=== PATIENT | male | born 1975 | race Caucasian/White ===

== ENCOUNTER 2018-05-01 02:22 | Emergency (ER) | payer MEDICARE, OTHER ==
[2018-05-01 03:06] VITALS: TEMP 97.4
--- NOTE | 2018-05-01 03:29 | ED ---
General Adult HPI - General Chief complaint: Skin/Abscess/Foreign Body Stated complaint: foot pain Time Seen by Provider: 05/01/18 03:09 Source: patient, family, RN notes reviewed, old records reviewed Mode of arrival: ambulatory Limitations: no limitations - History of Present Illness Initial comments: 43-year-old male presents with rash to hands and lower extremities. He has history of scabies. States he has tried permethrin on multiple occasions but rash is not improved. He has left his apartment because he believes it is contaminated. Denies fever or chills. Denies cough dyspnea. Denies abdominal pain. Rash is extremely pruritic. - Related Data Previous Rx's Medication Instructions Recorded Ivermectin 15 mg PO ONCE #5 tablet 05/01/18 Permethrin 5% Cream [Elimite] 1 applic TOPICAL ONCE #1 tube 05/01/18 Allergies Allergy/AdvReac Type Severity Reaction Status Date / Time No Known Allergies Allergy Verified 05/01/18 03:06 Review of Systems ROS Statement: Those systems with pertinent positive or pertinent negative responses have been documented in the HPI. ROS Other: All systems not noted in ROS Statement are negative. Past Medical History Past Medical History: Asthma Additional Past Medical History / Comment(s): scabies History of Any Multi-Drug Resistant Organisms: MRSA Date of last positivie culture/infection: buttocks MDRO Source:: 2017 Past Surgical History: Bariatric Surgery Past Psychological History: Bipolar Smoking Status: Current every day smoker Past Alcohol Use History: None Reported Past Drug Use History: None Reported General Exam Limitations: no limitations General appearance: alert, in no apparent distress Head exam: Present: atraumatic, normocephalic Eye exam: Present: normal appearance, PERRL, EOMI ENT exam: Present: normal exam Neck exam: Present: normal inspection. Absent: tenderness, meningismus Respiratory exam: Present: normal lung sounds bilaterally. Absent: respiratory distress, wheezes Cardiovascular Exam: Present: regular rate, normal rhythm GI/Abdominal exam: Present: soft. Absent: distended, tenderness, guarding Extremities exam: Absent: normal capillary refill, pedal edema Back exam: Present: other (Kyphosis) Neurological exam: Present: alert, oriented X3. Absent: motor sensory deficit Psychiatric exam: Present: normal affect, normal mood Skin exam: Present: warm, dry, normal color, rash, erythema, other ( Erythematous pruritic lesions on the lower extremities consistent with scabies) Course Vital Signs 05/01/18 03:00 Temperature 97.4 F L Pulse Rate 84 Respiratory 20 Rate Blood Pressure 123/86 O2 Sat by Pulse 97 Oximetry Medical Decision Making - Medical Decision Making 42-year-old male presenting with rash, consistent with scabies. He has history scabies. He has tried permethrin in the past however his symptoms have only minimally improved. I will prescribe permethrin as well as ivermectin. Dose was confirmed with the pharmacist. Disposition Clinical Impression: Scabies Disposition: HOME SELF-CARE Condition: Good Instructions: Scabies (ED) Prescriptions: Ivermectin 15 mg PO ONCE #5 tablet Permethrin 5% Cream [Elimite] 1 applic TOPICAL ONCE #1 tube Is patient prescribed a controlled substance at d/c from ED?: No Referrals: None,Stated [Primary Care Provider] - 1-2 days Rhoda Stewart MD [STAFF PHYSICIAN] - 1-2 days Time of Disposition: 03:29
[2018-05-01 03:53] VITALS: BP 122/90; PULSE 76; RESP 17
== END 2018-05-01 03:53 | disposition home or self-care (01) ==
LOC: EC 02:22
DX: B86 Scabies (principal); F17.200 Nicotine dependence, unspecified, uncomplicated; Z98.84 Bariatric surgery status
CPT/HCPCS: 99283

== ENCOUNTER 2020-07-17 21:18 | Inpatient (IN) | payer MEDICARE, MEDICAID ==
[2020-07-17] MEDS ORDERED: AZITHROMYCIN 500 MG TAB PO STA (22:04)
[2020-07-17] MEDS ORDERED: cefTRIAXone 1,000 MG VIAL (IM USE) IM STA (22:04)
[2020-07-17 22:28] LABS: Appearance,Urine Clear (Clear); Bilirubin,Urine Negative (Negative); Blood,Urine Small (Negative); Color,Urine Yellow; Glucose,Urine (UA) Negative (Negative); Ketones,Urine Negative (Negative); Leukocyte Esterase,Urine Negative (Negative); Nitrite,Urine Negative (Negative); PH, Urine 6.5 (5.0-8.0); Protein,Urine Trace (Negative); RBC,Urine 5 /hpf (0-5); Specific Gravity,Urine 1.023 (1.001-1.035); Urobilinogen,Urine <2.0 mg/dL (<2.0); WBC,Urine 4 /hpf (0-5)
[2020-07-17 22:35] LABS: Amphetamine Screen,Urine Not Detected (NotDetected); Barbiturate Screen,Urine Not Detected (NotDetected); Benzodiazepines Screen,Urine Not Detected (NotDetected); Cocaine Screen,Urine Detected (NotDetected); Methadone Screen, Urine Not Detected (NotDetected); Opiate Screen,Urine Not Detected (NotDetected); Oxycodone Screen, Urine Not Detected (NotDetected); Phencyclidine Screen,Urine Not Detected (NotDetected); Tricyclic Antidepressant,Urine Not Detected (NotDetected); Urn Cannabinoid Scrn Detected (NotDetected)
--- NOTE | 2020-07-17 23:01 | ED ---
Psych HPI - General Chief Complaint: Psychiatric Symptoms Stated Complaint: Mental health Time Seen by Provider: 07/17/20 21:32 Source: patient Mode of arrival: ambulatory - History of Present Illness Initial Comments: 45 year-old male patient presents to the emergency department for suicidal ideation. Patient has a plan to cut his wrists and arms with an exacto knife. Patient states that he recently lost his place to live. States that for the last couple of weeks he has been increasingly depressed. States he does take depression medication, but not every day. Denies alcohol or drug use. Denies any current physical symptoms or concerns. Patient denies any recent rash, fever, chills, cough, shortness of breath, chest pain, abdominal pain, nausea, vomiting, diarrhea, constipation, back pain, numbness, tingling, dizziness, weakness, hematuria, dysuria, urinary urgency, urinary frequency, headache, visual changes, or any other complaints. - Related Data Previous Rx's Medication Instructions Recorded Ivermectin 15 mg PO ONCE #5 tablet 05/01/18 Permethrin 5% Cream [Elimite] 1 applic TOPICAL ONCE #1 tube 05/01/18 Allergies Allergy/AdvReac Type Severity Reaction Status Date / Time No Known Allergies Allergy Verified 07/17/20 21:29 Review of Systems ROS Statement: Those systems with pertinent positive or pertinent negative responses have been documented in the HPI. ROS Other: All systems not noted in ROS Statement are negative. Past Medical History Past Medical History: Asthma, Thyroid Disorder Additional Past Medical History / Comment(s): scabies History of Any Multi-Drug Resistant Organisms: MRSA Date of last positivie culture/infection: buttocks MDRO Source:: 2016 Past Surgical History: Bariatric Surgery Past Psychological History: Bipolar, Depression Smoking Status: Current every day smoker Past Alcohol Use History: Daily Past Drug Use History: None Reported General Exam Limitations: no limitations General appearance: alert, in no apparent distress Respiratory exam: Present: normal lung sounds bilaterally. Absent: respiratory distress, wheezes, rales, rhonchi, stridor Cardiovascular Exam: Present: regular rate, normal rhythm, normal heart sounds. Absent: systolic murmur, diastolic murmur, rubs, gallop, clicks Neurological exam: Present: alert, oriented X3, CN II-XII intact Psychiatric exam: Present: depressed, suicidal ideation. Absent: homicidal ideation Skin exam: Present: warm, dry, intact, normal color. Absent: rash Course Vital Signs 07/17/20 21:26 Temperature 98 F Pulse Rate 72 Respiratory 18 Rate Blood Pressure 133/93 O2 Sat by Pulse 98 Oximetry Medical Decision Making - Medical Decision Making 45 year-old male patient presented to the emergency department today for evaluation of suicidal ideation. Patient was cleared medically and evaluated by emergency psychiatric services. He did meet inpatient criteria be transferred to the mental health unit. My attending physician is Dr. Daniel. - Lab Data Lab Results 07/17/20 07/17/20 07/17/20 Range/Units 21:52 21:52 22:01 Urine Color Yellow Urine Appearance Clear (Clear) Urine pH 6.5 (5.0-8.0) Ur Specific [place] 1.023 (1.001-1.035) Urine Protein Trace H (Negative) Urine Glucose (UA) Negative (Negative) Urine Ketones Negative (Negative) Urine Blood Small H (Negative) Urine Nitrite Negative (Negative) Urine Bilirubin Negative (Negative) Urine Urobilinogen <2.0 (<2.0) mg/dL Ur Leukocyte Esterase Negative (Negative) Urine RBC 5 (0-5) /hpf Urine WBC 4 (0-5) /hpf Urine Opiates Screen Not Detected (NotDetected) Ur Oxycodone Screen Not Detected (NotDetected) Urine Methadone Screen Not Detected (NotDetected) Ur Propoxyphene Screen Not Detected (NotDetected) Ur Barbiturates Screen Not Detected (NotDetected) U Tricyclic Antidepress Not Detected (NotDetected) Ur Phencyclidine Scrn Not Detected (NotDetected) Ur Amphetamines Screen Not Detected (NotDetected) U Methamphetamines Scrn Not Detected (NotDetected) U Benzodiazepines Scrn Not Detected (NotDetected) Urine Cocaine Screen Detected H (NotDetected) U Marijuana (THC) Screen Detected H (NotDetected) Coronavirus (PCR) Not Detected (Not Detectd) Disposition Clinical Impression: Suicidal ideation Disposition: TRANSFER TO PSYCH HOSP/UNIT Condition: Serious - Out of Hospital Transfer - Req. Specs Out of Hospital Transfer - Requested Specifics: Psychiatric Non-ICU ([facility])
[2020-07-17] MEDS ORDERED: MAG HYDROX/AL HYDROX/SIMETH 30 ML CUP PO PRN (23:35)
[2020-07-17] MEDS ORDERED: MAGNESIUM HYDROXIDE 2,400 MG/10 ML CUP PO PRN (23:35)
[2020-07-17] MEDS ORDERED: HALOPERIDOL LACTATE 5 MG/ML 1 ML VIAL IM PRN (23:47)
[2020-07-18] MEDS: GABAPENTIN 400 MG CAP PO SCH ×2 (00:24→08:25)
[2020-07-18] MEDS: clonazePAM 0.5 MG TAB PO SCH ×3 (00:24→20:45)
[2020-07-18] MEDS: NICOTINE 21MG/24HR PATCH TRANSDERM SCH ×2 (00:27→08:25)
[2020-07-18 00:41] VITALS: RESP 17
[2020-07-18] MEDS ORDERED: PERMETHRIN 5% CREAM 60 GM TUBE TOPICAL ONE (02:58)
[2020-07-18] MEDS ORDERED: IVERMECTIN 3 MG TABLET PO STA (02:58)
--- NOTE | 2020-07-18 03:02 | P.CONS ---
History of Present Illness - Reason for Consult Consult date: 07/18/20 - History of Present Illness Patient is a 45-year-old homeless male who presented to the emergency room with complaints of depression and suicidal ideation. The patient had reported recently losing his home and worsening social situation which is causing him to be depressed. Patient was admitted to the mental health unit where he was seen and evaluated. He reports chronic issues with multiple fungal and parasitic inf ections. He notes that he was seen by roller printing supervisor who had prescribed him ivermectin and permethrin lotion which he had not picked up from the pharmacy or taken. Denied additional complaints. Denied chest pain, shortness of fever, chills, nausea, vomiting, abdominal pain, diarrhea. Review of Systems Pertinent positives and negatives as discussed in HPI, a complete review of systems was performed and all other systems are negative. Past Medical History Past Medical History: Asthma, Thyroid Disorder Additional Past Medical History / Comment(s): scabies History of Any Multi-Drug Resistant Organisms: MRSA Year Discovered:: buttocks MDRO Source:: 2016 Past Surgical History: Bariatric Surgery Past Psychological History: Bipolar, Depression Smoking Status: Current every day smoker Past Alcohol Use History: Daily Past Drug Use History: None Reported Medications and Allergies Home Medications Medication Instructions Recorded Confirmed Type Ivermectin 15 mg PO ONCE #5 tablet 05/01/18 Rx Permethrin 5% Cream [Elimite] 1 applic TOPICAL ONCE #1 tube 05/01/18 Rx Allergies Allergy/AdvReac Type Severity Reaction Status Date / Time No Known Allergies Allergy Verified 07/17/20 21:29 Physical Exam Vitals: Vital Signs Temp Pulse Pulse Resp BP BP Pulse Ox 07/18/20 00:39 97.7 F 68 17 118/71 98 07/17/20 21:26 98 F 72 18 133/93 98 Intake and Output 07/17/20 07/17/20 07/18/20 14:59 22:59 06:59 Other: Weight 89.811 kg General: non toxic, no distress, appears at stated age, overweight Derm: Diffuse excoriations with small 1-2 cm ulcers on bilateral upper extremities and shins Head: atraumatic, normocephalic, symmetric Eyes: EOMI, no lid lag, anicteric sclera, pupils equal round reactive to light ENT: Nose and ears atraumatic, no thrush, no pharyngeal erythema Neck: No thyromegaly, no cervical lymphadenopathy, trachea midline, supple Mouth: no lip lesion, mucus membranes moist Cardiovascular: S1S2 reg, no murmur, positive posterior tibial pulse bilateral, no edema, capillary refill less than 2 seconds Lungs: CTA bilateral, no rhonchi, no rales , no accessory muscle use Abdominal: soft, nontender to palpation, no guarding, no appreciable organomegaly, normal bowel sounds Ext: no gross muscle atrophy, muscle strength 5 out of 5 in all 4 extremities grossly, no contractures, Neuro: CN II-XI grossly intact, light touch intact all 4 extremities, finger to nose within normal limits, Psych: Alert, oriented, appropriate affect Results Labs: Abnormal Lab Results - Last 24 Hours (Table) 07/17/20 07/17/20 Range/Units 21:52 21:52 Urine Protein Trace H (Negative) Urine Blood Small H (Negative) Urine Cocaine Screen Detected H (NotDetected) U Marijuana (THC) Screen Detected H (NotDetected) Assessment and Plan Plan: Diffuse excoriations with ulcers and pruritus -Suspicious for scabies and tinea -Continue with ivermectin and permethrin cream Polysubstance abuse -Patient advised on the importance of cessation Thank you for allowing us to participate in the care of this patient. We will follow peripherally. Do not hesitate to contact us with questions. Someone can be reached from the [facility] hospitalist group at all hours of the day at [phone].
--- NOTE | 2020-07-18 12:23 | P.HP ---
Psychiatric H&P - . H&P Date: 07/18/20 History & Physical: Allergies Allergy/AdvReac Type Severity Reaction Status Date / Time No Known Allergies Allergy Verified 07/17/20 21:29 Vital Signs Temp 97.7 F 07/18/20 00:39 Pulse 68 07/18/20 00:39 Resp 17 07/18/20 00:39 BP 118/71 07/18/20 00:39 Pulse Ox 98 07/18/20 00:39 Intake & Output 07/17/20 07/18/20 07/18/20 18:59 06:59 18:59 Weight 89.811 kg Laboratory Last Values Urine Color Yellow 07/17/20 21:52 Urine Appearance Clear (Clear) 07/17/20 21:52 Urine pH 6.5 (5.0-8.0) 07/17/20 21:52 Ur Specific [place] 1.023 (1.001-1.035) 07/17/20 21:52 Urine Protein Trace (Negative) H 07/17/20 21:52 Urine Glucose (UA) Negative (Negative) 07/17/20 21:52 Urine Ketones Negative (Negative) 07/17/20 21:52 Urine Blood Small (Negative) H 07/17/20 21:52 Urine Nitrite Negative (Negative) 07/17/20 21:52 Urine Bilirubin Negative (Negative) 07/17/20 21:52 Urine Urobilinogen <2.0 mg/dL (<2.0) 07/17/20 21:52 Ur Leukocyte Esterase Negative (Negative) 07/17/20 21:52 Urine RBC 5 /hpf (0-5) 07/17/20 21:52 Urine WBC 4 /hpf (0-5) 07/17/20 21:52 Urine Opiates Screen Not Detected (NotDetected) 07/17/20 21:52 Ur Oxycodone Screen Not Detected (NotDetected) 07/17/20 21:52 Urine Methadone Screen Not Detected (NotDetected) 07/17/20 21:52 Ur Propoxyphene Screen Not Detected (NotDetected) 07/17/20 21:52 Ur Barbiturates Screen Not Detected (NotDetected) 07/17/20 21:52 U Tricyclic Antidepress Not Detected (NotDetected) 07/17/20 21:52 Ur Phencyclidine Scrn Not Detected (NotDetected) 07/17/20 21:52 Ur Amphetamines Screen Not Detected (NotDetected) 07/17/20 21:52 U Methamphetamines Scrn Not Detected (NotDetected) 07/17/20 21:52 U Benzodiazepines Scrn Not Detected (NotDetected) 07/17/20 21:52 Urine Cocaine Screen Detected (NotDetected) H 07/17/20 21:52 U Marijuana (THC) Screen Detected (NotDetected) H 07/17/20 21:52 Coronavirus (PCR) Not Detected (Not Detectd) 07/17/20 22:01 07/18/20 12:15 IDENTIFYING DATA: Patient is a 45-year-old male HPI: Patient presented to the hospital yesterday and complained in the ER of having suicidal thoughts with a plan to cut his wrist and arm with an X-[employer]o knife. Patient apparently claimed that he had recently lost his place to live and has been having increase in his depression in the ER. His UDS was positive for cocaine and marijuana. Patient was found to have scabies and was treated and placed in a solitary room on the mental health unit. Patient was seen today by filing writer in his room and appeared to be fairly lethargic. He was fairly uncooperative with filing writer and answered minimal questions. He appeared to have irritability and mild agitation during the interview. He mentioned to filing writer several times "stop with the questions". He claims that he was feeling depressed and got up from his bed with a blanket around him and picked up his empty tray and placed it back down. Patient appeared to be talking to the vasquez at one point during the conversation. He states that he was at "[facility]" and claims that he came to the hospital because he was "still feeling hungry". He demanded that filing writer and leave the room. Patient denies any suicidal or homicidal ideations intent or plan. At this time patient denies any auditory or visual hallucinations. Patient admits to using alcohol occasionally and cigarettes. Patient's UDS was positive for cocaine and marijuana however he denies using this. PAST PSYCHIATRIC HISTORY: Patient has a history of polysubstance abuse and depression. Patient was previously on Klonopin, Neurontin and Vistaril before coming into the hospital. Patient denies any previous psychiatric hospitalizations. Patient was unable to provide adequate psychiatric history. PMH: Asthma and thyroid disorder ALLERGIES: as per EMR CHEMICAL DEPENDENCY HISTORY: as per HPI FAMILY PSYCHIATRIC/SUBSTANCE USE HISTORY: Unable to obtain this history SOCIAL HISTORY: Unable to obtain this history MENTAL STATUS EXAM: General Appearance: Patient appears to be then, confused at times and talking to the wall, stated age is lethargic, irritable with filing writer. Patient appears to have poor hygiene and grooming. Behavior: Patient is seated with a blanket wrapped around him and appears to be confused and irritable. Speech: Patient's speech is mumbling. Mood/Affect: Patient reports their mood is depressed, affect is congruent Suicidality/Homicidality: Patient denies having any homicidal ideation intent or plan. Denies any suicidal ideations intent or plan Perceptions: Patient denies any visual hallucinations and denies any auditory hallucinations Though content/process: Poverty of content, answers minimal questions. Bizarre. Memory and concentration: AOX1-2, does not know the location or the date. Poor concentration. Judgment and insight: poor STRENGTHS/WEAKNESSES: strength is that patient is resilient. Weakness is that patient has poor judgment and is impulsive INTELLECT: average IMPRESSIONS: Psychosis unspecified, rule out secondary to substance abuse History of depression Cocaine abuse Cannabis use disorder Nicotine dependence PLAN: -Patient is admitted under voluntary status to MHU for stabilization of psychiatric symptoms and safety. Patient has not signed medication consent and is placed in patient's chart. -Medications : Will decrease Klonopin to 0.25 mg twice a day as this may be contributing to patient's confusion and lethargy. Decreased Neurontin to 600 mg 3 times a day as this may be also contributing to patient's confusion. Started Prolixin 2 mg daily at bedtime for psychosis. Continue Vistaril 50 mg twice a day when necessary for anxiety. -Haldol PRN for agitation/aggression -Patient to remain in isolation due to scabies until cleared by medicine. -Patient was counselled on substance abuse. -Patient was informed of the risks, benefits and side effects of the medication and patient verbally consented to taking the medications. Patient signed med consent form and was placed in chart. -Internal Medicine consult to perform medical evaluation and physical. -NRT - nicotine patch -SW on board for discharge planning. Encourage patient to participate in groups to work on coping skills.
[2020-07-18] MEDS: hydrOXYzine pamoate 25 MG CAP PO PRN (12:54)
[2020-07-18] MEDS ORDERED: ZIPRASIDONE 20 MG VIAL IM STA (13:45)
[2020-07-18] MEDS ORDERED: cloNIDine HCL 0.1 MG TAB PO PRN (13:46)
[2020-07-18] MEDS ORDERED: diphenhydrAMINE 50 MG/ML 1 ML VIAL IM STA (13:51)
[2020-07-18] MEDS ORDERED: diphenhydrAMINE 50 MG/ML 1 ML VIAL ONE (14:14)
[2020-07-18] MEDS ORDERED: TRIAMCINOLONE ACET 0.1% OINTMENT 15 GM TUBE TOPICAL PRN (14:16)
[2020-07-18] MEDS: GABAPENTIN 300 MG CAP PO SCH ×3 (16:01→20:44)
[2020-07-18 17:14] LABS: Basophils % (A) 0 %; Eosinophils # (A) 0.2 k/uL (0-0.7); Eosinophils % (A) 4 %; HCT 44.7 % (39.0-53.0); HGB 15.3 gm/dL (13.0-17.5); Lymphocytes # (A) 1.4 k/uL (1.0-4.8); Lymphocytes % (A) 32 %; MCH 31.3 pg (25.0-35.0); MCHC 34.1 g/dL (31.0-37.0); MCV 91.7 fL (80.0-100.0); Mean Platelet Volume 7.5; Monocytes # (A) 0.4 k/uL (0-1.0); Monocytes % (A) 8 %; Neutrophils # (A) 2.5 k/uL (1.3-7.7); Neutrophils % (A) 55 %; Platelet Count 170 k/uL (150-450); RBC 4.88 m/uL (4.30-5.90); WBC 4.5 k/uL (3.8-10.6)
[2020-07-18 17:23] LABS: ALT 45 U/L (4-49); AST 31 U/L (17-59); African American GFR (CKD) >90 (>60 ml/min/1.73 sqM); Albumin 4.1 g/dL (3.5-5.0); Alkaline Phosphatase 58 U/L (38-126); Anion Gap 7 mmol/L; Bilirubin, Delta 0.1 mg/dL (0.0-0.2); Bilirubin,Unconjugated 0.4 mg/dL (0.0-1.1); Blood Urea Nitrogen 19 mg/dL (9-20); Calcium 9.8 mg/dL (8.4-10.2); Carbon Dioxide 27 mmol/L (22-30); Chloride 104 mmol/L (98-107); Glucose 90 mg/dL (74-99); Non-African American GFR(CKD) >90 (>60 ml/min/1.73 sqM); Potassium 4.4 mmol/L (3.5-5.1); Sodium 138 mmol/L (137-145); Total Bilirubin 0.5 mg/dL (0.2-1.3); Total Protein 6.9 g/dL (6.3-8.2)
[2020-07-18 17:33] LABS: Cholesterol 180 mg/dL (<200); HDL Cholesterol 61 mg/dL (40-60); LDL Cholesterol,Calculated 87 mg/dL (0-99); Triglycerides 160 mg/dL (<150)
[2020-07-19] MEDS: LEVOTHYROXINE 75 MCG TAB PO SCH (07:59)
[2020-07-19] MEDS: GABAPENTIN 300 MG CAP PO SCH ×3 (08:04→21:26)
[2020-07-19] MEDS: NICOTINE 21MG/24HR PATCH TRANSDERM SCH (08:04)
[2020-07-19] MEDS: clonazePAM 0.5 MG TAB PO SCH ×2 (08:04→21:26)
--- NOTE | 2020-07-19 12:54 | P.PN ---
Progress Note - Text Progress Note Date: 07/19/20 Interval history: Patient was seen wandering the hallways and was directable and agreeable to s peak with headline writer. Patient appeared to be less confused today and less bizarre however continues to demonstrate poor insight and judgment. He was fairly fixated on his medications and requested to have his Klonopin increased to 1 mg 3 times a day. He states that he is having ongoing anxiety and is feeling depressed today. He claims that he signed a "72 hour notice" and asked several questions about when he can be discharged. He was not responding to internal stimuli today. He is not endorsing any delusions or paranoia. He states that he slept poorly last night and does not remember much of the day. He was agreeable to start Seroquel tonight and he states that the Prolixin has caused him side effects in the past and does not want to take it any longer. At this time patient denies any suicidal or homicidal ideations intent or plan. Denies any Auditory or visual hallucinations. Mental status exam: General Appearance: Patient appears to be a thin, stated age is alert, directable, and less confused today. Continues to have poor hygiene and grooming Behavior: No agitated behavior. Patient is calm and directable. Appears to be anxious at times. Speech: Patient's speech is fluent and nonpressured. Mood/Affect: Mood is "a bit better", affect is congruent and anxious. Suicidality/Homicidality: Patient denies having any suicidal or homicidal ideation intent or plan. Perceptions: Patient denies any auditory or visual hallucinations. Though content/process: There is no evidence of any delusional thought content and thought process is linear and goal-directed. More logical today. Focused on his medications. Memory and concentration: AOX3, grossly intact for the purposes of this session Judgment and insight: Poor, improving mildly Assessment/Plan: Continue with current diagnosis. Patient continues to meet criteria for inpatient psychiatric admission for symptom stabilization and safety.Patient will be maintained on current psychotropic medication regimen, wi th the exception of increasing his Klonopin to 0.5 mg twice a day for anxiety as this was his home dose. Patient was also agreeable to start Seroquel tonight 50 mg daily at bedtime for mood stabilization/psychosis/insomnia. Discontinued Prolixin due to previous side effects. Monitor for medication compliance and for any psychotropic medication side effects. Will continue to monitor ongoing response to treatment. Encouraged participation in milieu.
[2020-07-19] MEDS: NICOTINE GUM (POLACRILEX) 2 MG GUM BUCCAL PRN (15:47)
[2020-07-19] MEDS: IBUPROFEN 600 MG TAB PO PRN (18:32)
[2020-07-19] MEDS: QUEtiapine 50 MG TAB PO SCH (21:26)
[2020-07-19] MEDS: ACETAMINOPHEN TAB 325 MG TAB PO PRN (21:26)
[2020-07-20] MEDS: clonazePAM 0.5 MG TAB PO SCH ×2 (08:33→21:04)
[2020-07-20] MEDS: NICOTINE 21MG/24HR PATCH TRANSDERM SCH (08:33)
[2020-07-20] MEDS: IBUPROFEN 600 MG TAB PO PRN (08:33)
[2020-07-20] MEDS: GABAPENTIN 300 MG CAP PO SCH ×3 (08:33→21:04)
[2020-07-20] MEDS: LEVOTHYROXINE 75 MCG TAB PO SCH (08:34)
[2020-07-20] MEDS: NICOTINE GUM (POLACRILEX) 2 MG GUM BUCCAL PRN ×2 (08:35→16:42)
--- NOTE | 2020-07-20 11:28 | P.PN ---
Progress Note - Text Progress Note Date: 07/20/20 Interval History: Patient was seen attending group and was directable and agreeable to speak with proposal manager writer in the office. The patient reports that he is currently in pain and has been asking for medications. He states that he has hurt his hand and is prescribed narcotic medications for pain management. Upon review of the patient's MAPS, the patient has been prescribed opiates from multiple providers around the state but is currently not on any prescribed regimen for pain. He is med-seeking today asking for amphetamines, opiates, and benzodiazepines. In regards to his mood, the patient states that he has been depressed because he is homeless. He is currently not reporting any suicidal or homicidal ideation, intention, and/or plan. He is denying any auditory or visualizations. He denies any paranoia or other delusions. The patient states he did file a 72 hour notice stating that he wishes to be discharged. Mental Status Exam: General Appearance: Patient appears to be stated age is alert, directable, and cooperative. Behavior: Patient is calmly seated without any agitated behavior. Elevated psychomotor activity. Intense staring. Speech: Patient's speech is fluent and nonpressured. Mood/Affect: Mood is improving mildly, affect is bizarre. Suicidality/Homicidality: Patient denies having any suicidal or homicidal ideation intent or plan. Perceptions: Patient denies any visual hallucinations and denies any auditory hallucinations Though content/process: Very medication seeking. Focus on controlled substances. Memory and concentration: AOX3, grossly intact for the purposes of this session Judgment and insight: Very poor Assessment: Psychosis, unspecified likely secondary to substance abuse Cocaine abuse Cannabis use disorder Nicotine dependence Opiate use disorder Plan: -Patient continues to meet criteria for inpatient psychiatric admission for symptom stabilizatioand safety. Patient has signed [adult voluntary form and] medication consent and was placed in patient's chart. patient filed a 72 hour notice for discharge. -Medications: We will continue his currently prescribed regimen of Klonopin 0.5 mg by mouth twice a day, gabapentin 600 mg by mouth 3 times a day, and Seroquel 50 mg at bedtime. This provider discussed with him that he will not be prescribing any controlled substances upon discharge aside from a 2 week prescription of gabapentin. -When neessary Ativan and Haldolfor agitation/aggression. -NRT - [nicotine patch] -SW on board for diharge planning. Encouraged the patient to participate in milieu. []
[2020-07-20] MEDS: ACETAMINOPHEN TAB 325 MG TAB PO PRN (14:21)
[2020-07-20] MEDS: hydrOXYzine pamoate 25 MG CAP PO PRN ×2 (14:22→21:04)
[2020-07-20] MEDS: QUEtiapine 50 MG TAB PO SCH (21:04)
[2020-07-21 04:27] VITALS: TEMP 97.1
[2020-07-21] MEDS: LEVOTHYROXINE 75 MCG TAB PO SCH (06:18)
[2020-07-21] MEDS: NICOTINE 21MG/24HR PATCH TRANSDERM SCH (08:31)
[2020-07-21] MEDS: clonazePAM 0.5 MG TAB PO SCH (08:33)
[2020-07-21] MEDS: GABAPENTIN 300 MG CAP PO SCH (08:33)
[2020-07-21] MEDS: NICOTINE GUM (POLACRILEX) 2 MG GUM BUCCAL PRN (08:35)
[2020-07-21 08:37] VITALS: BP 140/81; PULSE 95
--- NOTE | 2020-07-21 11:52 | P.DS ---
Providers Date of admission: 07/17/20 23:31 Expected date of discharge: 07/21/20 Attending physician: Eulalio Berrios MD Consults: 07/17/20 23:35 Consult Physician Routine Consulting Provider: Neal Pak Consult Reason/Comments: h&p and medical management Do you want consulting provider notified?: Yes Primary care physician: Stated None - Discharge Diagnosis(es) (1) Acute psychosis Status: Acute (2) Polysubstance dependence including opioid type drug, episodic abuse Status: Acute (3) Cocaine abuse Status: Acute (4) Nicotine dependence Status: Acute Hospital Course: Admission HPI: Initial psychiatric evaluation was completed by Dr. Monson on 07/18/2020 who wrote: "Patient presented to the hospital yesterday and complained in the ER of having suicidal thoughts with a plan to cut his wrist and arm with an X-Acto knife. Patient apparently claimed that he had recently lost his place to live and has been having increase in his depression in the ER. His UDS was positive for cocaine and marijuana. Patient was found to have scabies and was treated and placed in a solitary room on the mental health unit. Patient was seen today by consumer loan underwriter in his room and appeared to be fairly lethargic. He was fairly uncooperative with consumer loan underwriter and answered minimal questions. He appeared to have irritability and mild agitation during the interview. He mentioned to consumer loan underwriter several times "stop with the questions". He claims that he was feeling depressed and got up from his bed with a blanket around him and picked up his empty tray and placed it back down. Patient appeared to be talking to the vasquez at one point during the conversation. He states that he was at "[facility]" and claims that he came to the hospital because he was "still feeling hungry". He demanded that consumer loan underwriter and leave the room. Patient denies any suicidal or homicidal ideations intent or plan. At this time patient denies any auditory or visual hallucinations. Patient admits to using alcohol occasionally and cigarettes. Patient's UDS was positive for cocaine and marijuana however he denies using this." Hospital course: Upon admission to the unit patient was initially is ending as intoxicated, confused, and lethargic. Patient was however directable and agreeable to commence treatment. Patient got along well with other patients on the unit and followed unit p rotocol. Patient was compliant with the medications and denied any side effects throughout hospital course. Patient was started on Prolixin and Klonopin. Patient did not tolerate the Prolixin and preferred Seroquel and the medication was switched to Seroquel at bedtime. The patient's confusion subsided during the course of the hospitalization. The patient was often medication seeking was asking this provider and other staff members for controlled substances such as narcotic medications were stimulants. Review of the patient's MAPS was concerning for doctor shopping. Furthermore, the patient did test positive for cocaine during this admission. Despite this, the patient was adherent with his Seroquel and gabapentin. Review of the patient's maps revealed that he was prescribed gabapentin and that he is currently not prescribed any narcotic medications but is receiving stimulants and benzodiazepines from his outpatient psychiatrist. As the patient displayed no concerns for depression and was not reporting any suicidal or homicidal ideation, intention, and/or plan, the patient subsequently had no therapeutic benefit from a prolonged inpatient psychiatric admission. The patient did sign an AMA form on 07/19/2020 requesting discharge. On the day of discharge, the patient is not reporting any suicidal or homicidal ideation, intention, and/or plan. He is not reporting any auditory or visual hallucinations. He is not reporting any paranoia or delusions. The patient remains fixated that he wants to lower his score on MAPS when this provider was trying to provide psychoeducation on polysubstance abuse. The patient was offered inpatient rehabilitation, but does not believe that this is necessary and declined. The patient was counseled at length to avoid the use of illicit substances on top of his prescribed outpatient medications of Klonopin and Ritalin. This provider also contacted Dr [place] over the MAPS system to inform him that this patient tested positive for substances that places him at increased risk for events that are detrimental to health and possibly lethal. Mental status exam: General Appearance: Patient appears to be stated age is alert, pleasant, and cooperative. Patient is in no acute distress and has fair hygiene and grooming . Behavior: Patient is calmly seated without any agitated behavior. Speech: Patient's speech is fluent and nonpressured. Mood/Affect: Patient reports their mood is "doing fine", affect is congruent and euthymic. Suicidality/Homicidality: Patient denies having any suicidal or homicidal ideation intent or plan. Perceptions: Patient denies any auditory or visual hallucinations. Though content/process: There is no evidence of any delusional thought content and thought process is linear and goal-directed. Memory and concentration: AOX3, grossly intact for the purposes of this session. Can spell "WORLD" backwards correctly. Judgment and insight: Improved with guarded prognosis Impression: Acute Psychosis Cocaine abuse Cannabis use disorder Nicotine dependence Opiate use disorder Plan: -Continue with discharge today as patient has improved and stabilized psychiatrically and is not currently an imminent threat to himself and/or others. Patient will remain at chronically elevated risk for harm to self and/or others due to his polysubstance abuse. -Continue medications: Gabapentin 600 mg three times daily for neuropathic pain and off-label anti anxiety medication - 14 day supply due to MAPS review. Seroquel 50 mg at bedtime for 30 days. Synthroid 37.5 mcg for hypothyroidism. -Patient was counseled on the need for medication compliance and appropriate follow-up at mental health and also primary care for medical issues. Patient verbalized understanding and agreed. -Social work to arrange for and conduct family meeting to ensure safety upon discharge and answer any questions/concerns. Social work also to arrange for patients follow up appointments with [facility] for psychiatric care along with follow up with primary care provider. -Patient counseled on abstaining from recreational drugs and marijuana and alcohol. Was informed/educated on the adverse effects on their physical and mental health. Patient verbally agreed and understood. Patient was offered substance abuse treatment however declined at this time. -Patient was instructed to return to the hospital or seek immediate medical care if their psychiatric or medical symptoms do worsen or reoccur. -Psychoeducation and supportive therapy provided to patient. Risks and benefits of pharmacological treatment versus the risks and benefits of nontreatment weight and discussed. Informed consent discussion held. Common side effects of psychotropics discussed such as, but not limited to headache, GI disturbance, sexual dysfunction, movement disorders, sedation, and orthostatic hypotension. Life threatening and blackbox warnings of prescribed medications also discussed. Potential risks of operating a vehicle or heavy machinery discussed with patient at length. Advised on importance of compliance and a reliable and responsible manner. Patient advised to review FDA consumer labeling of all medications prior to taking. Patient verbalized understanding of potential risks, and agrees with current treatment plan. Patient advised to medically contact physician/emergency personnel if any acute changes in condition occur. Vital Signs Temp 97.1 F L 07/21/20 04:26 Pulse 95 07/21/20 08:36 Resp 17 07/21/20 04:26 BP 140/81 07/21/20 08:36 Pulse Ox 95 07/21/20 04:26 Laboratory Results WBC 4.5 k/uL (3.8-10.6) 07/18/20 16:50 RBC 4.88 m/uL (4.30-5.90) 07/18/20 16:50 Hgb 15.3 gm/dL (13.0-17.5) 07/18/20 16:50 Hct 44.7 % (39.0-53.0) 07/18/20 16:50 MCV 91.7 fL (80.0-100.0) 07/18/20 16:50 MCH 31.3 pg (25.0-35.0) 07/18/20 16:50 MCHC 34.1 g/dL (31.0-37.0) 07/18/20 16:50 RDW 13.0 % (11.5-15.5) 07/18/20 16:50 Plt Count 170 k/uL (150-450) 07/18/20 16:50 MPV 7.5 07/18/20 16:50 Neutrophils % 55 % 07/18/20 16:50 Lymphocytes % 32 % 07/18/20 16:50 Monocytes % 8 % 07/18/20 16:50 Eosinophils % 4 % 07/18/20 16:50 Basophils % 0 % 07/18/20 16:50 Neutrophils # 2.5 k/uL (1.3-7.7) 07/18/20 16:50 Lymphocytes # 1.4 k/uL (1.0-4.8) 07/18/20 16:50 Monocytes # 0.4 k/uL (0-1.0) 07/18/20 16:50 Eosinophils # 0.2 k/uL (0-0.7) 07/18/20 16:50 Basophils # 0.0 k/uL (0-0.2) 07/18/20 16:50 Sodium 138 mmol/L (137-145) 07/18/20 16:50 Potassium 4.4 mmol/L (3.5-5.1) 07/18/20 16:50 Chloride 104 mmol/L (98-107) 07/18/20 16:50 Carbon Dioxide 27 mmol/L (22-30) 07/18/20 16:50 Anion Gap 7 mmol/L 07/18/20 16:50 BUN 19 mg/dL (9-20) 07/18/20 16:50 Creatinine 0.94 mg/dL (0.66-1.25) 07/18/20 16:50 Est GFR (CKD-EPI)AfAm >90 (>60 ml/min/1.73 sqM) 07/18/20 16:50 Est GFR (CKD-EPI)NonAf >90 (>60 ml/min/1.73 sqM) 07/18/20 16:50 Glucose 90 mg/dL (74-99) 07/18/20 16:[address] Glu mg/dL 94 07/18/20 16:50 Hemoglobin A1c 4.9 % (4.0-6.0) 07/18/20 16:50 Calcium 9.8 mg/dL (8.4-10.2) 07/18/20 16:50 Total Bilirubin 0.5 mg/dL (0.2-1.3) 07/18/20 16:50 Conjugated Bilirubin 0.0 mg/dL (0.0-0.3) 07/18/20 16:50 Unconjugated Bilirubin 0.4 mg/dL (0.0-1.1) 07/18/20 16:50 Delta Bilirubin 0.1 mg/dL (0.0-0.2) 07/18/20 16:50 AST 31 U/L (17-59) 07/18/20 16:50 ALT 45 U/L (4-49) 07/18/20 16:50 Alkaline Phosphatase 58 U/L (38-126) 07/18/20 16:50 Total Protein 6.9 g/dL (6.3-8.2) 07/18/20 16:50 Albumin 4.1 g/dL (3.5-5.0) 07/18/20 16:50 Triglycerides 160 mg/dL (<150) H 07/18/20 16:50 Cholesterol 180 mg/dL (<200) 07/18/20 16:50 LDL Cholesterol, Calc 87 mg/dL (0-99) 07/18/20 16:50 HDL Cholesterol 61 mg/dL (40-60) H 07/18/20 16:50 TSH 12.400 mIU/L (0.465-4.680) H 07/18/20 16:50 Free T4 0.89 ng/dL (0.78-2.19) 07/21/20 06:15 Total T3 93.0 ng/dL (60.0-180.0) 07/21/20 06:15 Urine Color Yellow 07/17/20 21:52 Urine Appearance Clear (Clear) 07/17/20 21:52 Urine pH 6.5 (5.0-8.0) 07/17/20 21:52 Ur Specific [place] 1.023 (1.001-1.035) 07/17/20 21:52 Urine Protein Trace (Negative) H 07/17/20 21:52 Urine Glucose (UA) Negative (Negative) 07/17/20 21:52 Urine Ketones Negative (Negative) 07/17/20 21:52 Urine Blood Small (Negative) H 07/17/20 21:52 Urine Nitrite Negative (Negative) 07/17/20 21:52 Urine Bilirubin Negative (Negative) 07/17/20 21:52 Urine Urobilinogen <2.0 mg/dL (<2.0) 07/17/20 21:52 Ur Leukocyte Esterase Negative (Negative) 07/17/20 21:52 Urine RBC 5 /hpf (0-5) 07/17/20 21:52 Urine WBC 4 /hpf (0-5) 07/17/20 21:52 Urine Opiates Screen Not Detected (NotDetected) 07/17/20 21:52 Ur Oxycodone Screen Not Detected (NotDetected) 07/17/20 21:52 Urine Methadone Screen Not Detected (NotDetected) 07/17/20 21:52 Ur Propoxyphene Screen Not Detected (NotDetected) 07/17/20 21:52 Ur Barbiturates Screen Not Detected (NotDetected) 07/17/20 21:52 U Tricyclic Antidepress Not Detected (NotDetected) 07/17/20 21:52 Ur Phencyclidine Scrn Not Detected (NotDetected) 07/17/20 21:52 Ur Amphetamines Screen Not Detected (NotDetected) 07/17/20 21:52 U Methamphetamines Scrn Not Detected (NotDetected) 07/17/20 21:52 U Benzodiazepines Scrn Not Detected (NotDetected) 07/17/20 21:52 Urine Cocaine Screen Detected (NotDetected) H 07/17/20 21:52 U Marijuana (THC) Screen Detected (NotDetected) H 07/17/20 21:52 Coronavirus (PCR) Not Detected (Not Detectd) 07/17/20 22:01 Allergies Allergy/AdvReac Type Severity Reaction Status Date / Time No Known Allergies Allergy Verified 07/17/20 21:29 Patient Condition at Discharge: Stable Plan - Discharge Summary Discharge Rx Participant: No New Discharge Prescriptions: New Nicotine 21Mg/24Hr Patch [Habitrol] 1 patch TRANSDERM DAILY 30 Days patch Gabapentin [Neurontin] 600 mg PO TID 14 Days cap QUEtiapine [SEROquel] 50 mg PO HS 30 Days tab Levothyroxine Sodium [Synthroid] 37.5 mcg PO DAILY@0630 30 Days tab Continue Ivermectin 15 mg PO ONCE #5 tablet Permethrin 5% Cream [Elimite] 1 applic TOPICAL ONCE #1 tube Discharge Medication List Ivermectin 15 mg PO ONCE #5 tablet 05/01/18 [Rx] Permethrin 5% Cream [Elimite] 1 applic TOPICAL ONCE #1 tube 05/01/18 [Rx] Gabapentin [Neurontin] 600 mg PO TID 14 Days cap 07/21/20 [Rx] Levothyroxine Sodium [Synthroid] 37.5 mcg PO DAILY@0630 30 Days tab 07/21/20 [Rx] Nicotine 21Mg/24Hr Patch [Habitrol] 1 patch TRANSDERM DAILY 30 Days patch 07/21/20 [Rx] QUEtiapine [SEROquel] 50 mg PO HS 30 Days tab 07/21/20 [Rx] Follow up Appointment(s)/Referral(s): [facility] [Outside] - 07/23/20 9:30 am (w/Lito in person) [facility] [NON-STAFF] - 1 Week Patient Instructions/Handouts: Depression (DC) Activity/Diet/Wound Care/Special Instructions: Activity and diet as tolerated. Avoid the use of street drugs and alcohol. Take all medications as prescribed. When you are in need of refills on your medications please contact your medical provider and/or outpatient psychiatrist to have this done. Please go to scheduled outpatient appointment for aftercare treatment. If symptoms return or become worse, call the crisis line at and/or go to the nearest emergency room for evaluation. Discharge Disposition: HOME SELF-CARE
[2020-07-21 12:31] LABS: C. trachomatis,PCR Negative (Neg,Equiv); Chlamydia trachomatis Source Urine; N. gonorrhoeae,PCR Negative (Neg,Equiv); Neisseria Source Urine
== END 2020-07-21 10:55 | disposition home or self-care (01) | DRG 885 ==
LOC: EC 21:18 → 3MHU 23:31
PROVIDERS: ADMIT Psychiatry & Neurology Psychiatry; ATTEND Psychiatry & Neurology Psychiatry
DX: F23 Brief psychotic disorder (principal); F19.20 Other psychoactive substance dependence, uncomplicated; R45.851 Suicidal ideations; G47.00 Insomnia, unspecified; J45.909 Unspecified asthma, uncomplicated; F41.9 Anxiety disorder, unspecified; F32.9 Major depressive disorder, single episode, unspecified; F12.10 Cannabis abuse, uncomplicated; E03.9 Hypothyroidism, unspecified; B86 Scabies; F11.10 Opioid abuse, uncomplicated; F14.10 Cocaine abuse, uncomplicated; Z59.0 Homelessness; Z79.899 Other long term (current) drug therapy; Z20.822 Contact with and (suspected) exposure to COVID-19; Z98.84 Bariatric surgery status; Z86.14 Personal history of Methicillin resistant Staphylococcus aureus infection; Z71.51 Drug abuse counseling and surveillance of drug abuser; Z79.890 Hormone replacement therapy
CPT/HCPCS: 80053; 80061; 80306; 81001; 82075; 82248; 83036; 84439; 84443; 84480; 85025; 87491; 87591; 87635; 96372; 99285

== ENCOUNTER 2020-09-20 20:55 | Inpatient (IN) | payer MEDICARE, MEDICAID ==
--- NOTE | 2020-09-20 21:23 | ED ---
General Adult HPI - General Chief complaint: Psychiatric Symptoms Stated complaint: Suicidal Time Seen by Provider: 09/20/20 20:57 Source: patient, police Limitations: no limitations - History of Present Illness Initial comments: Dictation was produced using [employer] dictation software. please excuse any grammatical, word or spelling errors. This patient was cared for during a federal and state declared state of emergency secondary to Covid 19 Chief Complaint: 45-year-old male brought into the emergency department for suicidal attempt chronic back pain. History of Present Illness: 45-year-old male presents to the emergency department for suicidal attempt. Allegedly took 5 Flexeril at approximately 10 AM in attempt to harm himself. Patient is a poor historian. He is sleepy at bedside. According to law enforcement he is well-known. He calls multiple times with suicidal ideation. Patient is uncooperative with me. He was however cooperative with nurse. Nurse reports that patient states that he is secondary to his chronic back. The is why he took the medications in an attempt to harm himself. The ROS documented in this emergency department record has been reviewed and confirmed by me. Those systems with pertinent positive or negative responses have been documented in the HPI. All other systems are other negative and/or noncontributory. PHYSICAL EXAM: General Impression: not in acute distress, resting comfortably HEENT: Normocephalic atraumatic, extra-ocular movements intact, pupils equal and reactive to light bilaterally, mucous membranes moist. Cardiovascular: Heart regular rate and rhythm Chest: Able to complete full sentences, no retractions, no tachypnea Abdomen: abdomen soft, non-tender, non-distended, no organomegaly Motor: no focal deficits noted Neurological:no focal motor or sensory deficits noted Psych: Uncooperative ED course: 45-year-old male presents with suicidal attempt. Allegedly took 5 Flexeril at approximately 10 AM. Patient's well-appearing at bedside. He is uncooperative with the however is moving all extremities show no signs of distress. Vital signs upon arrival are within acceptable limits. Laboratory evaluation obtained showing no acute processes. Patient medically cleared for EPS evaluation. Patient is signed out to Dr. John. EKG interpretation: Ventricular rate 96, normal sinus rhythm, ID interval 130, QRS 80, QTC 424. No ID prolongation, no QTC prolongation, no ST or T-wave changes noted. Overall, this EKG is unremarkable Patient was admitted to inpatient psychiatry. - Related Data Previous Rx's Medication Instructions Recorded Ivermectin 15 mg PO ONCE #5 tablet 05/01/18 Permethrin 5% Cream [Elimite] 1 applic TOPICAL ONCE #1 tube 05/01/18 Gabapentin [Neurontin] 600 mg PO TID 14 Days cap 07/21/20 Levothyroxine Sodium [Synthroid] 37.5 mcg PO DAILY@0630 30 Days tab 07/21/20 Nicotine 21Mg/24Hr Patch [Habitrol] 1 patch TRANSDERM DAILY 30 Days 07/21/20 patch QUEtiapine [SEROquel] 50 mg PO HS 30 Days tab 07/21/20 Allergies Allergy/AdvReac Type Severity Reaction Status Date / Time No Known Allergies Allergy Verified 07/17/20 21:29 Review of Systems ROS Statement: Those systems with pertinent positive or pertinent negative responses have been documented in the HPI. ROS Other: All systems not noted in ROS Statement are negative. Past Medical History Past Medical History: Asthma, Hyperlipidemia, Thyroid Disorder Additional Past Medical History / Comment(s): scabies History of Any Multi-Drug Resistant Organisms: MRSA Date of last positivie culture/infection: buttocks MDRO Source:: 2017 Past Surgical History: Bariatric Surgery Past Psychological History: Bipolar, Depression Smoking Status: Current some day smoker Past Alcohol Use History: Daily Past Drug Use History: None Reported General Exam Limitations: no limitations Course Vital Signs 09/20/20 20:56 Temperature 98.3 F Pulse Rate 105 H Respiratory 12 Rate Blood Pressure 129/81 O2 Sat by Pulse 96 Oximetry Medical Decision Making - Lab Data Result diagrams: 09/20/20 21:46 09/20/20 21:46 Lab Results 09/20/20 09/20/20 09/20/20 Range/Units 21:46 21:46 21:46 WBC 8.3 (3.8-10.6) k/uL RBC 5.05 (4.30-5.90) m/uL Hgb 15.2 (13.0-17.5) gm/dL Hct 46.0 (39.0-53.0) % MCV 91.0 (80.0-100.0) fL MCH 30.1 (25.0-35.0) pg MCHC 33.1 (31.0-37.0) g/dL RDW 13.1 (11.5-15.5) % Plt Count 211 (150-450) k/uL MPV 7.5 Neutrophils % 76 % Lymphocytes % 17 % Monocytes % 5 % Eosinophils % 1 % Basophils % 0 % Neutrophils # 6.3 (1.3-7.7) k/uL Lymphocytes # 1.4 (1.0-4.8) k/uL Monocytes # 0.4 (0-1.0) k/uL Eosinophils # 0.1 (0-0.7) k/uL Basophils # 0.0 (0-0.2) k/uL PT 11.0 (9.0-12.0) sec INR 1.0 (<1.2) APTT 22.3 (22.0-30.0) sec Sodium (137-145) mmol/L Potassium (3.5-5.1) mmol/L Chloride (98-107) mmol/L Carbon Dioxide (22-30) mmol/L Anion Gap mmol/L BUN (9-20) mg/dL Creatinine (0.66-1.25) mg/dL Est GFR (CKD-EPI)AfAm (>60 ml/min/1.73 sqM) Est GFR (CKD-EPI)NonAf (>60 ml/min/1.73 sqM) Glucose (74-99) mg/dL Estimated Ave Glu mg/dL Hemoglobin A1c (4.0-6.0) % Calcium (8.4-10.2) mg/dL Total Bilirubin (0.2-1.3) mg/dL GGT (15-73) U/L AST (17-59) U/L ALT (4-49) U/L Alkaline Phosphatase (38-126) U/L Total Protein (6.3-8.2) g/dL Albumin (3.5-5.0) g/dL TSH (0.465-4.680) mIU/L Free T4 (0.78-2.19) ng/dL Salicylates mg/dL Urine Opiates Screen Not Detected (NotDetected) Ur Oxycodone Screen Not Detected (NotDetected) Urine Methadone Screen Detected H (NotDetected) Ur Propoxyphene Screen Not Detected (NotDetected) Acetaminophen ug/mL Ur Barbiturates Screen Not Detected (NotDetected) U Tricyclic Antidepress Not Detected (NotDetected) Ur Phencyclidine Scrn Not Detected (NotDetected) Ur Amphetamines Screen Not Detected (NotDetected) U Methamphetamines Scrn Not Detected (NotDetected) U Benzodiazepines Scrn Not Detected (NotDetected) Urine Cocaine Screen Not Detected (NotDetected) U Marijuana (THC) Screen Not Detected (NotDetected) Serum Alcohol mg/dL Influenza Type A (PCR) (Not Detectd) Influenza Type B (PCR) (Not Detectd) RSV (PCR) (Not Detectd) SARS-CoV-2 (PCR) (Not Detectd) 09/20/20 09/20/20 09/20/20 Range/Units 21:46 21:46 21:46 WBC (3.8-10.6) k/uL RBC (4.30-5.90) m/uL Hgb (13.0-17.5) gm/dL Hct (39.0-53.0) % MCV (80.0-100.0) fL MCH (25.0-35.0) pg MCHC (31.0-37.0) g/dL RDW (11.5-15.5) % Plt Count (150-450) k/uL MPV Neutrophils % % Lymphocytes % % Monocytes % % Eosinophils % % Basophils % % Neutrophils # (1.3-7.7) k/uL Lymphocytes # (1.0-4.8) k/uL Monocytes # (0-1.0) k/uL Eosinophils # (0-0.7) k/uL Basophils # (0-0.2) k/uL PT (9.0-12.0) sec INR (<1.2) APTT (22.0-30.0) sec Sodium 140 (137-145) mmol/L Potassium 4.0 (3.5-5.1) mmol/L Chloride 109 H (98-107) mmol/L Carbon Dioxide 20 L (22-30) mmol/L Anion Gap 11 mmol/L BUN 11 (9-20) mg/dL Creatinine 0.82 (0.66-1.25) mg/dL Est GFR (CKD-EPI)AfAm >90 (>60 ml/min/1.73 sqM) Est GFR (CKD-EPI)NonAf >90 (>60 ml/min/1.73 sqM) Glucose 144 H (74-99) mg/dL Estimated Ave Glu mg/dL 94 Hemoglobin A1c 4.9 (4.0-6.0) % Calcium 9.7 (8.4-10.2) mg/dL Total Bilirubin 0.3 (0.2-1.3) mg/dL GGT (15-73) U/L AST 103 H (17-59) U/L ALT 112 H (4-49) U/L Alkaline Phosphatase 65 (38-126) U/L Total Protein 7.0 (6.3-8.2) g/dL Albumin 4.2 (3.5-5.0) g/dL TSH (0.465-4.680) mIU/L Free T4 (0.78-2.19) ng/dL Salicylates <1.0 mg/dL Urine Opiates Screen (NotDetected) Ur Oxycodone Screen (NotDetected) Urine Methadone Screen (NotDetected) Ur Propoxyphene Screen (NotDetected) Acetaminophen <10.0 ug/mL Ur Barbiturates Screen (NotDetected) U Tricyclic Antidepress (NotDetected) Ur Phencyclidine Scrn (NotDetected) Ur Amphetamines Screen (NotDetected) U Methamphetamines Scrn (NotDetected) U Benzodiazepines Scrn (NotDetected) Urine Cocaine Screen (NotDetected) U Marijuana (THC) Screen (NotDetected) Serum Alcohol 69 mg/dL Influenza Type A (PCR) Not Detected (Not Detectd) Influenza Type B (PCR) Not Detected (Not Detectd) RSV (PCR) Not Detected (Not Detectd) SARS-CoV-2 (PCR) Not Detected (Not Detectd) 09/20/20 09/20/20 Range/Units 21:46 21:46 WBC (3.8-10.6) k/uL RBC (4.30-5.90) m/uL Hgb (13.0-17.5) gm/dL Hct (39.0-53.0) % MCV (80.0-100.0) fL MCH (25.0-35.0) pg MCHC (31.0-37.0) g/dL RDW (11.5-15.5) % Plt Count (150-450) k/uL MPV Neutrophils % % Lymphocytes % % Monocytes % % Eosinophils % % Basophils % % Neutrophils # (1.3-7.7) k/uL Lymphocytes # (1.0-4.8) k/uL Monocytes # (0-1.0) k/uL Eosinophils # (0-0.7) k/uL Basophils # (0-0.2) k/uL PT (9.0-12.0) sec INR (<1.2) APTT (22.0-30.0) sec Sodium (137-145) mmol/L Potassium (3.5-5.1) mmol/L Chloride (98-107) mmol/L Carbon Dioxide (22-30) mmol/L Anion Gap mmol/L BUN (9-20) mg/dL Creatinine (0.66-1.25) mg/dL Est GFR (CKD-EPI)AfAm (>60 ml/min/1.73 sqM) Est GFR (CKD-EPI)NonAf (>60 ml/min/1.73 sqM) Glucose (74-99) mg/dL Estimated Ave Glu mg/dL Hemoglobin A1c (4.0-6.0) % Calcium (8.4-10.2) mg/dL Total Bilirubin (0.2-1.3) mg/dL GGT 62 (15-73) U/L AST (17-59) U/L ALT (4-49) U/L Alkaline Phosphatase (38-126) U/L Total Protein (6.3-8.2) g/dL Albumin (3.5-5.0) g/dL TSH 1.340 (0.465-4.680) mIU/L Free T4 1.12 (0.78-2.19) ng/dL Salicylates mg/dL Urine Opiates Screen (NotDetected) Ur Oxycodone Screen (NotDetected) Urine Methadone Screen (NotDetected) Ur Propoxyphene Screen (NotDetected) Acetaminophen ug/mL Ur Barbiturates Screen (NotDetected) U Tricyclic Antidepress (NotDetected) Ur Phencyclidine Scrn (NotDetected) Ur Amphetamines Screen (NotDetected) U Methamphetamines Scrn (NotDetected) U Benzodiazepines Scrn (NotDetected) Urine Cocaine Screen (NotDetected) U Marijuana (THC) Screen (NotDetected) Serum Alcohol mg/dL Influenza Type A (PCR) (Not Detectd) Influenza Type B (PCR) (Not Detectd) RSV (PCR) (Not Detectd) SARS-CoV-2 (PCR) (Not Detectd) Disposition Clinical Impression: Suicidal overdose Disposition: ADMITTED IP TO THIS [facility] Condition: Fair Decision Time: 07:10
[2020-09-20 22:26] LABS: ALT 112 U/L (4-49); AST 103 U/L (17-59); Acetaminophen <10.0 ug/mL; African American GFR (CKD) >90 (>60 ml/min/1.73 sqM); Albumin 4.2 g/dL (3.5-5.0); Alcohol 69 mg/dL; Alkaline Phosphatase 65 U/L (38-126); Anion Gap 11 mmol/L; Blood Urea Nitrogen 11 mg/dL (9-20); Calcium 9.7 mg/dL (8.4-10.2); Carbon Dioxide 20 mmol/L (22-30); Chloride 109 mmol/L (98-107); Glucose 144 mg/dL (74-99); Non-African American GFR(CKD) >90 (>60 ml/min/1.73 sqM); Salicylate <1.0 mg/dL; Sodium 140 mmol/L (137-145); Total Bilirubin 0.3 mg/dL (0.2-1.3)
[2020-09-20 22:29] LABS: Partial Thromboplastin Time 22.3 sec (22.0-30.0)
[2020-09-20 22:33] LABS: Basophils % (A) 0 %; Eosinophils # (A) 0.1 k/uL (0-0.7); Eosinophils % (A) 1 %; HGB 15.2 gm/dL (13.0-17.5); Lymphocytes # (A) 1.4 k/uL (1.0-4.8); Lymphocytes % (A) 17 %; MCH 30.1 pg (25.0-35.0); MCHC 33.1 g/dL (31.0-37.0); Mean Platelet Volume 7.5; Monocytes # (A) 0.4 k/uL (0-1.0); Monocytes % (A) 5 %; Neutrophils # (A) 6.3 k/uL (1.3-7.7); Neutrophils % (A) 76 %; Platelet Count 211 k/uL (150-450); RBC 5.05 m/uL (4.30-5.90); RDW 13.1 % (11.5-15.5); WBC 8.3 k/uL (3.8-10.6)
[2020-09-20 23:14] LABS: Amphetamine Screen,Urine Not Detected (NotDetected); Barbiturate Screen,Urine Not Detected (NotDetected); Benzodiazepines Screen,Urine Not Detected (NotDetected); Cocaine Screen,Urine Not Detected (NotDetected); Methadone Screen, Urine Detected (NotDetected); Opiate Screen,Urine Not Detected (NotDetected); Oxycodone Screen, Urine Not Detected (NotDetected); Phencyclidine Screen,Urine Not Detected (NotDetected); Tricyclic Antidepressant,Urine Not Detected (NotDetected); Urn Cannabinoid Scrn Not Detected (NotDetected)
[2020-09-21] MEDS ORDERED: MAG HYDROX/AL HYDROX/SIMETH 30 ML CUP PO PRN (00:33)
[2020-09-21] MEDS ORDERED: MAGNESIUM HYDROXIDE 2,400 MG/10 ML CUP PO PRN (00:33)
[2020-09-21] MEDS: LORazepam 1 MG TAB PO PRN ×2 (01:20→09:02)
[2020-09-21] MEDS: ACETAMINOPHEN TAB 325 MG TAB PO PRN (01:44)
[2020-09-21] MEDS: NICOTINE 14MG/24HR PATCH TRANSDERM SCH (01:44)
[2020-09-21] MEDS ORDERED: ZIPRASIDONE 20 MG VIAL IM PRN (02:48)
[2020-09-21] MEDS ORDERED: GABAPENTIN 300 MG CAP PO STA (11:15)
[2020-09-21] MEDS ORDERED: OLANZapine 5 MG TAB PO ONE ×2 (11:20→11:40)
[2020-09-21] MEDS ORDERED: GABAPENTIN 300 MG CAP ONE (11:29)
[2020-09-21] MEDS ORDERED: OLANZapine 5 MG TAB ONE ×2 (11:30→11:58)
[2020-09-21] MEDS ORDERED: OLANZapine 10 MG TAB PO ONE (11:38)
[2020-09-21 12:12] LABS: T4, Free (Free Thyroxine) 1.12 ng/dL (0.78-2.19)
[2020-09-21] MEDS ORDERED: OLANZapine 5 MG TAB PO SCH (16:00)
--- NOTE | 2020-09-21 16:49 | HP ---
DATE OF SERVICE: 09/21/2020 HISTORY AND PHYSICAL IDENTIFYING DATA: The patient is a 45-year-old male. He identifies himself as homeless. He presented to the ED for evaluation. CHIEF COMPLAINT: The patient came to the ED indicating that he had made a suicide attempt by taking 5 Flexeril tablets and then making an effort to harm himself. Apparently he had been making frequent calls to law enforcement making statements about suicide. HISTORY OF PRESENTING ILLNESS: The patient has long-term psychiatric issues. He had a recent psychiatric admission to this facility on 07/17/2020. At that time he was identified as having psychosis, history of depression and polysubstance dependence. According to information that staff provided that was also confirmed by the patient, he has had multiple admissions to this facility over an extended period of time, though that seemed to come to an and about 10 years ago. He indicated that he has not had a psychiatric admission until his recent admission in June. For that admission, he indicated that he had thoughts of cutting himself with a knife. He said that a precipitating factor included that he had lost his place to live, he was having increasing depression. He acknowledged substance use issues, including cocaine and marijuana. He was showing indications of responding to hallucinations. During the course of that hospitalization in June it was noted that the patient was very focused on various medications that he thought he needed for his conditions, which included things such as pain. He would frequently be asking about opioid pain medications. He would also seek out benzodiazepine as well as stimulant medications, believing he needed one or the other or a combination of these medications. A MAPS screen during that admission indicated that he had been receiving prescriptions for opioid medications from multiple prescribers. He was discharged 07/21/2020 with discharge medications including Neurontin 600 mg 3 times a day, Seroquel 50 mg at bedtime, Synthroid 37.5 mg a day as his primary medications. He was set up to be seen at [facility] on July 23. The patient indicates that he did make an initial appointment though did not make any follow-up appointments. When I talked to the patient, he asked about being continued on Klonopin, stating that he had a prescription in the pharmacy with 2 refills for Klonopin, said the dose that he was taking was 0.5 mg twice a day. There were no medical records indicating that he in fact was prescribed Klonopin. He says that he has been seeing a psychiatrist in the [facility], namely Dr. Caldwell. In addition, he says he sees a PCP in [place] but was not able to provide the name of that doctor. He noted that he had a history of seizure disorder and said his last seizure was 2 weeks ago. He was not able to describe what he experienced as a seizure. He was not able to give a clear picture of being diagnosed with seizure disorder nor that he had been on any anticonvulsant medications. In addition to other issues, he says he has been seen through a methadone clinic in the [place] area and was going to get information for a contact so we could coordinate with them. His urine drug screen on admission was positive for methadone. The patient was unable to clearly provide information about his current use of methadone. The patient reports that he has been sleeping poorly, he has loss of motivation, energy and interest. He seems to indicate that he does have some hallucinations, though he was vague on specifics. He complains about pain in his lower back. Also there are other migrating pains. He says he has been very distressed over being homeless. The patient was unclear about how consistent he has been with his psychotropic medications. He is admitted for further evaluation. SUBSTANCE USE HISTORY: Patient has been diagnosed with cocaine and marijuana use as abusive substances. He has also had apparent misuse of prescription opioid pain medications and possibly benzodiazepines. PAST MEDICAL HISTORY: Patient reports low back pain, for which he has been prescribed Neurontin. He also says he has a sexually transmitted condition. History of bariatric surgery. FAMILY AND SOCIAL HISTORY: The patient states that the only family member he identifies is his mother, who is in the general area. He did not give any more information about that. He notes that he dropped out of school in the 11th grade. He had been working in the past doing ishBowling. He could not identify any person in the general area who he could say would be a support person for him. MENTAL STATUS EXAMINATION: Patient was restless. He gave fair to poor eye contact. He answered questions with brief responses. He tended to make tangential comments. He was very focused on whether he would get certain medications, including some opioid pain medications and Klonopin. He was quite restless and had an intense anxious affect. His mood was depressed. He was significantly distressed. He appears to show some response to internal stimuli. He voiced no thoughts of harm at the time that I interviewed him. It was noteworthy that at the end of the interview he was saying he was distressed and wanted to be discharged, mainly because he would not be able to get the medications he thought he should be on. He walked out of the office. He seemed to be somewhat upset, though not to any significant degree. About 5 different times he walked back into the office and asked various questions. Some of the time he asked questions about the medications he was hoping to get. He also asked questions about alternative medications. His thoughts were somewhat disorganized. He almost seemed to be in a confused or bewildered state. He did not clearly present himself in any angry or demanding way, though he acknowledged feeling distressed that he might be off medications that he thinks are important for him. PHYSICAL EXAMINATION: As per medical consultation. ASSESSMENT: This 45-year-old male is diagnosed with polysubstance dependence, including opioids, benzodiazepines and marijuana. In addition, he presents with mood disorder, though also appears to have significant issues of underlying thought disorder as well. He is homeless and has essentially no social support network. Strengths include that he seemed to be at least somewhat open to substituting alternative medications to the habit-forming medicines he has been on. Weakness includes lack of social supports. DIAGNOSIS: 1. Polysubstance dependence, opioids, benzodiazepines and marijuana. 2. Mood disorder with psychotic symptoms. 3. Rule out underlying thought disorder, possibly schizoaffective disorder. 4. Chronic pain. 5. Thyroid disorder. 6. Asthma. 7. History of bariatric surgery. RECOMMENDATIONS: Patient will be admitted for comprehensive medical, psychiatric and psychosocial evaluation. We will engage the patient in individual and group therapeutic activities. I had an extensive discussion with the patient regarding appropriate treatment issues relating to problems he has had with mood disorder, chronic pain and issues he may be dealing with in regard to acute withdrawal from habit-forming medications. We discussed the time course and benefits for his getting withdrawn off of habit- forming medications and directing his treatment towards appropriate treatment for mood and thought disorder issues. At this point I will start the patient on Zyprexa 10 mg 3 times a day. The aim of Zyprexa is to help reduce physiologic stress response relating to acute substance withdrawal relating to potential withdrawal of opioids and benzodiazepines along with possibly marijuana as well. At this point I would also prescribe Zyprexa for indications of significant thought disorder issues, given the struggle the patient has had with substance dependence, mood and thought disorder and social disconnection. I would look to be assertive with his antipsychotic to see if we see some early signs of benefit. It is noted that during the interview, the patient was quite reluctant to consider the idea of our making any contact with his mother or his medical practitioners in the [place] area, namely his PCP in [place] or his psychiatrist, Dr. Caldwell. On the other hand, he said he would consider our making a contact with his mother if that would help the process of his assessment and possibly in support of discharge planning. We will focus on stabilization and discharge planning. CECY / CLINT: [id number] / MTDD
[2020-09-21] MEDS: GABAPENTIN 300 MG CAP PO SCH ×2 (20:42→20:45)
[2020-09-21] MEDS: OLANZapine 10 MG TAB PO SCH ×2 (20:43→20:45)
[2020-09-21 21:19] LABS: Hemoglobin A1C 4.9 % (4.0-6.0)
[2020-09-22 07:41] LABS: Basophils # (A) 0.1 k/uL (0-0.2); Basophils % (A) 1 %; Eosinophils # (A) 0.2 k/uL (0-0.7); Eosinophils % (A) 3 %; HGB 16.4 gm/dL (13.0-17.5); Lymphocytes # (A) 1.8 k/uL (1.0-4.8); Lymphocytes % (A) 26 %; MCH 30.9 pg (25.0-35.0); MCHC 34.2 g/dL (31.0-37.0); MCV 90.4 fL (80.0-100.0); Mean Platelet Volume 7.7; Monocytes # (A) 0.4 k/uL (0-1.0); Monocytes % (A) 5 %; Neutrophils # (A) 4.5 k/uL (1.3-7.7); Neutrophils % (A) 65 %; Platelet Count 180 k/uL (150-450); RBC 5.31 m/uL (4.30-5.90); RDW 12.6 % (11.5-15.5)
[2020-09-22 08:02] LABS: ALT 79 U/L (4-49); AST 49 U/L (17-59); African American GFR (CKD) >90 (>60 ml/min/1.73 sqM); Albumin 3.5 g/dL (3.5-5.0); Alkaline Phosphatase 57 U/L (38-126); Anion Gap 5 mmol/L; Blood Urea Nitrogen 13 mg/dL (9-20); Calcium 9.5 mg/dL (8.4-10.2); Carbon Dioxide 25 mmol/L (22-30); Chloride 109 mmol/L (98-107); Cholesterol 165 mg/dL (<200); Glucose 107 mg/dL (74-99); HDL Cholesterol 72 mg/dL (40-60); LDL Cholesterol,Calculated 65 mg/dL (0-99); Non-African American GFR(CKD) >90 (>60 ml/min/1.73 sqM); Potassium 4.5 mmol/L (3.5-5.1); Sodium 139 mmol/L (137-145); Total Bilirubin 0.4 mg/dL (0.2-1.3); Total Protein 6.3 g/dL (6.3-8.2); Triglycerides 138 mg/dL (<150)
[2020-09-22] MEDS: NICOTINE 14MG/24HR PATCH TRANSDERM SCH (08:10)
[2020-09-22] MEDS: GABAPENTIN 300 MG CAP PO SCH ×3 (08:13→20:10)
[2020-09-22] MEDS: OLANZapine 10 MG TAB PO SCH ×2 (08:13→20:10)
[2020-09-22] MEDS: ACETAMINOPHEN TAB 325 MG TAB PO PRN (12:34)
[2020-09-22] MEDS ORDERED: IBUPROFEN 600 MG TAB PO PRN (12:45)
[2020-09-22] MEDS: LIDOCAINE 5% PATCH TOPICAL SCH (12:58)
--- NOTE | 2020-09-22 13:00 | P.HPMEDMHU ---
<Jose Antonio Pritchett - Last Filed: 09/22/20 12:43> History of Present Illness H&P Date: 09/22/20 History of presenting illness: Patient is a 45-year-old male with a past medical history of scoliosis with chronic back pain, neuropathy, and nicotine dependence, anxiety, and depression. Patient currently admitted to inpatient mental health unit under psychiatry team after reported suicidal attempt. Patient reportedly intentionally ingested 5 Flexeril tablets in a reported attempt to end his life. Patient reports increased depression and wanting to end his life because of his chronic pain he has in his back. Patient reports only complaint at this time is back pain currently rating 8/10. Patient denies headache, lightheadedness, dizziness, changes in vision or hearing, chest pain or palpitations, shortness of breath, cough or congestion, abdominal pain, changes in appetite, nausea, vomiting, or any other complaints at this time. Review of systems: Pertinent positives and negatives as discussed in HPI, a complete review of sys tems was performed and all other systems are negative. Physical exam: General: non toxic, no distress, appears at stated age Derm: warm, dry Head: atraumatic, normocephalic, symmetric Eyes: EOMI, no lid lag, anicteric sclera Mouth: no lip lesion, mucus membranes moist Cardiovascular: S1S2 reg, no murmur, positive posterior tibial pulse bilateral, Lungs: CTA bilateral, no rhonchi, no rales , no accessory muscle use Abdominal: soft, nontender to palpation, no guarding, no appreciable organomegaly Ext: no gross muscle atrophy, no edema, no contractures Neuro: CN II-XI grossly intact, no focal neuro deficits Psych: Alert, oriented, appropriate affect Plan of care: Chronic back pain -Symptomatic care and pain management. -Tylenol and Motrin as needed for mild to moderate pain. -Lidocaine patch -Heat packs as needed. Neuropathy -Continue daily medication management with Neurontin 600 mg 3 times daily. Hypothyroidism Continue daily medication management with levothyroxine 37.5 g each morning. Nicotine dependence -Nicotine patch 14 mg every 24 hours. Anxiety and depression with suicidal attempt via intentional overdose of Flexeril -Suicide precautions -Management per primary psychiatric team. Thank you for allowing us to participate in the care of this pleasant patient. Do not hesitate to contact us with questions. We will follow on an as-needed basis. RN to notify provider of further needs. Someone can be reached from the [facility] hospitalist group all hours of the day at [phone] or via [employer]. Past Medical History Past Medical History: Asthma, Hyperlipidemia, Thyroid Disorder Additional Past Medical History / Comment(s): scabies History of Any Multi-Drug Resistant Organisms: MRSA Date of last positivie culture/infection: buttocks MDRO Source:: 2016 Past Surgical History: Bariatric Surgery Past Psychological History: Bipolar, Depression Smoking Status: Current some day smoker Past Alcohol Use History: Daily Past Drug Use History: None Reported Medications and Allergies Home Medications Medication Instructions Recorded Confirmed Type Ivermectin 15 mg PO ONCE #5 tablet 05/01/18 Rx Permethrin 5% Cream [Elimite] 1 applic TOPICAL ONCE #1 tube 05/01/18 Rx Gabapentin [Neurontin] 600 mg PO TID 14 Days cap 07/21/20 Rx Levothyroxine Sodium [Synthroid] 37.5 mcg PO DAILY@0630 30 Days tab 07/21/20 Rx Nicotine 21Mg/24Hr Patch [Habitrol] 1 patch TRANSDERM DAILY 30 Days 07/21/20 Rx patch QUEtiapine [SEROquel] 50 mg PO HS 30 Days tab 07/21/20 Rx Allergies Allergy/AdvReac Type Severity Reaction Status Date / Time No Known Allergies Allergy Verified 07/17/20 21:29 Physical Exam Vitals: Vital Signs Temp 09/22/20 08:14 97.0 F L Cranial Nerve Examination - Cranial Nerves Cranial Nerve II- Optic: Intact Cranial Nerve III- Oculomotor: Intact Cranial Nerve IV- Trochlear: Intact Cranial Nerve V- Trigeminal: Intact Cranial Nerve - Abducens: Intact Cranial Nerve VII- Facial: Intact Cranial Nerve VIII- Auditory: Intact Cranial Nerve IX- Glossopharyngeal: Intact Cranial Nerve X- Vagus: Intact Cranial Nerve XI- Accessory: Intact Cranial Nerve XII- Hypoglossal: Intact Results CBC & Chem 7: 09/22/20 06:51 09/22/20 06:51 Labs: Abnormal Lab Results - Last 24 Hours (Table) 09/22/20 Range/Units 06:51 Chloride 109 H (98-107) mmol/L Glucose 107 H (74-99) mg/dL ALT 79 H (4-49) U/L HDL Cholesterol 72 H (40-60) mg/dL <Cassia Owens - Last Filed: 09/22/20 19:21> History of Present Illness I discussed the care with Jose Antonio Pritchett NP and reviewed the findings and plan as documented in the note above. I did not physically speak with or examine the patient on this date. Physical Exam Osteopathic Statement: *. No significant issues noted on an osteopathic structural exam other than those noted in the History and Physical/Consult. Vitals: Vital Signs Temp Pulse Resp BP 09/22/20 14:30 61 18 132/75 09/22/20 08:14 97.0 F L Intake and Output 09/22/20 09/22/20 09/22/20 06:59 14:59 22:59 Other: Weight 81.647 kg Results CBC & Chem 7: 09/22/20 06:51 09/22/20 06:51 Labs: Abnormal Lab Results - Last 24 Hours (Table) 09/22/20 Range/Units 06:51 Chloride 109 H (98-107) mmol/L Glucose 107 H (74-99) mg/dL ALT 79 H (4-49) U/L HDL Cholesterol 72 H (40-60) mg/dL
--- NOTE | 2020-09-22 13:53 | PN ---
PROGRESS NOTE DATE OF SERVICE: 09/22/2020. CHIEF COMPLAINT: The patient came to the ED indicating that he had made a suicide attempt by taking 5 Flexeril tablets in making an effort to harm himself. Apparently he had been making frequent calls to law enforcement making statements about suicide. INTERVAL HISTORY: The patient continues to be quite withdrawn. He spends most of his time in his room. He does not attend groups. Yesterday he was isolative most all of the day. He has an adequate appetite. He does not identify any clear purpose for being in the hospital nor goals about aiming towards discharge. He apparently slept well last night. Today he has been in his room all morning. It is noteworthy that in the patient's possessions when they were screened on admission, some moderate supply of a powder was found. The patient himself when he heard that he spontaneously said, "it's not meth." That seemed to be one suggestion that in fact it might well be methamphetamines. The police confiscated the substance, though we have not received a report as to what the substance is. Today, the patient was adamant about the idea that it was "bath salts" and he made a statement it something you takes baths with. Today the patient was not very engaged in the conversation and ultimately walked out of the office after few minutes without engaging in any productive discussion about his treatment situation or discharge planning. The only thing said about discharge planning is that he has a place to stay in the [facility] and he should just be discharged to go there. He appears to tolerate his psychotropic medications. When I asked him specifically about his medications, he did not have any specific concerns that he raised. In reviewing the patient's record, it is noted that during his last admission at the end of July he was positive for cocaine and marijuana. At that time he was saying the same thing as with this admission, namely that he was depressed due to having lost his place to live. During that admission, he was observed to have some self talk. He did ask for opioid pain medications primarily for complaint of hand pain. A MAPS screen did reveal his receiving opioid pain medications from multiple prescribers. In the ED note from 07/17, it was in indicated that he stated that he takes medications for depression, though does not take medications every day. As noted from the emergency department note of 09/21, the following was documented, "according to low enforcement he is well known. He calls multiple times with suicidal ideation." MENTAL STATUS EXAM: Patient was in his room lying down. He did walk slowly to the office. He sat for few minutes. He did not give much eye contact. Psychomotor activity was slowed. He responded to a few questions. He made some statements about the chemicals that were found in his property. He had a withdrawn irritated manner. His affect was flat. His mood depressed. He seems somewhat distressed. It was difficult to assess for thought disorder. ASSESSMENT: I will continue the current diagnosis and treatment plan. I will reduce Zyprexa to 10 mg twice a day. I will discontinue to Neurontin. The purpose for discontinuing it is that there is not clear indication for the medication nor is an indication the patient takes medications on any consistent basis. At this point, I aim to keep his medications simplified, which at this point is just down to one medication. If he does show response to an antipsychotic, there might be the option of a long-acting injectable. We will make efforts to work with the patient in regards to discharge planning. At this point, the patient is not indicating any goals or plans towards discharge or beyond. It is quite difficult to engage in any productive treatment process. We will focus on stabilization and discharge planning. CECY / ANABELLEN: [id number] /
[2020-09-22] MEDS ORDERED: BENZTROPINE 2 MG/2 ML AMP IM STA (14:20)
[2020-09-22 20:36] LABS: Appearance,Urine Clear (Clear); Bilirubin,Urine Negative (Negative); Blood,Urine Negative (Negative); Color,Urine Light Yellow; Glucose,Urine (UA) Negative (Negative); Ketones,Urine Negative (Negative); Leukocyte Esterase,Urine Negative (Negative); Nitrite,Urine Negative (Negative); PH, Urine 7.5 (5.0-8.0); Protein,Urine Negative (Negative); Specific Gravity,Urine 1.011 (1.001-1.035); Urobilinogen,Urine <2.0 mg/dL (<2.0)
[2020-09-23] MEDS: GABAPENTIN 300 MG CAP PO SCH ×3 (08:21→20:06)
[2020-09-23] MEDS: NICOTINE 14MG/24HR PATCH TRANSDERM SCH (08:21)
[2020-09-23] MEDS: OLANZapine 10 MG TAB PO SCH (08:22)
[2020-09-23] MEDS: LIDOCAINE 5% PATCH TOPICAL SCH (08:22)
[2020-09-23] MEDS: NICOTINE POLACRILEX 2 MG GUM BUCCAL PRN ×3 (10:09→20:06)
[2020-09-23] MEDS: LEVOTHYROXINE 75 MCG TAB PO SCH (10:09)
--- NOTE | 2020-09-23 10:25 | PN ---
PROGRESS NOTE DATE OF SERVICE: 09/23/2020. CHIEF COMPLAINT: The patient came to the ED indicating that he had made a suicide attempt by taking 5 Flexeril tablets in making an effort to harm himself. Apparently he had been making frequent calls to law enforcement making statements about suicide. INTERVAL HISTORY: The patient has been doing a little better overall. He had a quiet day yesterday he continues to isolate. He spends quite a bit of time in his room. He will come out in the day area. He does not interact too much with others, though does seem to be doing just a little better in that regard. He did make two groups later in the day yesterday for limited amounts of time. He slept well last night. Today he has been up. We had a meeting with the nurse, psych social worker, myself and the patient. I reviewed the telephone call I had with the patient's mother yesterday. Mother indicated that the patient has struggled in his home situation. He lives in an apartment, which she says is [place] [address] She says he hates the neighborhood he is in, it is a dangerous neighborhood. The patient himself says that it is not a good situation, but he intends to go back there. 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 He has been diagnosed with both bipolar disorder and schizophrenia. He used to live in [place] and would like to return here, though he apparently had some struggles with housing commission and was not able to get support to move here. He did spend 5 years in long term. Mother notes that he was an only child. She says that she takes a lot of brunt of his anger. When he is around her house, he has done the same such as destroyed property in her house. She wants to be supportive, but she would be very reluctant for him to even come to the house and visit. She noted that throughout his childhood and as an adult father had essentially abandoned him. Father did pass away a couple years ago. Mother notes that most of the time when the patient has contact with her they get into constant arguments. He has struggled over the years with drug issues. She notes that there have been some years where he would enter a rehab unit 4-5 times in a year. Mother notes that he can have some positive moments, but then it can change very quickly. I reviewed all these issues with the patient. He did not dispute any of this. He is planning on returning to his apartment in [place]. He will be taking a bus and knows all the details of being on the bus. He does have mental health followup in the area where he is at and was requesting our psych social worker set up followup appointments for him. He does have a caser up there that he has been working with. He does seem to feel that the medications have been helping him. MENTAL STATUS EXAM: Patient sat in a slumped posture. He gave fairly good eye contact. He bounced his legs and was somewhat restless. He answered questions with brief responses. His thoughts were clear. It was noteworthy that he smiled quite a bit during the interview. There were few times that he made appropriate jokes and responded to humor. His affect was a little constricted though was in a much more reasonable range. His mood was even though he may have had some underlying anxiety in part relating to the issues that he needs to address that had been long-term struggles for him. He did not appear to be significantly distressed. There was no outward evidence of thought disorder. The patient states that he does not have hallucinations. He voiced no thoughts of harm. Cognition was clear. ASSESSMENT: I will continue the current diagnosis and treatment plan. I will continue the patient on Zyprexa though switch his dosing to 20 mg at bedtime. The patient was in agreement with that and believed he would be more consistent with the medicine if he took it at bedtime. He seemed to be appropriate in talking about managing his medication. He also seemed to be appropriate in what he said for followup. I had an extensive discussion with the patient regarding socialization issue. We talked about the option of his getting involved in some volunteer work that might put him in a situation to get back to regular work that could be positive for him in a number of ways. It is noted that the patient indicated that the followup he has at [facility] does include addressing issues with mental health and substance abuse. The patient was able to give details regarding transportation back to his apartment. The plan will be to discharge the patient tomorrow. We will focus on stabilization and discharge planning. MMODL / IJN: [id number] / [facility] HOSPITALIfeoma
[2020-09-23] MEDS ORDERED: BENZTROPINE MESYLATE 1 MG TAB PO STA (15:28)
[2020-09-23] MEDS: ACETAMINOPHEN TAB 325 MG TAB PO PRN (16:03)
[2020-09-23] MEDS ORDERED: OLANZapine 10 MG TAB PO SCH (21:00)
[2020-09-24] MEDS: LEVOTHYROXINE 75 MCG TAB PO SCH (06:42)
[2020-09-24] MEDS: GABAPENTIN 300 MG CAP PO SCH (08:04)
[2020-09-24 08:06] VITALS: BP 149/96; PULSE 108; RESP 18; TEMP 97.2
[2020-09-24] MEDS: NICOTINE POLACRILEX 2 MG GUM BUCCAL PRN (08:34)
[2020-09-24] MEDS: LIDOCAINE 5% PATCH TOPICAL SCH (08:34)
[2020-09-24] MEDS: ACETAMINOPHEN TAB 325 MG TAB PO PRN (09:26)
--- NOTE | 2020-09-25 18:25 | DS ---
DISCHARGE SUMMARY DATE OF ADMISSION: 09/21/2020. DATE OF DISCHARGE: 09/24/2020. ADMISSION AND DISCHARGE DIAGNOSES: 1. Poly substance dependence, opioids, benzodiazepines and marijuana. 2. Mood disorder with psychotic symptoms. 3. Rule out underlying thought disorder, possibly schizoaffective disorder. 4. Chronic pain. 5. Thyroid disorder. 6. Asthma. 7. History of bariatric surgery. HISTORY OF PRESENT ILLNESS: The patient is a 45-year-old male. He had a recent admission to this facility with a diagnosis of psychosis, depression, and polysubstance dependence. He has had multiple past hospitalizations, though none in the past 10 years up until recently. He was having increasing depression relating to his living situation, though he was unable to identify specifics. He had been using cocaine and marijuana. He had been showing response to hallucinations. He was hoping to be prescribed opioid pain medications, benzodiazepines and stimulants for various mental health issues. He was set up for followup July 23 at [facility]. He made an initial appointment though did not make followup appointments. He was vague about his general living situation. He stated that he sees a psychiatrist in the [place] area named Dr. Caldwell and also that he has a PCP in [place]. He could not recall the doctor's name. He notes a history of seizure disorder and stated his last seizure was 2 weeks ago. He did not provide any further details to the event. He stated also that he had been seen at a methadone clinic where he has been getting regular followup. He noted sleeping poorly. He had loss of motivation, energy and interest. He indicated some hallucinations. He had pain in his lower back as well as migratory pain. Substance abuse issues include cocaine and marijuana. He was admitted for further evaluation. MENTAL STATUS EXAM: The patient was restless. Eye contact was fair. He responded to questions with brief responses. He made tangential comments. He focused on certain medications including opioids and benzodiazepines and came back to that subject quite a few times during the interview. He was restless. He had an intense anxious affect. His mood was depressed. He was significantly distressed. He voiced no thoughts of harm. It is noted that during the initial evaluation, he got quite anxious or distressed and walked out of the office. He then came back to the office and would walk in and out of the office. He did this about 5 different times during the course of evaluation. COURSE OF THE HOSPITALIZATION: Patient was admitted for comprehensive medical psychiatric and psychosocial evaluation. We engaged the patient in individual and group therapeutic activities. I started the patient on Zyprexa 10 mg 3 times a day. The aim was to reduce physiologic stress response relating to withdrawal symptoms including likely withdrawal from opioids, benzodiazepines and marijuana. It is noted that the patient initially was quite withdrawn. Mostly he spent time in his room. He would come out in the day area, though he did not interact too much with others. He did seem to show a little improvement as the days went on. We had a family meeting with the patient and his mother by telephone. Mother noted that the patient struggles with his current living situation, which [place] in the [place] [address] [place] in [place]. Apparently, it is a bad neighborhood that he struggles with. Mother noted that he struggles and cannot keep jobs. He had been diagnosed in the past with bipolar disorder and schizophrenia. He used to live in [place] and was hoping to move here, though he did not get support from the housing commission that was able to help him. He did spend time in residential. Mother notes that he is an only child, and she often times seems to be his only support. On the other hand, typically when they interact, he has trouble where he gets angry, he can be at her house and then be destructive to property. He has had a number of rehab admissions in the past. As his hospitalization progressed, the patient's mood improved and there was quite a bit a difference from one day to the next. He started attending some of the groups. He showed more socialization. The patient himself stated determination to return to his apartment in [place]. He was able to identify the transportation he would have to get back to his apartment. He was comfortable with the idea of being followed up through [facility]. CONDITION AT DISCHARGE: Patient was stable. His mood was improved. He voiced no thoughts of harm to self or others. He tolerated his psychotropic medications. RECOMMENDATIONS AND FOLLOWUP: Patient is discharged on Zyprexa 20 mg a day. He has a followup with [facility] in [place] with an appointment with Dr. Victor on September 29 at 1 p.m. MMLAURA / ANABELLEN: [id number] /
== END 2020-09-24 12:51 | disposition home or self-care (01) | DRG 885 ==
LOC: EC 20:55 → 3MHU 09-21 00:30
PROVIDERS: ADMIT Psychiatry & Neurology Psychiatry; ATTEND Psychiatry & Neurology Psychiatry
DX: F31.9 Bipolar disorder, unspecified (principal); F20.9 Schizophrenia, unspecified; T50.902A Poisoning by unspecified drugs, medicaments and biological substances, intentional self-harm, initial encounter; E07.9 Disorder of thyroid, unspecified; E78.5 Hyperlipidemia, unspecified; F12.10 Cannabis abuse, uncomplicated; F14.10 Cocaine abuse, uncomplicated; F17.200 Nicotine dependence, unspecified, uncomplicated; G40.909 Epilepsy, unspecified, not intractable, without status epilepticus; G89.29 Other chronic pain; J45.909 Unspecified asthma, uncomplicated; Z59.0 Homelessness; Z79.890 Hormone replacement therapy; Z98.84 Bariatric surgery status; Z20.822 Contact with and (suspected) exposure to COVID-19
CPT/HCPCS: 36415; 80053; 80061; 80143; 80179; 80306; 80320; 81003; 82075; 82977; 83036; 84439; 84443; 85025; 85610; 85730; 87636; 93005; 99285

== ENCOUNTER 2022-04-02 08:57 | Inpatient (IN) | payer MEDICARE, OTHER ==
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
--- NOTE | 2022-04-02 09:45 | XR ---
EXAMINATION TYPE: XR chest 2V DATE OF EXAM: 04/02/2022 COMPARISON: NONE HISTORY: Chest pain TECHNIQUE: Frontal and lateral views of the chest are obtained. FINDINGS: Left lower lobectomy changes noted. Left apical scarring identified. Hyperinflation of the right lung . The cardiac silhouette size is within normal limits. The osseous structures are grossly intact. Chronic left-sided rib deformities. IMPRESSION: 1. Postoperative changes of left lower lobectomy with increased density seen at the left lower lobe. No definite acute infiltrates seen at this time. Correlate clinically.
[2022-04-02 10:26] LABS: Basophils # (A) 0.1 k/uL (0-0.2); Basophils % (A) 1 %; Eosinophils # (A) 0.4 k/uL (0-0.7); Eosinophils % (A) 2 %; HCT 41.3 % (39.0-53.0); Lymphocytes # (A) 1.8 k/uL (1.0-4.8); Lymphocytes % (A) 8 %; MCH 31.7 pg (25.0-35.0); MCHC 33.8 g/dL (31.0-37.0); MCV 93.8 fL (80.0-100.0); Mean Platelet Volume 8.9; Monocytes # (A) 1.3 k/uL (0-1.0); Monocytes % (A) 6 %; Neutrophils # (A) 20.2 k/uL (1.3-7.7); Neutrophils % (A) 84 %; Platelet Count 379 k/uL (150-450); RDW 12.8 % (11.5-15.5); WBC 24.2 k/uL (3.8-10.6)
[2022-04-02 10:32] LABS: ALT 27 U/L (4-49); AST 30 U/L (17-59); African American GFR (CKD) >90 (>60 ml/min/1.73 sqM); Albumin 4.4 g/dL (3.5-5.0); Alkaline Phosphatase 128 U/L (38-126); Anion Gap 9 mmol/L; Blood Urea Nitrogen 11 mg/dL (9-20); Calcium 9.4 mg/dL (8.4-10.2); Carbon Dioxide 25 mmol/L (22-30); Chloride 103 mmol/L (98-107); Glucose 106 mg/dL (74-99); Non-African American GFR(CKD) >90 (>60 ml/min/1.73 sqM); Potassium 4.6 mmol/L (3.5-5.1); Sodium 137 mmol/L (137-145); Total Bilirubin 0.5 mg/dL (0.2-1.3); Total Protein 7.5 g/dL (6.3-8.2)
[2022-04-02 10:45] LABS: INR 0.9 (<1.2); Partial Thromboplastin Time 26.7 sec (22.0-30.0); Prothrombin Time 10.1 sec (9.0-12.0)
--- NOTE | 2022-04-02 12:05 | CT ---
EXAMINATION TYPE: CT angio chest DATE OF EXAM: 04/02/2022 COMPARISON: None HISTORY: Dyspnea, LLL pain CT DLP: 266 mGycm CONTRAST: CT chest with contrast and 3D reconstruction with MIP imaging is performed with IV Contrast, patient injected with 100 and another 50-de to machine failure mL of Isovue 370. Contrast-enhanced CT of the chest was performed through the course of the pulmonary arteries with robinson g and mediastinal window settings submitted. 3D reconstruction with MIP imaging was also performed. PULMONARY ARTERIES: There is a filling defect left lower lobe first order branch axial image 57. Asher tional unopacified left lower lobe second and third order branches. I cannot exclude pulmonary emboli sm. Distorted anatomy secondary to left lower lobectomy. No evidence for right ventricular strain. LUNGS: Left lower lobectomy changes. Increased soft tissue density is felt to BE postoperative in mona ure. Underlying infiltrate difficult to exclude. This also increased density left apical region. The right lung is hyperinflated. MEDIASTINUM: Thoracic aorta is of normal caliber,however, evaluation is limited given timing of the contrast bolus. If there is concern for thoracic aortic pathology consider [place]. Correlate clinicall y . The heart is not enlarged. No evidence for mediastinal mass. No mediastinal lymph nodes greater than 1cm. HILAR STRUCTURES: No evidence for mass. No hilar lymph nodes greater than 1 cm. Other: Multiple rib resections noted. UPPER ABDOMEN: No significant abnormality is seen. IMPRESSION: 1. Findings which I cannot exclude pulmonary embolism left lower lobe first, second and third order branches. Please note left lower lobe anatomy is distorted secondary to a prior left lower lobectomy. 2. Postsurgical changes left lower lobe. Increased density left lower lobe and left apical region. In filtrate not excluded.
[2022-04-02] MEDS ORDERED: PNEUMONIA PROTOCOL UTILIZED 1 EACH MISC PO PRN (13:33)
[2022-04-02] MEDS ORDERED: HEPARIN SODIUM 1,000 UN/ML (10ML VL) IV PRN (13:33)
[2022-04-02] MEDS ORDERED: AZITHROMYCIN 500 MG in SODIUM CHLORIDE 0.9% 250 ML IVPB STA (13:33)
[2022-04-02] MEDS ORDERED: HEPARIN SODIUM 1,000 UN/ML (10ML VL) IV ONE (13:33)
[2022-04-02] MEDS ORDERED: HEPARIN SOD,PORK IN 0.45% NACL 25,000 UNIT in 0.45% NACL 1 250ML.BAG IV SCH (13:45)
[2022-04-02] MEDS: SODIUM CHLORIDE 0.9% 1,000 ML IV SCH ×2 (14:07→23:59)
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
[2022-04-02] MEDS: HEPARIN SODIUM,PORCINE/PF 5,000 UNIT/0.5 ML SYRINGE SQ SCH (15:10)
[2022-04-02] MEDS: HYDROcodone/APAP 5-325MG 1 EACH TAB PO PRN ×2 (15:11→21:43)
[2022-04-02] MEDS: IPRATROPIUM-ALBUTEROL 3 ML NEB INHALATION PRN ×2 (15:37→20:20)
[2022-04-02] MEDS ORDERED: DOCUSATE 100 MG CAP PO PRN (17:32)
[2022-04-02] MEDS ORDERED: ACETAMINOPHEN TAB 325 MG TAB PO PRN (17:32)
[2022-04-02] MEDS ORDERED: ZINC PO PRN (17:32)
[2022-04-02] MEDS ORDERED: CALCIUM PO PRN (17:32)
[2022-04-02] MEDS ORDERED: MAGNESIUM PO PRN (17:32)
[2022-04-02] MEDS ORDERED: VITAMIN D PO PRN (17:32)
[2022-04-02] MEDS ORDERED: diphenhydrAMINE 25 MG CAP PO PRN (17:32)
[2022-04-02] MEDS: TAMSULOSIN 0.4 MG CAP.ER.24H PO SCH (20:18)
[2022-04-02] MEDS: hydrALAZINE HCL 25 MG TAB PO SCH (20:18)
[2022-04-02] MEDS: busPIRone HCl 5 MG TAB PO SCH (20:19)
[2022-04-02] MEDS: QUEtiapine 50 MG TAB PO SCH (20:19)
[2022-04-02] MEDS: GABAPENTIN 400 MG CAP PO SCH (20:19)
[2022-04-02] MEDS: NICOTINE GUM (POLACRILEX) 2 MG GUM BUCCAL PRN ×2 (20:19→22:15)
[2022-04-03] MEDS: HEPARIN SODIUM,PORCINE/PF 5,000 UNIT/0.5 ML SYRINGE SQ SCH ×3 (00:20→15:26)
[2022-04-03 05:00] LABS: Basophils # (A) 0.2 k/uL (0-0.2); Basophils % (A) 1 %; Eosinophils # (A) 0.3 k/uL (0-0.7); Eosinophils % (A) 1 %; HCT 39.4 % (39.0-53.0); HGB 13.1 gm/dL (13.0-17.5); Lymphocytes % (A) 13 %; MCH 31.2 pg (25.0-35.0); MCHC 33.1 g/dL (31.0-37.0); MCV 94.3 fL (80.0-100.0); Mean Platelet Volume 8.8; Monocytes # (A) 2.2 k/uL (0-1.0); Monocytes % (A) 9 %; Neutrophils # (A) 17.5 k/uL (1.3-7.7); Neutrophils % (A) 75 %; Platelet Count 354 k/uL (150-450); RBC 4.18 m/uL (4.30-5.90); RDW 12.8 % (11.5-15.5); WBC 23.4 k/uL (3.8-10.6)
[2022-04-03 05:12] LABS: African American GFR (CKD) >90 (>60 ml/min/1.73 sqM); Anion Gap 6 mmol/L; Blood Urea Nitrogen 8 mg/dL (9-20); Calcium 9.2 mg/dL (8.4-10.2); Carbon Dioxide 26 mmol/L (22-30); Chloride 100 mmol/L (98-107); Glucose 94 mg/dL (74-99); Non-African American GFR(CKD) >90 (>60 ml/min/1.73 sqM); Potassium 3.9 mmol/L (3.5-5.1); Sodium 132 mmol/L (137-145)
[2022-04-03] MEDS: PANTOPRAZOLE 40 MG TABLET PO SCH (05:37)
[2022-04-03] MEDS: HYDROcodone/APAP 5-325MG 1 EACH TAB PO PRN ×3 (05:37→18:05)
[2022-04-03] MEDS: carvediloL 3.125 MG TAB PO SCH ×2 (05:38→17:02)
--- NOTE | 2022-04-03 07:08 | XR ---
EXAMINATION TYPE: XR chest 2V DATE OF EXAM: 04/03/2022 COMPARISON: 04/02/2022 HISTORY: Pneumonia TECHNIQUE: Frontal and lateral views of the chest are obtained. FINDINGS: There has been previous left lower lobe lobectomy. Increasing opacity left perihilar and left lower l obe regions may reflect worsening pneumonia. Small left-sided pleural effusion. Left apical capping. Hyperinflation of the right lung. The cardiac silhouette size is within normal limits. The osseous structures are grossly intact. IMPRESSION: 1. Increasing opacity left perihilar and left lower lobe regions may reflect worsening pneumonia. Sm all left-sided pleural effusion.
[2022-04-03] MEDS: GABAPENTIN 400 MG CAP PO SCH ×3 (08:54→20:43)
[2022-04-03] MEDS: VENLAFAXINE HCL ER 75 MG CAP PO SCH (08:54)
[2022-04-03] MEDS: MULTIVITAMINS, THERA 1 EACH TAB PO SCH (08:54)
[2022-04-03] MEDS: AZITHROMYCIN 500 MG TAB PO SCH (08:54)
[2022-04-03] MEDS: hydrALAZINE HCL 25 MG TAB PO SCH ×2 (08:54→20:43)
[2022-04-03] MEDS: busPIRone HCl 5 MG TAB PO SCH ×3 (08:54→20:43)
[2022-04-03] MEDS: OLANZapine 5 MG TAB PO SCH (08:55)
[2022-04-03] MEDS: THIAMINE 100 MG TAB PO SCH (08:55)
[2022-04-03] MEDS: FINASTERIDE 5 MG TAB PO SCH (08:55)
[2022-04-03] MEDS: NICOTINE GUM (POLACRILEX) 2 MG GUM BUCCAL PRN ×4 (09:23→20:43)
[2022-04-03] MEDS: SODIUM CHLORIDE 0.9% 1,000 ML IV SCH ×2 (09:24→17:38)
[2022-04-03] MEDS: polyethylene glycoL 3350 17 GM POWD.PACK PO SCH (10:37)
--- NOTE | 2022-04-03 11:06 | US ---
EXAMINATION TYPE: US venous doppler duplex LE DATE OF EXAM: 04/03/2022 10:39 AM COMPARISON: NONE CLINICAL HISTORY: dvt. edema SIDE PERFORMED: Bilateral TECHNIQUE: The lower extremity deep venous system is examined utilizing real time linear array sonog stefano with graded compression, doppler sonography and color-flow sonography. VESSELS IMAGED: Common Femoral Vein Deep Femoral Vein Greater Saphenous Vein * Femoral Vein Popliteal Vein Small Saphenous Vein * Proximal Calf Veins (* superficial vessels) Right Leg: Negative for DVT Left Leg: Negative for DVT IMPRESSION: No evidence for DVT at this time.
[2022-04-03] MEDS ORDERED: NALOXONE 0.4 MG/ML 1 ML VIAL IV PRN (11:45)
--- NOTE | 2022-04-03 11:47 | P.PN ---
Subjective Progress Note Date: 04/03/22 Principal diagnosis: Shortness of breath Hospital Course: 47 male with history of partial left-sided lung resection, polysubstance abuse, hypothyroidism, mood disorder and psychotic disorder, seizure disorder presenting with left-sided chest pain, cough, shortness of breath mostly with exertion. He has been using cocaine, used over 10 days ago. He was admitted at [place] for his cocaine use. At the facility, multiple of the patient's recently gotten sick with viral illnesses. Over the last couple of days, he started to notice left-sided lower chest pain, green/yellow productive cough, and exertional shortness of breath. On initial presentation, his vital signs were within normal limits. He was saturating well on room air. His lab work was significant for leukocytosis of 24.2. Troponin negative. ProBNP was 252. He was influenza negative. D-dimer was elevated at 1.57. His chest x-ray showed possible left lower lobe opacity, chest CTA showed similar findings in the left lower lobe, PE not excluded. Patient was started on IV antibiotics. Pulmonology consultation. Subjective: Patient seen and examined at bedside. No acute events overnight. He claims that his shortness of breath, and chest congestion appears to be improving. He still continues to have some tenderness in the left lower chest. He also had nausea and vomiting this morning. He has not had a bowel movement in 3 days. He denies any palpitations, diarrhea, or urinary complaints. Pertinent positives and negatives as discussed above, a complete review of systems was performed and all other systems are negative. Vitals Signs Reviewed. General: nontoxic, no distress, appears at stated age Derm: warm, dry Head: atraumatic, normocephalic, symmetric Eyes: EOMI, no lid lag, anicteric sclera ENT: Nose and ears atraumatic Neck: No thyromegaly, supple Mouth: no lip lesion, mucus membranes moist Cardiovascular: S1S2 reg, no murmur, no edema Lungs: Minimal rales at the left lung base, no wheeze, no accessory muscle use, and left-sided chest tenderness Abdominal: soft, nontender to palpation, no guarding, no appreciable organomegaly Ext: no gross muscle atrophy, muscle strength muscle strength 5 out of 5 in all 4 extremities, no contractures Neuro: CN II-XII grossly intact Psych: Alert, oriented, appropriate affect Assessment and Plan: Community-acquired pneumonia Elevated d-dimer History of left lung lobectomy Leukocytosis - improving Left sided chest pain -Continue IV antibiotics -We will hold off with anticoagulation -VQ scan -Lower extremity venous Dopplers were negative for DVT -Pulmonology consult -Cultures pending Nausea -Zofran as needed Constipation -Bowel regimen Nicotine dependence Polysubstance abuse -Counseled regarding cessation Chronic medical problems: Hypothyroidism Psychotic disorder Seizure disorder -Continue home medications DVT ppx: Subcutaneous heparin Code status: Full code Anticipated discharge place: [] Anticipated discharge time: [] Objective - Vital Signs Vital signs: Vital Signs Temp 98.8 F 04/03/22 02:00 Pulse 69 04/03/22 02:00 Resp 16 04/03/22 10:27 BP 109/67 04/03/22 02:00 Pulse Ox 92 L 04/03/22 02:00 FiO2 Intake & Output 04/02/22 04/03/22 04/03/22 18:59 06:59 18:59 Intake Total 200 Balance 200 Weight 72.575 kg Intake: Oral 200 Other: Voiding Method Toilet # Voids 2 3 - Labs CBC & Chem 7: 04/03/22 04:30 04/03/22 04:30 Labs: Abnormal Lab Results - Last 24 Hours (Table) 04/03/22 04/03/22 Range/Units 04:30 04:30 WBC 23.4 H (3.8-10.6) k/uL RBC 4.18 L (4.30-5.90) m/uL Neutrophils # 17.5 H (1.3-7.7) k/uL Monocytes # 2.2 H (0-1.0) k/uL Sodium 132 L (137-145) mmol/L BUN 8 L (9-20) mg/dL Creatinine 0.59 L (0.66-1.25) mg/dL Microbiology - Last 24 Hours (Table) 04/02/22 13:33 Gram Stain - Preliminary Sputum Sputum Culture - Preliminary
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
[2022-04-03] MEDS: ONDANSETRON 4 MG/2 ML VIAL IVP PRN (16:58)
[2022-04-03] MEDS: TAMSULOSIN 0.4 MG CAP.ER.24H PO SCH (20:43)
[2022-04-03] MEDS: QUEtiapine 50 MG TAB PO SCH (20:43)
[2022-04-04] MEDS: HEPARIN SODIUM,PORCINE/PF 5,000 UNIT/0.5 ML SYRINGE SQ SCH ×3 (00:26→16:13)
[2022-04-04] MEDS: HYDROcodone/APAP 5-325MG 1 EACH TAB PO PRN ×4 (00:26→18:57)
[2022-04-04] MEDS: PANTOPRAZOLE 40 MG TABLET PO SCH (06:23)
[2022-04-04] MEDS: carvediloL 3.125 MG TAB PO SCH ×2 (06:23→17:26)
[2022-04-04] MEDS: SODIUM CHLORIDE 0.9% 1,000 ML IV SCH ×2 (06:23→18:58)
[2022-04-04] MEDS: FINASTERIDE 5 MG TAB PO SCH (08:19)
[2022-04-04] MEDS: MULTIVITAMINS, THERA 1 EACH TAB PO SCH (08:19)
[2022-04-04] MEDS: AZITHROMYCIN 500 MG TAB PO SCH (08:19)
[2022-04-04] MEDS: busPIRone HCl 5 MG TAB PO SCH ×3 (08:19→21:24)
--- NOTE | 2022-04-04 08:19 | NM ---
EXAMINATION TYPE: NM pul perfusion DATE OF EXAM: 04/04/2022 COMPARISON: Chest x-ray from yesterday. CTA chest from 2 days ago. HISTORY: Chest pain and elevated d-dimer. History of partial pneumonectomy. Following administration of 4.86 mCi Tc 99m MAA. Images obtained post injection. FINDINGS: Overall heterogeneous uptake with areas of diminished uptake in the periphery of the right lung for r eference apex and posterior lateral right midlung. Heterogeneous diminished perfusion to the remnant left lung. IMPRESSION: Nondiagnostic (low or intermediate probability)
[2022-04-04] MEDS: GABAPENTIN 400 MG CAP PO SCH ×3 (08:20→21:24)
[2022-04-04] MEDS: polyethylene glycoL 3350 17 GM POWD.PACK PO SCH (08:20)
[2022-04-04] MEDS: THIAMINE 100 MG TAB PO SCH (08:20)
[2022-04-04] MEDS: VENLAFAXINE HCL ER 75 MG CAP PO SCH (08:20)
[2022-04-04] MEDS: hydrALAZINE HCL 25 MG TAB PO SCH ×2 (08:20→21:24)
[2022-04-04] MEDS: OLANZapine 5 MG TAB PO SCH (08:20)
[2022-04-04] MEDS: NICOTINE GUM (POLACRILEX) 2 MG GUM BUCCAL PRN ×4 (08:21→21:24)
--- NOTE | 2022-04-04 12:40 | P.PN ---
Subjective Progress Note Date: 04/04/22 Principal diagnosis: Shortness of breath Hospital Course: 47 male with history of partial left-sided lung resection, polysubstance abuse, hypothyroidism, mood disorder and psychotic disorder, seizure disorder presenting with left-sided chest pain, cough, shortness of breath mostly with exertion. He has been using cocaine, used over 10 days ago. He was admitted at [place] for his cocaine use. At the facility, multiple of the patient's recently gotten sick with viral illnesses. Over the last couple of days, he started to notice left-sided lower chest pain, green/yellow productive cough, and exertional shortness of breath. On initial presentation, his vital signs were within normal limits. He was saturating well on room air. His lab work was significant for leukocytosis of 24.2. Troponin negative. ProBNP was 252. He was influenza negative. D-dimer was elevated at 1.57. His chest x-ray showed possible left lower lobe opacity, chest CTA showed similar findings in the left lower lobe, PE not excluded. Lower extremity Dopplers were negative f or DVT, VQ scan was nondiagnostic, low or intermediate probability. Patient was started on IV antibiotics. Pulmonology consultation. No anticoagulation. Subjective: Patient seen and examined at bedside. No acute events overnight. He claims that his shortness of breath, and chest congestion appears to be improving. He still continues to have some tenderness in the left lower chest. Now having bowel movements. Denies any nausea or vomiting. He denies any palpitations, diarrhea, or urinary complaints. Pertinent positives and negatives as discussed above, a complete review of systems was performed and all other systems are negative. Vitals Signs Reviewed. General: nontoxic, no distress, appears at stated age Derm: warm, dry Head: atraumatic, normocephalic, symmetric Eyes: EOMI, no lid lag, anicteric sclera ENT: Nose and ears atraumatic Neck: No thyromegaly, supple Mouth: no lip lesion, mucus membranes moist Cardiovascular: S1S2 reg, no murmur, no edema Lungs: Minimal rales at the left lung base, no wheeze, no accessory muscle use, and left-sided chest tenderness Abdominal: soft, nontender to palpation, no guarding, no appreciable organomegaly Ext: no gross muscle atrophy, muscle strength muscle strength 5 out of 5 in all 4 extremities, no contractures Neuro: CN II-XII grossly intact Psych: Alert, oriented, appropriate affect Assessment and Plan: Bacterial Community-acquired pneumonia Elevated d-dimer History of left lung lobectomy Leukocytosis - improving Left sided chest pain -Continue IV antibiotics -We will hold off with anticoagulation -VQ scan - nondiagnostic -Lower extremity venous Dopplers were negative for DVT -Pulmonology consult -Sputum cultures growing Streptococcus pneumonia Nausea -resolved -Zofran as needed Constipation -Bowel regimen Nicotine dependence Polysubstance abuse -Counseled regarding cessation Chronic medical problems: Hypothyroidism Psychotic disorder Seizure disorder -Continue home medications DVT ppx: Subcutaneous heparin Code status: Full code Anticipated discharge place: [place] Anticipated discharge time: Likely tomorrow Objective - Vital Signs Vital signs: Vital Signs Temp 98.7 F 04/04/22 08:00 Pulse 60 04/04/22 08:00 Resp 18 04/04/22 08:00 BP 126/76 04/04/22 08:00 Pulse Ox 93 L 04/04/22 08:00 FiO2 Intake & Output 04/03/22 04/04/22 04/04/22 18:59 06:59 18:59 Intake Total 600 600 Balance 600 600 Intake: Oral 600 600 Other: Voiding Method Toilet Toilet # Voids 2 2 - Labs CBC & Chem 7: 04/03/22 04:30 04/03/22 04:30 Labs: Microbiology - Last 24 Hours (Table) 04/02/22 10:03 Blood Culture - Preliminary Blood No Growth after 48 hours 04/02/22 09:47 Blood Culture - Preliminary Blood No Growth after 48 hours 04/02/22 13:33 Gram Stain - Preliminary Sputum Sputum Culture - Preliminary Streptococcus pneumoniae
[2022-04-04] MEDS: guaiFENesin-Coden 100-10MG/5ML 10 ML CUP PO PRN ×2 (14:03→21:28)
[2022-04-04 14:24] LABS: HCT 41.7 % (39.6-50.0); HGB 13.4 g/dL (13.0-17.0); MCH 29.8 pg (27.0-32.0); MCHC 32.1 g/dL (32.0-37.0); MCV 92.9 fL (80.0-97.0); Mean Platelet Volume 11.2 fL (9.5-12.2); NRBC Per 100 WBC 0 /100 WBCS (0.0-0.0); Platelet Count 413 X 10*3/uL (140-440); RBC 4.49 X 10*6/uL (4.40-5.60); RDW 13.5 % (11.5-14.5); WBC 18.93 X 10*3/uL (4.50-10.00)
[2022-04-04 15:02] LABS: African American GFR (CKD) 129.3 (60.0-200.0); Anion Gap 13.5 mmol/L (10.00-18.00); BUN/Creat Ratio 11.86 Ratio (12.00-20.00); Blood Urea Nitrogen 8.3 mg/dL (9.0-27.0); Calcium 9.7 mg/dL (8.7-10.3); Carbon Dioxide 22.5 mmol/L (20.0-27.5); Non-African American GFR(CKD) 111.6 (60.0-200.0); Potassium 4.4 mmol/L (3.5-5.5)
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
[2022-04-04 16:13] LABS: Basophils # (A) 0.08 X 10*3/uL (0.00-0.10); Basophils % (A) 0.4 %; Eosinophils % (A) 1.6 %; Lymphocytes # (A) 2.35 X 10*3/uL (0.90-5.00); Lymphocytes % (A) 12.4 %; Monocytes # (A) 2.04 X 10*3/uL (0.20-1.00); Monocytes % (A) 10.8 %; Neutrophils # (A) 13.97 X 10*3/uL (1.80-7.70); Neutrophils % (A) 73.8 %
[2022-04-04 16:14] LABS: RBC Morphology NORMAL
[2022-04-04] MEDS: QUEtiapine 50 MG TAB PO SCH (21:24)
[2022-04-04] MEDS: TAMSULOSIN 0.4 MG CAP.ER.24H PO SCH (21:24)
[2022-04-05] MEDS: HYDROcodone/APAP 5-325MG 1 EACH TAB PO PRN ×3 (00:36→12:21)
[2022-04-05] MEDS: HEPARIN SODIUM,PORCINE/PF 5,000 UNIT/0.5 ML SYRINGE SQ SCH ×3 (00:36→17:07)
[2022-04-05] MEDS: SODIUM CHLORIDE 0.9% 1,000 ML IV SCH (00:40)
[2022-04-05 01:52] VITALS: RESP 16
[2022-04-05] MEDS: guaiFENesin-Coden 100-10MG/5ML 10 ML CUP PO PRN ×2 (06:46→10:58)
[2022-04-05] MEDS: carvediloL 3.125 MG TAB PO SCH (06:46)
[2022-04-05] MEDS: PANTOPRAZOLE 40 MG TABLET PO SCH (06:46)
[2022-04-05] MEDS: NICOTINE GUM (POLACRILEX) 2 MG GUM BUCCAL PRN ×2 (06:47→11:18)
[2022-04-05 07:23] VITALS: BP 133/78; PULSE 66; TEMP 97.5
[2022-04-05] MEDS: GABAPENTIN 400 MG CAP PO SCH ×2 (08:30→17:07)
[2022-04-05] MEDS: hydrALAZINE HCL 25 MG TAB PO SCH (08:31)
[2022-04-05] MEDS: busPIRone HCl 5 MG TAB PO SCH ×2 (08:31→17:08)
[2022-04-05] MEDS: VENLAFAXINE HCL ER 75 MG CAP PO SCH (08:31)
[2022-04-05] MEDS: THIAMINE 100 MG TAB PO SCH (08:31)
[2022-04-05] MEDS: FINASTERIDE 5 MG TAB PO SCH (08:32)
[2022-04-05] MEDS: MULTIVITAMINS, THERA 1 EACH TAB PO SCH (08:32)
[2022-04-05] MEDS: polyethylene glycoL 3350 17 GM POWD.PACK PO SCH (08:34)
[2022-04-05] MEDS: OLANZapine 5 MG TAB PO SCH (08:35)
[2022-04-05] MEDS ORDERED: LOPERAMIDE 2 MG CAP PO STA (08:52)
--- NOTE | 2022-04-05 10:12 | XR ---
EXAMINATION TYPE: XR chest 1V portable DATE OF EXAM: 04/05/2022 10:08 AM COMPARISON: Chest radiographs from 04/03/2022, CTA chest 04/02/2022. TECHNIQUE: XR chest 1V portable Frontal view of the chest. CLINICAL INDICATION:Male, 47 years old with history of LLL pneumonia; FINDINGS: Lungs/Pleura: Postsurgical changes from left lower lobectomy. Decrease opacity in the left perihilar and left lower lobe regions. Small left pleural effusion. Left apical capping. Hyperinflation of the right lung. Pulmonary vascularity: Unremarkable. Heart/mediastinum: Cardiomediastinal silhouette is unremarkable. Musculoskeletal: No acute osseous pathology. Dextrocurvature of the thoracic spine. Multilevel degene rative changes of the visualized spine. IMPRESSION: Decrease opacity in the left perihilar left lower lobe regions. Small left-sided pleural effusion.
[2022-04-05] MEDS: ONDANSETRON 4 MG/2 ML VIAL IVP PRN (11:21)
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
--- NOTE | 2022-04-05 12:54 | P.DS ---
Providers Date of admission: 04/02/22 13:33 Expected date of discharge: 04/05/22 Attending physician: Judy Smith MD Consults: 04/02/22 13:33 Consult Physician Routine Consulting Provider: Sarah Hadley Consult Reason/Comments: Pneumonia, evaluate for possible pulmonary embolism Do you want consulting provider notified?: Yes Primary care physician: Spencer Mirelizabeth [facility] Course: Discharge Diagnosis: Bacterial community-acquired pneumonia secondary to Streptococcus pneumonia Elevated d-dimer Discharge of left lung lobectomy Cytosis Left-sided chest pain Nausea Diarrhea Nicotine dependence Polysubstance abuse Hospital Course: 47 male with history of partial left-sided lung resection, polysubstance abuse, hypothyroidism, mood disorder and psychotic disorder, seizure disorder presenting with left-sided chest pain, cough, shortness of breath mostly with exertion. He has been using cocaine, used over 10 days ago. He was admitted at [facility] for his cocaine use. At the facility, multiple of the patient's recently gotten sick with viral illnesses. Over the last few days, he started to notice left-sided lower chest pain, green/yellow productive cough, and exertional shortness of breath. On initial presentation, his vital signs were within normal limits. He was saturating well on room air. His lab work was significant for leukocytosis of 24.2. Troponin negative. ProBNP was 252. He was influenza negative. D-dimer was elevated at 1.57. His chest x-ray showed possible left lower lobe opacity, chest CTA showed similar findings in the left lower lobe, PE not excluded. Lower extremity Dopplers were negative for DVT, VQ scan was nondiagnostic, low or intermediate probability. Patient was started on IV antibiotics. Pulmonology consultation. No anticoagulation. Sputum cultures positive for Streptococcus pneumonia sensitive to cephalosporins. Patient was also complaining of diarrhea, formed loose stools. Possibly in the setting of antibiotic. Leukocytosis improving. Patient being discharged back to [facility] on oral antibiotics. Patient seen and examined at bedside. Vital signs reviewed and stable. General: nontoxic, no distress, appears at stated age Derm: warm, dry Head: atraumatic, normocephalic, symmetric Eyes: EOMI, no lid lag, anicteric sclera ENT: Nose and ears atraumatic Neck: No thyromegaly, supple Mouth: no lip lesion, mucus membranes moist Cardiovascular: S1S2 reg, no murmur, no edema Lungs: Minimal rales at the left lung base, no wheeze, no accessory muscle use, and left-sided chest tenderness Abdominal: soft, nontender to palpation, no guarding, no appreciable organomegaly Ext: no gross muscle atrophy, muscle strength muscle strength 5 out of 5 in all 4 extremities, no contractures Neuro: CN II-XII grossly intact Psych: Alert, oriented, appropriate affect A total of 46 minutes of time were spent preparing this complex discharge summary. Patient was discharged on 04/05/22 at 12:14. Patient Condition at Discharge: Stable Plan - Discharge Summary Discharge Rx Participant: Yes New Discharge Prescriptions: New Cefdinir 300 mg PO Q12HR #8 cap Continue ondansetron HCL [Zofran] 8 mg PO Q6H PRN PRN Reason: Nausea Tamsulosin [Flomax] 0.8 mg PO HS Acetaminophen [Tylenol Arthritis] 650 mg PO Q4H PRN PRN Reason: Pain Or Fever > 100.5 Levsin (Unknown Dose) 1 dose PO QID PRN PRN Reason: Secretions guaiFENesin [guaiFENesin Oral Solution] 200 mg PO Q4H PRN PRN Reason: COUGH/CONGESTION Docusate [Colace] 100 mg PO BID PRN PRN Reason: Constipation Triamcinolone 0.1% Cream [Kenalog 0.1% Cream] 1 applicatio TOPICAL DAILY PRN PRN Reason: Itching Finasteride [Proscar] 5 mg PO DAILY hydrALAZINE HCL [Apresoline] 25 mg PO BID Thiamine [Vitamin B-1] 100 mg PO DAILY Multivitamins, Thera [Multivitamin (formulary)] 1 tab PO DAILY Loperamide HCl [Imodium A-D] 4 mg PO QID PRN PRN Reason: Diarrhea Chlorpheniramine Maleate [Chlor-Trimeton] 4 mg PO Q4H PRN PRN Reason: Allergy Symptoms Calcium, Magnesium, Zinc With Vitamin D 1 tab PO TID PRN PRN Reason: SUPPLEMENT QUEtiapine [SEROquel] 50 mg PO HS Pantoprazole [Protonix] 40 mg PO DAILY OLANZapine [ZyPREXA] 5 mg PO DAILY Naproxen 500 mg PO BID PRN PRN Reason: Pain Gabapentin [Neurontin] 400 mg PO TID Venlafaxine HCl [Effexor XR] 75 mg PO DAILY carvediloL [Coreg] 3.125 mg PO BID-W/MEALS busPIRone HCl [Buspar] 5 mg PO TID Discharge Medication List Acetaminophen [Tylenol Arthritis] 650 mg PO Q4H PRN 04/02/22 [History] Calcium, Magnesium, Zinc With Vitamin D 1 tab PO TID PRN 04/02/22 [History] Chlorpheniramine Maleate [Chlor-Trimeton] 4 mg PO Q4H PRN 04/02/22 [History] Docusate [Colace] 100 mg PO BID PRN 04/02/22 [History] Finasteride [Proscar] 5 mg PO DAILY 04/02/22 [History] Gabapentin [Neurontin] 400 mg PO TID 04/02/22 [History] Levsin (Unknown Dose) 1 dose PO QID PRN 04/02/22 [History] Loperamide HCl [Imodium A-D] 4 mg PO QID PRN 04/02/22 [History] Multivitamins, Thera [Multivitamin (formulary)] 1 tab PO DAILY 04/02/22 [History] Naproxen 500 mg PO BID PRN 04/02/22 [History] OLANZapine [ZyPREXA] 5 mg PO DAILY 04/02/22 [History] Pantoprazole [Protonix] 40 mg PO DAILY 04/02/22 [History] QUEtiapine [SEROquel] 50 mg PO HS 04/02/22 [History] Tamsulosin [Flomax] 0.8 mg PO HS 04/02/22 [History] Thiamine [Vitamin B-1] 100 mg PO DAILY 04/02/22 [History] Triamcinolone 0.1% Cream [Kenalog 0.1% Cream] 1 applicatio TOPICAL DAILY PRN 04/02/22 [History] Venlafaxine HCl [Effexor XR] 75 mg PO DAILY 04/02/22 [History] busPIRone HCl [Buspar] 5 mg PO TID 04/02/22 [History] carvediloL [Coreg] 3.125 mg PO BID-W/MEALS 04/02/22 [History] guaiFENesin [guaiFENesin Oral Solution] 200 mg PO Q4H PRN 04/02/22 [History] hydrALAZINE HCL [Apresoline] 25 mg PO BID 04/02/22 [History] ondansetron HCL [Zofran] 8 mg PO Q6H PRN 04/02/22 [History] Cefdinir 300 mg PO Q12HR #8 cap 04/05/22 [Rx] Follow up Appointment(s)/Referral(s): Spencer Basilio MD [Primary Care Provider] - 1-2 days (PLEASE CALL AND SCHEDULE APPOINTMENT.) Patient Instructions/Handouts: Pneumonia (DC) Activity/Diet/Wound Care/Special Instructions: [facility] return. Please call for transport: #[phone]. Please see your PCP in 1-2 days. Discharge Disposition: OTHER INSTITUTION NOT DEFINED
== END 2022-04-05 17:05 | DRG 194 ==
LOC: EC 08:57 → 4SSUR 13:33
PROVIDERS: ADMIT Family Medicine; ATTEND Family Medicine
DX: J13 Pneumonia due to Streptococcus pneumoniae (principal); J90 Pleural effusion, not elsewhere classified; F29 Unspecified psychosis not due to a substance or known physiological condition; F17.210 Nicotine dependence, cigarettes, uncomplicated; F39 Unspecified mood [affective] disorder; F14.10 Cocaine abuse, uncomplicated; F19.10 Other psychoactive substance abuse, uncomplicated; F31.9 Bipolar disorder, unspecified; R79.1 Abnormal coagulation profile; K59.00 Constipation, unspecified; E03.9 Hypothyroidism, unspecified; G40.909 Epilepsy, unspecified, not intractable, without status epilepticus; J45.909 Unspecified asthma, uncomplicated; E78.5 Hyperlipidemia, unspecified; Z20.822 Contact with and (suspected) exposure to COVID-19; Z91.51 Personal history of suicidal behavior; Z90.81 Acquired absence of spleen; Z90.2 Acquired absence of lung [part of]; Z87.828 Personal history of other (healed) physical injury and trauma; Z86.16 Personal history of COVID-19; Z86.14 Personal history of Methicillin resistant Staphylococcus aureus infection; Z79.890 Hormone replacement therapy; Z79.899 Other long term (current) drug therapy; I25.2 Old myocardial infarction; Z71.51 Drug abuse counseling and surveillance of drug abuser; Z71.6 Tobacco abuse counseling
CPT/HCPCS: 36415; 71045; 71046; 71275; 78580; 80048; 80053; 83605; 83880; 84484; 85025; 85379; 85610; 85730; 87040; 87070; 87077; 87186; 87205; 87502; 87634; 87635; 93005; 93970; 94640; 96365; 96368; 99285

== ENCOUNTER 2022-05-06 08:18 | Emergency (ER) | payer MEDICARE, OTHER ==
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
[2022-05-06 16:44] LABS: ALT 35 U/L (4-49); AST 52 U/L (17-59); African American GFR (CKD) >90 (>60 ml/min/1.73 sqM); Albumin 3.5 g/dL (3.5-5.0); Alkaline Phosphatase 77 U/L (38-126); Anion Gap 3 mmol/L; Blood Urea Nitrogen 13 mg/dL (9-20); Calcium 8.6 mg/dL (8.4-10.2); Carbon Dioxide 29 mmol/L (22-30); Chloride 104 mmol/L (98-107); Glucose 108 mg/dL (74-99); Non-African American GFR(CKD) >90 (>60 ml/min/1.73 sqM); Potassium 4.3 mmol/L (3.5-5.1); Sodium 136 mmol/L (137-145); Total Bilirubin 0.3 mg/dL (0.2-1.3); Total Protein 6.2 g/dL (6.3-8.2)
[2022-05-06 16:45] LABS: Basophils # (A) 0.1 k/uL (0-0.2); Basophils % (A) 1 %; Eosinophils # (A) 0.8 k/uL (0-0.7); Eosinophils % (A) 9 %; HCT 37.8 % (39.0-53.0); HGB 12.9 gm/dL (13.0-17.5); Lymphocytes # (A) 2.7 k/uL (1.0-4.8); Lymphocytes % (A) 30 %; MCH 31.6 pg (25.0-35.0); MCHC 34.2 g/dL (31.0-37.0); MCV 92.3 fL (80.0-100.0); Mean Platelet Volume 8.1; Monocytes # (A) 1.1 k/uL (0-1.0); Monocytes % (A) 12 %; Neutrophils % (A) 45 %; Platelet Count 293 k/uL (150-450); RDW 13.7 % (11.5-15.5); WBC 8.9 k/uL (3.8-10.6)
[2022-05-06 20:00] LABS: Appearance,Urine Clear (Clear); Bilirubin,Urine Negative (Negative); Blood,Urine Negative (Negative); Color,Urine Yellow; Glucose,Urine (UA) Negative (Negative); Ketones,Urine Negative (Negative); Leukocyte Esterase,Urine Small (Negative); Mucus,Urine Rare /hpf; Nitrite,Urine Negative (Negative); PH, Urine 6.5 (5.0-8.0); Protein,Urine Trace (Negative); RBC,Urine 4 /hpf (0-5); Specific Gravity,Urine 1.026 (1.001-1.035); Squamous Epithelial Cell,Urine <1 /hpf (0-4); WBC,Urine 4 /hpf (0-5)
[2022-05-06 20:03] LABS: Amphetamine Screen,Urine Detected (NotDetected); Barbiturate Screen,Urine Not Detected (NotDetected); Benzodiazepines Screen,Urine Detected (NotDetected); Cocaine Screen,Urine Detected (NotDetected); Methadone Screen, Urine Not Detected (NotDetected); Opiate Screen,Urine Not Detected (NotDetected); Oxycodone Screen, Urine Not Detected (NotDetected); Phencyclidine Screen,Urine Not Detected (NotDetected); Tricyclic Antidepressant,Urine Not Detected (NotDetected); Urn Cannabinoid Scrn Detected (NotDetected)
[2022-05-07] MEDS ORDERED: ZIPRASIDONE 20 MG VIAL IM STA (00:59)
[2022-05-07] MEDS ORDERED: KETOCONAZOLE 2% SHAMPOO 1 APPLIC/ML TOPICAL SCH (01:00)
[2022-05-07] MEDS ORDERED: hydrALAZINE HCL 25 MG TAB PO SCH (09:00)
[2022-05-07] MEDS: PANTOPRAZOLE 40 MG TABLET PO SCH (11:10)
[2022-05-07] MEDS: carvediloL 3.125 MG TAB PO SCH ×2 (11:10→19:03)
[2022-05-07] MEDS: VENLAFAXINE HCL ER 75 MG CAP PO SCH (11:10)
[2022-05-07] MEDS: LEVOTHYROXINE 75 MCG TAB PO SCH (11:10)
[2022-05-07] MEDS: LORATADINE 10 MG TAB PO SCH (11:10)
[2022-05-07] MEDS: clonazePAM 0.5 MG TAB PO SCH ×3 (11:10→22:18)
[2022-05-07] MEDS: NON FORMULARY DRUG (Buprenorphine Hcl/Naloxone Hcl [Suboxone 8 Mg-2 Mg Sl Film] 1 EACH Fil SUBLINGUAL SCH (11:13)
[2022-05-07] MEDS ORDERED: FINASTERIDE 5 MG TAB PO SCH (21:00)
[2022-05-07] MEDS ORDERED: CLOTRIMAZOLE 1% CREAM 30 GM TUBE TOPICAL SCH (21:00)
[2022-05-07] MEDS ORDERED: QUEtiapine 100 MG TAB PO SCH (21:00)
[2022-05-07] MEDS ORDERED: TAMSULOSIN 0.4 MG CAP.ER.24H PO SCH (21:00)
[2022-05-07] MEDS ORDERED: GABAPENTIN 300 MG CAP PO STA (21:52)
[2022-05-08 11:27] VITALS: TEMP 97.3
[2022-05-08] MEDS: NON FORMULARY DRUG (Buprenorphine Hcl/Naloxone Hcl [Suboxone 8 Mg-2 Mg Sl Film] 1 EACH Fil SUBLINGUAL SCH ×2 (11:38→11:39)
[2022-05-08] MEDS: LEVOTHYROXINE 75 MCG TAB PO SCH (13:51)
[2022-05-08] MEDS: LORATADINE 10 MG TAB PO SCH (13:52)
[2022-05-08] MEDS: PANTOPRAZOLE 40 MG TABLET PO SCH (13:52)
[2022-05-08] MEDS: VENLAFAXINE HCL ER 75 MG CAP PO SCH (13:52)
[2022-05-08 13:56] VITALS: BP 120/66; PULSE 62; RESP 20
[2022-05-08] MEDS: clonazePAM 0.5 MG TAB PO SCH (14:03)
== END 2022-05-08 15:26 ==
LOC: EC 08:18
DX: R45.851 Suicidal ideations (principal); F23 Brief psychotic disorder; F14.10 Cocaine abuse, uncomplicated; J45.909 Unspecified asthma, uncomplicated; E07.9 Disorder of thyroid, unspecified; E78.5 Hyperlipidemia, unspecified; F31.9 Bipolar disorder, unspecified; F17.200 Nicotine dependence, unspecified, uncomplicated; Z79.899 Other long term (current) drug therapy; Z03.818 Encounter for observation for suspected exposure to other biological agents ruled out
CPT/HCPCS: 99285; 96372; 82075; 36415; 80053; 85025; 81001; 80306; 87635; S0138; J3486

== ENCOUNTER 2023-05-11 20:13 | Emergency (ER) | payer MEDICARE, OTHER ==
[2023-05-11 20:28] VITALS: TEMP 97.8
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
[2023-05-11 22:50] VITALS: BP 102/59; PULSE 65; RESP 17
[2023-05-11] MEDS ORDERED: ACETAMINOPHEN TAB 325 MG TAB PO STA (23:16)
--- NOTE | 2023-05-12 00:12 | CT ---
EXAM: CT Head Without Intravenous Contrast CLINICAL HISTORY: ITS.REASON CT Reason: head injury TECHNIQUE: Axial computed tomography images of the head/brain without intravenous contrast. CTDI is 45.2 mGy and DLP is 1028 mGy-cm. This CT exam was performed using one or more of the following dose reduction techniques: automated exposure control, adjustment of the mA and/or kV according to patient size, and/or use of iterative reconstruction technique. COMPARISON: No relevant prior studies available. FINDINGS: No acute intracranial hemorrhage. No midline shift or mass effect. The territorial villegas-white matter differentiation is maintained throughout. The ventricles and sulci are commensurate with age. The visualized orbits appear grossly unremarkable. The calvarium is intact. The visualized paranasal sinuses and mastoid air cells are grossly clear. IMPRESSION: No acute intracranial hemorrhage, midline shift, or mass effect. EXAM: CT Cervical Spine Without Intravenous Contrast CLINICAL HISTORY: ITS.REASON CT Reason: head injury TECHNIQUE: Axial computed tomography images of the cervical spine without intravenous contrast. CTDI is 9.5 mGy and DLP is 234.5 mGy-cm. This CT exam was performed using one or more of the following dose reduction techniques: automated exposure control, adjustment of the mA and/or kV according to patient size, and/or use of iterative reconstruction technique. COMPARISON: No relevant prior studies available. FINDINGS: The vertebral body heights are maintained. The craniocervical junction is intact. The atlanto-dens interval is maintained. The dens is intact. There is no spondylolisthesis. Multilevel cervical spondylosis and degenerative disc disease. Straightening of the cervical lordosis. The unenhanced neck soft tissues are grossly unremarkable. The visualized lung apices are grossly clear. IMPRESSION: No acute fracture or subluxation of the cervical spine.
== END 2023-05-12 00:24 | disposition home or self-care (01) ==
LOC: EC 20:13
DX: S00.83XA Contusion of other part of head, initial encounter (principal); J45.909 Unspecified asthma, uncomplicated; E78.5 Hyperlipidemia, unspecified; E07.9 Disorder of thyroid, unspecified; F31.9 Bipolar disorder, unspecified; F17.200 Nicotine dependence, unspecified, uncomplicated; F14.90 Cocaine use, unspecified, uncomplicated; Z79.890 Hormone replacement therapy; Z79.899 Other long term (current) drug therapy; Z59.01 Sheltered homelessness; Y04.0XXA Assault by unarmed brawl or fight, initial encounter
CPT/HCPCS: 70450; 72125; 99284

== ENCOUNTER 2023-10-28 12:42 | Emergency (ER) | payer MEDICARE, OTHER ==
--- NOTE | 2023-10-28 13:09 | ED ---
General Adult HPI - General Source: patient Mode of arrival: ambulatory Limitations: no limitations <Sabas Polk - Last Filed: 10/28/23 13:07> <Conchita Kan - Last Filed: 10/29/23 07:09> - General Chief complaint: Psychiatric Symptoms Stated complaint: scabies Time Seen by Provider: 10/28/23 12:45 - History of Present Illness Initial comments: Dictation was produced using [employer] dictation software. please excuse any grammatical, word or spelling errors. Chief Complaint: 48-year-old male presents with suicidal ideation and scabies rash History of Present Illness: Patient is a 48-year-old male presents to the emergency department with scabies and suicidal ideation. Patient states he got scabies from a roommate. Patient has had scabies before. States that his rash seems typical affecting his extremities. Patient also states that he has scabies in his mouth. Patient complains of rash that is affecting also his glutes. Patient also feels suicidal. Denies any specific plan. Patient denies any visual auditory hallucinations. The ROS documented in this emergency department record has been reviewed and confirmed by me. Those systems with pertinent positive or negative responses have been documented in the HPI. All other systems are other negative and/or noncontributory. (Sabas Polk) - Related Data Home Medications Medication Instructions Recorded Confirmed Pantoprazole [Protonix] 40 mg PO DAILY 04/02/22 10/28/23 Tamsulosin [Flomax] 0.8 mg PO HS 04/02/22 10/28/23 clonazePAM [KlonoPIN] 0.5 mg PO BID 05/06/22 10/28/23 Acetaminophen/Diphenhydramine 2 tab PO HS 10/28/23 10/28/23 [Tylenol PM 500-25mg] Albuterol Sulfate [Proventil Hfa] 1 - 2 puff INHALATION RT-Q4H PRN 10/28/23 10/28/23 Buprenorphine-Nalox 8-2 mg Tab 1 tab PO TID 10/28/23 10/28/23 [Suboxone 8-2 mg Tab] Cyclobenzaprine [Flexeril] 5 mg PO BID PRN 10/28/23 10/28/23 Gabapentin 600 mg PO TID 10/28/23 10/28/23 Levothyroxine Sodium [Synthroid] 100 mcg PO AC-BRKFST 10/28/23 10/28/23 OLANZapine [ZyPREXA] 15 mg PO HS 10/28/23 10/28/23 Prostate Max Plus 2 cap PO DAILY 10/28/23 10/28/23 QUEtiapine [SEROquel] 400 mg PO HS 10/28/23 10/28/23 Sulfamethox-Tmp 800-160Mg [Bactrim 1 tab PO BID 10/28/23 10/28/23 DS 800-160 mg] Thiamine [Vitamin B-1] 100 mg PO DAILY 10/28/23 10/28/23 Venlafaxine HCl ER [Effexor Xr] 150 mg PO DAILY 10/28/23 10/28/23 busPIRone HCL 15 mg PO BID 10/28/23 10/28/23 carvediloL [Coreg] 6.25 mg PO BID 10/28/23 10/28/23 cloNIDine HCL [Catapres] 0.1 mg PO BID 10/28/23 10/28/23 hydrOXYzine HCL [Atarax] 25 mg PO QID PRN 10/28/23 10/28/23 tadalafiL 10 mg PO DAILY PRN 10/28/23 10/28/23 Allergies Allergy/AdvReac Type Severity Reaction Status Date / Time haloperidol [From Haldol] AdvReac Lockjaw Verified 10/28/23 18:06 trazodone AdvReac Dry mouth, Verified 10/28/23 18:06 Nightmares Review of Systems ROS Other: All systems not noted in ROS Statement are negative. <Sabas Polk - Last Filed: 10/28/23 13:07> ROS Other: All systems not noted in ROS Statement are negative. <Conchita Kan - Last Filed: 10/29/23 07:09> ROS Statement: Those systems with pertinent positive or pertinent negative responses have been documented in the HPI. Past Medical History Past Medical History: Asthma, Hyperlipidemia, Thyroid Disorder Additional Past Medical History / Comment(s): scabies Last Myocardial Infarction Date:: 01/2022 History of Any Multi-Drug Resistant Organisms: MRSA Date of last positivie culture/infection: buttocks MDRO Source:: 2017 Past Surgical History: Adenoidectomy, Bariatric Surgery Additional Past Surgical History / Comment(s): L lobectomy, splenectomy Past Psychological History: Bipolar, Depression Smoking Status: Current some day smoker Past Alcohol Use History: Daily Past Drug Use History: Cocaine <Sabas Polk - Last Filed: 10/28/23 13:07> General Exam Limitations: no limitations <Sabas Polk - Last Filed: 10/28/23 13:07> - General Exam Comments Initial Comments: PHYSICAL EXAM: General Impression: Alert and oriented x3, not in acute distress HEENT: Normocephalic atraumatic, extra-ocular movements intact, pupils equal and reactive to light bilaterally, mucous membranes moist. Cardiovascular: Heart regular rate and rhythm Chest: Able to complete full sentences, no retractions, no tachypnea Abdomen: abdomen soft, non-tender, non-distended, no organomegaly Musculoskeletal: Pulses present and equal in all extremities, no peripheral edema Motor: no focal deficits noted Neurological: CN II-XII grossly intact, no focal motor or sensory deficits noted Skin: I there are rashes appear on his extremities. He also has some round erythematous rashes to his knees Psych: Tangential speech (Sabas Polk) Course Vital Signs 10/28/23 10/28/23 10/29/23 12:44 23:00 01:00 Temperature 98.3 F Pulse Rate 95 86 81 Respiratory 16 20 18 Rate Blood Pressure 133/80 148/86 138/78 O2 Sat by Pulse 96 96 96 Oximetry 10/29/23 10/29/23 03:00 05:27 Temperature Pulse Rate 88 79 Respiratory 20 16 Rate Blood Pressure 132/76 136/87 O2 Sat by Pulse 97 95 Oximetry Medical Decision Making <Sabas Polk - Last Filed: 10/28/23 13:07> - Lab Data Result diagrams: 10/29/23 03:15 10/29/23 02:51 <Conchita Kan - Last Filed: 10/29/23 07:09> - Medical Decision Making Was pt. sent in by a medical professional or institution (, PA, MOTOR SETTER, urgent care, hospital, or senior care...) When possible be specific @ -No Did you speak to anyone other than the patient for history (EMS, parent, family, police, friend...)? What history was obtained from this source @ -No Did you review nursing and triage notes (agree or disagree)? Why? @ -I reviewed and agree with nursing and triage notes Were old charts reviewed (outside hosp., previous admission, EMS record, old EKG, old radiological studies, urgent care reports/EKG's, senior care records)? Report findings @ -No old charts were reviewed Differential Diagnosis (chest pain, altered mental status, abdominal pain women, abdominal pain men, vaginal bleeding, musculoskeletal, weakness, fever, dyspnea, syncope, headache, dizziness, GI bleed, back pain, seizure, CVA, palpatations, mental health)? @ -Differential Mental Health: Depression, anxiety, bipolar, psychosis, schizophrenia, borderline personality, situational depression, adjustment disorder, behavioral disorder, brain tumor, malingering, substance abuse, encephalopathy, medication reaction, dementia, hypothyroidism, degenerative neurologic disorder, lupus.... This is not meant to be all-inclusive list EKG interpreted by me (3pts min.). @ -None done X-rays interpreted by me (1pt min.). @ -None done CT interpreted by me (1pt min.). @ -None done U/S interpreted by me (1pt. min.). @ -None done What testing was considered but not performed or refused? (CT, X-rays, U/S, labs)? Why? @ -None What meds were considered but not given or refused? Why? @ -None Did you discuss the management of the patient with other professionals (marva rosas i.e. , PA, MOTOR SETTER, lab, RT, psych nurse, social work coordinator, quality process lead, teacher, special forces warrant officer, case management manager)? Give summary @ -No Was smoking cessation discussed for >3mins.? @ -No Was critical care preformed (if so, how long)? @ -No Were there social determinants of health that impacted care today? How? (Homelessness, low income, unemployed, alcoholism, drug addiction, transportation, low edu. Level, literacy, decrease access to med. care, penitentiary, rehab)? @ -No Was there de-escalation of care discussed even if they declined (Discuss DNR or withdrawal of care, Hospice)? DNR status @ -No What co-morbidities impacted this encounter? (DM, HTN, Smoking, COPD, CAD, Cancer, CVA, ARF, Chemo, Hep., AIDS, mental health diagnosis, sleep apnea, morbid obesity)? @ -None Was patient admitted / discharged? Hospital course, mention meds given and route, prescriptions, significant lab abnormalities, going to OR and other pertinent info. @ -48-year-old male with suicidal ideation and scabies. Patient given permethrin. States that he has had severe infections warranting secondary use of ivermectin. Patient medically cleared for EPS evaluation Undiagnosed new problem with uncertain prognosis? @ -No Drug Therapy requiring intensive monitoring for toxicity (Heparin, Nitro, Insulin, Cardizem)? @ -No Were any procedures done? @ -No Diagnosis/symptom? Acute, or Chronic, or Acute on Chronic? Uncomplicated (without systemic symptoms) or Complicated (systemic symptoms)? @ -1. Scabies, 2. Suicidal ideation Side effects of treatment? @ -No Exacerbation, Progression, or Severe Exacerbation? @ -No Poses a threat to life or bodily function? How? (Chest pain, [place], [place], pneumonia, PE, COPD, DKA, ARF, appy, cholecystitis, CVA, Diverticulitis, Homicidal, Suicidal, threat to staff... and all critical care pts) @ -yes (Sabas Polk) - Lab Data Lab Results 10/28/23 10/29/23 10/29/23 Range/Units 17:27 02:51 02:51 WBC (3.8-10.6) k/uL RBC (4.30-5.90) m/uL Hgb (13.0-17.5) gm/dL Hct (39.0-53.0) % MCV (80.0-100.0) fL MCH (25.0-35.0) pg MCHC (31.0-37.0) g/dL RDW (11.5-15.5) % Plt Count (150-450) k/uL MPV Neutrophils % % Lymphocytes % % Monocytes % % Eosinophils % % Basophils % % Neutrophils # (1.3-7.7) k/uL Lymphocytes # (1.0-4.8) k/uL Monocytes # (0-1.0) k/uL Eosinophils # (0-0.7) k/uL Basophils # (0-0.2) k/uL Sodium 135 L (137-145) mmol/L Potassium 4.4 (3.5-5.1) mmol/L Chloride 104 (98-107) mmol/L Carbon Dioxide 25 (22-30) mmol/L Anion Gap 6 mmol/L BUN 15 (9-20) mg/dL Creatinine 0.77 (0.66-1.25) mg/dL Est GFR (CKD-EPI)AfAm >90 (>60 ml/min/1.73 sqM) Est GFR (CKD-EPI)NonAf >90 (>60 ml/min/1.73 sqM) Glucose 112 H (74-99) mg/dL Calcium 9.1 (8.4-10.2) mg/dL Total Bilirubin 0.7 (0.2-1.3) mg/dL AST 60 H (17-59) U/L ALT 49 (4-49) U/L Alkaline Phosphatase 75 (38-126) U/L Total Protein 7.8 (6.3-8.2) g/dL Albumin 4.0 (3.5-5.0) g/dL Urine Color Urine Appearance (Clear) Urine pH (5.0-8.0) Ur Specific [place] (1.001-1.035) Urine Protein (Negative) Urine Glucose (UA) (Negative) Urine Ketones (Negative) Urine Blood (Negative) Urine Nitrite (Negative) Urine Bilirubin (Negative) Urine Urobilinogen (<2.0) mg/dL Ur Leukocyte Esterase (Negative) Urine Opiates Screen Not Detected (NotDetected) Ur Oxycodone Screen Not Detected (NotDetected) Urine Methadone Screen Not Detected (NotDetected) Ur Barbiturates Screen Not Detected (NotDetected) U Tricyclic Antidepress Not Detected (NotDetected) Ur Phencyclidine Scrn Not Detected (NotDetected) Ur Amphetamines Screen Detected H (NotDetected) U Methamphetamines Scrn Detected H (NotDetected) U Benzodiazepines Scrn Detected H (NotDetected) Urine Cocaine Screen Detected H (NotDetected) U Marijuana (THC) Screen Not Detected (NotDetected) Influenza Type A (PCR) Not Detected (Not Detectd) Influenza Type B (PCR) Not Detected (Not Detectd) RSV (PCR) Not Detected (Not Detectd) SARS-CoV-2 (PCR) Not Detected (Not Detectd) 10/29/23 10/29/23 10/29/23 Range/Units 03:15 03:15 03:15 WBC 7.5 (3.8-10.6) k/uL RBC 4.08 L (4.30-5.90) m/uL Hgb 12.5 L (13.0-17.5) gm/dL Hct 38.8 L (39.0-53.0) % MCV 95.0 (80.0-100.0) fL MCH 30.5 (25.0-35.0) pg MCHC 32.1 (31.0-37.0) g/dL RDW 14.2 (11.5-15.5) % Plt Count 389 (150-450) k/uL MPV 8.9 Neutrophils % 45 % Lymphocytes % 35 % Monocytes % 12 % Eosinophils % 5 % Basophils % 1 % Neutrophils # 3.4 (1.3-7.7) k/uL Lymphocytes # 2.6 (1.0-4.8) k/uL Monocytes # 0.9 (0-1.0) k/uL Eosinophils # 0.3 (0-0.7) k/uL Basophils # 0.1 (0-0.2) k/uL Sodium (137-145) mmol/L Potassium (3.5-5.1) mmol/L Chloride (98-107) mmol/L Carbon Dioxide (22-30) mmol/L Anion Gap mmol/L BUN (9-20) mg/dL Creatinine (0.66-1.25) mg/dL Est GFR (CKD-EPI)AfAm (>60 ml/min/1.73 sqM) Est GFR (CKD-EPI)NonAf (>60 ml/min/1.73 sqM) Glucose (74-99) mg/dL Calcium (8.4-10.2) mg/dL Total Bilirubin (0.2-1.3) mg/dL AST (17-59) U/L ALT (4-49) U/L Alkaline Phosphatase (38-126) U/L Total Protein (6.3-8.2) g/dL Albumin (3.5-5.0) g/dL Urine Color Colorless Urine Appearance Clear (Clear) Urine pH 6.5 (5.0-8.0) Ur Specific [place] 1.008 (1.001-1.035) Urine Protein Negative (Negative) Urine Glucose (UA) Negative (Negative) Urine Ketones Negative (Negative) Urine Blood Negative (Negative) Urine Nitrite Negative (Negative) Urine Bilirubin Negative (Negative) Urine Urobilinogen <2.0 (<2.0) mg/dL Ur Leukocyte Esterase Negative (Negative) Urine Opiates Screen Not Detected (NotDetected) Ur Oxycodone Screen Not Detected (NotDetected) Urine Methadone Screen Not Detected (NotDetected) Ur Barbiturates Screen Not Detected (NotDetected) U Tricyclic Antidepress Not Detected (NotDetected) Ur Phencyclidine Scrn Not Detected (NotDetected) Ur Amphetamines Screen Detected H (NotDetected) U Methamphetamines Scrn Detected H (NotDetected) U Benzodiazepines Scrn Detected H (NotDetected) Urine Cocaine Screen Detected H (NotDetected) U Marijuana (THC) Screen Not Detected (NotDetected) Influenza Type A (PCR) (Not Detectd) Influenza Type B (PCR) (Not Detectd) RSV (PCR) (Not Detectd) SARS-CoV-2 (PCR) (Not Detectd) Disposition <Sabas Polk - Last Filed: 10/28/23 13:07> Is patient prescribed a controlled substance at d/c from ED?: No <Conchita Kan - Last Filed: 10/29/23 07:09> Clinical Impression: Suicidal ideation Disposition: TRANSFER TO PSYCH HOSP/UNIT Condition: Serious Referrals: Nonstaff,Physician [Primary Care Provider] - 1-2 days
[2023-10-28] MEDS: IVERMECTIN 3 MG TABLET PO STA (13:50)
[2023-10-28] MEDS: PERMETHRIN 5% CREAM 60 GM TUBE TOPICAL ONE (13:53)
[2023-10-28] MEDS: NICOTINE GUM (POLACRILEX) 2 MG GUM BUCCAL STA (13:59)
[2023-10-28 17:40] LABS: Amphetamine Screen,Urine Detected (NotDetected); Barbiturate Screen,Urine Not Detected (NotDetected); Benzodiazepines Screen,Urine Detected (NotDetected); Cocaine Screen,Urine Detected (NotDetected); Methadone Screen, Urine Not Detected (NotDetected); Opiate Screen,Urine Not Detected (NotDetected); Oxycodone Screen, Urine Not Detected (NotDetected); Phencyclidine Screen,Urine Not Detected (NotDetected); Tricyclic Antidepressant,Urine Not Detected (NotDetected); Urn Cannabinoid Scrn Not Detected (NotDetected)
[2023-10-28] MEDS: carvediloL 6.25 MG TAB PO SCH (20:38)
[2023-10-28] MEDS: cloNIDine HCL 0.1 MG TAB PO SCH (20:38)
[2023-10-28] MEDS: busPIRone HCl 5 MG TAB PO SCH (20:38)
[2023-10-28] MEDS: clonazePAM 0.5 MG TAB PO SCH (20:38)
[2023-10-28] MEDS: GABAPENTIN 300 MG CAP PO SCH (22:18)
[2023-10-28] MEDS: QUEtiapine 400 MG TAB PO SCH (22:18)
[2023-10-28] MEDS: OLANZapine 7.5 MG TAB PO SCH (22:18)
[2023-10-28] MEDS: BUPRENORPHINE-NALOX 8-2 MG TAB 1 EACH TAB.SUBL SL SCH (22:19)
[2023-10-29 03:28] LABS: Appearance,Urine Clear (Clear); Bilirubin,Urine Negative (Negative); Blood,Urine Negative (Negative); Color,Urine Colorless; Glucose,Urine (UA) Negative (Negative); Ketones,Urine Negative (Negative); Leukocyte Esterase,Urine Negative (Negative); Nitrite,Urine Negative (Negative); PH, Urine 6.5 (5.0-8.0); Protein,Urine Negative (Negative); Specific Gravity,Urine 1.008 (1.001-1.035); Urobilinogen,Urine <2.0 mg/dL (<2.0)
[2023-10-29 03:38] LABS: ALT 49 U/L (4-49); AST 60 U/L (17-59); African American GFR (CKD) >90 (>60 ml/min/1.73 sqM); Alkaline Phosphatase 75 U/L (38-126); Anion Gap 6 mmol/L; Blood Urea Nitrogen 15 mg/dL (9-20); Calcium 9.1 mg/dL (8.4-10.2); Carbon Dioxide 25 mmol/L (22-30); Chloride 104 mmol/L (98-107); Glucose 112 mg/dL (74-99); Non-African American GFR(CKD) >90 (>60 ml/min/1.73 sqM); Potassium 4.4 mmol/L (3.5-5.1); Sodium 135 mmol/L (137-145); Total Bilirubin 0.7 mg/dL (0.2-1.3); Total Protein 7.8 g/dL (6.3-8.2)
[2023-10-29 04:22] LABS: Amphetamine Screen,Urine Detected (NotDetected); Barbiturate Screen,Urine Not Detected (NotDetected); Benzodiazepines Screen,Urine Detected (NotDetected); Cocaine Screen,Urine Detected (NotDetected); Methadone Screen, Urine Not Detected (NotDetected); Opiate Screen,Urine Not Detected (NotDetected); Oxycodone Screen, Urine Not Detected (NotDetected); Phencyclidine Screen,Urine Not Detected (NotDetected); Tricyclic Antidepressant,Urine Not Detected (NotDetected); Urn Cannabinoid Scrn Not Detected (NotDetected)
[2023-10-29 04:24] LABS: Basophils # (A) 0.1 k/uL (0-0.2); Basophils % (A) 1 %; Eosinophils # (A) 0.3 k/uL (0-0.7); Eosinophils % (A) 5 %; HCT 38.8 % (39.0-53.0); HGB 12.5 gm/dL (13.0-17.5); Lymphocytes # (A) 2.6 k/uL (1.0-4.8); Lymphocytes % (A) 35 %; MCH 30.5 pg (25.0-35.0); MCHC 32.1 g/dL (31.0-37.0); Mean Platelet Volume 8.9; Monocytes # (A) 0.9 k/uL (0-1.0); Monocytes % (A) 12 %; Neutrophils # (A) 3.4 k/uL (1.3-7.7); Neutrophils % (A) 45 %; Platelet Count 389 k/uL (150-450); RBC 4.08 m/uL (4.30-5.90); RDW 14.2 % (11.5-15.5); WBC 7.5 k/uL (3.8-10.6)
[2023-10-29] MEDS: VENLAFAXINE HCL ER 150 MG CAP PO SCH (09:11)
[2023-10-29] MEDS: LEVOTHYROXINE 100 MCG TAB PO SCH (09:11)
[2023-10-29] MEDS: SULFAMETHOX-TMP 800-160MG 1 EACH TAB PO SCH (10:40)
[2023-10-30 08:54] VITALS: BP 108/66; PULSE 83; RESP 16; TEMP 97.7
== END 2023-10-30 09:00 ==
LOC: EC 12:42
DX: R45.851 Suicidal ideations (principal); F17.200 Nicotine dependence, unspecified, uncomplicated; F14.90 Cocaine use, unspecified, uncomplicated; Z11.52 Encounter for screening for COVID-19; Z88.8 Allergy status to other drugs, medicaments and biological substances
CPT/HCPCS: 36415; 80053; 80306; 81003; 82075; 85025; 87636; 99285

== ENCOUNTER 2024-02-06 11:48 | Emergency (ER) | payer MEDICARE, OTHER ==
[2024-02-06 11:55] VITALS: RESP 16; TEMP 97.8
--- NOTE | 2024-02-06 12:03 | ED ---
Overdose HPI - General Chief Complaint: Overdose Stated Complaint: Overdose Time Seen by Provider: 02/06/24 11:49 Source: patient, EMS, RN notes reviewed Mode of arrival: EMS Limitations: altered mental status - History of Present Illness Initial Comments: This is a 48-year-old male who presents to the emergency department for a Klonopin overdose. Patient went to check into [facility] today for alcohol, cocaine, and benzodiazepine abuse. Prior to checking and he took 3 mg of Klonopin and became very sleepy and slow to respond, prompting them to call EMS. Patient states that he feels dizzy but otherwise has no complaints. He is very drowsy. Patient is also homeless. - Related Data Home Medications Medication Instructions Recorded Confirmed Pantoprazole [Protonix] 40 mg PO DAILY 04/02/22 10/28/23 Tamsulosin [Flomax] 0.8 mg PO HS 04/02/22 10/28/23 clonazePAM [KlonoPIN] 0.5 mg PO BID 05/06/22 10/28/23 Acetaminophen/Diphenhydramine 2 tab PO HS 10/28/23 10/28/23 [Tylenol PM 500-25mg] Albuterol Sulfate [Proventil Hfa] 1 - 2 puff INHALATION RT-Q4H PRN 10/28/23 10/28/23 Buprenorphine-Nalox 8-2 mg Tab 1 tab PO TID 10/28/23 10/28/23 [Suboxone 8-2 mg Tab] Cyclobenzaprine [Flexeril] 5 mg PO BID PRN 10/28/23 10/28/23 Gabapentin 600 mg PO TID 10/28/23 10/28/23 Levothyroxine Sodium [Synthroid] 100 mcg PO AC-BRKFST 10/28/23 10/28/23 OLANZapine [ZyPREXA] 15 mg PO HS 10/28/23 10/28/23 Prostate Max Plus 2 cap PO DAILY 10/28/23 10/28/23 QUEtiapine [SEROquel] 400 mg PO HS 10/28/23 10/28/23 Sulfamethox-Tmp 800-160Mg [Bactrim 1 tab PO BID 10/28/23 10/28/23 DS 800-160 mg] Thiamine [Vitamin B-1] 100 mg PO DAILY 10/28/23 10/28/23 Venlafaxine HCl ER [Effexor Xr] 150 mg PO DAILY 10/28/23 10/28/23 busPIRone HCL 15 mg PO BID 10/28/23 10/28/23 carvediloL [Coreg] 6.25 mg PO BID 10/28/23 10/28/23 cloNIDine HCL [Catapres] 0.1 mg PO BID 10/28/23 10/28/23 hydrOXYzine HCL [Atarax] 25 mg PO QID PRN 10/28/23 10/28/23 tadalafiL 10 mg PO DAILY PRN 10/28/23 10/28/23 Allergies Allergy/AdvReac Type Severity Reaction Status Date / Time haloperidol [From Haldol] AdvReac Lockjaw Verified 02/06/24 11:55 trazodone AdvReac Dry mouth, Verified 02/06/24 11:55 Nightmares Review of Systems ROS Statement: Those systems with pertinent positive or pertinent negative responses have been documented in the HPI. ROS Other: All systems not noted in ROS Statement are negative. Past Medical History Past Medical History: Asthma, Hyperlipidemia, Thyroid Disorder Additional Past Medical History / Comment(s): scabies Last Myocardial Infarction Date:: 01/2022 History of Any Multi-Drug Resistant Organisms: MRSA Date of last positivie culture/infection: buttocks MDRO Source:: 2016 Past Surgical History: Adenoidectomy, Bariatric Surgery Additional Past Surgical History / Comment(s): L lobectomy, splenectomy Past Psychological History: Bipolar, Depression Smoking Status: Current some day smoker Past Alcohol Use History: Daily Past Drug Use History: Cocaine General Exam Limitations: altered mental status General appearance: alert, other (drowsy) Head exam: Present: atraumatic, normocephalic, normal inspection Eye exam: Present: normal appearance, PERRL, EOMI. Absent: scleral icterus, conjunctival injection, periorbital swelling Respiratory exam: Present: normal lung sounds bilaterally. Absent: respiratory distress, wheezes, rales, rhonchi, stridor Cardiovascular Exam: Present: regular rate, normal rhythm, normal heart sounds. Absent: systolic murmur, diastolic murmur, rubs, gallop, clicks GI/Abdominal exam: Present: soft, normal bowel sounds. Absent: distended, tenderness, guarding, rebound, rigid Neurological exam: Present: alert Psychiatric exam: Present: normal affect, normal mood Skin exam: Present: warm, dry, intact, normal color. Absent: rash Course Vital Signs 02/06/24 02/06/24 11:49 16:33 Temperature 97.8 F Pulse Rate 50 L 52 L Respiratory 16 16 Rate Blood Pressure 115/78 141/88 O2 Sat by Pulse 100 99 Oximetry Medical Decision Making - Medical Decision Making This is a 48-year-old male who presents to the emergency department for altered mental status secondary to Klonopin overdose. Was pt. sent in by a medical professional or institution? @ -No Did you speak to anyone other than the patient for history? @ -EMS provided most of the history. Did you review nursing and triage notes? @ -Yes, and I agree, it is accurate with regards to the patient's symptoms. Were old charts reviewed? @ -No Differential Diagnosis? @ -Differential Altered Mental Status: Hypoglycemia, DKA, hypercapnia, ETOH, overdose, CO poisoning, trauma, myxedema coma, HTN encephalopathy, infection, encephalitis, psychosis, intercranial hemorrhage, hepatic encephalopathy, meningitis, CVA, this is not meant to be an all-inclusive list EKG interpreted by me (3pts min.)? @ -EKG interpreted by me demonstrating the following: Bradycardia. Ventricular rate 48 bpm, QRS duration 100 ms, QTc 454 ms. X-rays interpreted by me (1pt min.)? @ -Not obtained CT interpreted by me (1pt min.)? @ -Not obtained U/S interpreted by me (1pt. min.)? @ -Not obtained What testing was considered but not performed? (CT, X-rays, U/S, labs)? Why? @ -None What meds were considered but not given? Why? @ -None Did you discuss the management of the patient with other professionals? @ -No Did you reconcile home meds? @ -No Was smoking cessation discussed for >3mins.? @ -No Was critical care preformed (if so, how long)? @ -No Were there social determinants of health that impacted care today? How? (Homelessness, low income, unemployed, alcoholism, drug addiction, trans portation, low edu. Level, literacy, decrease access to med. care, fdc, rehab)? @ -Homelessness, potentially contributing to his substance abuse. Drug addiction also led to the consumption of Klonopin and his presentation today. Was there de-escalation of care discussed even if they declined? (Discuss DNR or withdrawal of care, Hospice)? @ -No What co-morbidities impacted this encounter? (DM, HTN, Smoking, COPD, CAD, Cancer, CVA, Hep., AIDS, mental health diagnosis, sleep apnea, morbid obesity)? @ -Drug addiction Was patient admitted / discharged? @ -Discharged. Lab work demonstrates mild leukocytosis and was otherwise unremarkable. Alcohol, salicylates, and acetaminophen levels negative. Patient unable to provide a urine sample for a drug screen prior to discharge. Patient was treated with IV fluids and allowed to rest in the emergency department until he was back to baseline. He also ate and became much more alert and was alert and oriented x 4. [facility] was contacted, however because he had not finished the admission process they were not willing to provide transportation. A taxi was subsequently called to take the patient back to [facility] and gather his belongings and potentially try to continue with intake. Case discussed with ED attending Dr. Casas. Return precautions reviewed in depth, the patient is instructed to return to the emergency department with any new, worsening, or concerning symptoms. Patient verbalized understanding. Undiagnosed new problem with uncertain prognosis? @ -None Drug Therapy requiring intensive monitoring for toxicity (Heparin, Nitro, Insulin, Cardizem)? @ -None Were any procedures done? @ -None Diagnosis/symptom? @ -Drug addiction Acute, or Chronic, or Acute on Chronic? @ -Chronic Uncomplicated (without systemic symptoms) or Complicated (systemic symptoms)? @ -Complicated Side effects of treatment? @ -None Exacerbation, Progression, or Severe Exacerbation] @ -Exacerbation Poses a threat to life or bodily function? @ -Not at this time, however continued use increases risk for overdose and other health problems - Lab Data Result diagrams: 02/06/24 12:23 02/06/24 12:23 Lab Results 02/06/24 02/06/24 02/06/24 Range/Units 12:23 12:23 12:23 WBC 11.0 H (3.8-10.6) k/uL RBC 4.23 L (4.30-5.90) m/uL Hgb 12.4 L (13.0-17.5) gm/dL Hct 38.8 L (39.0-53.0) % MCV 91.8 (80.0-100.0) fL MCH 29.4 (25.0-35.0) pg MCHC 32.0 (31.0-37.0) g/dL RDW 14.6 (11.5-15.5) % Plt Count 362 (150-450) k/uL MPV 8.6 Neutrophils % 70 % Lymphocytes % 17 % Monocytes % 6 % Eosinophils % 5 % Basophils % 0 % Neutrophils # 7.7 (1.3-7.7) k/uL Lymphocytes # 1.9 (1.0-4.8) k/uL Monocytes # 0.7 (0-1.0) k/uL Eosinophils # 0.6 (0-0.7) k/uL Basophils # 0.0 (0-0.2) k/uL PT 10.8 (10.0-12.5) sec INR 1.0 (<1.2) Sodium 138 (137-145) mmol/L Potassium 4.3 (3.5-5.1) mmol/L Chloride 105 (98-107) mmol/L Carbon Dioxide 29 (22-30) mmol/L Anion Gap 4 mmol/L BUN 9 (9-20) mg/dL Creatinine 0.57 L (0.66-1.25) mg/dL Est GFR (CKD-EPI)AfAm >90 (>60 ml/min/1.73 sqM) Est GFR (CKD-EPI)NonAf >90 (>60 ml/min/1.73 sqM) Glucose 113 H (74-99) mg/dL Plasma Lactic Acid Isiah (0.7-2.0) mmol/L Calcium 9.6 (8.4-10.2) mg/dL Total Bilirubin 0.4 (0.2-1.3) mg/dL AST 48 (17-59) U/L ALT 34 (4-49) U/L Alkaline Phosphatase 57 (38-126) U/L Troponin I (0.000-0.034) ng/mL Total Protein 6.8 (6.3-8.2) g/dL Albumin 3.9 (3.5-5.0) g/dL Salicylates <1.0 mg/dL Acetaminophen <10.0 ug/mL Serum Alcohol <10 mg/dL 02/06/24 02/06/24 Range/Units 12:23 12:23 WBC (3.8-10.6) k/uL RBC (4.30-5.90) m/uL Hgb (13.0-17.5) gm/dL Hct (39.0-53.0) % MCV (80.0-100.0) fL MCH (25.0-35.0) pg MCHC (31.0-37.0) g/dL RDW (11.5-15.5) % Plt Count (150-450) k/uL MPV Neutrophils % % Lymphocytes % % Monocytes % % Eosinophils % % Basophils % % Neutrophils # (1.3-7.7) k/uL Lymphocytes # (1.0-4.8) k/uL Monocytes # (0-1.0) k/uL Eosinophils # (0-0.7) k/uL Basophils # (0-0.2) k/uL PT (10.0-12.5) sec INR (<1.2) Sodium (137-145) mmol/L Potassium (3.5-5.1) mmol/L Chloride (98-107) mmol/L Carbon Dioxide (22-30) mmol/L Anion Gap mmol/L BUN (9-20) mg/dL Creatinine (0.66-1.25) mg/dL Est GFR (CKD-EPI)AfAm (>60 ml/min/1.73 sqM) Est GFR (CKD-EPI)NonAf (>60 ml/min/1.73 sqM) Glucose (74-99) mg/dL Plasma Lactic Acid Isiah 1.5 (0.7-2.0) mmol/L Calcium (8.4-10.2) mg/dL Total Bilirubin (0.2-1.3) mg/dL AST (17-59) U/L ALT (4-49) U/L Alkaline Phosphatase (38-126) U/L Troponin I <0.012 (0.000-0.034) ng/mL Total Protein (6.3-8.2) g/dL Albumin (3.5-5.0) g/dL Salicylates mg/dL Acetaminophen ug/mL Serum Alcohol mg/dL Disposition Clinical Impression: Polysubstance abuse Disposition: HOME SELF-CARE Instructions (If sedation given, give patient instructions): Polysubstance Abuse (ED), Adult Overdose (ED) Additional Instructions: Return to the emergency department with any new, worsening, or concerning symptoms. Is patient prescribed a controlled substance at d/c from ED?: No Referrals: None,Stated [Primary Care Provider] - 1-2 days Time of Disposition: 15:26
[2024-02-06] MEDS: KETOROLAC 15 MG/ML 1 ML VIAL IVP STA (12:25)
[2024-02-06] MEDS: SODIUM CHLORIDE 0.9% 1,000 ML IV STA (12:26)
[2024-02-06 12:45] LABS: Basophils % (A) 0 %; Eosinophils # (A) 0.6 k/uL (0-0.7); Eosinophils % (A) 5 %; HCT 38.8 % (39.0-53.0); HGB 12.4 gm/dL (13.0-17.5); Lymphocytes # (A) 1.9 k/uL (1.0-4.8); Lymphocytes % (A) 17 %; MCH 29.4 pg (25.0-35.0); MCV 91.8 fL (80.0-100.0); Mean Platelet Volume 8.6; Monocytes # (A) 0.7 k/uL (0-1.0); Monocytes % (A) 6 %; Neutrophils # (A) 7.7 k/uL (1.3-7.7); Neutrophils % (A) 70 %; Platelet Count 362 k/uL (150-450); RBC 4.23 m/uL (4.30-5.90); RDW 14.6 % (11.5-15.5)
[2024-02-06 12:52] LABS: Prothrombin Time 10.8 sec (10.0-12.5)
[2024-02-06 13:14] LABS: ALT 34 U/L (4-49); Acetaminophen <10.0 ug/mL; African American GFR (CKD) >90 (>60 ml/min/1.73 sqM); Albumin 3.9 g/dL (3.5-5.0); Alcohol <10 mg/dL; Anion Gap 4 mmol/L; Blood Urea Nitrogen 9 mg/dL (9-20); Calcium 9.6 mg/dL (8.4-10.2); Carbon Dioxide 29 mmol/L (22-30); Chloride 105 mmol/L (98-107); Glucose 113 mg/dL (74-99); Non-African American GFR(CKD) >90 (>60 ml/min/1.73 sqM); Salicylate <1.0 mg/dL; Sodium 138 mmol/L (137-145); Total Bilirubin 0.4 mg/dL (0.2-1.3); Total Protein 6.8 g/dL (6.3-8.2)
[2024-02-06 13:23] LABS: AST 48 U/L (17-59); Alkaline Phosphatase 57 U/L (38-126); Potassium 4.3 mmol/L (3.5-5.1)
[2024-02-06 16:37] VITALS: BP 141/88; PULSE 52
== END 2024-02-06 16:36 | disposition home or self-care (01) ==
LOC: EC 11:48
DX: T50.901A Poisoning by unspecified drugs, medicaments and biological substances, accidental (unintentional), initial encounter
CPT/HCPCS: 36415; 80053; 80143; 80179; 80320; 83605; 84484; 85025; 85610; 93005; 96361; 96374; 99284

== ENCOUNTER 2024-02-13 09:59 | Inpatient (IN) | payer MEDICARE, OTHER ==
--- NOTE | 2024-02-13 10:31 | ED ---
SOB HPI - General Chief Complaint: Shortness of Breath Stated Complaint: SOB Time Seen by Provider: 02/13/24 10:18 Source: patient, EMS, RN notes reviewed Mode of arrival: EMS Limitations: no limitations - History of Present Illness Initial Comments: 48-year-old male presented to the ER via EMS from [facility] for evaluation of shortness of breath. Patient is currently residing at [facility] for cocaine abuse rehabilitation. 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 Patient states has been there for approximately 3 days. He states for the past day he has been experiencing shortness of breath, cough and coughing up phlegm. He admits to exertional dyspnea states he is unable to walk approximately 30 feet without feeling short of breath. He denies any peripheral edema orthopnea. Patient does not typically wear nasal cannula oxygen He denies any current chest pain, pain, urinary complaints or diarrhea/constipation. Patient is a smoker but has not smoked a cigarette in 3 days. - Related Data Home Medications Medication Instructions Recorded Confirmed Tamsulosin [Flomax] 0.8 mg PO HS 04/02/22 02/13/24 Albuterol Sulfate [Proventil Hfa] 1 puff INHALATION RT-Q4H PRN 10/28/23 02/13/24 Gabapentin 600 mg PO TID 10/28/23 02/13/24 Levothyroxine Sodium [Synthroid] 100 mcg PO DAILY 10/28/23 02/13/24 carvediloL [Coreg] 6.25 mg PO BID 10/28/23 02/13/24 cloNIDine HCL [Catapres] 0.1 mg PO TID 10/28/23 02/13/24 Acetaminophen [Tylenol] 650 mg PO Q4H 02/13/24 02/13/24 Albuterol Nebulized [Ventolin 2.5 mg INHALATION RT-Q4H PRN 02/13/24 02/13/24 Nebulized] Buprenorphine HCl/Naloxone HCl 1 film SL BID 02/13/24 02/13/24 [Suboxone 8 mg-2 mg Sl Film] Calcium/Magnesium/Zinc/Vitamin D 1 tab PO TID PRN 02/13/24 02/13/24 Chlorpheniramine Maleate 4 mg PO Q4H PRN 02/13/24 02/13/24 [Chlor-Trimeton] Famotidine [Pepcid] 20 mg PO BID 02/13/24 02/13/24 Fluconazole [Diflucan] 150 mg PO DAILY 02/13/24 02/13/24 Hyoscyamine Sulfate [Levsin-Sl] 0.125 mg SL QID PRN 02/13/24 02/13/24 Ibuprofen [Motrin Ib] 600 mg PO Q6H PRN 02/13/24 02/13/24 Ketoconazole 2% Shampoo [Nizoral] 1 applic TOPICAL DIRECTED 02/13/24 02/13/24 Loperamide [Imodium] 4 mg PO QID PRN 02/13/24 02/13/24 Multivitamins, Thera [Multivitamin 1 tab PO DAILY 02/13/24 02/13/24 (formulary)] Mylanta 30 ml PO Q4H PRN 02/13/24 02/13/24 Omeprazole 40 mg PO DAILY 02/13/24 02/13/24 Thiamine [Vitamin B-1] 100 mg PO DAILY 02/13/24 02/13/24 Tolnaftate [Tolnaftate 1%] 1 applic TOPICAL BID 02/13/24 02/13/24 Umeclidinium Brm/Vilanterol Tr 1 puff INHALATION RT-DAILY 02/13/24 02/13/24 [Anoro Ellipta 62.5-25 Mcg INH] cloNIDine HCL [Catapres] 0.1 - 0.3 mg PO Q4H PRN 02/13/24 02/13/24 ondansetron HCL [Zofran] 8 mg PO Q6H PRN 02/13/24 02/13/24 traZODone HCL 100 mg PO HS 02/13/24 02/13/24 Allergies Allergy/AdvReac Type Severity Reaction Status Date / Time haloperidol [From Haldol] AdvReac [place] Verified 02/13/24 11:37 trazodone AdvReac Dry mouth, Verified 02/13/24 11:37 Nightmares Review of Systems ROS Statement: Those systems with pertinent positive or pertinent negative responses have been documented in the HPI. ROS Other: All systems not noted in ROS Statement are negative. Past Medical History Past Medical History: Asthma, Hyperlipidemia, Thyroid Disorder Additional Past Medical History / Comment(s): scabies Last Myocardial Infarction Date:: 01/2022 History of Any Multi-Drug Resistant Organisms: MRSA Date of last positivie culture/infection: buttocks MDRO Source:: 2017 Past Surgical History: Adenoidectomy, Bariatric Surgery Additional Past Surgical History / Comment(s): L lobectomy, splenectomy Past Psychological History: Bipolar, Depression Smoking Status: Current some day smoker Past Alcohol Use History: Daily Past Drug Use History: Cocaine General Exam Limitations: no limitations General appearance: alert, in no apparent distress Respiratory exam: Present: wheezes (bilaterally inspriatory ) Cardiovascular Exam: Present: regular rate, normal rhythm, normal heart sounds. Absent: systolic murmur, diastolic murmur, rubs, gallop, clicks Extremities exam: Present: normal inspection, full ROM, normal capillary refill. Absent: tenderness, pedal edema, joint swelling, calf tenderness Neurological exam: Present: alert, oriented X3, CN II-XII intact Skin exam: Present: warm, dry, intact, normal color. Absent: rash Course Vital Signs 02/13/24 02/13/24 02/13/24 10:14 11:34 11:52 Temperature 99.0 F 98.6 F Pulse Rate 72 62 61 Respiratory 18 18 Rate Blood Pressure 106/71 106/65 O2 Sat by Pulse 94 L 96 Oximetry 02/13/24 12:01 Temperature Pulse Rate 64 Respiratory Rate Blood Pressure O2 Sat by Pulse Oximetry - Reevaluation(s) Reevaluation #1: 02/13/24 14:43 [facility] Medical Decision Making - Medical Decision Making Was pt. sent in by a medical professional or institution (, PA, FINISHING AREA OPERATOR, urgent care, hospital, or prison...) When possible be specific @ -Patient sent by [facility] for evaluation of shortness of breath Did you speak to anyone other than the patient for history (EMS, parent, family, police, friend...)? What history was obtained from this source @ -No Did you review nursing and triage notes (agree or disagree)? Why? @ -I reviewed and agree with nursing and triage notes Were old charts reviewed (outside hosp., previous admission, EMS record, old EKG, old radiological studies, urgent care reports/EKG's, prison records)? Report findings @ -No old charts were reviewed Differential Diagnosis (chest pain, altered mental status, abdominal pain women, abdominal pain men, vaginal bleeding, weakness, fever, dyspnea, syncope, headache, dizziness, GI bleed, back pain, seizure, CVA, palpatations, mental health, musculoskeletal)? @ -Differential Dyspnea: Coronary syndrome, arrhythmia, tamponade, asthma, COPD, pulmonary embolism, pneumonia, pneumothorax, pulmonary effusion, anaphylaxis, diabetic ketoacidosis, flailed chest, pulmonary contusion, d iaphragmatic rupture, anemia, neuromuscular, this is not meant to be an all- inclusive list. EKG interpreted by me (3pts min.). @ -None X-rays interpreted by me (1pt min.). @ -Chest x-ray interpreted by me concerning of a right lower lobe pneumonia CT interpreted by me (1pt min.). @ -None done U/S interpreted by me (1pt. min.). @ -None done What testing was considered but not performed or refused? (CT, X-rays, U/S, labs)? Why? @ -None What meds were considered but not given or refused? Why? @ -None Did you discuss the management of the patient with other professionals (professionals i.e. , PA, FINISHING AREA OPERATOR, lab, RT, psych nurse, social service director, meat stringer, teacher, chief information security officer, therapeutic case manager)? Give summary @ -[facility] Was smoking cessation discussed for >3mins.? @ -No Was critical care preformed (if so, how long)? @ -No Were there social determinants of health that impacted care today? How? (Homelessness, low income, unemployed, alcoholism, drug addiction, transportation, low edu. Level, literacy, decrease access to med. care, [facility], rehab)? @ -Cocaine abuse currently residing at [facility] for rehabilitation. Was there de-escalation of care discussed even if they declined (Discuss DNR or withdrawal of care, Hospice)? DNR status @ -No What co-morbidities impacted this encounter? (DM, HTN, Smoking, COPD, CAD, Cancer, CVA, ARF, Chemo, Hep., AIDS, mental health diagnosis, sleep apnea, morbid obesity)? @ -Asplenic, left lower lobe lobectomy Was patient admitted / discharged? Hospital course, mention meds given and route, prescriptions, significant lab abnormalities, going to OR and other pertinent info. @ -Admitted. 48-year-old male presented to the ER with a chief complaint of shortness of breath. Patient currently residing at [facility] for cocaine rehabilitation. Patient's last cocaine use was approximately 3 days ago. History physical exam completed. Vitals upon examination remarkable for temperature 99.0, heart rate 72, respiratory 18, blood pressure 106/71, oxygen saturation 90% on 2 L nasal cannula oxygen. Patient does not typically wear nasal cannula oxygen at home. Patient in no signs of acute distress and on toxic appearing. Patient is mildly diaphoretic on exam. Wheezing throughout lung heath. Laboratory studies obtained showing a leukocytosis of 31.4 with a left shift 27.7. Normocytic normochromic anemia of 12.7 which appears to be chronic in nature. CMP showing sodium 134, potassium 4.2, chloride 99, carbon dioxide 32. Lactic 0.8. Viral swabs negative. Chest x-ray interpreted by me man oncerning of a right lower lobe pneumonia. Patient received IV fluids and DuoNeb nebulizer in the ER. Admission considered for leukocytosis and pneumonia. Blood cultures obtained. Patient started on Rocephin and azithromycin. Admission discussed with Dr. Douglas, [facility], accepts [facility]. ID on consult. Patient agreeable for admission. Case discussed with ED attending, Dr. Kan Undiagnosed new problem with uncertain prognosis? @ -No Drug Therapy requiring intensive monitoring for toxicity (Heparin, Nitro, Insulin, Cardizem)? @ -No Were any procedures done? @ -No Diagnosis/symptom? @ -Leukocytosis/pneumonia Acute, or Chronic, or Acute on Chronic? @ -Acute Uncomplicated (without systemic symptoms) or Complicated (systemic symptoms)? @ -Complicated Side effects of treatment? @ -No Exacerbation, Progression, or Severe Exacerbation? @ -No Poses a threat to life or bodily function? How? (Chest pain, [place], NM, pneumonia, PE, COPD, DKA, ARF, appy, cholecystitis, CVA, Diverticulitis, Homicidal, Suicidal, threat to staff... and all critical care pts) @ -Yes, pneumonia can lead to sepsis which can lead to endorgan dysfunction which is life-threatening. - Lab Data Result diagrams: 02/13/24 10:53 02/13/24 13:46 Lab Results 02/13/24 02/13/24 02/13/24 Range/Units 10:53 10:53 12:41 WBC 31.4 H (3.8-10.6) k/uL RBC 4.21 L (4.30-5.90) m/uL Hgb 12.7 L (13.0-17.5) gm/dL Hct 38.2 L (39.0-53.0) % MCV 90.9 (80.0-100.0) fL MCH 30.1 (25.0-35.0) pg MCHC 33.1 (31.0-37.0) g/dL RDW 14.4 (11.5-15.5) % Plt Count 369 (150-450) k/uL MPV 8.5 Neutrophils % 88 % Lymphocytes % 5 % Monocytes % 5 % Eosinophils % 1 % Basophils % 0 % Neutrophils # 27.7 H (1.3-7.7) k/uL Lymphocytes # 1.6 (1.0-4.8) k/uL Monocytes # 1.6 H (0-1.0) k/uL Eosinophils # 0.3 (0-0.7) k/uL Basophils # 0.1 (0-0.2) k/uL Manual Slide Review Performed RBC Morphology Normal Sodium (137-145) mmol/L Potassium (3.5-5.1) mmol/L Chloride (98-107) mmol/L Carbon Dioxide (22-30) mmol/L Anion Gap mmol/L BUN (9-20) mg/dL Creatinine (0.66-1.25) mg/dL Est GFR (CKD-EPI)AfAm (>60 ml/min/1.73 sqM) Est GFR (CKD-EPI)NonAf (>60 ml/min/1.73 sqM) Glucose (74-99) mg/dL Plasma Lactic Acid Isiah 0.8 (0.7-2.0) mmol/L Calcium (8.4-10.2) mg/dL Total Bilirubin (0.2-1.3) mg/dL AST (17-59) U/L ALT (4-49) U/L Alkaline Phosphatase (38-126) U/L Total Protein (6.3-8.2) g/dL Albumin (3.5-5.0) g/dL Influenza Type A (PCR) Not Detected (Not Detectd) Influenza Type B (PCR) Not Detected (Not Detectd) RSV (PCR) Not Detected (Not Detectd) SARS-CoV-2 (PCR) Not Detected (Not Detectd) 02/13/24 Range/Units 13:46 WBC (3.8-10.6) k/uL RBC (4.30-5.90) m/uL Hgb (13.0-17.5) gm/dL Hct (39.0-53.0) % MCV (80.0-100.0) fL MCH (25.0-35.0) pg MCHC (31.0-37.0) g/dL RDW (11.5-15.5) % Plt Count (150-450) k/uL MPV Neutrophils % % Lymphocytes % % Monocytes % % Eosinophils % % Basophils % % Neutrophils # (1.3-7.7) k/uL Lymphocytes # (1.0-4.8) k/uL Monocytes # (0-1.0) k/uL Eosinophils # (0-0.7) k/uL Basophils # (0-0.2) k/uL Manual Slide Review RBC Morphology Sodium 134 L (137-145) mmol/L Potassium 4.2 (3.5-5.1) mmol/L Chloride 99 (98-107) mmol/L Carbon Dioxide 32 H (22-30) mmol/L Anion Gap 3 mmol/L BUN 16 (9-20) mg/dL Creatinine 0.64 L (0.66-1.25) mg/dL Est GFR (CKD-EPI)AfAm >90 (>60 ml/min/1.73 sqM) Est GFR (CKD-EPI)NonAf >90 (>60 ml/min/1.73 sqM) Glucose 97 (74-99) mg/dL Plasma Lactic Acid Isiah (0.7-2.0) mmol/L Calcium 8.7 (8.4-10.2) mg/dL Total Bilirubin 0.5 (0.2-1.3) mg/dL AST 22 (17-59) U/L ALT 17 (4-49) U/L Alkaline Phosphatase 57 (38-126) U/L Total Protein 6.2 L (6.3-8.2) g/dL Albumin 3.3 L (3.5-5.0) g/dL Influenza Type A (PCR) (Not Detectd) Influenza Type B (PCR) (Not Detectd) RSV (PCR) (Not Detectd) SARS-CoV-2 (PCR) (Not Detectd) - Radiology Data Radiology results: report reviewed, image reviewed Disposition Clinical Impression: Leukocytosis, Pneumonia, Cocaine abuse Disposition: ADMITTED IP TO THIS [facility] Condition: Stable Referrals: None,Stated [Primary Care Provider] - 1-2 days Time of Disposition: 14:47
--- NOTE | 2024-02-13 10:56 | XR ---
EXAMINATION TYPE: XR chest 2V DATE OF EXAM: 02/13/2024 COMPARISON: 04/05/2022 INDICATION: Shortness of breath TECHNIQUE: Frontal and lateral views of the chest are obtained. FINDINGS: The heart size is normal. The pulmonary vasculature is normal. The lungs are clear. There may be some left apical thickening present. Some left pleural thickening is not excluded. May be a small left pleural effusion. IMPRESSION: 1. Mild pleural thickening left apex. 2. Small left pleural effusion [facility], , 02/13/2024 10:54 AM
[2024-02-13 11:15] LABS: Basophils # (A) 0.1 k/uL (0-0.2); Basophils % (A) 0 %; Eosinophils # (A) 0.3 k/uL (0-0.7); Eosinophils % (A) 1 %; HCT 38.2 % (39.0-53.0); HGB 12.7 gm/dL (13.0-17.5); Lymphocytes # (A) 1.6 k/uL (1.0-4.8); Lymphocytes % (A) 5 %; MCH 30.1 pg (25.0-35.0); MCHC 33.1 g/dL (31.0-37.0); MCV 90.9 fL (80.0-100.0); Mean Platelet Volume 8.5; Monocytes # (A) 1.6 k/uL (0-1.0); Monocytes % (A) 5 %; Neutrophils # (A) 27.7 k/uL (1.3-7.7); Neutrophils % (A) 88 %; Platelet Count 369 k/uL (150-450); RBC 4.21 m/uL (4.30-5.90); RDW 14.4 % (11.5-15.5); WBC 31.4 k/uL (3.8-10.6)
[2024-02-13] MEDS: IPRATROPIUM-ALBUTEROL 3 ML NEB INHALATION STA (11:52)
[2024-02-13 12:01] LABS: RBC Morphology Normal
[2024-02-13] MEDS: SODIUM CHLORIDE 0.9% 1,000 ML IV STA (13:16)
[2024-02-13 14:11] LABS: ALT 17 U/L (4-49); AST 22 U/L (17-59); African American GFR (CKD) >90 (>60 ml/min/1.73 sqM); Albumin 3.3 g/dL (3.5-5.0); Alkaline Phosphatase 57 U/L (38-126); Anion Gap 3 mmol/L; Blood Urea Nitrogen 16 mg/dL (9-20); Calcium 8.7 mg/dL (8.4-10.2); Carbon Dioxide 32 mmol/L (22-30); Chloride 99 mmol/L (98-107); Glucose 97 mg/dL (74-99); Non-African American GFR(CKD) >90 (>60 ml/min/1.73 sqM); Potassium 4.2 mmol/L (3.5-5.1); Sodium 134 mmol/L (137-145); Total Bilirubin 0.5 mg/dL (0.2-1.3); Total Protein 6.2 g/dL (6.3-8.2)
[2024-02-13] MEDS ORDERED: NALOXONE 0.4 MG/ML 1 ML VIAL IV PRN (14:33)
[2024-02-13] MEDS: AZITHROMYCIN 500 MG TAB PO STA (14:41)
[2024-02-13] MEDS ORDERED: IPRATROPIUM-ALBUTEROL 3 ML NEB INHALATION PRN (15:58)
[2024-02-13] MEDS ORDERED: HYOSCYAMINE SULFATE 0.125 MG TAB SL PRN (16:00)
[2024-02-13] MEDS ORDERED: ONDANSETRON 4 MG TAB PO PRN (16:00)
[2024-02-13] MEDS ORDERED: MAG HYDROX/AL HYDROX/SIMETH 30 ML CUP PO PRN (16:00)
[2024-02-13] MEDS ORDERED: NON FORMULARY DRUG (Calcium/Magnesium/Zinc/Vitamin D 1 TAB) PO PRN (16:00)
[2024-02-13] MEDS ORDERED: LOPERAMIDE 2 MG CAP PO PRN (16:00)
[2024-02-13] MEDS: IPRATROPIUM-ALBUTEROL 3 ML NEB INHALATION SCH (16:55)
[2024-02-13] MEDS: SYMBICORT 160-4.5 MCG INHALER INHALATION SCH (16:55)
[2024-02-13] MEDS: LEVOTHYROXINE 100 MCG TAB PO SCH (17:52)
[2024-02-13] MEDS: GABAPENTIN 300 MG CAP PO SCH (17:52)
[2024-02-13] MEDS: methylPREDNISolone SOD SUCCI 125 MG/2 ML VIAL IV SCH (17:52)
[2024-02-13] MEDS: cloNIDine HCL 0.1 MG TAB PO SCH (17:53)
[2024-02-13] MEDS: SODIUM CHLORIDE 0.9% 1,000 ML IV SCH (17:53)
[2024-02-13] MEDS: VANCOMYCIN 125 MG CAPSULE PO SCH (19:00)
[2024-02-13] MEDS: IBUPROFEN 400 MG TAB PO PRN (20:26)
[2024-02-13] MEDS: Buprenorphine Hcl/Naloxone Hcl [Suboxone 8 Mg-2 Mg Sl Film] 1 EACH Fil SUBLINGUAL SCH (20:26)
[2024-02-13] MEDS: FAMOTIDINE 20 MG TAB PO SCH (20:26)
[2024-02-13] MEDS: CLOTRIMAZOLE 1% CREAM 30 GM TUBE TOPICAL SCH (20:27)
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
[2024-02-13] MEDS: TAMSULOSIN 0.4 MG CAP.ER.24H PO SCH (21:11)
[2024-02-13] MEDS: traZODone HCL 100 MG TAB PO SCH (21:11)
--- NOTE | 2024-02-13 22:47 | P.CONS ---
History of Present Illness - Reason for Consult Consult date: 02/13/24 Leukocytosis Requesting physician: Cristine Church - Chief Complaint Shortness of breath and diarrhea x few days - History of Present Illness Patient is a 48-year-old male with a past medical history significant for hyperlipidemia hypothyroidism asthma bipolar depression history of alcoholism and cocaine abuse patient mention he was recently admitted at [facility] with diarrhea however he was not very clear white count of diagnosis and treatment was provided to him patient subsequently has been at the [facility] from his drug alcohol abuse patient has been sent to the ER for evaluation of increasing shortness of breath that apparently has been getting worse for the last 3 days patient also complaining of cough and increased sputum production denies any nausea no vomiting, abdominal pain and also complaining of diarrhea in this patient with multiple loose stool denies any blood or mucus in the stool no urinary symptoms patient on presentation to the hospital did have low-grade fever of 99 degrees warm right patient was nontachycardic hypotensive or hypoxic and no need for supplemental oxygen he did have white count 31.4 with a left shift creatinine 0.64 CRP was elevated procalcitonin 0.21 influenza RSV COVID testing has been negative patient did have a chest x-ray mild pleural thickening left apex small left effusion patient has been admitted to the hospital infectious disease was consulted regarding elevated white count Review of Systems Positive point and negatives has been mentioned in the HPI, complete review of systems was performed and all other systems are negative Past Medical History Past Medical History: Asthma, Hyperlipidemia, Thyroid Disorder Additional Past Medical History / Comment(s): scabies Last Myocardial Infarction Date:: 01/2022 History of Any Multi-Drug Resistant Organisms: MRSA Year Discovered:: buttocks MDRO Source:: 2016 Past Surgical History: Adenoidectomy, Bariatric Surgery Additional Past Surgical History / Comment(s): L lobectomy, splenectomy Past Psychological History: Bipolar, Depression Smoking Status: Current some day smoker Past Alcohol Use History: Daily Past Drug Use History: Cocaine Medications and Allergies Home Medications Medication Instructions Recorded Confirmed Type Tamsulosin [Flomax] 0.8 mg PO HS 04/02/22 02/13/24 History Albuterol Sulfate [Proventil Hfa] 1 puff INHALATION RT-Q4H PRN 10/28/23 02/13/24 History Gabapentin 600 mg PO TID 10/28/23 02/13/24 History Levothyroxine Sodium [Synthroid] 100 mcg PO DAILY 10/28/23 02/13/24 History carvediloL [Coreg] 6.25 mg PO BID 10/28/23 02/13/24 History cloNIDine HCL [Catapres] 0.1 mg PO TID 10/28/23 02/13/24 History Acetaminophen [Tylenol] 650 mg PO Q4H 02/13/24 02/13/24 History Albuterol Nebulized [Ventolin 2.5 mg INHALATION RT-Q4H PRN 02/13/24 02/13/24 History Nebulized] Buprenorphine HCl/Naloxone HCl 1 film SL BID 02/13/24 02/13/24 History [Suboxone 8 mg-2 mg Sl Film] Calcium/Magnesium/Zinc/Vitamin D 1 tab PO TID PRN 02/13/24 02/13/24 History Chlorpheniramine Maleate 4 mg PO Q4H PRN 02/13/24 02/13/24 History [Chlor-Trimeton] Famotidine [Pepcid] 20 mg PO BID 02/13/24 02/13/24 History Fluconazole [Diflucan] 150 mg PO DAILY 02/13/24 02/13/24 History Hyoscyamine Sulfate [Levsin-Sl] 0.125 mg SL QID PRN 02/13/24 02/13/24 History Ibuprofen [Motrin Ib] 600 mg PO Q6H PRN 02/13/24 02/13/24 History Ketoconazole 2% Shampoo [Nizoral] 1 applic TOPICAL DIRECTED 02/13/24 02/13/24 History Loperamide [Imodium] 4 mg PO QID PRN 02/13/24 02/13/24 History Multivitamins, Thera [Multivitamin 1 tab PO DAILY 02/13/24 02/13/24 History (formulary)] Mylanta 30 ml PO Q4H PRN 02/13/24 02/13/24 History Omeprazole 40 mg PO DAILY 02/13/24 02/13/24 History Thiamine [Vitamin B-1] 100 mg PO DAILY 02/13/24 02/13/24 History Tolnaftate [Tolnaftate 1%] 1 applic TOPICAL BID 02/13/24 02/13/24 History Umeclidinium Brm/Vilanterol Tr 1 puff INHALATION RT-DAILY 02/13/24 02/13/24 History [Anoro Ellipta 62.5-25 Mcg INH] cloNIDine HCL [Catapres] 0.1 - 0.3 mg PO Q4H PRN 02/13/24 02/13/24 History ondansetron HCL [Zofran] 8 mg PO Q6H PRN 02/13/24 02/13/24 History traZODone HCL 100 mg PO HS 02/13/24 02/13/24 History Allergies Allergy/AdvReac Type Severity Reaction Status Date / Time haloperidol [From Haldol] AdvReac [place]jaw Verified 02/13/24 11:37 trazodone AdvReac Dry mouth, Verified 02/13/24 11:37 Nightmares Physical Exam Vitals: Vital Signs Temp Pulse Resp BP Pulse Ox 02/13/24 12:01 64 02/13/24 11:52 61 02/13/24 11:34 98.6 F 62 18 106/65 96 02/13/24 10:14 99.0 F 72 18 106/71 94 L Intake and Output 02/12/24 02/13/24 02/13/24 22:59 06:59 14:59 Other: Weight 81.647 kg GENERAL DESCRIPTION: Middle-aged male lying in bed, no distress. No tachypnea or accessory muscle of respiration use. HEENT: Shows Pallor , no scleral icterus. Oral mucous membrane is dry. No pharyngeal erythema or thrush NECK: Trachea central, no thyromegaly. LUNGS: Unlabored breathing. Decreased breath sound at the base HEART: S1, S2, regular rate and rhythm. No loud murmur ABDOMEN: Soft, no tenderness , guarding or rigidity, no organomegaly EXTREMITIES: No edema of feet. SKIN: No rash, no masses palpable. NEUROLOGICAL: The patient is awake, alert, oriented x3, mood and affect normal. Results CBC & Chem 7: 02/13/24 10:53 02/13/24 13:46 Labs: Abnormal Lab Results - Last 24 Hours (Table) 02/13/24 02/13/24 Range/Units 10:53 13:46 WBC 31.4 H (3.8-10.6) k/uL RBC 4.21 L (4.30-5.90) m/uL Hgb 12.7 L (13.0-17.5) gm/dL Hct 38.2 L (39.0-53.0) % Neutrophils # 27.7 H (1.3-7.7) k/uL Monocytes # 1.6 H (0-1.0) k/uL Sodium 134 L (137-145) mmol/L Carbon Dioxide 32 H (22-30) mmol/L Creatinine 0.64 L (0.66-1.25) mg/dL Total Protein 6.2 L (6.3-8.2) g/dL Albumin 3.3 L (3.5-5.0) g/dL Assessment and Plan (1) Diarrhea Current Visit: Yes Status: Acute Code(s): R19.7 - DIARRHEA, UNSPECIFIED SNOMED Code(s): 88697839 (2) Leukocytosis Current Visit: Yes Status: Acute Code(s): D72.829 - ELEVATED WHITE BLOOD CELL COUNT, UNSPECIFIED SNOMED Code(s): 803575341 Plan: 1patient with a leukocytosis which is likely multifactorial in this patient presented to hospital with multiple symptoms especially with increasing shortness of breath patient was noted to have elevated white count of 31,000, chest x-ray did show some effusion did not show any consolidation in this patien t mention he did have similar admission to the [facility] recently with diarrhea with recurrent diarrhea question of possible C. difficile not entirely excluded. 2we will check blood cultures and inflammatory markers and check a stool for C. difficile. 3will empirically add oral vancomycin pending workup completion. We will follow on clinical condition and cultures to further adjust medication if needed Thank you for this consultation we will follow the patient along with you Dictation was produced using [employer] software. please excuse any grammatical, word or spelling errors. Time with Patient: Greater than 30
[2024-02-13] MEDS: ACETAMINOPHEN TAB 325 MG TAB PO PRN (23:50)
[2024-02-14] MEDS ORDERED: NON FORMULARY DRUG (Omeprazole [Omeprazole] 40 MG Capsule.Dr) PO SCH (09:00)
[2024-02-14 09:11] LABS: HCT 38.6 % (39.6-50.0); HGB 12.1 g/dL (13.0-17.0); MCH 28.5 pg (27.0-32.0); MCHC 31.3 g/dL (32.0-37.0); MCV 90.8 FL (80.0-97.0); Mean Platelet Volume 10.6 FL (9.5-12.2); NRBC Per 100 WBC 0 X 10*3/uL (0.00-0.01); Platelet Count 369 X 10*3/uL (140-440); RBC 4.25 X 10*6/uL (4.40-5.60); RDW 14.3 % (11.5-14.5)
[2024-02-14 09:19] LABS: BUN/Creat Ratio 15.71 Ratio (12.00-20.00); Calcium 9.5 mg/dL (8.7-10.3); Carbon Dioxide 24.3 mmol/L (21.6-31.8); Chloride 104 mmol/L (96-109); Glucose 222 mg/dL (70-110); Potassium 4.6 mmol/L (3.5-5.5); Sodium 138 mmol/L (135-145)
[2024-02-14] MEDS: MULTIVITAMINS, THERA 1 EACH TAB PO SCH (09:34)
[2024-02-14] MEDS: PANTOPRAZOLE 40 MG TABLET PO SCH (09:34)
[2024-02-14] MEDS: THIAMINE 100 MG TAB PO SCH (09:36)
[2024-02-14 10:56] LABS: Basophils # (A) 0.02 X 10*3/uL (0.00-0.10); Basophils % (A) 0.1 %; Eosinophils # (A) 0 X 10*3/uL (0.04-0.35); Eosinophils % (A) 0 %; Lymphocytes # (A) 0.76 X 10*3/uL (0.90-5.00); Lymphocytes % (A) 3.1 %; Monocytes # (A) 0.14 X 10*3/uL (0.20-1.00); Monocytes % (A) 0.6 %; Neutrophils # (A) 23.34 X 10*3/uL (1.80-7.70); Neutrophils % (A) 95.6 %
[2024-02-14 10:57] LABS: RBC Morphology Normal (Normal)
--- NOTE | 2024-02-14 12:53 | P.PN ---
Subjective Progress Note Date: 02/14/24 Principal diagnosis: Reason for follow-up is leukocytosis and diarrhea Patient is a 48-year-old male with a past medical history significant for hyperlipidemia hypothyroidism asthma bipolar depression history of alcoholism and cocaine abuse patient mention he was recently admitted at [facility] with diarrhea however he was not very clear white count of diagnosis and treatment subsequently admitted at [facility] for cocaine rehabilitation has been sent to us for increasing shortness of breath. On today's evaluation that is 02/14/2024,the patient remains to be afebrile, patient is on room air not requiring supplemental oxygen and mention breathing more comfortably denies significant cough or sputum production no nausea vomiting abdominal pain still having diarrhea. The patient white count is noted 4.40, creatinine 0.7 stool for C. difficile not collected Objective - Vital Signs Vital signs: Vital Signs Temp 97.6 F 02/14/24 06:57 Pulse 76 02/14/24 08:28 Resp 18 02/14/24 06:57 BP 132/78 02/14/24 06:57 Pulse Ox 94 L 02/14/24 06:57 FiO2 Intake & Output 02/13/24 02/14/24 02/14/24 18:59 06:59 18:59 Intake Total 1240 Output Total 1650 Balance -410 Weight 81.647 kg Intake: Oral 1240 Output: Urine 1650 Other: Voiding Method Toilet Urinal - Exam GENERAL DESCRIPTION: Middle-age male lying in bed in no distress RESPIRATORY SYSTEM: Unlabored breathing , decreased breath sounds at bases HEART: S1 S2 regular rate and rhythm , ABDOMEN: Soft , no tenderness EXTREMITIES: No edema feet - Labs CBC & Chem 7: 02/14/24 02:52 02/14/24 02:52 Labs: Abnormal Lab Results - Last 24 Hours (Table) 02/13/24 02/13/24 02/13/24 Range/Units 10:53 13:46 13:46 WBC 31.4 H (3.8-10.6) k/uL RBC 4.21 L (4.30-5.90) m/uL Hgb 12.7 L (13.0-17.5) gm/dL Hct 38.2 L (39.0-53.0) % MCHC (32.0-37.0) g/dL Immature Gran # (0.00-0.04) X 10*3/uL Neutrophils # 27.7 H (1.3-7.7) k/uL Lymphocytes # (0.90-5.00) X 10*3/uL Monocytes # 1.6 H (0-1.0) k/uL Eosinophils # (0.04-0.35) X 10*3/uL Sodium 134 L (137-145) mmol/L Carbon Dioxide 32 H (22-30) mmol/L Creatinine 0.64 L (0.66-1.25) mg/dL Glucose (70-110) mg/dL C-Reactive Protein 13.00 H (0.00-0.80) mg/dL Total Protein 6.2 L (6.3-8.2) g/dL Albumin 3.3 L (3.5-5.0) g/dL 02/14/24 02/14/24 Range/Units 02:52 02:52 WBC 24.40 H (3.8-10.6) k/uL RBC 4.25 L (4.30-5.90) m/uL Hgb 12.1 L (13.0-17.5) gm/dL Hct 38.6 L (39.0-53.0) % MCHC 31.3 L (32.0-37.0) g/dL Immature Gran # 0.14 H (0.00-0.04) X 10*3/uL Neutrophils # 23.34 H (1.3-7.7) k/uL Lymphocytes # 0.76 L (0.90-5.00) X 10*3/uL Monocytes # 0.14 L (0-1.0) k/uL Eosinophils # 0 L (0.04-0.35) X 10*3/uL Sodium (137-145) mmol/L Carbon Dioxide (22-30) mmol/L Creatinine (0.66-1.25) mg/dL Glucose 222 H (70-110) mg/dL C-Reactive Protein (0.00-0.80) mg/dL Total Protein (6.3-8.2) g/dL Albumin (3.5-5.0) g/dL Assessment and Plan (1) Diarrhea Current Visit: Yes Status: Acute Code(s): R19.7 - DIARRHEA, UNSPECIFIED SNOMED Code(s): 72695486 (2) Leukocytosis Current Visit: Yes Status: Acute Code(s): D72.829 - ELEVATED WHITE BLOOD CELL COUNT, UNSPECIFIED SNOMED Code(s): 684258453 Plan: 1patient with a leukocytosis which is likely multifactorial in this patient presented to hospital with multiple symptoms especially with increasing shortness of breath patient was noted to have elevated white count of 31,000, chest x-ray did show some effusion did not show any consolidation in this patient mention he did have similar admission to the [facility] recently with diarrhea with recurrent diarrhea question of possible C. difficile not entirely excluded. 2currently waiting for the blood culture to finalize as well as stool for C. difficile. Patient did have normal procalcitonin 3patient to continue with oral vancomycin pending finalization of the workup white count is trending down Dictation was produced using [employer] dictation software. please excuse any grammatical, word or spelling errors. Time with Patient: Less than 30
[2024-02-14] MEDS: NICOTINE 21MG/24HR PATCH TRANSDERM SCH (12:59)
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
[2024-02-14] MEDS: KETOROLAC 15 MG/ML 1 ML VIAL IM PRN (16:51)
[2024-02-14] MEDS: LIDOCAINE 4% PATCH TOPICAL SCH (16:52)
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
[2024-02-14] MEDS: LORazepam 0.5 MG TAB PO PRN (21:05)
[2024-02-14] MEDS: Buprenorphine Hcl/Naloxone Hcl [Suboxone 8 Mg-2 Mg Sl Film] 1 EACH Fil SUBLINGUAL SCH (21:05)
[2024-02-14] MEDS: KETOCONAZOLE 2% SHAMPOO 1 APPLIC/ML TOPICAL SCH (21:07)
[2024-02-14] MEDS: diphenhydrAMINE 25 MG CAP PO PRN (23:25)
[2024-02-15 08:22] LABS: HCT 35.7 % (39.6-50.0); HGB 11.3 g/dL (13.0-17.0); MCH 29.4 pg (27.0-32.0); MCHC 31.7 g/dL (32.0-37.0); MCV 92.7 FL (80.0-97.0); Mean Platelet Volume 11.3 FL (9.5-12.2); NRBC Per 100 WBC 0 X 10*3/uL (0.00-0.01); Platelet Count 369 X 10*3/uL (140-440); RBC 3.85 X 10*6/uL (4.40-5.60); RDW 14.4 % (11.5-14.5); WBC 36.75 X 10*3/uL (4.50-10.00)
[2024-02-15] MEDS: KETOCONAZOLE 2% SHAMPOO 1 APPLIC/ML TOPICAL SCH (08:45)
[2024-02-15] MEDS ORDERED: LIDOCAINE 4% PATCH TOPICAL SCH (09:00)
[2024-02-15 09:27] LABS: Basophils # (A) 0.07 X 10*3/uL (0.00-0.10); Basophils % (A) 0.2 %; Eosinophils # (A) 0 X 10*3/uL (0.04-0.35); Eosinophils % (A) 0 %; Lymphocytes # (A) 1.36 X 10*3/uL (0.90-5.00); Lymphocytes % (A) 3.7 %; Monocytes # (A) 1.52 X 10*3/uL (0.20-1.00); Monocytes % (A) 4.1 %; Neutrophils % (A) 91.2 %
[2024-02-15 09:28] LABS: RBC Morphology Normal (Normal)
[2024-02-15 09:40] LABS: BUN/Creat Ratio 22.43 Ratio (12.00-20.00); Blood Urea Nitrogen 15.7 mg/dL (9.0-27.0); Calcium 9.4 mg/dL (8.7-10.3); Carbon Dioxide 22.4 mmol/L (21.6-31.8); Chloride 104 mmol/L (96-109); Glucose 232 mg/dL (70-110); Potassium 4.7 mmol/L (3.5-5.5); Sodium 138 mmol/L (135-145)
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
--- NOTE | 2024-02-15 14:51 | PN ---
PROGRESS NOTE DATE OF SERVICE: 02/14/2024 SUBJECTIVE: This is a 48-year-old gentleman, who was admitted with COPD acute exacerbation, also had apparently diffuse fungal infections. No chest pain. No palpitations. The patient is short of breath. OBJECTIVE: VITAL SIGNS: Pulse 80, blood pressure 141/70, respirations 17. CHEST: A few scattered rhonchi and crackles. ABDOMEN: Soft. NERVOUS SYSTEM: Nonfocal. LABORATORY DATA: WBC 24.4. ASSESSMENT: 1. Chronic obstructive pulmonary disease acute exacerbation. 2. Diarrhea. 3. History of Clostridium difficile colitis. 4. History of splenectomy. 5. History of scabies. 6. History of bipolar, depression. 7. History of recent apparent fungal infection. RECOMMENDATIONS: Recommend to continue current management and continue symptomatic treatment. Otherwise, at this time, I would recommend closely follow with Pulmonary and Infectious Disease. Empiric antibiotics. Follow the cultures. Prognosis guarded. Further recommendations to follow. Repeat labs to be ordered. MMODL / IJN: [id number] /
--- NOTE | 2024-02-15 15:49 | P.PN ---
Subjective Progress Note Date: 02/15/24 Principal diagnosis: Reason for follow-up is leukocytosis and diarrhea Patient is a 48-year-old male with a past medical history significant for hyperlipidemia hypothyroidism asthma bipolar depression history of alcoholism and cocaine abuse patient mention he was recently admitted at [facility] with diarrhea however he was not very clear white count of diagnosis and treatment subsequently admitted at [facility] for cocaine rehabilitation has been sent to us for increasing shortness of breath. On today's evaluation that is 02/15/2024, the patient continues to be afebrile, the patient is on room air and breathing comfortably, the Pt denies having any chest pain or cough, the patient denies having any abdominal pain no vomiting he still complaining of diarrhea however stool studies have not been collected. Patient white count is 36.75, creatinine 0.7 Objective - Vital Signs Vital signs: Vital Signs Temp 97.7 F 02/15/24 01:59 Pulse 52 L 02/15/24 07:48 Resp 17 02/15/24 07:48 BP 167/86 02/15/24 07:12 Pulse Ox 95 02/15/24 07:12 FiO2 Intake & Output 02/14/24 02/15/24 02/15/24 18:59 06:59 18:59 Other: Voiding Method Toilet Toilet Toilet # Voids 7 4 # Bowel Movements 3 - Exam GENERAL DESCRIPTION: Middle-age male lying in bed in no distress RESPIRATORY SYSTEM: Unlabored breathing , decreased breath sounds at bases HEART: S1 S2 regular rate and rhythm , ABDOMEN: Soft , no tenderness EXTREMITIES: No edema feet - Labs CBC & Chem 7: 02/15/24 03:17 02/15/24 03:11 Labs: Abnormal Lab Results - Last 24 Hours (Table) 02/15/24 02/15/24 Range/Units 03:11 03:17 WBC 36.75 H (4.50-10.00) X 10*3/uL RBC 3.85 L (4.40-5.60) X 10*6/uL Hgb 11.3 L (13.0-17.0) g/dL Hct 35.7 L (39.6-50.0) % MCHC 31.7 L (32.0-37.0) g/dL Immature Gran # 0.30 H (0.00-0.04) X 10*3/uL Neutrophils # 33.50 H (1.80-7.70) X 10*3/uL Monocytes # 1.52 H (0.20-1.00) X 10*3/uL Eosinophils # 0 L (0.04-0.35) X 10*3/uL BUN/Creatinine Ratio 22.43 H (12.00-20.00) Ratio Glucose 232 H (70-110) mg/dL Microbiology - Last 24 Hours (Table) 02/13/24 12:41 Blood Culture - Preliminary Blood Assessment and Plan (1) Diarrhea Current Visit: Yes Status: Acute Code(s): R19.7 - DIARRHEA, UNSPECIFIED SNOMED Code(s): 22156820 (2) Leukocytosis Current Visit: Yes Status: Acute Code(s): D72.829 - ELEVATED WHITE BLOOD CELL COUNT, UNSPECIFIED SNOMED Code(s): 109721566 Plan: 1patient with a leukocytosis which is likely multifactorial in this patient presented to hospital with multiple symptoms especially with increasing shortness of breath patient was noted to have elevated white count of 31,000, chest x-ray did show some effusion did not show any consolidation in this patient mention he did have similar admission to the [facility] recently with diarrhea with recurrent diarrhea question of possible C. difficile not entirely excluded. 2patient did have normal procalcitonin blood culture with so far negative stool study has not been collected discussed with the nursing staff need to collect stool samples for C. difficile 3patient to continue with oral vancomycin, he did have worsening of the white count more likely due to Solu-Medrol and will monitor closely Dictation was produced using [employer] dictation software. please excuse any grammatical, word or spelling errors. Time with Patient: Less than 30
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
[2024-02-15] MEDS: LORazepam 2 MG/ML INJ IV PRN (20:09)
[2024-02-15] MEDS: KETOROLAC 15 MG/ML 1 ML VIAL IVP PRN (22:47)
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
[2024-02-16 08:02] LABS: Basophils % (A) 0 %; Eosinophils # (A) 0.1 k/uL (0-0.7); Eosinophils % (A) 1 %; HCT 38.8 % (39.0-53.0); HGB 11.9 gm/dL (13.0-17.5); Hypochromasia Moderate; Lymphocytes # (A) 1.6 k/uL (1.0-4.8); Lymphocytes % (A) 7 %; MCH 28.6 pg (25.0-35.0); MCHC 30.7 g/dL (31.0-37.0); MCV 93.1 fL (80.0-100.0); Mean Platelet Volume 8.2; Monocytes % (A) 4 %; Neutrophils # (A) 19.5 k/uL (1.3-7.7); Neutrophils % (A) 87 %; Platelet Count 423 k/uL (150-450); RBC 4.16 m/uL (4.30-5.90); WBC 22.4 k/uL (3.8-10.6)
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
--- NOTE | 2024-02-16 15:46 | P.PN ---
Subjective Progress Note Date: 02/16/24 Principal diagnosis: Reason for follow-up is leukocytosis and diarrhea Patient is a 48-year-old male with a past medical history significant for hyperlipidemia hypothyroidism asthma bipolar depression history of alcoholism and cocaine abuse patient mention he was recently admitted at [facility] with diarrhea however he was not very clear white count of diagnosis and treatment subsequently admitted at [place] for cocaine rehabilitation has been sent to us for increasing shortness of breath. On today's evaluation that is 02/16/2024, Patient is afebrile patient is currently on room air and denies having any shortness of breath, the patient denies any chest pain did have occasional cough, the patient denies any nausea vomiting did not have any abdominal pain still complaining of diarrhea however no stool sample has been collected. Patient white count is down to 22.4 blood culture has been negative so far Objective - Vital Signs Vital signs: Vital Signs Temp 97.9 F 02/16/24 07:22 Pulse 62 02/16/24 09:09 Resp 16 02/16/24 09:09 BP 163/93 02/16/24 07:22 Pulse Ox 100 02/16/24 09:01 FiO2 Intake & Output 02/15/24 02/16/24 02/16/24 18:59 06:59 18:59 Intake Total 200 540 Output Total 600 Balance -400 540 Intake: Oral 200 540 Output: Urine 600 Other: Voiding Method Toilet # Voids 4 6 - Exam GENERAL DESCRIPTION: Middle-age male lying in bed in no distress RESPIRATORY SYSTEM: Unlabored breathing , decreased breath sounds at bases HEART: S1 S2 regular rate and rhythm , ABDOMEN: Soft , no tenderness EXTREMITIES: No edema feet - Labs CBC & Chem 7: 02/16/24 07:22 02/15/24 03:11 Labs: Abnormal Lab Results - Last 24 Hours (Table) 02/16/24 Range/Units 07:22 WBC 22.4 H (3.8-10.6) k/uL RBC 4.16 L (4.30-5.90) m/uL Hgb 11.9 L (13.0-17.5) gm/dL Hct 38.8 L (39.0-53.0) % MCHC 30.7 L (31.0-37.0) g/dL Neutrophils # 19.5 H (1.3-7.7) k/uL Microbiology - Last 24 Hours (Table) 02/13/24 12:41 Blood Culture - Preliminary Blood Assessment and Plan (1) Diarrhea Current Visit: Yes Status: Acute Code(s): R19.7 - DIARRHEA, UNSPECIFIED SNOMED Code(s): 82205615 (2) Leukocytosis Current Visit: Yes Status: Acute Code(s): D72.829 - ELEVATED WHITE BLOOD CELL COUNT, UNSPECIFIED SNOMED Code(s): 127917304 Plan: 1patient with a leukocytosis which is likely multifactorial in this patient presented to hospital with multiple symptoms especially with increasing shortness of breath patient was noted to have elevated white count of 31,000, chest x-ray did show some effusion did not show any consolidation in this patient mention he did have similar admission to the [facility] recently with diarrhea with recurrent diarrhea question of possible C. difficile not entirely excluded. 2patient did have normal procalcitonin blood culture with so far negative stool study has not been collected discussed with the nursing staff need to collect stool samples for C. difficile 3patient to continue with oral vancomycin, clinical doubt pneumonia will discontinue Rocephin Dictation was produced using [employer] dictation software. please excuse any grammatical, word or spelling errors. Time with Patient: Less than 30
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
[2024-02-16 21:07] LABS: HIV 2 AB Non-Reactive (Non-Reactive); HIV AB P24 Non-Reactive (Non-Reactive); HIV P24 AG Non-Reactive (Non-Reactive)
[2024-02-16] MEDS: methylPREDNISolone SOD SUCCI 40 MG/ML 1 ML VIAL IV SCH (21:58)
[2024-02-17 12:16] LABS: Basophils % (A) 0 %; Eosinophils % (A) 0 %; HCT 41.9 % (39.0-53.0); HGB 13.1 gm/dL (13.0-17.5); Hypochromasia Moderate; Lymphocytes # (A) 1.7 k/uL (1.0-4.8); Lymphocytes % (A) 9 %; MCH 29.4 pg (25.0-35.0); MCHC 31.3 g/dL (31.0-37.0); MCV 93.8 fL (80.0-100.0); Mean Platelet Volume 7.6; Monocytes # (A) 1.6 k/uL (0-1.0); Monocytes % (A) 9 %; Neutrophils % (A) 80 %; Platelet Count 444 k/uL (150-450); RBC 4.47 m/uL (4.30-5.90); RDW 14.1 % (11.5-15.5); WBC 18.8 k/uL (3.8-10.6)
[2024-02-17 12:35] LABS: African American GFR (CKD) >90 (>60 ml/min/1.73 sqM); Anion Gap 9 mmol/L; Blood Urea Nitrogen 16 mg/dL (9-20); Carbon Dioxide 25 mmol/L (22-30); Chloride 103 mmol/L (98-107); Glucose 121 mg/dL (74-99); Non-African American GFR(CKD) >90 (>60 ml/min/1.73 sqM); Potassium 4.6 mmol/L (3.5-5.1); Sodium 137 mmol/L (137-145)
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
--- NOTE | 2024-02-17 17:19 | P.PN ---
Subjective Progress Note Date: 02/17/24 Principal diagnosis: Reason for follow-up is leukocytosis and diarrhea Patient is a 48-year-old male with a past medical history significant for hyperlipidemia hypothyroidism asthma bipolar depression history of alcoholism and cocaine abuse patient mention he was recently admitted at [facility] with diarrhea however he was not very clear white count of diagnosis and treatment subsequently admitted at [place] for cocaine rehabilitation has been sent to us for increasing shortness of breath. On today's evaluation that is 02/17/2024, patient has been afebrile, patient is breathing comfortably and is currently on room air, patient denies having any significant cough no chest pain shortness of breath, patient denies nausea vomiting still complaining of some diarrhea but no worsening. The patient white count is down to 18.8, creatinine 0.59 HIV testing negative stool studies still pending Objective - Vital Signs Vital signs: Vital Signs Temp 97.7 F 02/17/24 07:40 Pulse 67 02/17/24 12:40 Resp 18 02/17/24 07:40 BP 141/92 02/17/24 07:40 Pulse Ox 92 L 02/17/24 07:40 FiO2 Intake & Output 02/16/24 02/17/24 02/17/24 18:59 06:59 18:59 Other: Voiding Method Toilet # Voids 3 2 # Bowel Movements 2 - Exam GENERAL DESCRIPTION: Middle-age male lying in bed in no distress RESPIRATORY SYSTEM: Unlabored breathing , decreased breath sounds at bases HEART: S1 S2 regular rate and rhythm , ABDOMEN: Soft , no tenderness EXTREMITIES: No edema feet - Labs CBC & Chem 7: 02/17/24 12:02 02/17/24 12:02 Labs: Abnormal Lab Results - Last 24 Hours (Table) 02/17/24 02/17/24 Range/Units 12:02 12:02 WBC 18.8 H (3.8-10.6) k/uL Neutrophils # 15.0 H (1.3-7.7) k/uL Monocytes # 1.6 H (0-1.0) k/uL Creatinine 0.59 L (0.66-1.25) mg/dL Glucose 121 H (74-99) mg/dL Microbiology - Last 24 Hours (Table) 02/13/24 12:41 Blood Culture - Preliminary Blood Assessment and Plan (1) Diarrhea Current Visit: Yes Status: Acute Code(s): R19.7 - DIARRHEA, UNSPECIFIED SNOMED Code(s): 21836306 (2) Leukocytosis Current Visit: Yes Status: Acute Code(s): D72.829 - ELEVATED WHITE BLOOD CELL COUNT, UNSPECIFIED SNOMED Code(s): 695969582 Plan: 1patient with a leukocytosis which is likely multifactorial in this patient presented to hospital with multiple symptoms especially with increasing shortness of breath patient was noted to have elevated white count of 31,000, chest x-ray did show some effusion did not show any consolidation in this patient mention he did have similar admission to the [facility] recently with diarrhea with recurrent diarrhea question of possible C. difficile not entirely excluded. 2patient did have normal procalcitonin blood culture with so far negative stool study has not been collected discussed with the nursing staff need to collect stool samples for C. difficile which are still pending 3patient to continue with oral vancomycin, white count is trending down multiple question concern answered Dictation was produced using [employer] dictation software. please excuse any grammatical, word or spelling errors. Time with Patient: Less than 30
[2024-02-18 09:14] LABS: Basophils # (A) 0.13 X 10*3/uL (0.00-0.10); Basophils % (A) 0.7 %; Eosinophils # (A) 0.01 X 10*3/uL (0.04-0.35); Eosinophils % (A) 0.1 %; HGB 14.5 g/dL (13.0-17.0); Lymphocytes # (A) 2.04 X 10*3/uL (0.90-5.00); Lymphocytes % (A) 10.4 %; MCHC 32.2 g/dL (32.0-37.0); Mean Platelet Volume 11.3 FL (9.5-12.2); Monocytes # (A) 1.18 X 10*3/uL (0.20-1.00); NRBC Per 100 WBC 0.09 X 10*3/uL (0.00-0.01); Neutrophils # (A) 15.82 X 10*3/uL (1.80-7.70); Neutrophils % (A) 80.8 %; Platelet Count 476 X 10*3/uL (140-440); WBC 19.57 X 10*3/uL (4.50-10.00)
[2024-02-18 10:27] LABS: BUN/Creat Ratio 21.86 Ratio (12.00-20.00); Blood Urea Nitrogen 15.3 mg/dL (9.0-27.0); Carbon Dioxide 26.8 mmol/L (21.6-31.8); Chloride 95 mmol/L (96-109); Glucose 164 mg/dL (70-110); Potassium 5.2 mmol/L (3.5-5.5); Sodium 134 mmol/L (135-145)
[2024-02-18 14:22] VITALS: BP 115/69; PULSE 111; RESP 18; TEMP 97.5
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
--- NOTE | 2024-02-18 14:57 | P.PN ---
Subjective Progress Note Date: 02/18/24 Principal diagnosis: Reason for follow-up is leukocytosis and diarrhea Patient is a 48-year-old male with a past medical history significant for hyperlipidemia hypothyroidism asthma bipolar depression history of alcoholism and cocaine abuse patient mention he was recently admitted at [facility] with diarrhea however he was not very clear white count of diagnosis and treatment subsequently admitted at [place] for cocaine rehabilitation has been sent to us for increasing shortness of breath. On today's evaluation that is 02/18/2024, Patient is afebrile this morning patient denies having any chest pain shortness of breath has been complaining of some cough but no sputum production no nausea vomiting abdominal pain did have improvement in the diarrhea, we did have a stool culture C. difficile testing was canceled by the lab as apparently they have received from stool Objective - Vital Signs Vital signs: Vital Signs Temp 97.5 F L 02/18/24 13:01 Pulse 111 H 02/18/24 13:01 Resp 18 02/18/24 13:01 BP 115/69 02/18/24 13:01 Pulse Ox 96 02/18/24 13:01 FiO2 Intake & Output 02/17/24 02/18/24 02/18/24 18:59 06:59 18:59 Other: Voiding Method Toilet Toilet # Voids 3 3 4 - Exam GENERAL DESCRIPTION: Middle-age male lying in bed in no distress RESPIRATORY SYSTEM: Unlabored breathing , decreased breath sounds at bases HEART: S1 S2 regular rate and rhythm , ABDOMEN: Soft , no tenderness EXTREMITIES: No edema feet - Labs CBC & Chem 7: 02/18/24 02:53 02/18/24 02:53 Labs: Abnormal Lab Results - Last 24 Hours (Table) 02/18/24 02/18/24 Range/Units 02:53 02:53 WBC 19.57 H (4.50-10.00) X 10*3/uL Plt Count 476 H (140-440) X 10*3/uL Immature Gran # 0.39 H (0.00-0.04) X 10*3/uL Neutrophils # 15.82 H (1.80-7.70) X 10*3/uL Monocytes # 1.18 H (0.20-1.00) X 10*3/uL Eosinophils # 0.01 L (0.04-0.35) X 10*3/uL Basophils # 0.13 H (0.00-0.10) X 10*3/uL NRBC/100 WBC Diff 0.09 H (0.00-0.01) X 10*3/uL Sodium 134 L (135-145) mmol/L Chloride 95 L (96-109) mmol/L Anion Gap 12.20 H (4.00-12.00) mmol/L BUN/Creatinine Ratio 21.86 H (12.00-20.00) Ratio Glucose 164 H (70-110) mg/dL Microbiology - Last 24 Hours (Table) 02/16/24 17:29 Stool Culture - Preliminary Stool Assessment and Plan (1) Diarrhea Current Visit: Yes Status: Acute Code(s): R19.7 - DIARRHEA, UNSPECIFIED SNOMED Code(s): 51026853 (2) Leukocytosis Current Visit: Yes Status: Acute Code(s): D72.829 - ELEVATED WHITE BLOOD C ELL COUNT, UNSPECIFIED SNOMED Code(s): 724252106 Plan: 1patient with a leukocytosis which is likely multifactorial in this patient presented to hospital with multiple symptoms especially with increasing shortness of breath patient was noted to have elevated white count of 31,000, chest x-ray did show some effusion did not show any consolidation in this patient mention he did have similar admission to the [facility] recently with diarrhea with recurrent diarrhea question of possible C. difficile not entirely excluded. 2patient did have normal procalcitonin blood culture with so far negative apparently stool for C. difficile testing was canceled by the lab as he received formed stools making C. difficile to be less likely will discontinue oral vancomycin Dictation was produced using [employer] dictation software. please excuse any grammatical, word or spelling errors. Time with Patient: Less than 30
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
== END 2024-02-18 16:23 | disposition home or self-care (01) | DRG 191 ==
LOC: EC 09:59 → 4SSUR 14:12
PROVIDERS: ADMIT Internal Medicine; ATTEND Internal Medicine
DX: J44.1 Chronic obstructive pulmonary disease with (acute) exacerbation (principal); B49 Unspecified mycosis; F14.10 Cocaine abuse, uncomplicated; F31.9 Bipolar disorder, unspecified; G40.909 Epilepsy, unspecified, not intractable, without status epilepticus; F10.20 Alcohol dependence, uncomplicated; E03.9 Hypothyroidism, unspecified; N40.0 Benign prostatic hyperplasia without lower urinary tract symptoms; E78.5 Hyperlipidemia, unspecified; F17.210 Nicotine dependence, cigarettes, uncomplicated; R19.7 Diarrhea, unspecified; D72.829 Elevated white blood cell count, unspecified; R32 Unspecified urinary incontinence; Z90.81 Acquired absence of spleen; Z91.81 History of falling; Z86.14 Personal history of Methicillin resistant Staphylococcus aureus infection; Z98.84 Bariatric surgery status; Z86.19 Personal history of other infectious and parasitic diseases; Z90.2 Acquired absence of lung [part of]; Z91.51 Personal history of suicidal behavior; I25.2 Old myocardial infarction; Z79.890 Hormone replacement therapy; Z79.899 Other long term (current) drug therapy; Z79.51 Long term (current) use of inhaled steroids; Z71.6 Tobacco abuse counseling; Z87.828 Personal history of other (healed) physical injury and trauma
CPT/HCPCS: 36415; 71046; 80048; 80053; 83605; 84145; 85025; 86140; 87040; 87045; 87046; 87390; 87636; 94640; 94760; 96361; 96365; 99285

== ENCOUNTER 2024-04-01 14:57 | Inpatient (IN) | payer MEDICARE, MEDICAID ==
--- NOTE | 2024-04-01 16:52 | ED ---
Psych HPI - General Source: patient, RN notes reviewed Mode of arrival: ambulatory - History of Present Illness MD Complaint: altered mental status <Alessandro Churchill - Last Filed: 04/01/24 16:50> - General Source: patient, RN notes reviewed Mode of arrival: ambulatory Limitations: no limitations <Tevin Lopez - Last Filed: 04/01/24 20:41> - General Chief Complaint: Psychiatric Symptoms Stated Complaint: mental health Time Seen by Provider: 04/01/24 15:15 - History of Present Illness Initial Comments: Quick note: This is a 49-year-old male presenting for auditory hallucinations for an unknown period of time. Patient has an altered LOC and mental status in the waiting room, hunched over in his seat and mumbling/dozing off when asked questions. Patient states he spent the night outside last night. (Alessandro Churchill) 49-year-old male present to the emergency department for auditory hallucinations. Symptoms for the past few days. Patient states voices do tell him to harm himself occasionally. Patient not answering if he has suicidal ideation. Patient has been off his medication for months. No homicidal thoughts. No visual hallucinations. No new physical complaints. (Tevin Lopez) - Related Data Home Medications Medication Instructions Recorded Confirmed Tamsulosin [Flomax] 0.8 mg PO HS 04/02/22 04/01/24 Gabapentin 600 mg PO BID 10/28/23 04/01/24 Levothyroxine Sodium [Synthroid] 100 mcg PO DAILY 10/28/23 04/01/24 carvediloL [Coreg] 6.25 mg PO BID 10/28/23 04/01/24 cloNIDine HCL [Catapres] 0.1 mg PO BID 10/28/23 04/01/24 Albuterol Nebulized [Ventolin 2.5 mg INHALATION RT-TID 02/13/24 04/01/24 Nebulized] Buprenorphine HCl/Naloxone HCl 1 film SL BID 02/13/24 04/01/24 [Suboxone 8 mg-2 mg Sl Film] Ketoconazole 2% Shampoo [Nizoral] 1 applic TOPICAL DIRECTED 02/13/24 04/01/24 Umeclidinium Brm/Vilanterol Tr 1 puff INHALATION RT-DAILY 02/13/24 04/01/24 [Anoro Ellipta 62.5-25 Mcg INH] Cyclobenzaprine [Flexeril] 5 mg PO BID PRN 04/01/24 04/01/24 Fluconazole 200 mg PO Q7D 04/01/24 04/01/24 Ketoconazole 2% Cream [Nizoral 2%] 1 applic TOPICAL BID 04/01/24 04/01/24 Nystatin 100,000 Unit/gm Oint 1 applic TOPICAL BID 04/01/24 04/01/24 [Mycostatin Oint] Pantoprazole [Protonix] 40 mg PO BID 04/01/24 04/01/24 Triamcinolone 0.1% Cream [Kenalog 1 applicatio TOPICAL BID PRN 04/01/24 04/01/24 0.1% Cream] clonazePAM [KlonoPIN] 0.5 mg PO BID 04/01/24 04/01/24 glipiZIDE [Glucotrol] 2.5 mg PO AC-BRKFST 04/01/24 04/01/24 Allergies Allergy/AdvReac Type Severity Reaction Status Date / Time haloperidol [From Haldol] AdvReac Lockjaw Verified 02/13/24 11:37 trazodone AdvReac Dry mouth, Verified 02/13/24 11:37 Nightmares Review of Systems ROS Other: All systems not noted in ROS Statement are negative. <Alessandro Churchill - Last Filed: 04/01/24 16:50> ROS Other: All systems not noted in ROS Statement are negative. Constitutional: Denies: fever Eyes: Denies: eye pain ENT: Denies: ear pain Respiratory: Denies: cough, dyspnea Cardiovascular: Denies: chest pain Psychiatric: Reports: as per HPI, auditory hallucinations <Tevin Lopez - Last Filed: 04/01/24 20:41> ROS Statement: Those systems with pertinent positive or pertinent negative responses have been documented in the HPI. Past Medical History Past Medical History: Asthma, Hyperlipidemia, Thyroid Disorder Additional Past Medical History / Comment(s): scabies, Last Myocardial Infarction Date:: 01/2022 History of Any Multi-Drug Resistant Organisms: MRSA Date of last positivie culture/infection: buttocks MDRO Source:: 2016 Past Surgical History: Adenoidectomy, Bariatric Surgery Additional Past Surgical History / Comment(s): L lobectomy, splenectomy Past Anesthesia/Blood Transfusion Reactions: No Reported Reaction Past Psychological History: Bipolar, Depression, Schizophrenia Smoking Status: Current some day smoker Past Alcohol Use History: Daily Past Drug Use History: Cocaine <Alessandro Churchill - Last Filed: 04/01/24 16:50> General Exam Limitations: no limitations <Alessandro Churchill - Last Filed: 04/01/24 16:50> Limitations: no limitations General appearance: alert, in no apparent distress Head exam: Present: normocephalic Eye exam: Present: normal appearance Neck exam: Present: normal inspection Respiratory exam: Present: normal lung sounds bilaterally Cardiovascular Exam: Present: regular rate, normal rhythm GI/Abdominal exam: Present: soft. Absent: tenderness Extremities exam: Present: normal inspection Neurological exam: Present: alert Psychiatric exam: Present: normal affect, normal mood Skin exam: Present: normal color <Tevin Lopez - Last Filed: 04/01/24 20:41> - General Exam Comments Initial Comments: Visual Physical Exam Vital signs reviewed General: Altered LOC and altered mental status with patient behaving strangely and extremely lethargic. Head: Normocephalic, atraumatic Eyes: PERRLA, EOMI ENT: Airway patent Chest: Nonlabored breathing Skin: No visual rash, normal skin tone Neuro: Alert and oriented 3 Musculoskeletal: No gross abnormalities (Alessandro Churchill) Course Vital Signs 04/01/24 15:12 Temperature 97.7 F Pulse Rate 73 Respiratory 20 Rate Blood Pressure 132/75 O2 Sat by Pulse 99 Oximetry Medical Decision Making <Alessandro Churchill - Last Filed: 04/01/24 16:50> <Tevin Lopez - Last Filed: 04/01/24 20:41> - Medical Decision Making I completed the quick note portion of this chart signed NUPUR Velez Sterling) Was pt. sent in by a medical professional or institution (JOVON Dumont, [employer]ER, urgent care, hospital, or snf...) When possible be specific @ -No Did you speak to anyone other than the patient for history (EMS, parent, family, police, friend...)? What history was obtained from this source @ -No Did you review nursing and triage notes (agree or disagree)? Why? @ -I reviewed and agree with nursing and triage notes Were old charts reviewed (outside hosp., previous admission, EMS record, old EKG, old radiological studies, urgent care reports/EKG's, snf records)? Report findings @ -No old charts were reviewed Differential Diagnosis (chest pain, altered mental status, abdominal pain women, abdominal pain men, vaginal bleeding, weakness, fever, dyspnea, syncope, headache, dizziness, GI bleed, back pain, seizure, CVA, palpatations, mental health, musculoskeletal)? @ -Differential Mental Health Depression, anxiety, bipolar, psychosis, schizophrenia, borderline personality, situational depression, adjustment disorder, behavioral disorder, brain tumor, malingering, substance abuse, encephalopathy, medication reaction, dementia, hypothyroidism, degenerative neurologic disorder, lupus.... This is not meant to be all-inclusive list EKG interpreted by me (3pts min.). @ -As above X-rays interpreted by me (1pt min.). @ -None done CT interpreted by me (1pt min.). @ -None done U/S interpreted by me (1pt. min.). @ -None done What testing was considered but not performed or refused? (CT, X-rays, U/S, labs)? Why? @ -None What meds were considered but not given or refused? Why? @ -None Did you discuss the management of the patient with other professionals (professionals i.e. , PA, M[employer] INSTALLER, lab, RT, psych nurse, rn social work, cigar packer and sorter, teacher, press officer, rehabilitation case coordinator)? Give summary @ -Case was discussed with psychiatric nurse with plans for psychiatric admission Was smoking cessation discussed for >3mins.? @ -No Was critical care preformed (if so, how long)? @ -No Were there social determinants of health that impacted care today? How? (Homelessness, low income, unemployed, alcoholism, drug addiction, transportation, low edu. Level, literacy, decrease access to med. care, fpc, rehab)? @ -No Was there de-escalation of care discussed even if they declined (Discuss DNR or withdrawal of care, Hospice)? DNR status @ -No What co-morbidities impacted this encounter? (DM, HTN, Smoking, COPD, CAD, Cancer, CVA, ARF, Chemo, Hep., AIDS, mental health diagnosis, sleep apnea, morbid obesity)? @ -History of psychiatric disease, off medication Was patient admitted / discharged? Hospital course, mention meds given and route, prescriptions, significant lab abnormalities, going to OR and other pertinent info. @ -Patient presents with auditory hallucinations with voices telling him to harm himself. Patient unable to state if he has suicidal thoughts. Patient will be admitted for psychiatric care. Undiagnosed new problem with uncertain prognosis? @ -No Drug Therapy requiring intensive monitoring for toxicity (Heparin, Nitro, Insulin, Cardizem)? @ -No Were any procedures done? @ -No Diagnosis/symptom? @ -Depression Acute, or Chronic, or Acute on Chronic? @ -Acute Uncomplicated (without systemic symptoms) or Complicated (systemic symptoms)? @ -Default Side effects of treatment? @ -No Exacerbation, Progression, or Severe Exacerbation? @ -No Poses a threat to life or bodily function? How? (Chest pain, [place], [place], pneumonia, PE, COPD, DKA, ARF, appy, cholecystitis, CVA, Diverticulitis, Homicidal, Suicidal, threat to staff... and all critical care pts) @ -No (Tevin Lopez) - Lab Data Lab Results 04/01/24 Range/Units 18:47 Urine Opiates Screen Not Detected (NotDetected) Ur Oxycodone Screen Not Detected (NotDetected) Urine Methadone Screen Not Detected (NotDetected) Ur Barbiturates Screen Not Detected (NotDetected) U Tricyclic Antidepress Not Detected (NotDetected) Ur Phencyclidine Scrn Not Detected (NotDetected) Ur Amphetamines Screen Not Detected (NotDetected) U Methamphetamines Scrn Not Detected (NotDetected) U Benzodiazepines Scrn Not Detected (NotDetected) Urine Cocaine Screen Not Detected (NotDetected) U Marijuana (THC) Screen Not Detected (NotDetected) Disposition <Alessandro Churchill - Last Filed: 04/01/24 16:50> Is patient prescribed a controlled substance at d/c from ED?: No Time of Disposition: 20:41 <Tevin Lopez - Last Filed: 04/01/24 20:41> Clinical Impression: Depression Disposition: TRANSFER TO PSYCH HOSP/UNIT Referrals: None,Stated [Primary Care Provider] - 1-2 days
[2024-04-01 19:27] LABS: Amphetamine Screen,Urine Not Detected (NotDetected); Barbiturate Screen,Urine Not Detected (NotDetected); Benzodiazepines Screen,Urine Not Detected (NotDetected); Cocaine Screen,Urine Not Detected (NotDetected); Methadone Screen, Urine Not Detected (NotDetected); Opiate Screen,Urine Not Detected (NotDetected); Oxycodone Screen, Urine Not Detected (NotDetected); Phencyclidine Screen,Urine Not Detected (NotDetected); Tricyclic Antidepressant,Urine Not Detected (NotDetected); Urn Cannabinoid Scrn Not Detected (NotDetected)
[2024-04-01] MEDS ORDERED: QUEtiapine 25 MG TAB PO PRN (21:36)
[2024-04-01] MEDS ORDERED: ACETAMINOPHEN TAB 325 MG TAB PO PRN (21:36)
[2024-04-01] MEDS ORDERED: MAGNESIUM HYDROXIDE 2,400 MG/30 ML CUP PO PRN (21:36)
[2024-04-01] MEDS ORDERED: LORazepam 2 MG/ML INJ IM PRN (21:36)
[2024-04-01] MEDS ORDERED: MAG HYDROX/AL HYDROX/SIMETH 355 ML BOTTLE PO PRN (21:36)
[2024-04-01] MEDS: TAMSULOSIN 0.4 MG CAP.ER.24H PO SCH (22:42)
[2024-04-01] MEDS: LORazepam 1 MG TAB PO PRN (22:43)
[2024-04-01] MEDS: NALOXONE HCL PO SCH (23:54)
[2024-04-01] MEDS: BUPRENORPHINE HCL PO SCH (23:54)
[2024-04-01] MEDS: NON FORMULARY DRUG (Buprenorphine Hcl/Naloxone Hcl [Suboxone 8 Mg-2 Mg Sl Film] 1 EACH Fil SUBLINGUAL SCH (23:54)
[2024-04-01 23:55] LABS: Appearance,Urine Clear (Clear); Bilirubin,Urine Negative (Negative); Blood,Urine Negative (Negative); Color,Urine Colorless; Glucose,Urine (UA) Negative (Negative); Ketones,Urine Negative (Negative); Leukocyte Esterase,Urine Negative (Negative); Nitrite,Urine Negative (Negative); PH, Urine 7.5 (5.0-8.0); Protein,Urine Negative (Negative); Specific Gravity,Urine 1.012 (1.001-1.035); Urobilinogen,Urine <2.0 mg/dL (<2.0)
[2024-04-02] MEDS: BUPRENORPHINE-NALOX 8-2 MG TAB 1 EACH TAB.SUBL SL SCH ×2 (00:24→01:38)
[2024-04-02] MEDS: LEVOTHYROXINE 100 MCG TAB PO SCH (06:02)
[2024-04-02 06:35] LABS: ALT 28 U/L (4-49); AST 38 U/L (17-59); African American GFR (CKD) >90 (>60 ml/min/1.73 sqM); Albumin 3.5 g/dL (3.5-5.0); Alkaline Phosphatase 53 U/L (38-126); Anion Gap 0 mmol/L; Bilirubin, Delta 0.1 mg/dL (0.0-0.2); Bilirubin,Unconjugated 0.2 mg/dL (0.0-1.1); Blood Urea Nitrogen 9 mg/dL (9-20); Calcium 9.1 mg/dL (8.4-10.2); Carbon Dioxide 31 mmol/L (22-30); Chloride 106 mmol/L (98-107); Glucose 122 mg/dL (74-99); Non-African American GFR(CKD) >90 (>60 ml/min/1.73 sqM); Sodium 137 mmol/L (137-145); Total Bilirubin 0.3 mg/dL (0.2-1.3); Total Protein 6.2 g/dL (6.3-8.2)
[2024-04-02 06:36] LABS: Basophils % (A) 0 %; Eosinophils # (A) 0.5 k/uL (0-0.7); Eosinophils % (A) 5 %; HCT 38.5 % (39.0-53.0); HGB 12.1 gm/dL (13.0-17.5); Lymphocytes # (A) 2.3 k/uL (1.0-4.8); Lymphocytes % (A) 25 %; MCH 29.1 pg (25.0-35.0); MCHC 31.5 g/dL (31.0-37.0); MCV 92.1 fL (80.0-100.0); Mean Platelet Volume 8.8; Monocytes # (A) 0.8 k/uL (0-1.0); Monocytes % (A) 8 %; Neutrophils # (A) 5.4 k/uL (1.3-7.7); Neutrophils % (A) 60 %; Platelet Count 278 k/uL (150-450); RBC 4.18 m/uL (4.30-5.90); RDW 15.4 % (11.5-15.5); WBC 9.1 k/uL (3.8-10.6)
[2024-04-02] MEDS ORDERED: ALBUTEROL NEBULIZED 2.5 MG/3 ML INHALATION SCH (08:00)
[2024-04-02] MEDS: CLOTRIMAZOLE 1% CREAM 30 GM TUBE TOPICAL SCH (10:22)
[2024-04-02] MEDS: PANTOPRAZOLE 40 MG TABLET PO SCH (10:23)
[2024-04-02] MEDS: ALBUTEROL INHALER 60 PUFF/8 GM INHALER (MHU) INHALATION SCH (10:23)
[2024-04-02 12:08] LABS: Chol/HDL Ratio 2.35 Ratio; LDL Cholesterol,Calculated 64.5 mg/dL (0.0-131.0); VLDL Calculation 14.22 mg/dL (5.00-40.00)
[2024-04-02] MEDS ORDERED: TRIAMCINOLONE 0.1% CREAM 80 GM TUBE TOPICAL PRN (12:16)
[2024-04-02] MEDS ORDERED: CYCLOBENZAPRINE 5 MG TAB PO PRN (12:16)
--- NOTE | 2024-04-02 12:25 | P.HP ---
Psychiatric H&P - . H&P Date: 04/02/24 History & Physical: Allergies Allergy/AdvReac Type Severity Reaction Status Date / Time haloperidol [From Haldol] AdvReac Lockjaw Verified 02/13/24 11:37 trazodone AdvReac Dry mouth, Verified 02/13/24 11:37 Nightmares Vital Signs Temp 98.4 F 04/01/24 23:12 Pulse 80 04/01/24 23:12 Resp 18 04/01/24 23:12 BP 116/71 04/01/24 23:12 Pulse Ox 98 04/01/24 23:12 FiO2 Intake & Output 04/01/24 04/02/24 04/02/24 18:59 06:59 18:59 Weight 77.111 kg 73.652 kg Laboratory Last Values WBC 9.1 k/uL (3.8-10.6) 04/02/24 06:01 RBC 4.18 m/uL (4.30-5.90) L 04/02/24 06:01 Hgb 12.1 gm/dL (13.0-17.5) L 04/02/24 06:01 Hct 38.5 % (39.0-53.0) L 04/02/24 06:01 MCV 92.1 fL (80.0-100.0) 04/02/24 06:01 MCH 29.1 pg (25.0-35.0) 04/02/24 06:01 MCHC 31.5 g/dL (31.0-37.0) 04/02/24 06:01 RDW 15.4 % (11.5-15.5) 04/02/24 06:01 Plt Count 278 k/uL (150-450) 04/02/24 06:01 MPV 8.8 04/02/24 06:01 Neutrophils % 60 % 04/02/24 06:01 Lymphocytes % 25 % 04/02/24 06:01 Monocytes % 8 % 04/02/24 06:01 Eosinophils % 5 % 04/02/24 06:01 Basophils % 0 % 04/02/24 06:01 Neutrophils # 5.4 k/uL (1.3-7.7) 04/02/24 06:01 Lymphocytes # 2.3 k/uL (1.0-4.8) 04/02/24 06:01 Monocytes # 0.8 k/uL (0-1.0) 04/02/24 06:01 Eosinophils # 0.5 k/uL (0-0.7) 04/02/24 06:01 Basophils # 0.0 k/uL (0-0.2) 04/02/24 06:01 Sodium 137 mmol/L (137-145) 04/02/24 06:01 Potassium 4.0 mmol/L (3.5-5.1) 04/02/24 06:01 Chloride 106 mmol/L (98-107) 04/02/24 06:01 Carbon Dioxide 31 mmol/L (22-30) H 04/02/24 06:01 Anion Gap 0 mmol/L 04/02/24 06:01 BUN 9 mg/dL (9-20) 04/02/24 06:01 Creatinine 0.61 mg/dL (0.66-1.25) L 04/02/24 06:01 Est GFR (CKD-EPI)AfAm >90 (>60 ml/min/1.73 sqM) 04/02/24 06:01 Est GFR (CKD-EPI)NonAf >90 (>60 ml/min/1.73 sqM) 04/02/24 06:01 Glucose 122 mg/dL (74-99) H 04/02/24 06:[address] Glu mg/dL 128 mg/dL 04/02/24 06:01 Hemoglobin A1c 6.1 % (<=6.0) H 04/02/24 06:01 Calcium 9.1 mg/dL (8.4-10.2) 04/02/24 06:01 Total Bilirubin 0.3 mg/dL (0.2-1.3) 04/02/24 06:01 Conjugated Bilirubin 0.0 mg/dL (0.0-0.3) 04/02/24 06:01 Unconjugated Bilirubin 0.2 mg/dL (0.0-1.1) 04/02/24 06:01 Delta Bilirubin 0.1 mg/dL (0.0-0.2) 04/02/24 06:01 AST 38 U/L (17-59) 04/02/24 06:01 ALT 28 U/L (4-49) 04/02/24 06:01 Alkaline Phosphatase 53 U/L (38-126) 04/02/24 06:01 Total Protein 6.2 g/dL (6.3-8.2) L 04/02/24 06:01 Albumin 3.5 g/dL (3.5-5.0) 04/02/24 06:01 TSH 2.750 mIU/L (0.465-4.680) 04/02/24 06:01 Urine Color Colorless 04/01/24 18:47 Urine Appearance Clear (Clear) 04/01/24 18:47 Urine pH 7.5 (5.0-8.0) 04/01/24 18:47 Ur Specific [place] 1.012 (1.001-1.035) 04/01/24 18:47 Urine Protein Negative (Negative) 04/01/24 18:47 Urine Glucose (UA) Negative (Negative) 04/01/24 18:47 Urine Ketones Negative (Negative) 04/01/24 18:47 Urine Blood Negative (Negative) 04/01/24 18:47 Urine Nitrite Negative (Negative) 04/01/24 18:47 Urine Bilirubin Negative (Negative) 04/01/24 18:47 Urine Urobilinogen <2.0 mg/dL (<2.0) 04/01/24 18:47 Ur Leukocyte Esterase Negative (Negative) 04/01/24 18:47 Urine Opiates Screen Not Detected (NotDetected) 04/01/24 18:47 Ur Oxycodone Screen Not Detected (NotDetected) 04/01/24 18:47 Urine Methadone Screen Not Detected (NotDetected) 04/01/24 18:47 Ur Barbiturates Screen Not Detected (NotDetected) 04/01/24 18:47 U Tricyclic Antidepress Not Detected (NotDetected) 04/01/24 18:47 Ur Phencyclidine Scrn Not Detected (NotDetected) 04/01/24 18:47 Ur Amphetamines Screen Not Detected (NotDetected) 04/01/24 18:47 U Methamphetamines Scrn Not Detected (NotDetected) 04/01/24 18:47 U Benzodiazepines Scrn Not Detected (NotDetected) 04/01/24 18:47 Urine Cocaine Screen Not Detected (NotDetected) 04/01/24 18:47 U Marijuana (THC) Screen Not Detected (NotDetected) 04/01/24 18:47 SARS-CoV-2 (PCR) Not Detected (Not Detectd) 04/01/24 20:50 04/02/24 08:54 IDENTIFYING DATA: Patient is a 49-year-old male. Stays in a motel. Single. Has one child. collects SSD. HPI: Patient presented to the hospital on 04/01. As per EPS note, "Patient brought self to ER for auditory hallucinations and increased anxiety. Patient assessed in ER9 from [id number]. Patient appears to be disorganized and thought blocking. Patient observed to verbalize auditory hallucinations that make statements examples "They are going to kidnap me" and "They will take me hostage". Patient verbalizes extreme paranoia. Patient verbalizes auditory h allucinations are command in nature at times telling him to harm himself. When asked about suicidal ideation patient verbalizes he often has thoughts to harm himself with no plan, and states the voices make him feel like he will act on the suicidal thoughts. Patient denies homicidal ideations. Patient denies visual hallucinations. Patient verbalizes poor appetite and difficulty sleeping r/t difficulty falling asleep and nightmares waking him up at night. Patient verbalizes he sees [facility] and is compliant with outpatient treatment and medications, but states the voices are getting worse." Upon today's assessment, he states that he has not been on his right meds, and he has been having increasing auditory hallucinations negative in nature, that people are trying to kidnap him. He states that someone hacked into his device. He does not elaborate much. He states it was not working properly. He states his stressors include a court date that is coming up in [facility]. He states the police stole his dog, and was following him around, and charged him with resisting arrest. He says his mood is "messed up" He states that he is depressed. He also states that he is allergic to effexor. He states he has thoughts of hurting himself, but has no plan. He reports poor sleep, and endorses a good appetite. Patient denies any suicidal or homicidal ideations intent or plan. At this time patient denies any auditory or visual hallucinations. Patient endorses racing thoughts. Patient denies recreational drug use. PAST PSYCHIATRIC HISTORY: Patient states that was last admitted on this unit in September 2020. He states he was on Zyprexa, but it stopped helping him. He just started seeing Max at [facility]. Patient admits to history of suicide attempt in the past, by jumping in front of a [employer] truck PMH:As per ER note ALLERGIES: as per EMR CHEMICAL DEPENDENCY HISTORY: as per HPI FAMILY PSYCHIATRIC/SUBSTANCE USE HISTORY: mother-paranoia, schizophrenia SOCIAL HISTORY: Patient was born and raised in [facility] [facility]. 11th grade education. Stays in a motel, Single, Has one child. Has been to half-way for "I don't know". MENTAL STATUS EXAM: General Appearance: Patient appears to be older than stated age is alert, directable, and attempts to cooperate. Patient appears to have poor hygiene and grooming. Casually dressed Behavior: Patient is seated without any agitated behavior. Hunched over in the chair, poor eye contact Speech: Patient's speech is [fluent and nonpressured. Poverty of content Mood/Affect: Patient reports their mood is depressed, affect is congruent and constricted. Suicidality/Homicidality: Patient denies having any homicidal ideation intent or plan. [Denies any suicidal ideations intent or plan] Perceptions: Patient denies any visual hallucinations and endorses auditory hallucinations Though content/process: [There is no evidence of any delusional thought content and thought process somewhat paranoid. Bizarre, thinks the russians want to kidnap him and punch him. Memory and concentration: AOX3, grossly intact for the purposes of this session. Cannot spell "WORLD" backwards Judgment and insight: poor STRENGTHS/WEAKNESSES: strength is that patient is [resilient]. Weakness is that patient has poor judgment and is impulsive INTELLECT: [average] IMPRESSIONS: schizoaffective disorder homelessness nicotine dependence PLAN: -Patient is admitted under [voluntary] status to MHU for stabilization of psychiatric symptoms and safety. Patient has signed adult voluntary form and medication consent and is placed in patient's chart. -Medications : Will start patient on Klonopin 0.5mg tid PRN for anxiety, Zyprexa 2.5mg daily, +5mg qhs for psychosis/insomnia, Prozac 20mg daily for depression/anxiety -Patient was informed of the risks, benefits and side effects of the medication and patient verbally consented to taking the medications. -Internal Medicine consult to perform medical evaluation and physical. -NRT - nicotine patch -SW on board for discharge planning. Encourage patient to participate in groups to work on coping skills.
[2024-04-02] MEDS: FLUoxetine HCL 20 MG CAP PO SCH (13:30)
[2024-04-02] MEDS: OLANZapine 2.5 MG TAB PO SCH (13:31)
[2024-04-02] MEDS: clonazePAM 0.5 MG TAB PO PRN (13:33)
[2024-04-02] MEDS: NYSTATIN 100,000 UNIT/GM OINT 30 GM TUBE TOPICAL SCH (13:35)
[2024-04-02] MEDS: FLUCONAZOLE 100 MG TAB PO SCH (14:51)
[2024-04-02 16:26] LABS: Glucose,Whole Blood 72 mg/dL (70-110)
[2024-04-02 17:49] LABS: Glucose,Whole Blood 54 mg/dL (70-110)
[2024-04-02 18:08] LABS: Glucose,Whole Blood 65 mg/dL (70-110)
[2024-04-02 18:25] LABS: Glucose,Whole Blood 112 mg/dL (70-110)
[2024-04-02] MEDS: carvediloL 6.25 MG TAB PO SCH (20:01)
[2024-04-02] MEDS: IBUPROFEN 600 MG TAB PO PRN (20:09)
[2024-04-02] MEDS: OLANZapine 5 MG TAB PO SCH (20:09)
[2024-04-02 21:20] LABS: Glucose,Whole Blood 169 mg/dL (70-110)
[2024-04-02] MEDS ORDERED: NALOXONE HCL PO SCH (23:00)
[2024-04-02] MEDS ORDERED: BUPRENORPHINE HCL PO SCH (23:00)
[2024-04-03 08:08] LABS: Glucose,Whole Blood 121 mg/dL (70-110)
--- NOTE | 2024-04-03 08:12 | P.PN ---
Progress Note - Text Progress Note Date: 04/03/24 Full consult note to follow I was paged by the nurse because patient was hyperglycemic. Low-dose glipizide was discontinued. Will do Accu-Cheks. Hemoglobin A1c is 6.1. Will likely discharge the patient on no hypoglycemic agents and have the patient check his blood glucose at home and follow-up with PCP. Other option may be to discharge the patient on metformin. Please follow-up on full consult note.
--- NOTE | 2024-04-03 12:06 | P.PN ---
Progress Note - Text Progress Note Date: 04/03/24 Interval history: Patient was seen today for psychiatric follow-up. Patient was agreeable to sp sonja with journalists and other writers in the office today. He claims that he is feeling a bit tired today. He states that the medications have been helping a bit with his anxiety and mood. States that the voices have been calming down, not hearing any today. States that he has been mainly keeping himself staying in his room, continues to have fairly poor hygiene and grooming. Has been up for meals, states that he did sleep through the night. At this time he is denying any suicidal homicidal ideations intent or plan, denying any visual or auditory hallucinations. Not endorsing any paranoia today. MENTAL STATUS EXAM: General Appearance: Patient appears to be older than stated age is alert, directable, and attempts to cooperate. Patient appears to have poor hygiene and grooming. Casually dressed Behavior: Patient is seated without any agitated behavior. Hunched over in the chair, mildly improving eye contact Speech: Patient's speech is [fluent and nonpressured. Poverty of content, improving mildly Mood/Affect: Patient reports their mood is improving, affect is congruent and constricted. Suicidality/Homicidality: Patient denies having any homicidal ideation intent or plan. Denies any suicidal ideations intent or plan Perceptions: Patient denies any visual hallucinations and endorses auditory hallucinations Though content/process: [There is no evidence of any delusional thought content and thought process is improving today. More logical. [place] Memory and concentration: AOX3, grossly intact for the purposes of this session. Judgment and insight: poor, improving mildly IMPRESSIONS: schizoaffective disorder homelessness nicotine dependence PLAN: -Patient is admitted under voluntary status to MHU for stabilization of psychiatric symptoms and safety. Patient has signed adult voluntary form and medication consent and is placed in patient's chart. -Medications : Klonopin 0.5mg tid PRN for anxiety, change Zyprexa to 7.5mg qhs for psychosis/insomnia, Prozac 20mg daily for depression/anxiety -NRT - nicotine patch -SW on board for discharge planning. Encourage patient to participate in groups to work on coping skills. Hopeful for discharge either Monday versus early next week if patient improves. Patient is homeless at this time.
[2024-04-03 12:44] LABS: Glucose,Whole Blood 117 mg/dL (70-110)
[2024-04-03 17:33] LABS: Glucose,Whole Blood 107 mg/dL (70-110)
[2024-04-03 20:49] LABS: Glucose,Whole Blood 131 mg/dL (70-110)
[2024-04-03] MEDS: NICOTINE GUM (POLACRILEX) 2 MG GUM BUCCAL PRN (20:50)
[2024-04-03] MEDS: KETOCONAZOLE 2% SHAMPOO 1 APPLIC/ML TOPICAL PRN (20:54)
--- NOTE | 2024-04-03 21:12 | P.MDCNMH ---
<Lleia Licona - Last Filed: 04/03/24 22:40> History of Present Illness H&P Date: 04/03/24 History of present illness; 49-year-old male with hypertension, hypothyroidism, GERD, and diabetes mellitus presents with complaints of auditory hallucinations and increased anxiety. Patient is sitting up in bed resting with no complaints of pain. Reports he has generalized itchiness and a runny nose which is chronic for him for which he usually takes Benadryl at home. Denies experiencing chest discomfort, shortness of breath, fever, chills, cough, nausea, vomiting, abdominal pain, diarrhea. Social history: Denies alcohol use, admits to occasional marijuana use and vaping. Urine drug screen: Negative REVIEW OF SYSTEMS: All systems reviewed, pertinent positives and negatives noted in HPI. All other symptoms are negative. PHYSICAL EXAMINATION: Vitals reviewed GENERAL: No acute distress. Well developed, well nourished. HEENT: Pupils are round and equally reacting to light. EOMI. No scleral icterus. Normocephalic, atraumatic. No pharyngeal erythema. No thyromegaly. CARDIOVASCULAR: S1 and S2 present. No murmurs, rubs, or gallops. PULMONARY: Chest is clear to auscultation, no wheezing, rhonchi, or crackles. ABDOMEN: Soft, nontender, nondistended, normoactive bowel sounds. No palpable organomegaly. MUSCULOSKELETAL: No apparent joint swelling and deformities. EXTREMITIES: No apparent cyanosis, clubbing, or pedal edema. NEUROLOGICAL: The patient is alert and oriented x3, Gross neurological examination did not reveal any focal deficits. 5/5 strength bilateral UE and LE. Cranial nerves II through XII intact. SKIN: No apparent rashes. Circular minorly hyperpigmented lesions appreciated on second right toe and abdomen Assessment and plan 49-year-old male with hypertension, hypothyroidism, GERD, and diabetes mellitus presents with complaints of auditory hallucinations and increased anxiety. Internal medicine is consulted for medical management. Chronic Medical Conditions #Topical fungal infection potentially ringworm -Continue fluconazole 200 mg p.o. q. 7 days -Continue ketoconazole 2% shampoo, Mycostatin ointment -Previous fungal infection appears vastly improved #Seasonal allergies: Generalized itchiness and runny nose -Benadryl 25 mg p.o. twice daily -Continue Kenalog #Asthma: -Continue home Ventolin #Hypertension: -Continue home Coreg 6.25 mg p.o. twice daily with meals #Diabetes mellitus, type 2 Holding oral medications Begin Accu-Cheks , monitor for hypoglycemia HbA1c 6.1% #Hyperlidemia -Not on any medication at home -Triglycerides 71, cholesterol 137, LDL 64.5, VLDL 14.2, HDL 58.3 #Hypothyroidism - Resume home Synthroid 100 mcg p.o. daily #GERD - Resume home pantoprazole 40mg twice daily # Schizoaffective disorder -Psychiatric medicine management per primary psychiatry team #BPH: -Continue Flomax 0.8 mg p.o. at bedtime Code status: Full code Patient is stable from medical stand point Past Medical History Past Medical History: Asthma, Hyperlipidemia, Thyroid Disorder Additional Past Medical History / Comment(s): scabies, Last Myocardial Infarction Date:: 01/2022 History of Any Multi-Drug Resistant Organisms: MRSA Date of last positivie culture/infection: sputum MDRO Source:: 2021 Past Surgical History: Adenoidectomy, Bariatric Surgery Additional Past Surgical History / Comment(s): L lobectomy, splenectomy Past Anesthesia/Blood Transfusion Reactions: No Reported Reaction Past Psychological History: Bipolar, Depression, Schizophrenia Smoking Status: Current some day smoker Past Alcohol Use History: Daily Additional Past Alcohol Use History / Comment(s): Smokes a pack a day. Has smoke for about 20 years Past Drug Use History: Cocaine - Past Family History Father Family Medical History: Unable to Obtain Mother Family Medical History: Unable to Obtain Medications and Allergies Home Medications Medication Instructions Recorded Confirmed Type Tamsulosin [Flomax] 0.8 mg PO HS 04/02/22 04/01/24 History Gabapentin 600 mg PO BID 10/28/23 04/01/24 History Levothyroxine Sodium [Synthroid] 100 mcg PO DAILY 10/28/23 04/01/24 History carvediloL [Coreg] 6.25 mg PO BID 10/28/23 04/01/24 History cloNIDine HCL [Catapres] 0.1 mg PO BID 10/28/23 04/01/24 History Albuterol Nebulized [Ventolin 2.5 mg INHALATION RT-TID 02/13/24 04/01/24 History Nebulized] Buprenorphine HCl/Naloxone HCl 1 film SL BID 02/13/24 04/01/24 History [Suboxone 8 mg-2 mg Sl Film] Ketoconazole 2% Shampoo [Nizoral] 1 applic TOPICAL DIRECTED 02/13/24 04/01/24 History Umeclidinium Brm/Vilanterol Tr 1 puff INHALATION RT-DAILY 02/13/24 04/01/24 History [Anoro Ellipta 62.5-25 Mcg INH] Cyclobenzaprine [Flexeril] 5 mg PO BID PRN 04/01/24 04/01/24 History Fluconazole 200 mg PO Q7D 04/01/24 04/01/24 History Ketoconazole 2% Cream [Nizoral 2%] 1 applic TOPICAL BID 04/01/24 04/01/24 History Nystatin 100,000 Unit/gm Oint 1 applic TOPICAL BID 04/01/24 04/01/24 History [Mycostatin Oint] Pantoprazole [Protonix] 40 mg PO BID 04/01/24 04/01/24 History Triamcinolone 0.1% Cream [Kenalog 1 applicatio TOPICAL BID PRN 04/01/24 04/01/24 History 0.1% Cream] clonazePAM [KlonoPIN] 0.5 mg PO BID 04/01/24 04/01/24 History glipiZIDE [Glucotrol] 2.5 mg PO AC-BRKFST 04/01/24 04/01/24 History Allergies Allergy/AdvReac Type Severity Reaction Status Date / Time haloperidol [From Haldol] AdvReac [place] Verified 02/13/24 11:37 trazodone AdvReac Dry mouth, Verified 02/13/24 11:37 Nightmares Physical Exam Vitals: Vital Signs Temp Pulse Resp BP Pulse Ox 04/03/24 18:29 111 H 86/52 04/03/24 08:12 89 133/62 04/03/24 06:53 97.8 F 50 L 16 94/60 97 Results CBC & Chem 7: 04/02/24 06:01 04/02/24 06:01 Labs: Abnormal Lab Results - Last 24 Hours (Table) 04/02/24 04/03/24 04/03/24 Range/Units 21:18 08:05 12:37 POC Glucose (mg/dL) 169 H 121 H 117 H (70-110) mg/dL 04/03/24 Range/Units 20:42 POC Glucose (mg/dL) 131 H (70-110) mg/dL <Iliana De La Rosa - Last Filed: 04/03/24 23:17> Physical Exam Vitals: Vital Signs Temp Pulse Resp BP Pulse Ox 04/03/24 18:29 111 H 86/52 04/03/24 08:12 89 133/62 04/03/24 06:53 97.8 F 50 L 16 94/60 97 Cranial Nerve Examination - Cranial Nerves Cranial Nerve II- Optic: Intact Cranial Nerve III- Oculomotor: Intact Cranial Nerve IV- Trochlear: Intact Cranial Nerve V- Trigeminal: Intact Cranial Nerve - Abducens: Intact Cranial Nerve VII- Facial: Intact Cranial Nerve VIII- Auditory: Intact Cranial Nerve IX- Glossopharyngeal: Intact Cranial Nerve X- Vagus: Intact Cranial Nerve XI- Accessory: Intact Cranial Nerve XII- Hypoglossal: Intact Results CBC & Chem 7: 04/02/24 06:01 04/02/24 06:01 Labs: Abnormal Lab Results - Last 24 Hours (Table) 04/03/24 04/03/24 04/03/24 Range/Units 08:05 12:37 20:42 POC Glucose (mg/dL) 121 H 117 H 131 H (70-110) mg/dL Assessment and Plan Assessment: I have seen and evaluated the patient today. I Discussed the case with the resident and agree with the resident's findings I edited the assessment and plan as necessary as documented in the resident's note.
[2024-04-03] MEDS: OLANZapine 7.5 MG TAB PO SCH (21:23)
[2024-04-04 07:04] VITALS: TEMP 98.6
[2024-04-04 08:06] LABS: Glucose,Whole Blood 120 mg/dL (70-110)
[2024-04-04] MEDS: diphenhydrAMINE 25 MG CAP PO SCH (09:46)
--- NOTE | 2024-04-04 10:28 | P.PN ---
Progress Note - Text Progress Note Date: 04/04/24 Interval history: Patient was seen today for psychiatric follow-up. Patient was agreeable to speak with rfp writer in the office today. He claims that he is doing a bit better today. We spoke about increasing his Prozac which she is okay with. He claims that he has an upcoming psychiatric evaluation in [place] for forensic reasons. When asked more about it he claims that it is a criminal matter, he was advised to contact his litigation attorney about this. He continues to be mainly isolating in his room. States that he slept a bit better last night with the increase in Zyprexa. continues to have fairly poor hygiene and grooming. Has been up for meals, states that he did sleep through the night. At this time he is denying any suicidal homicidal ideations intent or plan, denying any visual or auditory hallucinations. Not endorsing any paranoia today. MENTAL STATUS EXAM: General Appearance: Patient appears to be older than stated age is alert, directable, and attempts to cooperate. Patient appears to have mildly improving hygiene and grooming. Casually dressed Behavior: Patient is seated without any agitated behavior. Hunched over in the chair, improving eye contact Speech: Patient's speech is [fluent and nonpressured. Poverty of content, improving mildly Mood/Affect: Patient reports their mood is improving, affect is congruent and constricted. Mildly improving Suicidality/Homicidality: Patient denies having any homicidal ideation intent or plan. Denies any suicidal ideations intent or plan Perceptions: Patient denies any visual hallucinations and endorses auditory hallucinations Though content/process: [There is no evidence of any delusional thought content and thought process is improving today. More logical. [place] Memory and concentration: AOX3, grossly intact for the purposes of this session. Judgment and insight: improving mildly IMPRESSIONS: schizoaffective disorder homelessness nicotine dependence PLAN: -Patient is admitted under voluntary status to MHU for stabilization of psychiatric symptoms and safety. Patient has signed adult voluntary form and medication consent and is placed in patient's chart. -Medications : Klonopin 0.5mg tid PRN for anxiety, Zyprexa 7.5mg qhs for psychosis/insomnia, increase Prozac 40mg daily for depression/anxiety -NRT - nicotine patch -SW on board for discharge planning. Encourage patient to participate in groups to work on coping skills. Hopeful for discharge either tomorrow versus early next week if patient improves. Patient is homeless at this time.
[2024-04-04] MEDS: FLUoxetine HCL 20 MG CAP PO STA (10:39)
[2024-04-04 12:47] LABS: Glucose,Whole Blood 150 mg/dL (70-110)
[2024-04-04] MEDS: IPRATROPIUM-ALBUTEROL 3 ML NEB INHALATION STA (13:58)
[2024-04-04 17:35] LABS: Glucose,Whole Blood 95 mg/dL (70-110)
[2024-04-04 20:04] LABS: Glucose,Whole Blood 109 mg/dL (70-110)
[2024-04-05 06:48] VITALS: PULSE 49; RESP 16
[2024-04-05 07:37] LABS: Glucose,Whole Blood 123 mg/dL (70-110)
[2024-04-05 08:46] VITALS: BP 128/72
[2024-04-05] MEDS: FLUoxetine HCL 20 MG CAP PO SCH (08:47)
--- NOTE | 2024-04-05 11:11 | P.DS ---
Providers Date of admission: 04/01/24 21:36 Expected date of discharge: 04/05/24 Attending physician: Kenny Monson MD Consults: 04/01/24 21:36 Consult Physician Routine Consulting Provider: Neal Pak Consult Reason/Comments: History and Physical Do you want consulting provider notified?: Yes Primary care physician: Stated None - Discharge Diagnosis(es) (1) Schizoaffective disorder Current Visit: Yes Status: Acute Priority: High (2) Homelessness Current Visit: Yes Status: Acute Priority: Medium (3) Nicotine dependence Current Visit: Yes Status: Acute Priority: Low Hospital Course: Admission HPI: Admission note was completed by casualty underwriter "Patient presented to the hospital on 04/01. As per EPS note, "Patient brought self to ER for auditory hallucinations and increased anxiety. Patient assessed in ER9 from [id number]. Patient appears to be disorganized and thought blocking. Patient observed to verbalize auditory hallucinations that make statements examples "They are going to kidnap me" and "They will take me hostage". Patient verbalizes extreme paranoia. Patient verbalizes auditory hallucinations are command in nature at times telling him to harm himself. When asked about suicidal ideation patient verbalizes he often has thoughts to harm himself with no plan, and states the voices make him feel like he will act on the suicidal thoughts. Patient denies homicidal ideations. Patient denies visual hallucinations. Patient verbalizes poor appetite and difficulty sleeping r/t difficulty falling asleep and nightmares waking him up at night. Patient verbalizes he sees [facility] and is compliant with outpatient treatment and medications, but states the voices are getting worse." Upon today's assessment, he states that he has not been on his right meds, and he has been having increasing auditory hallucinations negative in nature, that people are trying to kidnap him. He states that someone hacked into his device. He does not elaborate much. He states it was not working properly. He states his stressors include a court date that is coming up in [facility]. He states the police stole his dog, and was following him around, and charged him with resisting arrest. He says his mood is "messed up" He states that he is depressed. He also states that he is allergic to effexor. He states he has thoughts of hurting himself, but has no plan. He reports poor sleep, and endorses a good appetite. Patient denies any suicidal or homicidal ideations intent or plan. At this time patient denies any auditory or visual hallucinations. Patient endorses racing thoughts. Patient denies recreational drug use. " Hospital course: Upon admission to the unit patient was directable and agreeable to commence treatment and signed adult voluntary form. Patient got along well with other patients on the unit and followed unit protocol. Patient was compliant with the medications and denied any side effects throughout hospital course. Patient was started on klonopin 0.5 tid prn for anxiety, zyprexa increased to 7.5 mg nightly for psychosis/insomnia. Prozac increased to dose of 40 mg daily for depression/anxiety.. Patient spoke of his stressors and engaged in therapy both group and individual. Patient was also seen by medical team for history and phy sical exam. Throughout the course of the hospitalization patient gradually improved with regards to mood, anxiety, mood stabilization, sleep and returned back to their baseline level of functioning. On the day of discharge patient denied any suicidal or homicidal ideations intent or plan denied any auditory or visual hallucinations. Patient endorsed wanting to live for his health and his future. The patient denied any access to guns or weapons. Patient denied any paranoia and did not endorse any delusions. Patient does not have a significant history of substance abuse and was counseled on abstaining from all substances including alcohol and marijuana. Patient was also counseled on the medications and need for regular compliance and was encouraged to follow-up with their outpatient appointment for mental health and also for primary care. Patient will be discharged today, he will be going back to a motel today, will be given detention resources and information. Mental status exam: General Appearance: Patient appears to be thin, has a hunched back, stated age is alert, pleasant, and cooperative. Patient is in no acute distress and has improved hygiene and grooming Behavior: Patient is calmly seated without any agitated behavior. Speech: Patient's speech is fluent and nonpressured. Mood/Affect: Patient reports their mood is "better", affect is congruent. Suicidality/Homicidality: Patient denies having any suicidal or homicidal ideation intent or plan. Perceptions: Patient denies any auditory or visual hallucinations. Though content/process: There is no evidence of any delusional thought content and thought process is linear and goal-directed. Memory and concentration: AOX3, grossly intact for the purposes of this session. Can spell "WORLD" backwards correctly. Judgment and insight: improved with guarded prognosis Impression: schizoaffective disorder homelessness nicotine dependence Plan: -Continue with discharge today as patient has improved and stabilized psychiatrically and is not currently an imminent threat to himself and/or others. -Continue medications: Will give a 3-day supply of Klonopin 0.5 mg 3 times daily as needed for anxiety. 30-day supplies of Zyprexa 7.5 mg nightly for psychosis/insomnia/mood stabilization. Prozac 40 mg daily for depression/anxiety. -Patient was counseled on the need for medication compliance and appropriate f ollow-up at mental health and also primary care for medical issues. Patient verbalized understanding and agreed. -Social work to coordinate patient's discharge today. social work also to arrange for patients follow up appointments with [facility] for psychiatric care along with follow up with primary care provider. -Patient counseled on abstaining from recreational drugs and marijuana and alcohol. Was informed/educated on the adverse effects on their physical and mental health. Patient verbally agreed and understood. -Patient was instructed to return to the hospital or seek immediate medical care if their psychiatric or medical symptoms do worsen or reoccur. Allergies Allergy/AdvReac Type Severity Reaction Status Date / Time haloperidol from Haldol AdvReac [place] Verified 02/13/24 11:37 trazodone AdvReac Dry mouth, Verified 02/13/24 11:37 Nightmares Laboratory Results WBC 9.1 k/uL (3.8-10.6) 04/02/24 06:01 RBC 4.18 m/uL (4.30-5.90) L 04/02/24 06:01 Hgb 12.1 gm/dL (13.0-17.5) L 04/02/24 06:01 Hct 38.5 % (39.0-53.0) L 04/02/24 06:01 MCV 92.1 fL (80.0-100.0) 04/02/24 06:01 MCH 29.1 pg (25.0-35.0) 04/02/24 06:01 MCHC 31.5 g/dL (31.0-37.0) 04/02/24 06:01 RDW 15.4 % (11.5-15.5) 04/02/24 06:01 Plt Count 278 k/uL (150-450) 04/02/24 06:01 MPV 8.8 04/02/24 06:01 Neutrophils % 60 % 04/02/24 06:01 Lymphocytes % 25 % 04/02/24 06:01 Monocytes % 8 % 04/02/24 06:01 Eosinophils % 5 % 04/02/24 06:01 Basophils % 0 % 04/02/24 06:01 Neutrophils # 5.4 k/uL (1.3-7.7) 04/02/24 06:01 Lymphocytes # 2.3 k/uL (1.0-4.8) 04/02/24 06:01 Monocytes # 0.8 k/uL (0-1.0) 04/02/24 06:01 Eosinophils # 0.5 k/uL (0-0.7) 04/02/24 06:01 Basophils # 0.0 k/uL (0-0.2) 04/02/24 06:01 Sodium 137 mmol/L (137-145) 04/02/24 06:01 Potassium 4.0 mmol/L (3.5-5.1) 04/02/24 06:01 Chloride 106 mmol/L (98-107) 04/02/24 06:01 Carbon Dioxide 31 mmol/L (22-30) H 04/02/24 06:01 Anion Gap 0 mmol/L 04/02/24 06:01 BUN 9 mg/dL (9-20) 04/02/24 06:01 Creatinine 0.61 mg/dL (0.66-1.25) L 04/02/24 06:01 Est GFR (CKD-EPI)AfAm >90 (>60 ml/min/1.73 sqM) 04/02/24 06:01 Est GFR (CKD-EPI)NonAf >90 (>60 ml/min/1.73 sqM) 04/02/24 06:01 Glucose 122 mg/dL (74-99) H 04/02/24 06:01 POC Glucose (mg/dL) 123 mg/dL (70-110) H 04/05/24 07:35 POC Glu Tobacco Cloth Reclaimer ID Carlitos Shani 04/05/24 07:[address] Glu mg/dL 128 mg/dL 04/02/24 06:01 Hemoglobin A1c 6.1 % (<=6.0) H 04/02/24 06:01 Calcium 9.1 mg/dL (8.4-10.2) 04/02/24 06:01 Total Bilirubin 0.3 mg/dL (0.2-1.3) 04/02/24 06:01 Conjugated Bilirubin 0.0 mg/dL (0.0-0.3) 04/02/24 06:01 Unconjugated Bilirubin 0.2 mg/dL (0.0-1.1) 04/02/24 06:01 Delta Bilirubin 0.1 mg/dL (0.0-0.2) 04/02/24 06:01 AST 38 U/L (17-59) 04/02/24 06:01 ALT 28 U/L (4-49) 04/02/24 06:01 Alkaline Phosphatase 53 U/L (38-126) 04/02/24 06:01 Total Protein 6.2 g/dL (6.3-8.2) L 04/02/24 06:01 Albumin 3.5 g/dL (3.5-5.0) 04/02/24 06:01 Triglycerides 71.10 mg/dL (0.00-149.00) 04/02/24 06:01 Cholesterol 137.00 mg/dL (0.00-200.00) 04/02/24 06:01 LDL Cholesterol, Calc 64.5 mg/dL (0.0-131.0) 04/02/24 06:01 VLDL Cholesterol, Calc 14.22 mg/dL (5.00-40.00) 04/02/24 06:01 HDL Cholesterol 58.30 mg/dL (40.00-60.00) 04/02/24 06:01 Cholesterol/HDL Ratio 2.35 Ratio 04/02/24 06:01 TSH 2.750 mIU/L (0.465-4.680) 04/02/24 06:01 Urine Color Colorless 04/01/24 18:47 Urine Appearance Clear (Clear) 04/01/24 18:47 Urine pH 7.5 (5.0-8.0) 04/01/24 18:47 Ur Specific [place] 1.012 (1.001-1.035) 04/01/24 18:47 Urine Protein Negative (Negative) 04/01/24 18:47 Urine Glucose (UA) Negative (Negative) 04/01/24 18:47 Urine Ketones Negative (Negative) 04/01/24 18:47 Urine Blood Negative (Negative) 04/01/24 18:47 Urine Nitrite Negative (Negative) 04/01/24 18:47 Urine Bilirubin Negative (Negative) 04/01/24 18:47 Urine Urobilinogen <2.0 mg/dL (<2.0) 04/01/24 18:47 Ur Leukocyte Esterase Negative (Negative) 04/01/24 18:47 Urine Opiates Screen Not Detected (NotDetected) 04/01/24 18:47 Ur Oxycodone Screen Not Detected (NotDetected) 04/01/24 18:47 Urine Methadone Screen Not Detected (NotDetected) 04/01/24 18:47 Ur Barbiturates Screen Not Detected (NotDetected) 04/01/24 18:47 U Tricyclic Antidepress Not Detected (NotDetected) 04/01/24 18:47 Ur Phencyclidine Scrn Not Detected (NotDetected) 04/01/24 18:47 Ur Amphetamines Screen Not Detected (NotDetected) 04/01/24 18:47 U Methamphetamines Scrn Not Detected (NotDetected) 04/01/24 18:47 U Benzodiazepines Scrn Not Detected (NotDetected) 04/01/24 18:47 Urine Cocaine Screen Not Detected (NotDetected) 04/01/24 18:47 U Marijuana (THC) Screen Not Detected (NotDetected) 04/01/24 18:47 SARS-CoV-2 (PCR) Not Detected (Not Detectd) 04/01/24 20:50 Vital Signs Temp 98.6 F 04/04/24 07:03 Pulse 49 L 04/05/24 06:47 Resp 16 04/05/24 06:47 BP 128/72 04/05/24 08:45 Pulse Ox 96 04/05/24 06:47 FiO2 Patient Condition at Discharge: Stable Plan - Discharge Summary Discharge Rx Participant: Yes New Discharge Prescriptions: New diphenhydrAMINE [Benadryl] 25 mg PO BID PRN 30 Days #60 cap PRN Reason: Itching Ibuprofen [Motrin] 600 mg PO Q6HR PRN tab PRN Reason: Moderate Pain (Scale 4 To 6) FLUoxetine HCL [PROzac] 40 mg PO DAILY 30 Days #30 cap Fluconazole [Diflucan] 200 mg PO Q7DAYS #10 tab Nicotine Gum (Polacrilex) [Nicorette] 2 mg BUCCAL Q4HR PRN pieceofgum PRN Reason: Nicotine Cravings OLANZapine [ZyPREXA] 7.5 mg PO HS 30 Days #30 tab Continue Tamsulosin [Flomax] 0.8 mg PO HS Gabapentin 600 mg PO BID Levothyroxine Sodium [Synthroid] 100 mcg PO DAILY Buprenorphine HCl/Naloxone HCl [Suboxone 8 mg-2 mg Sl Film] 1 film SL BID Nystatin 100,000 Unit/gm Oint [Mycostatin Oint] 1 applic TOPICAL BID 30 Days #1 each Ketoconazole 2% Shampoo [Nizoral] 1 applic TOPICAL DIRECTED 30 Days #1 ml Ketoconazole 2% Cream [Nizoral 2%] 1 applic TOPICAL BID 30 Days #1 each carvediloL [Coreg] 6.25 mg PO BID Albuterol Nebulized [Ventolin Nebulized] 2.5 mg INHALATION RT-TID Umeclidinium Brm/Vilanterol Tr [Anoro Ellipta 62.5-25 Mcg INH] 1 puff INHALATION RT-DAILY Cyclobenzaprine [Flexeril] 5 mg PO BID PRN PRN Reason: Muscle Spasm Triamcinolone 0.1% Cream [Kenalog 0.1% Cream] 1 applicatio TOPICAL BID PRN 30 Days #1 each PRN Reason: Itching Pantoprazole [Protonix] 40 mg PO BID 30 Days #30 tab Changed clonazePAM [KlonoPIN] 0.5 mg PO BID PRN 3 Days #6 tab PRN Reason: Anxiety Discontinued glipiZIDE [Glucotrol] 2.5 mg PO AC-BRKFST Fluconazole 200 mg PO Q7D cloNIDine HCL [Catapres] 0.1 mg PO BID Discharge Medication List Tamsulosin [Flomax] 0.8 mg PO HS 04/02/22 [History] Gabapentin 600 mg PO BID 10/28/23 [History] Levothyroxine Sodium [Synthroid] 100 mcg PO DAILY 10/28/23 [History] carvediloL [Coreg] 6.25 mg PO BID 10/28/23 [History] Albuterol Nebulized [Ventolin Nebulized] 2.5 mg INHALATION RT-TID 02/13/24 [History] Buprenorphine HCl/Naloxone HCl [Suboxone 8 mg-2 mg Sl Film] 1 film SL BID 02/13/24 [History] Umeclidinium Brm/Vilanterol Tr [Anoro Ellipta 62.5-25 Mcg INH] 1 puff INHALATION RT-DAILY 02/13/24 [History] Cyclobenzaprine [Flexeril] 5 mg PO BID PRN 04/01/24 [History] FLUoxetine HCL [PROzac] 40 mg PO DAILY 30 Days #30 cap 04/05/24 [Rx] Fluconazole [Diflucan] 200 mg PO Q7DAYS #10 tab 04/05/24 [Rx] Ibuprofen [Motrin] 600 mg PO Q6HR PRN tab 04/05/24 [Rx] Ketoconazole 2% Cream [Nizoral 2%] 1 applic TOPICAL BID 30 Days #1 each 04/05/24 [Rx] Ketoconazole 2% Shampoo [Nizoral] 1 applic TOPICAL DIRECTED 30 Days #1 ml 04/05/24 [Rx] Nicotine Gum (Polacrilex) [Nicorette] 2 mg BUCCAL Q4HR PRN pieceofgum 04/05/24 [Rx] Nystatin 100,000 Unit/gm Oint [Mycostatin Oint] 1 applic TOPICAL BID 30 Days #1 each 04/05/24 [Rx] OLANZapine [ZyPREXA] 7.5 mg PO HS 30 Days #30 tab 04/05/24 [Rx] Pantoprazole [Protonix] 40 mg PO BID 30 Days #30 tab 04/05/24 [Rx] Triamcinolone 0.1% Cream [Kenalog 0.1% Cream] 1 applicatio TOPICAL BID PRN 30 Days #1 each 04/05/24 [Rx] clonazePAM [KlonoPIN] 0.5 mg PO BID PRN 3 Days #6 tab 04/05/24 [Rx] diphenhydrAMINE [Benadryl] 25 mg PO BID PRN 30 Days #60 cap 04/05/24 [Rx] Follow up Appointment(s)/Referral(s): [facility] [Outside] - 04/09/24 8:30 am (04/09/2024 8:30AM - 9:00AM MIGDALIA LARIOS 04/10/2024 10:00AM - 11:00AM WILLIAM HEDRICK ) None,Stated [Primary Care Provider] - 1-2 days Activity/Diet/Wound Care/Special Instructions: Avoid the use of street drugs and alcohol. Take all medications as prescribed. When you are in need of refills on your medications, please contact your medical provider and/or outpatient psychiatrist/provider to have this done. Please go to your scheduled outpatient appointment for aftercare treatment. If symptoms return or become worse, call the crisis line at and/or go to the nearest emergency room for evaluation. National Suicide Hotline 719 Discharge Disposition: OTHER INSTITUTION NOT DEFINED
[2024-04-05 12:22] LABS: Glucose,Whole Blood 135 mg/dL (70-110)
== END 2024-04-05 13:58 | disposition home or self-care (01) | DRG 885 ==
LOC: EC 14:57 → 3MHU 21:36
PROVIDERS: ADMIT Psychiatry & Neurology Psychiatry; ATTEND Psychiatry & Neurology Psychiatry
DX: F25.9 Schizoaffective disorder, unspecified (principal); R45.851 Suicidal ideations; Z59.00 Homelessness unspecified; F32.A Depression, unspecified; F41.9 Anxiety disorder, unspecified; I10 Essential (primary) hypertension; I25.2 Old myocardial infarction; K21.9 Gastro-esophageal reflux disease without esophagitis; N40.0 Benign prostatic hyperplasia without lower urinary tract symptoms; E78.5 Hyperlipidemia, unspecified; E11.65 Type 2 diabetes mellitus with hyperglycemia; E03.9 Hypothyroidism, unspecified; B35.9 Dermatophytosis, unspecified; Z79.84 Long term (current) use of oral hypoglycemic drugs; Z79.890 Hormone replacement therapy; Z79.899 Other long term (current) drug therapy; Z90.81 Acquired absence of spleen; Z91.51 Personal history of suicidal behavior
CPT/HCPCS: 80053; 80061; 80306; 81003; 82075; 82248; 83036; 84443; 85025; 87635; 94640; 99285

== ENCOUNTER 2024-08-19 01:23 | Emergency (ER) | payer MEDICARE, OTHER ==
[2024-08-19] MEDS: diphenhydrAMINE 50 MG CAP PO STA (02:14)
[2024-08-19] MEDS: KETOROLAC 15 MG/ML 1 ML VIAL IM STA (02:14)
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
[2024-08-19 02:58] LABS: Influenza A Not Detected (Not Detectd); Influenza B Not Detected (Not Detectd); RSV Not Detected (Not Detectd)
--- NOTE | 2024-08-19 03:04 | XR ---
EXAM: XR Chest, 1 View CLINICAL HISTORY: ITS.REASON XR Reason: cough 1 VIEW DUE TO PT CONDITION TECHNIQUE: Frontal view of the chest. COMPARISON: No relevant prior studies available. FINDINGS: Lungs: No consolidation or mass. Pleural space: No acute findings. Heart: No cardiomegaly. Bones/joints: No acute findings. IMPRESSION: No acute cardiopulmonary process.
[2024-08-19] MEDS: PERMETHRIN 5% CREAM 60 GM TUBE TOPICAL ONE (03:38)
[2024-08-19 03:48] VITALS: BP 111/66; PULSE 58; RESP 16; TEMP 97.7
== END 2024-08-19 03:56 | disposition home or self-care (01) ==
LOC: EC 01:23
DX: R05.9 Cough, unspecified (principal); B86 Scabies; F17.200 Nicotine dependence, unspecified, uncomplicated; Z88.8 Allergy status to other drugs, medicaments and biological substances
CPT/HCPCS: 87636; 71045; 99284; 96372; J1885

== ENCOUNTER 2024-09-08 03:41 | Emergency (ER) | payer MEDICARE ==
[2024-09-08 03:49] VITALS: BP 144/92; PULSE 96; TEMP 98.6
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
[2024-09-08] MEDS: clonazePAM 0.5 MG TAB PO STA (05:11)
[2024-09-08] MEDS: traZODone HCL 50 MG TAB PO ONE (05:11)
[2024-09-08 08:31] LABS: Amphetamine Screen,Urine Detected (NotDetected); Barbiturate Screen,Urine Not Detected (NotDetected); Benzodiazepines Screen,Urine Not Detected (NotDetected); Cocaine Screen,Urine Detected (NotDetected); Methadone Screen, Urine Not Detected (NotDetected); Opiate Screen,Urine Not Detected (NotDetected); Oxycodone Screen, Urine Not Detected (NotDetected); Phencyclidine Screen,Urine Not Detected (NotDetected); Tricyclic Antidepressant,Urine Not Detected (NotDetected); Urn Cannabinoid Scrn Detected (NotDetected)
[2024-09-08 12:27] VITALS: RESP 18
== END 2024-09-08 12:27 | disposition home or self-care (01) ==
LOC: EC 03:41
DX: F22 Delusional disorders (principal); Z13.39 Encounter for screening examination for other mental health and behavioral disorders; F17.200 Nicotine dependence, unspecified, uncomplicated; Z88.8 Allergy status to other drugs, medicaments and biological substances
CPT/HCPCS: 80306; 82075; 99285

== ENCOUNTER 2024-09-09 22:59 | Observation (INO) | payer MEDICARE, OTHER ==
--- NOTE | 2024-09-09 23:30 | ED ---
General Adult HPI - General Chief complaint: Chest Pain Stated complaint: chest pain, shortness of breath Time Seen by Provider: 09/09/24 23:01 Source: patient Mode of arrival: ambulatory Limitations: no limitations - History of Present Illness Initial comments: Dictation was produced using [employer] dictation software. please excuse any grammatical, word or spelling errors. Chief Complaint: 49-year-old male presents with chest pain History of Present Illness: Patient is a 49-year-old male he had a history of psychiatric illness was seen here yesterday for psychiatric evaluation. States today that he has chest pain. Patient has strange affect. States that his pain is substernal. The ROS documented in this emergency department record has been reviewed and confirmed by me. Those systems with pertinent positive or negative responses have been documented in the HPI. All other systems are other negative and/or noncontributory. - Related Data Home Medications Medication Instructions Recorded Confirmed Tamsulosin [Flomax] 0.8 mg PO HS 04/02/22 04/01/24 Gabapentin 600 mg PO BID 10/28/23 04/01/24 Levothyroxine Sodium [Synthroid] 100 mcg PO DAILY 10/28/23 04/01/24 carvediloL [Coreg] 6.25 mg PO BID 10/28/23 04/01/24 Albuterol Nebulized [Ventolin 2.5 mg INHALATION RT-TID 02/13/24 04/01/24 Nebulized] Buprenorphine HCl/Naloxone HCl 1 film SL BID 02/13/24 04/01/24 [Suboxone 8 mg-2 mg Sl Film] Umeclidinium Brm/Vilanterol Tr 1 puff INHALATION RT-DAILY 02/13/24 04/01/24 [Anoro Ellipta 62.5-25 Mcg INH] Cyclobenzaprine [Flexeril] 5 mg PO BID PRN 04/01/24 04/01/24 Previous Rx's Medication Instructions Recorded FLUoxetine HCL [PROzac] 40 mg PO DAILY 30 Days #30 cap 04/05/24 Fluconazole [Diflucan] 200 mg PO Q7DAYS #10 tab 04/05/24 Ibuprofen [Motrin] 600 mg PO Q6HR PRN tab 04/05/24 Ketoconazole 2% Cream [Nizoral 2%] 1 applic TOPICAL BID 30 Days #1 04/05/24 each Ketoconazole 2% Shampoo [Nizoral] 1 applic TOPICAL DIRECTED 30 04/05/24 Days #1 ml Nicotine Gum (Polacrilex) 2 mg BUCCAL Q4HR PRN pieceofgum 04/05/24 [Nicorette] Nystatin 100,000 Unit/gm Oint 1 applic TOPICAL BID 30 Days #1 04/05/24 [Mycostatin Oint] each OLANZapine [ZyPREXA] 7.5 mg PO HS 30 Days #30 tab 04/05/24 Pantoprazole [Protonix] 40 mg PO BID 30 Days #30 tab 04/05/24 Triamcinolone 0.1% Cream [Kenalog 1 applicatio TOPICAL BID PRN 30 04/05/24 0.1% Cream] Days #1 each clonazePAM [KlonoPIN] 0.5 mg PO BID PRN 3 Days #6 tab 04/05/24 diphenhydrAMINE [Benadryl] 25 mg PO BID PRN 30 Days #60 cap 04/05/24 Ivermectin 15 mg PO DIRECTED #25 tab 08/19/24 Permethrin 5% Cream [Elimite] 1 applic TOPICAL ONCE #60 gm 08/19/24 Allergies Allergy/AdvReac Type Severity Reaction Status Date / Time haloperidol [From Haldol] AdvReac Lockjaw Verified 09/08/24 03:45 trazodone AdvReac Dry mouth, Verified 09/08/24 03:45 Nightmares Review of Systems ROS Statement: Those systems with pertinent positive or pertinent negative responses have been documented in the HPI. ROS Other: All systems not noted in ROS Statement are negative. Past Medical History Past Medical History: Asthma, Hyperlipidemia, Thyroid Disorder Additional Past Medical History / Comment(s): scabies, Last Myocardial Infarction Date:: 01/2022 History of Any Multi-Drug Resistant Organisms: MRSA Date of last positivie culture/infection: sputum MDRO Source:: 2021 Past Surgical History: Adenoidectomy, Bariatric Surgery Additional Past Surgical History / Comment(s): L lobectomy, splenectomy Past Anesthesia/Blood Transfusion Reactions: No Reported Reaction Past Psychological History: Bipolar, Depression, Schizophrenia Smoking Status: Current some day smoker Past Alcohol Use History: Daily Past Drug Use History: Cocaine - Past Family History Father Family Medical History: Unable to Obtain Mother Family Medical History: Unable to Obtain General Exam - General Exam Comments Initial Comments: PHYSICAL EXAM: General Impression: Alert and oriented x3, not in acute distress HEENT: Normocephalic atraumatic, extra-ocular movements intact, pupils equal and reactive to light bilaterally, mucous membranes moist. Cardiovascular: Heart regular rate and rhythm Chest: Able to complete full sentences, no retractions, no tachypnea Abdomen: abdomen soft, non-tender, non-distended, no organomegaly Musculoskeletal: Pulses present and equal in all extremities, no peripheral edema Motor: no focal deficits noted Neurological: CN II-XII grossly intact, no focal motor or sensory deficits noted Skin: Intact with no visualized rashes Psych: Normal affect and mood Limitations: no limitations Course Vital Signs 09/09/24 23:02 Temperature 98.2 F Pulse Rate 81 Respiratory 17 Rate Blood Pressure 141/90 O2 Sat by Pulse 95 Oximetry EKG Findings - EKG Comments: EKG Findings:: My EKG interpretation: Ventricular rate 107, sinus tachycardia, MS interval 128, QRS 94, QTc 4 3. No MS prolongation, no QTC prolongation, no ST or T-wave changes noted. Overall, this EKG is unremarkable Medical Decision Making - Medical Decision Making Was pt. sent in by a medical professional or institution (, PA, COMMERCIAL [employer] BUILD[employer] DESIGNER, urgent care, hospital, or fpc...) When possible be specific @ -No Did you speak to anyone other than the patient for history (EMS, parent, family, police, friend...)? What history was obtained from this source @ -No Did you review nursing and triage notes (agree or disagree)? Why? @ -I reviewed and agree with nursing and triage notes Were old charts reviewed (outside hosp., previous admission, EMS record, old EKG, old radiological studies, urgent care reports/EKG's, fpc records)? Report findings @ -No old charts were reviewed Differential Diagnosis (chest pain, altered mental status, abdominal pain women, abdominal pain men, vaginal bleeding, musculoskeletal, weakness, fever, dyspnea, syncope, headache, dizziness, GI bleed, back pain, seizure, CVA, palpatations, mental health)? @ -Differential Chest Pain: Stable Angina, Unstable Angina, STEMI, NSTEMI Aortic Dissection, Pneumothorax, Musculoskeletal, Esophageal Spasm GERD, Cholecystitis, Pancreatitis, Zoster, this is not meant to be an all-inclusive list. EKG interpreted by me (3pts min.). @ -See above X-rays interpreted by me (1pt min.). @ -Chest x-ray is nonacute CT interpreted by me (1pt min.). @ -None done U/S interpreted by me (1pt. min.). @ -None done What testing was considered but not performed or refused? (CT, X-rays, U/S, labs)? Why? @ -None What meds were considered but not given or refused? Why? @ -None Was smoking cessation discussed for >3mins.? @ -No Were there social determinants of health that impacted care today? How? (Homelessness, low income, unemployed, alcoholism, drug addiction, transportation, low edu. Level, literacy, decrease access to med. care, intermediate, rehab)? @ -No Was there de-escalation of care discussed even if they declined (Discuss DNR or withdrawal of care, Hospice)? DNR status @ -No What co-morbidities impacted this encounter? (DM, HTN, Smoking, COPD, CAD, Cancer, CVA, ARF, Chemo, Hep., AIDS, mental health diagnosis, sleep apnea, morbid obesity)? @ -None Was patient admitted / discharged? Hospital course, mention meds given and route, prescriptions, significant lab abnormalities, going to OR and other pertinent info. @ -49-year-old male presents emergency department with chest pain. Patient is not quite the best historian. Patient is well-appearing at the bedside. Vital signs are stable. EKG shows no acute processes. Laboratory evaluation obtained. Leukocytosis 17.5. Patient has a history of elevated white blood cell count chronically. Coag panel and metabolic panel within acceptable limits. Troponin is 0.017. Patient reevaluated bedside at 2:10 AM found to be 7 condition. Patient given aspirin will be admitted observation for serial troponins, cardiac monitoring and cardiology consultation. Case discussed with hospitalist for admission Did you discuss the management of the patient with other professionals (professionals i.e. , PA, COMMERCIAL [employer] BUILDING DESIGNER, lab, RT, psych nurse, social insurance specialist, group home worker, teacher, probation officer, correctional counselor/case manager)? Give summary @ -See above Was critical care preformed (if so, how long)? @ -No Undiagnosed new problem with uncertain prognosis? @ -No Drug Therapy requiring intensive monitoring for toxicity (Heparin, Nitro, Insulin, Cardizem)? @ -No Were any procedures done? @ -No Diagnosis/symptom? Acute, or Chronic, or Acute on Chronic? Uncomplicated (without systemic symptoms) or Complicated (systemic symptoms)? @ -Chest pain Side effects of treatment? @ -No Exacerbation, Progression, or Severe Exacerbation? @ -No Poses a threat to life or bodily function? How? (Chest pain, [place], PR, pneumonia, PE, COPD, DKA, ARF, appy, cholecystitis, CVA, Diverticulitis, Homicidal, Suicidal, threat to staff... and all critical care pts) @ -Yes - Lab Data Result diagrams: 09/09/24 23:33 09/09/24 23:33 Lab Results 09/09/24 09/09/24 09/09/24 Range/Units 23:33 23:33 23:33 WBC 17.51 H (4.50-10.00) 10*3/uL RBC 4.50 (4.40-5.60) 10*6/uL Hgb 13.6 (13.0-17.0) g/dL Hct 39.7 (39.6-50.0) % MCV 88.2 (80.0-97.0) fL MCH 30.2 (27.0-32.0) pg MCHC 34.3 (32.0-37.0) g/dL Plt Count 419 (140-440) 10*3/uL MPV 10.2 (9.5-12.2) fL Immature Gran % (Auto) 0.4 % Neutrophils % 85.5 % Lymphocytes % 7.5 % Monocytes % 5.9 % Eosinophils % 0.4 % Basophils % 0.3 % Immature Gran # 0.07 H (0.00-0.04) 10*3/uL Neutrophils # 14.97 H (1.80-7.70) 10*3/uL Lymphocytes # 1.31 (0.90-5.00) 10*3/uL Monocytes # 1.04 H (0.20-1.00) 10*3/uL Eosinophils # 0.07 (0.04-0.35) 10*3/uL Basophils # 0.05 (0.00-0.10) 10*3/uL PT 11.4 (10.0-12.5) sec INR 1.0 (<1.2) APTT 21.0 L (22.0-30.0) sec Sodium 138 (137-145) mmol/L Potassium 4.9 (3.5-5.1) mmol/L Chloride 99 (98-107) mmol/L Carbon Dioxide 23 (22-30) mmol/L Anion Gap 16 mmol/L BUN 25 H (9-20) mg/dL Creatinine 0.86 (0.66-1.25) mg/dL Est GFR (CKD-EPI)AfAm >90 (>60 ml/min/1.73 sqM) Est GFR (CKD-EPI)NonAf >90 (>60 ml/min/1.73 sqM) Glucose 79 (74-99) mg/dL Calcium 10.6 H (8.4-10.2) mg/dL Magnesium 1.9 (1.6-2.3) mg/dL Total Bilirubin 1.1 (0.2-1.3) mg/dL AST 80 H (17-59) U/L ALT 40 (4-49) U/L Alkaline Phosphatase 87 (38-126) U/L Troponin I (0.000-0.034) ng/mL Total Protein 8.7 H (6.3-8.2) g/dL Albumin 5.1 H (3.5-5.0) g/dL / Range/Units 23:33 WBC (4.50-10.00) 10*3/uL RBC (4.40-5.60) 10*6/uL Hgb (13.0-17.0) g/dL Hct (39.6-50.0) % MCV (80.0-97.0) fL MCH (27.0-32.0) pg MCHC (32.0-37.0) g/dL Plt Count (140-440) 10*3/uL MPV (9.5-12.2) fL Immature Gran % (Auto) % Neutrophils % % Lymphocytes % % Monocytes % % Eosinophils % % Basophils % % Immature Gran # (0.00-0.04) 10*3/uL Neutrophils # (1.80-7.70) 10*3/uL Lymphocytes # (0.90-5.00) 10*3/uL Monocytes # (0.20-1.00) 10*3/uL Eosinophils # (0.04-0.35) 10*3/uL Basophils # (0.00-0.10) 10*3/uL PT (10.0-12.5) sec INR (<1.2) APTT (22.0-30.0) sec Sodium (137-145) mmol/L Potassium (3.5-5.1) mmol/L Chloride (98-107) mmol/L Carbon Dioxide (22-30) mmol/L Anion Gap mmol/L BUN (9-20) mg/dL Creatinine (0.66-1.25) mg/dL Est GFR (CKD-EPI)AfAm (>60 ml/min/1.73 sqM) Est GFR (CKD-EPI)NonAf (>60 ml/min/1.73 sqM) Glucose (74-99) mg/dL Calcium (8.4-10.2) mg/dL Magnesium (1.6-2.3) mg/dL Total Bilirubin (0.2-1.3) mg/dL AST (17-59) U/L ALT (4-49) U/L Alkaline Phosphatase (38-126) U/L Troponin I 0.017 (0.000-0.034) ng/mL Total Protein (6.3-8.2) g/dL Albumin (3.5-5.0) g/dL Disposition Clinical Impression: Chest pain Disposition: ADMITTED IP TO THIS [facility] Condition: Fair Referrals: None,Stated [Primary Care Provider] - 1-2 days Decision Time: 02:11
[2024-09-09 23:48] LABS: Basophils # (A) 0.05 10*3/uL (0.00-0.10); Basophils % (A) 0.3 %; Eosinophils # (A) 0.07 10*3/uL (0.04-0.35); Eosinophils % (A) 0.4 %; HCT 39.7 % (39.6-50.0); HGB 13.6 g/dL (13.0-17.0); Lymphocytes # (A) 1.31 10*3/uL (0.90-5.00); Lymphocytes % (A) 7.5 %; MCH 30.2 pg (27.0-32.0); MCHC 34.3 g/dL (32.0-37.0); MCV 88.2 fL (80.0-97.0); Mean Platelet Volume 10.2 fL (9.5-12.2); Monocytes # (A) 1.04 10*3/uL (0.20-1.00); Monocytes % (A) 5.9 %; Neutrophils # (A) 14.97 10*3/uL (1.80-7.70); Neutrophils % (A) 85.5 %; Platelet Count 419 10*3/uL (140-440); RDW 13.2 % (11.5-14.5); WBC 17.51 10*3/uL (4.50-10.00)
[2024-09-10 00:01] LABS: ALT 40 U/L (4-49); African American GFR (CKD) >90 (>60 ml/min/1.73 sqM); Anion Gap 16 mmol/L; Blood Urea Nitrogen 25 mg/dL (9-20); Calcium 10.6 mg/dL (8.4-10.2); Carbon Dioxide 23 mmol/L (22-30); Chloride 99 mmol/L (98-107); Glucose 79 mg/dL (74-99); Non-African American GFR(CKD) >90 (>60 ml/min/1.73 sqM); Sodium 138 mmol/L (137-145); Total Bilirubin 1.1 mg/dL (0.2-1.3)
[2024-09-10 00:04] LABS: Prothrombin Time 11.4 sec (10.0-12.5)
[2024-09-10 00:05] LABS: Magnesium 1.9 mg/dL (1.6-2.3); Potassium 4.9 mmol/L (3.5-5.1); Total Protein 8.7 g/dL (6.3-8.2)
[2024-09-10 00:06] LABS: AST 80 U/L (17-59); Albumin 5.1 g/dL (3.5-5.0); Alkaline Phosphatase 87 U/L (38-126)
[2024-09-10] MEDS: ASPIRIN 81 MG PO STA (00:21)
--- NOTE | 2024-09-10 01:49 | XR ---
EXAM: XR Chest, 1 View CLINICAL HISTORY: ITS.REASON XR Reason: Chest Pain TECHNIQUE: Frontal view of the chest. COMPARISON: XR Chest dated 08/19/2024, XR Chest dated 04/05/2022 FINDINGS: See Impression. IMPRESSION: 1. Left lower lobectomy postsurgical changes as on the priors. 2. Left lower thoracic opacity may represent atelectasis or airspace disease. Mildly increased. 3. Left pleural effusion or thickening. Similar.
[2024-09-10] MEDS ORDERED: NITROGLYCERIN SL TABS 0.4 MG TAB SUBLINGUAL PRN (02:06)
[2024-09-10 02:14] VITALS: TEMP 98.6
[2024-09-10] MEDS: clonazePAM 0.5 MG TAB PO PRN (04:22)
--- NOTE | 2024-09-10 06:15 | P.HPIM ---
History of Present Illness H&P Date: 09/10/24 Chief Complaint: Chest pain Patient is a 49-year-old male with history of anxiety, GERD, hypothyroidism, polysubstance use. The patient presented to the emergency room because of chest pain. The patient states he has had intermittent chest pain that is not associated with activity he does not know any precipitating factors. The patient denied nausea vomiting or diaphoresis. He states the pain is left- sided. The patient is brought to the emergency room he had initial troponin of 0.017 and then on repeat 0.015. The patient urine drug screen was positive for cocaine and THC. The patient complained of anxiety and he was hospitalized for further workup and management. At time my evaluation patient was still complaining of pain he had no nausea or vomiting he was speaking full sentences. Review of Systems Cardiovascular: Reports chest pain Psychiatric: Reports anxiety, Reports hallucinations Past Medical History Past Medical History: Asthma, Hyperlipidemia, Thyroid Disorder Additional Past Medical History / Comment(s): scabies, Last Myocardial Infarction Date:: 01/2022 History of Any Multi-Drug Resistant Organisms: MRSA Date of last positivie culture/infection: sputum MDRO Source:: 2021 Past Surgical History: Adenoidectomy, Bariatric Surgery Additional Past Surgical History / Comment(s): L lobectomy, splenectomy Past Anesthesia/Blood Transfusion Reactions: No Reported Reaction Past Psychological History: Bipolar, Depression, Schizophrenia Smoking Status: Current some day smoker Past Alcohol Use History: Daily Past Drug Use History: Cocaine - Past Family History Father Family Medical History: Unable to Obtain Mother Family Medical History: Unable to Obtain Medications and Allergies Home Medications Medication Instructions Recorded Confirmed Type Tamsulosin [Flomax] 0.8 mg PO HS 04/02/22 04/01/24 History Gabapentin 600 mg PO BID 10/28/23 04/01/24 History Levothyroxine Sodium [Synthroid] 100 mcg PO DAILY 10/28/23 04/01/24 History carvediloL [Coreg] 6.25 mg PO BID 10/28/23 04/01/24 History Albuterol Nebulized [Ventolin 2.5 mg INHALATION RT-TID 02/13/24 04/01/24 History Nebulized] Buprenorphine HCl/Naloxone HCl 1 film SL BID 02/13/24 04/01/24 History [Suboxone 8 mg-2 mg Sl Film] Umeclidinium Brm/Vilanterol Tr 1 puff INHALATION RT-DAILY 02/13/24 04/01/24 History [Anoro Ellipta 62.5-25 Mcg INH] Cyclobenzaprine [Flexeril] 5 mg PO BID PRN 04/01/24 04/01/24 History FLUoxetine HCL [PROzac] 40 mg PO DAILY 30 Days #30 cap 04/05/24 Rx Fluconazole [Diflucan] 200 mg PO Q7DAYS #10 tab 04/05/24 Rx Ibuprofen [Motrin] 600 mg PO Q6HR PRN tab 04/05/24 Rx Ketoconazole 2% Cream [Nizoral 2%] 1 applic TOPICAL BID 30 Days #1 04/05/24 Rx each Ketoconazole 2% Shampoo [Nizoral] 1 applic TOPICAL DIRECTED 30 04/05/24 Rx Days #1 ml Nicotine Gum (Polacrilex) 2 mg BUCCAL Q4HR PRN pieceofgum 04/05/24 Rx [Nicorette] Nystatin 100,000 Unit/gm Oint 1 applic TOPICAL BID 30 Days #1 04/05/24 Rx [Mycostatin Oint] each OLANZapine [ZyPREXA] 7.5 mg PO HS 30 Days #30 tab 04/05/24 Rx Pantoprazole [Protonix] 40 mg PO BID 30 Days #30 tab 04/05/24 Rx Triamcinolone 0.1% Cream [Kenalog 1 applicatio TOPICAL BID PRN 30 04/05/24 Rx 0.1% Cream] Days #1 each clonazePAM [KlonoPIN] 0.5 mg PO BID PRN 3 Days #6 tab 04/05/24 Rx diphenhydrAMINE [Benadryl] 25 mg PO BID PRN 30 Days #60 cap 04/05/24 Rx Ivermectin 15 mg PO DIRECTED #25 tab 08/19/24 Rx Permethrin 5% Cream [Elimite] 1 applic TOPICAL ONCE #60 gm 08/19/24 Rx Allergies Allergy/AdvReac Type Severity Reaction Status Date / Time haloperidol [From Haldol] AdvReac Lockjaw Verified 09/08/24 03:45 trazodone AdvReac Dry mouth, Verified 09/08/24 03:45 Nightmares Physical Exam Vitals: Vital Signs Temp Pulse Resp BP Pulse Ox 09/10/24 04:22 75 15 95 04/22/25 02:12 98.6 F 83 15 143/82 98 09/09/24 23:02 98.2 F 81 17 141/90 95 Intake and Output 09/09/24 09/09/24 09/10/24 14:59 22:59 06:59 Other: Weight 86.183 kg - Constitutional General appearance: average body habitus - Respiratory Respiratory: bilateral: CTA - Cardiovascular Rhythm: regular - Gastrointestinal General gastrointestinal: normal bowel sounds - Musculoskeletal Musculoskeletal: strength equal bilaterally - Psychiatric Psychiatric: A&O x's 3 (flat affect) Results CBC & Chem 7: 09/09/24 23:33 09/09/24 23:33 Labs: Abnormal Lab Results - Last 24 Hours (Table) 09/09/24 09/09/24 09/09/24 Range/Units 23:33 23:33 23:33 WBC 17.51 H (4.50-10.00) 10*3/uL Immature Gran # 0.07 H (0.00-0.04) 10*3/uL Neutrophils # 14.97 H (1.80-7.70) 10*3/uL Monocytes # 1.04 H (0.20-1.00) 10*3/uL APTT 21.0 L (22.0-30.0) sec BUN 25 H (9-20) mg/dL Calcium 10.6 H (8.4-10.2) mg/dL AST 80 H (17-59) U/L Total Protein 8.7 H (6.3-8.2) g/dL Albumin 5.1 H (3.5-5.0) g/dL Assessment and Plan (1) Chest pain Narrative/Plan: Patient had serial troponins, cardiology has been consulted, morphine oxygen nitro aspirin, monitor on telemetry Current Visit: Yes Status: Acute Code(s): R07.9 - CHEST PAIN, UNSPECIFIED SNOMED Code(s): 68911063 (2) Leukocytosis Narrative/Plan: No evidence of infection, will monitor Current Visit: No Status: Acute Code(s): D72.829 - ELEVATED WHITE BLOOD CELL COUNT, UNSPECIFIED SNOMED Code(s): 000839242 (3) Cocaine abuse Narrative/Plan: Hold beta-blockers, symptom relief Current Visit: No Status: Acute Code(s): F14.10 - COCAINE ABUSE, UNCOMPLICATED SNOMED Code(s): 40487152 (4) Nicotine dependence Narrative/Plan: Nicotine patch Current Visit: No Status: Acute Code(s): F17.200 - NICOTINE DEPENDENCE, UNSPECIFIED, UNCOMPLICATED SNOMED Code(s): 67948361 (5) Polysubstance dependence including opioid type drug, episodic abuse Narrative/Plan: Patient on Suboxone Current Visit: No Status: Acute Code(s): F11.20 - OPIOID DEPENDENCE, UNCOMPLICATED; F19.20 - OTHER PSYCHOACTIVE SUBSTANCE DEPENDENCE, UNCOMPLICATED SNOMED Code(s): 8098377173 (6) Asthma Narrative/Plan: Continue nebs as needed Current Visit: Yes Status: Acute Code(s): J45.909 - UNSPECIFIED ASTHMA, UNCOMPLICATED SNOMED Code(s): 397732276 Plan: observation, cardiology consult, home meds, optimize pain
[2024-09-10] MEDS: carvediloL 6.25 MG TAB PO SCH (06:53)
[2024-09-10] MEDS: LEVOTHYROXINE 100 MCG TAB PO SCH (06:54)
[2024-09-10] MEDS: PANTOPRAZOLE 40 MG TABLET PO SCH (08:14)
[2024-09-10] MEDS: FLUoxetine HCL 20 MG CAP PO SCH (08:14)
[2024-09-10] MEDS: GABAPENTIN 300 MG CAP PO SCH (08:14)
[2024-09-10] MEDS: NON FORMULARY DRUG (Buprenorphine Hcl/Naloxone Hcl [Suboxone 8 Mg-2 Mg Sl Film] 1 EACH Fil SUBLINGUAL SCH (08:16)
[2024-09-10] MEDS: ALBUTEROL NEBULIZED 2.5 MG/3 ML INHALATION SCH (08:31)
[2024-09-10] MEDS ORDERED: ALBUTEROL NEBULIZED 2.5 MG/3 ML INHALATION PRN (08:39)
[2024-09-10] MEDS ORDERED: DOBUTamine DRIP for NUC MED 500 MG in DEXTROSE/WATER 1 250ML.BAG IV PRN (08:57)
[2024-09-10] MEDS: BUPRENORPHINE-NALOX 8-2 MG TAB 1 EACH TAB.SUBL SL SCH (09:35)
--- NOTE | 2024-09-10 11:51 | CA ---
Transthoracic Echo Report Name: Chase Deutsch Age: 49 Gender: M : 1975 Exam Date: 09/10/2024 10:27 Exam Location: [facility] Ht (in): 69 Wt (lb): 175 Ordering Physician: Lorraine Cramer Attending/Referring Phys: [id number], Bela Red[employer] Attendant Anamika Paredes, CHEPE Procedure CPT: Indications: LV function, CP Cardiac Hx: Technical Quality: Fair Contrast 1: Total Dose (mL): Contrast 2: Total Dose (mL): MEASUREMENTS (Male / Female) Normal Values 2D ECHO LV Diastolic Diameter PLAX 4.5 cm 4.2 - 5.9 / 3.9 - 5.3 cm LV Systolic Diameter PLAX 2.8 cm IVS Diastolic Thickness 1.1 cm 0.6 - 1.0 / 0.6 - 0.9 cm LVPW Diastolic Thickness 0.9 cm 0.6 - 1.0 / 0.6 - 0.9 cm LV Relative Wall Thickness 0.4 RV Internal Dim ED PLAX 1.4 cm LA Systolic Diameter LX 3.9 cm 3.0 - 4.0 / 2.7 - 3.8 cm LV Diastolic Volume MOD BP 63.1 cm??? 67 - 155 / 56 - 104 cm??? LV Systolic Volume MOD BP 18.1 cm??? 22 - 58 / 19 - 49 cm??? LV Ejection Fraction MOD BP 71.4 % >= 55 % LV Cardiac Index MOD BP 1548.7 cm???/min???m??? LV Diastolic Volume MOD 4C 68.7 cm??? LV Systolic Volume MOD 4C 15.9 cm??? LV Ejection Fraction MOD 4C 76.9 % LV Cardiac Index MOD 4C 1817.0 cm???/min???m??? LV Diastolic Length 4C 7.7 cm LV Systolic Length 4C 5.7 cm LV Diastolic Volume MOD 2C 57.9 cm??? LV Systolic Volume MOD 2C 18.7 cm??? LV Ejection Fraction MOD 2C 67.6 % LV Cardiac Index MOD 2C 1346.3 cm???/min???m??? LV Diastolic Length 2C 7.6 cm LV Systolic Length 2C 6.3 cm M-MODE Aortic Root Diameter MM 3.4 cm LA Systolic Diameter MM 3.9 cm LA Ao Ratio MM 1.2 AV Cusp Separation MM 2.3 cm DOPPLER AV Peak Velocity 128.2 cm/s AV Peak Gradient 6.6 mmHg Mitral E Point Velocity 76.7 cm/s Mitral A Point Velocity 78.3 cm/s Mitral E to A Ratio 1.0 MV Deceleration Time 335.0 ms MV E' Velocity 9.4 cm/s Mitral E to MV E' Ratio 8.1 TR Peak Velocity 282.7 cm/s TR Peak Gradient 32.0 mmHg FINDINGS Left Ventricle Left ventricular ejection fraction is estimated at 55-60 %. Normal Left ventricular size, wall thickness, systolic function with no obvious regional wall motion abnormalities. Right Ventricle Normal right ventricular size and function. Mild pulmonary hypertension. Right Atrium Normal right atrial size. Left Atrium Moderate left atrial dilatation. Mitral Valve Structurally normal mitral valve. Mild mitral regurgitation. No mitral stenosis. Aortic Valve Trileaflet aortic valve. No aortic valve stenosis or regurgitation. Tricuspid Valve Structurally normal tricuspid valve. Mild tricuspid regurgitation. No tricuspid stenosis. Pulmonic Valve Structurally normal pulmonic valve. No pulmonic stenosis. Pericardium No pericardial or pleural effusion. Aorta Normal size aortic root and proximal ascending aorta. CONCLUSIONS 1. Normal left ventricular size and systolic function 2. Mild mitral and tricuspid regurgitation with mild pulmonary hypertension Previewed by: Dr. Katrina Vincent MD (Electronically Signed) Final Date: 10 September 2024 11:51
--- NOTE | 2024-09-10 11:56 | P.CRDCN ---
History of Present Illness History of present illness: HISTORY OF PRESENT ILLNESS: This is a 49-year-old male with a past medical history significant for polysubstance abuse, bipolar disorder, depression, paranoid schizophrenia, nicotine dependence, hypertension, MRSA, and scabies. Patient does not follow with a foot piece assembler. We have been asked to see the patient in consultation for chest pain. Patient examined at the bedside. Patient presented to the hospital with a chief complaint of chest discomfort. He states he has been having chest pain for the past couple days. He states the pain is worse with deep inspiration. He reports he has been coughing more than normal. At the time of examination he denies any chest pain or pressure. Urine drug screen positive for marijuana, cocaine, methamphetamines, and amphetamines. Patient states he has had a history of myocardial infarction but cannot remember when or the circumstances surrounding that event. He denies having any stents in his heart. He reports nicotine usage in the form of vaping. He denies any alcohol use. He does report marijuana use. He also reports crack cocaine use. He reports a history of diabetes and states he was started on medication but does not take it. He also reports a history of hypertension. DIAGNOSTICS: - EKG reveals sinus tachycardia with no signs of acute ischemia. - Chest xray left lower lobectomy postsurgical changes. Left lower thoracic opacity may represent atelectasis or airspace disease. Left pleural effusion or thickening. - Laboratory data: WBC 17.51. Hemoglobin 13.6. Platelet count 419. Sodium 138. Potassium 4.9. BUN 25. Creatinine 0.86. Magnesium 1.9. Troponin negative x 3. - Current home cardiac medications include carvedilol 6.25 mg twice a day, Catapres 0.1 mg twice a day. - No previous echocardiogram, stress test, or cardiac catheterization available in EMR for review REVIEW OF SYSTEMS: At the time of my exam: CONSTITUTIONAL: Denies fever or chills. HEENT: Denies blurred vision, vision changes, or eye pain. Denies hemoptysis CARDIOVASCULAR: Denies chest pain. Denies orthopnea. Denies PND. Denies palpitations RESPIRATORY: Denies shortness of breath. GASTROINTESTINAL: Denies abdominal pain. Denies nausea or vomiting. HEMATOLOGIC: Denies bleeding disorders. GENITOURINARY: Denies any blood in urine. SKIN: Denies pruitis. Denies rash. PHYSICAL EXAM: VITAL SIGNS: Reviewed. GENERAL: Well-developed in no acute distress. HEENT: Head is normocephalic. Pupils are equal, round. Sclerae anicteric. Mucous membranes of the mouth are moist. Neck supple. No JVD or thyromegaly LUNGS: Respirations even and unlabored. Lungs essentially clear to auscultation bilaterally. HEART: Regular rate and rhythm. S1 and S2 heard. ABDOMEN: Soft. Nondistended. Nontender. EXTREMITIES: Normal range of motion. No clubbing or cyanosis. Peripheral pulses intact. No lower extremity edema NEUROLOGIC: Awake and alert. Oriented x 3. ASSESSMENT: Chest pain, troponin negative x 3 History of polysubstance abuse, toxicology screen positive for marijuana, cocaine, methamphetamines, amphetamines History of lobectomy secondary to trauma, 2020 History of hypertension History of diabetes History of bipolar disorder History of depression History of paranoid schizophrenia Nicotine dependence History of MRSA History of scabies History of seizures PLAN: An acute coronary event has been ruled out Obtain 2D echo to assess cardiac structure and function Resume home cardiac medications Patient to undergo dobutamine stress echo today If negative, patient may be discharged from a cardiac standpoint Nurse practitioner note has been reviewed by physician. Signing provider agrees with the documented findings, assessment, and plan of care documented by PAINT SPRAY TENDER as a scribe. Past Medical History Past Medical History: Asthma, Hyperlipidemia, Thyroid Disorder Additional Past Medical History / Comment(s): scabies, Last Myocardial Infarction Date:: 01/2022 History of Any Multi-Drug Resistant Organisms: MRSA Date of last positivie culture/infection: sputum MDRO Source:: 2021 Past Surgical History: Adenoidectomy, Bariatric Surgery Additional Past Surgical History / Comment(s): L lobectomy, splenectomy Past Anesthesia/Blood Transfusion Reactions: No Reported Reaction Past Psychological History: Bipolar, Depression, Schizophrenia Smoking Status: Current some day smoker Past Alcohol Use History: Daily Past Drug Use History: Cocaine - Past Family History Father Family Medical History: Unable to Obtain Mother Family Medical History: Unable to Obtain Medications and Allergies Home Medications Medication Instructions Recorded Confirmed Type Tamsulosin [Flomax] 0.8 mg PO DAILY 04/02/22 09/10/24 History Gabapentin 600 mg PO TID 10/28/23 09/10/24 History Levothyroxine Sodium [Synthroid] 100 mcg PO DAILY 10/28/23 09/10/24 History carvediloL [Coreg] 6.25 mg PO BID 10/28/23 09/10/24 History Albuterol Nebulized [Ventolin 2.5 mg INHALATION RT-Q4H PRN 02/13/24 09/10/24 History Nebulized] Umeclidinium Brm/Vilanterol Tr 1 puff INHALATION RT-DAILY 02/13/24 09/10/24 History [Anoro Ellipta 62.5-25 Mcg INH] Ketoconazole 2% Shampoo [Nizoral] 1 applic TOPICAL DIRECTED 30 04/05/24 09/10/24 Rx Days #1 ml Pantoprazole [Protonix] 40 mg PO BID 30 Days #30 tab 04/05/24 09/10/24 Rx Acyclovir 5% Oint [Zovirax Oint] 1 applic TOPICAL DIRECTED 09/10/24 09/10/24 History Buprenorphine-Nalox 8-2 mg Tab 1 tab SUBLINGUAL Q8H 09/10/24 09/10/24 History [Suboxone 8-2 mg Tab] FLUoxetine HCL [PROzac] 10 mg PO DAILY 09/10/24 09/10/24 History Garlic 1,000 mg PO DAILY 09/10/24 09/10/24 History Lactulose 20 gm PO TID PRN 09/10/24 09/10/24 History Multivitamins, Thera [Multivitamin 1 tab PO DAILY 09/10/24 09/10/24 History (formulary)] Triamcinolone 0.1% Cream [Kenalog 1 applicatio TOPICAL BID 09/10/24 09/10/24 History 0.1% Cream] Vitamin K2 [Vitamin K-2] 100 mcg PO DAILY 09/10/24 09/10/24 History cloNIDine HCL [Catapres] 0.1 mg PO BID 09/10/24 09/10/24 History clonazePAM [KlonoPIN] 0.5 mg PO BID 09/10/24 09/10/24 History glipiZIDE [Glucotrol] 2.5 mg PO AC-BRKFST 09/10/24 09/10/24 History hydrOXYzine HCL [Atarax] 25 mg PO TID PRN 09/10/24 09/10/24 History methocarbamoL [Robaxin] 500 mg PO BID PRN 09/10/24 09/10/24 History traZODone HCL [Desyrel] 100 mg PO HS PRN 09/10/24 09/10/24 History Allergies Allergy/AdvReac Type Severity Reaction Status Date / Time haloperidol [From Haldol] AdvReac [place] Verified 09/10/24 09:42 trazodone AdvReac Dry mouth, Verified 09/10/24 09:42 Nightmares Physical Exam Vitals: Vital Signs Temp Pulse Resp BP Pulse Ox 09/10/24 08:39 96 09/10/24 08:32 63 16 09/10/24 08:10 72 18 163/63 97 09/10/24 04:22 75 15 95 09/10/24 02:12 98.6 F 83 15 143/82 98 09/09/24 23:02 98.2 F 81 17 141/90 95 Intake and Output 09/09/24 09/10/24 09/10/24 22:59 06:59 14:59 Other: Weight 86.183 kg Results 09/09/24 23:33 09/09/24 23:33 Cardiac Enzymes 09/09/24 09/09/24 09/10/24 Range/Units 23:33 23:33 03:24 AST 80 H (17-59) U/L Troponin I 0.017 0.015 (0.000-0.034) ng/mL 09/10/24 Range/Units 06:21 AST (17-59) U/L Troponin I <0.012 (0.000-0.034) ng/mL Coagulation 09/09/24 Range/Units 23:33 PT 11.4 (10.0-12.5) sec APTT 21.0 L (22.0-30.0) sec CBC 09/09/24 Range/Units 23:33 WBC 17.51 H (4.50-10.00) 10*3/uL RBC 4.50 (4.40-5.60) 10*6/uL Hgb 13.6 (13.0-17.0) g/dL Hct 39.7 (39.6-50.0) % Plt Count 419 (140-440) 10*3/uL Comprehensive Metabolic Panel 09/09/24 Range/Units 23:33 Sodium 138 (137-145) mmol/L Potassium 4.9 (3.5-5.1) mmol/L Chloride 99 (98-107) mmol/L Carbon Dioxide 23 (22-30) mmol/L BUN 25 H (9-20) mg/dL Creatinine 0.86 (0.66-1.25) mg/dL Glucose 79 (74-99) mg/dL Calcium 10.6 H (8.4-10.2) mg/dL AST 80 H (17-59) U/L ALT 40 (4-49) U/L Alkaline Phosphatase 87 (38-126) U/L Total Protein 8.7 H (6.3-8.2) g/dL Albumin 5.1 H (3.5-5.0) g/dL Current Medications Generic Name Dose Route Start Last Admin Trade Name Freq PRN Reason Stop Dose Admin Albuterol Sulfate 2.5 mg 09/10/24 08:39 Albuterol Nebulized 2.5 Mg/3 Ml INHALATION RT-TID PRN Shortness Of Breath Or Wheezing Aspirin 325 mg 09/11/24 09:00 Aspirin 325 Mg Tab PO DAILY ELLIOT Carvedilol 6.25 mg 09/10/24 07:30 09/10/24 06:53 Carvedilol 6.25 Mg Tab PO 6.25 mg BID-W/MEALS ELLIOT Administration Clonazepam 0.5 mg 09/10/24 04:15 09/10/24 04:22 Clonazepam 0.5 Mg Tab PO 0.5 mg BID PRN Administration Anxiety Fluoxetine HCl 40 mg 09/10/24 09:00 09/10/24 08:14 Fluoxetine Hcl 20 Mg Cap PO 40 mg DAILY ELLIOT Administration Gabapentin 600 mg 09/10/24 09:00 09/10/24 08:14 Gabapentin 300 Mg Cap PO 600 mg BID ELILOT Administration Levothyroxine Sodium 100 mcg 09/10/24 06:30 09/10/24 06:54 Levothyroxine 100 Mcg Tab PO 100 mcg 0630 ELLIOT Administration Nitroglycerin 0.4 mg 09/10/24 02:06 Nitroglycerin Sl Tabs 0.4 Mg Tab SUBLINGUAL Q5M PRN Chest Pain Non-Formulary Medication 1 film 09/10/24 09:00 09/10/24 08:16 Buprenorphine Hcl/Naloxone Hcl [Suboxone 8 Mg-2 Mg Sl Film] SUBLINGUAL Not Given BID ELLIOT Olanzapine 7.5 mg 09/10/24 21:00 Olanzapine 7.5 Mg Tab PO HS ELLIOT Pantoprazole Sodium 40 mg 09/10/24 09:00 09/10/24 08:14 Pantoprazole 40 Mg Tablet PO 40 mg BID ELLIOT Administration Tamsulosin HCl 0.8 mg 09/10/24 21:00 Tamsulosin 0.4 Mg Cap.Er.24h PO HS ELLIOT Intake and Output 09/09/24 09/10/24 09/10/24 22:59 06:59 14:59 Other: Weight 86.183 kg 09/09/24 23:33 09/09/24 23:33
[2024-09-10] MEDS ORDERED: methocarbamoL 500 MG TAB PO PRN (12:15)
[2024-09-10] MEDS ORDERED: traZODone HCL 100 MG TAB PO PRN (12:15)
[2024-09-10] MEDS ORDERED: hydrOXYzine HCL 25 MG TAB PO PRN (12:15)
--- NOTE | 2024-09-10 12:17 | CA ---
Dobutamine Stress Echocardiogram Report Chase Deutsch Age: 49 Gender: M : 1975 Exam Date: 09/10/2024 09:38 Exam Location: [facility] Ordering Physician: Lorraine Cramer Referring Physician: [id number] Bread Molder: Max Escalera Technologist: Ht (in): 69 Wt (lb): 190 Procedure CPT: Indication: CP ICD-9 Codes: Rhythm: Patient History: Cardiac Medications: SEE CHART Medications in past 24 hours: Contrast: N/A Total Dose (mL): NA Stress Results Protocol: Dobutamine Peak Dose (???g/kg/min): 40 Duration (min:sec): Atropine:(mg) Target HR: 145 Double Product: 12814 Resting HR: 50 Resting BP: 131 / 67 Peak HR: 92 Peak BP: 135 / 72 Max Predicted HR: 170 54 % Max Predicted HR Stress Summary: The patient's target heart rate was not achieved. BP Response: Normal Reason for Termination: Completion of Protocol Cardiac Symptoms: NO SYMPTOMS ECG Analysis Resting EKG: Normal sinus rhythm, normal ECG Stress EKG: No abnormal ST/T wave changes with exercise Arrhythmia: None Echo Analysis Base Echo Analysis: Normal resting echocardiogram. Low Echo Anaylsis: Normal wall thickening and motion Peak Echo Analysis: Normal wall motion and augmentation Recovery Echo: Normal resting echocardiogram MEASUREMENTS (Male/Female) Normal Values CONCLUSIONS 1. Nondiagnostic electrocardiographic dobutamine response secondary to the inability to achieve 85% maximum predicted heart rate but at the rate achieved there was no evidence of electrocardiographic changes 2. Nondiagnostic stress echocardiogram secondary to the inability to achieve 85% maximum predicted heart rate, at the rate achieved there was no evidence of stress induced ischemia Dr. Katrina Vincent MD (Electronically Signed) Final Date: 10 September 2024 12:16
[2024-09-10 12:37] VITALS: BP 159/72; PULSE 70; RESP 18
--- NOTE | 2024-09-10 12:59 | P.DS ---
Providers Date of admission: 09/10/24 02:08 Expected date of discharge: 09/10/24 Attending physician: Maryuri Doe MD Consults: 09/10/24 02:06 Consult Physician Urgent Consulting Provider: Alberto Moreau Consult Reason/Comments: chest pain Do you want consulting provider notified?: Yes Primary care physician: Stated None Hospital Course: Discharge Diagnosis: Chest pain, acute coronary event ruled out. Polysubstance abuse with daily alcohol use and use of cocaine. Leukocytosis, likely reactive secondary to recent admitted cocaine use. Hypertension. Hyperlipidemia BPH Hypothyroidism Depression with anxiety Bipolar disorder Schizophrenia Nicotine dependence Hospital Course: Patient is a 49-year-old male with a past medical history of polysubstance abuse with cocaine and daily alcohol abuse, hypertension, hyperlipidemia, hypothyroidism, type 2 diabetes mellitus, depression with anxiety, bipolar disorder, schizophrenia, BPH, and nicotine dependence. He presented to the hospital with a chief complaint of chest pain. Upon arrival to our facility, patient underwent evaluation in the emergency department. Vital signs upon arrival show blood pressure 141/90, heart rate 81, respiratory rate 17, temp 98.2 F, and SpO2 of 95% on room air. EKG completed showing sinus tachycardia at 107 bpm. Chest x-ray showing left lower lobectomy postsurgical changes similar to previous imaging and left lower thoracic opacity likely representing atelectasis and unchanged left pleural effusion. Labs completed and reviewed. CBC showing leukocytosis with WBC count of 17.51. Coagulation profile showing low PTT of 21.0. BMP showing mild prerenal azotemia with BUN of 25 otherwise normal findings. Blood glucose was 79. Hemoglobin A1c 6.0%. Calcium was elevated at 10.6. Magnesium 1.9. Liver profile showing elevated AST of 80. Troponin was 0.017. Patient admitted under services with consultation to cardiology. Troponins were trended resulting at 0.017, 0.015, and 0.012. Echocardiogram completed showing preserved EF of 55 to 60% with mild mitral and tricuspid regurgitation and mild pulmonary hypertension. Patient was evaluated by cardiology taking patient for dobutamine stress test. Dobutamine stress test was nondiagnostic secondary to inability to achieve 85% of maximum predicted heart rate and nondiagnostic stress echocardiogram secondary to inability to achieve 85% maximum predicted heart rate but reported no evidence of stress- induced ischemia. Discussed results in detail with cardiac TOLL TICKET CLERK and informed that grain roaster has no further plans for cardiac interventions clearing patient from cardiac perspective for discharge and outpatient follow-up in their office in 1 week. Patient medically optimized at this time. Lipid profile was pending therefore patient discharged home on atorvastatin 40 mg daily secondary to reported history of hyperlipidemia. Patient to follow-up outpatient with PCP in 1-2 days and with grain roaster in 1 week. Physical exam: Patient seen and examined at bedside. Vital signs reviewed and stable. General: Nontoxic, no distress and appears stated age. Derm: Skin warm and dry, normal coloration for ethnicity. Head: Atraumatic, normocephalic and symmetric. Eyes: EOM's intact, no lid lag, and anicteric sclera Mouth: no lip lesions, mucus membranes moist Cardiovascular: regular rate and rhythm with normal S1S2, no murmur, positive posterior tibial pulses bilaterally, and cap refill < 2 seconds. Lungs: Respirations even, regular, and unlabored on room air. Lungs CTA bilaterally, no rhonchi, no rales, no wheezing, and no accessory muscle usage. Abdominal: soft, nontender to palpation, no guarding, no appreciable organomegaly Ext: ROM intact. No gross muscle atrophy, no edema, no contractures Neuro: Speech clear, face symmetrical and CN II-XII grossly intact with no noted focal neuro deficits Psych: Alert and oriented to person, place, time, and situation. Appropriate and pleasant affect. A total of 33 minutes of time were spent preparing this complex discharge summary. Pt was discharged on 09/10/2024 at 12:53 PM. Patient was seen independently by Nurse Practitioner. This document was prepared using [employer] dictation software. Please allow for errors in business intelligence analyst while rare they do occur. Jose Antonio Pritchett NP rendered care for this patient independently, reviewed the findings and plan as documented in the note above. I did not physically speak with or examine the patient on this date. Patient Condition at Discharge: Stable Plan - Discharge Summary New Discharge Prescriptions: New Atorvastatin [Lipitor] 40 mg PO HS 30 Days #30 tablet Aspirin 81 mg PO DAILY 30 Days #30 tab Continue Tamsulosin [Flomax] 0.8 mg PO DAILY Gabapentin 600 mg PO TID Levothyroxine Sodium [Synthroid] 100 mcg PO DAILY Ketoconazole 2% Shampoo [Nizoral] 1 applic TOPICAL DIRECTED 30 Days #1 ml hydrOXYzine HCL [Atarax] 25 mg PO TID PRN PRN Reason: Itching methocarbamoL [Robaxin] 500 mg PO BID PRN PRN Reason: Muscle Spasm Triamcinolone 0.1% Cream [Kenalog 0.1% Cream] 1 applicatio TOPICAL BID clonazePAM [KlonoPIN] 0.5 mg PO BID Multivitamins, Thera [Multivitamin (formulary)] 1 tab PO DAILY Garlic 1,000 mg PO DAILY carvediloL [Coreg] 6.25 mg PO BID Albuterol Nebulized [Ventolin Nebulized] 2.5 mg INHALATION RT-Q4H PRN PRN Reason: Shortness Of Breath Umeclidinium Brm/Vilanterol Tr [Anoro Ellipta 62.5-25 Mcg INH] 1 puff INHALATION RT-DAILY Pantoprazole [Protonix] 40 mg PO BID 30 Days #30 tab Acyclovir 5% Oint [Zovirax Oint] 1 applic TOPICAL DIRECTED Buprenorphine-Nalox 8-2 mg Tab [Suboxone 8-2 mg Tab] 1 tab SUBLINGUAL Q8H FLUoxetine HCL [PROzac] 10 mg PO DAILY glipiZIDE [Glucotrol] 2.5 mg PO AC-BRKFST Lactulose 20 gm PO TID PRN PRN Reason: Constipation traZODone HCL [Desyrel] 100 mg PO HS PRN PRN Reason: sleep Vitamin K2 [Vitamin K-2] 100 mcg PO DAILY Discontinued cloNIDine HCL [Catapres] 0.1 mg PO BID Discharge Medication List Tamsulosin [Flomax] 0.8 mg PO DAILY 04/02/22 [History] Gabapentin 600 mg PO TID 10/28/23 [History] Levothyroxine Sodium [Synthroid] 100 mcg PO DAILY 10/28/23 [History] carvediloL [Coreg] 6.25 mg PO BID 10/28/23 [History] Albuterol Nebulized [Ventolin Nebulized] 2.5 mg INHALATION RT-Q4H PRN 02/13/24 [History] Umeclidinium Brm/Vilanterol Tr [Anoro Ellipta 62.5-25 Mcg INH] 1 puff INHALATION RT-DAILY 02/13/24 [History] Ketoconazole 2% Shampoo [Nizoral] 1 applic TOPICAL DIRECTED 30 Days #1 ml 04/05/24 [Rx] Pantoprazole [Protonix] 40 mg PO BID 30 Days #30 tab 04/05/24 [Rx] Acyclovir 5% Oint [Zovirax Oint] 1 applic TOPICAL DIRECTED 09/10/24 [History] Aspirin 81 mg PO DAILY 30 Days #30 tab 09/10/24 [Rx] Atorvastatin [Lipitor] 40 mg PO HS 30 Days #30 tablet 09/10/24 [Rx] Buprenorphine-Nalox 8-2 mg Tab [Suboxone 8-2 mg Tab] 1 tab SUBLINGUAL Q8H 09/10/24 [History] FLUoxetine HCL [PROzac] 10 mg PO DAILY 09/10/24 [History] Garlic 1,000 mg PO DAILY 09/10/24 [History] Lactulose 20 gm PO TID PRN 09/10/24 [History] Multivitamins, Thera [Multivitamin (formulary)] 1 tab PO DAILY 09/10/24 [History] Triamcinolone 0.1% Cream [Kenalog 0.1% Cream] 1 applicatio TOPICAL BID 09/10/24 [History] Vitamin K2 [Vitamin K-2] 100 mcg PO DAILY 09/10/24 [History] clonazePAM [KlonoPIN] 0.5 mg PO BID 09/10/24 [History] glipiZIDE [Glucotrol] 2.5 mg PO AC-BRKFST 09/10/24 [History] hydrOXYzine HCL [Atarax] 25 mg PO TID PRN 09/10/24 [History] methocarbamoL [Robaxin] 500 mg PO BID PRN 09/10/24 [History] traZODone HCL [Desyrel] 100 mg PO HS PRN 09/10/24 [History] Follow up Appointment(s)/Referral(s): [facility] [NON-STAFF] - 1 Week Reahn Carballo MD [STAFF PHYSICIAN] - 1 Week Patient Instructions/Handouts: Chest Pain (DC) Activity/Diet/Wound Care/Special Instructions: Activity: As tolerated. Take breaks as needed. Diet: Heart healthy and carb consistent diet. Special Instructions: Take all of your medications as directed and remember to keep all of your doctor's appointments and follow-up as needed. Thank you for allowing us to participate in your care, it was truly a pleasure having you for our patient!!! Discharge Disposition: HOME SELF-CARE
[2024-09-10] MEDS ORDERED: OLANZapine 7.5 MG TAB PO SCH (21:00)
[2024-09-10] MEDS ORDERED: TAMSULOSIN 0.4 MG CAP.ER.24H PO SCH (21:00)
[2024-09-10] MEDS ORDERED: clonazePAM 0.5 MG TAB PO SCH (21:00)
[2024-09-11] MEDS ORDERED: glipiZIDE 5 MG TAB PO SCH (07:30)
[2024-09-11] MEDS ORDERED: FLUoxetine HCL 10 MG CAP PO SCH (09:00)
[2024-09-11] MEDS ORDERED: ASPIRIN 81 MG PO SCH (09:00)
[2024-09-11] MEDS ORDERED: ASPIRIN 325 MG TAB PO SCH (09:00)
[2024-09-11] MEDS ORDERED: MULTIVITAMINS, THERA 1 EACH TAB PO SCH (09:00)
== END 2024-09-10 13:08 | disposition home or self-care (01) ==
LOC: EC 22:59 → 6NMEDSUR 09-10 02:08
PROVIDERS: ADMIT Internal Medicine; ATTEND Internal Medicine
DX: R07.2 Precordial pain (principal); I27.20 Pulmonary hypertension, unspecified; I08.1 Rheumatic disorders of both mitral and tricuspid valves; I10 Essential (primary) hypertension; E11.9 Type 2 diabetes mellitus without complications; T38.3X6A Underdosing of insulin and oral hypoglycemic [antidiabetic] drugs, initial encounter; Z91.128 Patient's intentional underdosing of medication regimen for other reason; F11.20 Opioid dependence, uncomplicated; F14.10 Cocaine abuse, uncomplicated; F10.10 Alcohol abuse, uncomplicated; F15.10 Other stimulant abuse, uncomplicated; F12.10 Cannabis abuse, uncomplicated; J90 Pleural effusion, not elsewhere classified; E03.9 Hypothyroidism, unspecified; K21.9 Gastro-esophageal reflux disease without esophagitis; J45.909 Unspecified asthma, uncomplicated; E78.5 Hyperlipidemia, unspecified; N40.0 Benign prostatic hyperplasia without lower urinary tract symptoms; F20.0 Paranoid schizophrenia; F31.9 Bipolar disorder, unspecified; F41.9 Anxiety disorder, unspecified; F17.290 Nicotine dependence, other tobacco product, uncomplicated; D72.829 Elevated white blood cell count, unspecified; R79.89 Other specified abnormal findings of blood chemistry; R00.0 Tachycardia, unspecified; R74.01 Elevation of levels of liver transaminase levels; I25.2 Old myocardial infarction; Z79.890 Hormone replacement therapy; Z79.84 Long term (current) use of oral hypoglycemic drugs; Z79.899 Other long term (current) drug therapy; Z88.8 Allergy status to other drugs, medicaments and biological substances; Z86.14 Personal history of Methicillin resistant Staphylococcus aureus infection; Z87.2 Personal history of diseases of the skin and subcutaneous tissue; Z90.2 Acquired absence of lung [part of]; Z87.828 Personal history of other (healed) physical injury and trauma; Z86.69 Personal history of other diseases of the nervous system and sense organs
CPT/HCPCS: 99285; 36415; 94640; 94760; 93005; 93306; 93351; 80053; 83735; 84484 ×2; 85025; 85610; 85730; 83036; 71045; G0378

== ENCOUNTER 2024-09-10 18:02 | Inpatient (IN) | payer MEDICARE, MEDICAID ==
--- NOTE | 2024-09-10 19:12 | ED ---
General Adult HPI - General Source: patient, EMS, RN notes reviewed Mode of arrival: EMS Limitations: no limitations <Sabina Langford - Last Filed: 09/10/24 23:08> <Sabas Polk - Last Filed: 09/10/24 23:24> - General Chief complaint: Psychiatric Symptoms Stated complaint: psych consult Time Seen by Provider: 09/10/24 18:34 - History of Present Illness Initial comments: 49-year-old male presents to the emergency department for mental health evaluation. The patient discharged here today after being admitted for chest pain. The patient was found to be wandering the police department parking lot. He appeared to be agitated and worried. He reports concerns that he is going to be harmed by "a group of people" The patient also notes that he thinks that somebody is going to "dump his body."He admits to hearing voices. He is supposed to be on medication for his mental health although he states that he wa s unable to get some from the pharmacy and has been off for "a while." (Sabina Langford) - Related Data Home Medications Medication Instructions Recorded Confirmed Tamsulosin [Flomax] 0.8 mg PO DAILY 04/02/22 09/10/24 Gabapentin 600 mg PO TID 10/28/23 09/10/24 Levothyroxine Sodium [Synthroid] 100 mcg PO DAILY 10/28/23 09/10/24 carvediloL [Coreg] 6.25 mg PO BID 10/28/23 09/10/24 Albuterol Nebulized [Ventolin 2.5 mg INHALATION RT-Q4H PRN 02/13/24 09/10/24 Nebulized] Umeclidinium Brm/Vilanterol Tr 1 puff INHALATION RT-DAILY 02/13/24 09/10/24 [Anoro Ellipta 62.5-25 Mcg INH] Acyclovir 5% Oint [Zovirax Oint] 1 applic TOPICAL DIRECTED 09/10/24 09/10/24 Buprenorphine-Nalox 8-2 mg Tab 1 tab SUBLINGUAL Q8H 09/10/24 09/10/24 [Suboxone 8-2 mg Tab] FLUoxetine HCL [PROzac] 10 mg PO DAILY 09/10/24 09/10/24 Garlic 1,000 mg PO DAILY 09/10/24 09/10/24 Lactulose 20 gm PO TID PRN 09/10/24 09/10/24 Multivitamins, Thera [Multivitamin 1 tab PO DAILY 09/10/24 09/10/24 (formulary)] Triamcinolone 0.1% Cream [Kenalog 1 applicatio TOPICAL BID 09/10/24 09/10/24 0.1% Cream] Vitamin K2 [Vitamin K-2] 100 mcg PO DAILY 09/10/24 09/10/24 clonazePAM [KlonoPIN] 0.5 mg PO BID 09/10/24 09/10/24 glipiZIDE [Glucotrol] 2.5 mg PO AC-BRKFST 09/10/24 09/10/24 hydrOXYzine HCL [Atarax] 25 mg PO TID PRN 09/10/24 09/10/24 methocarbamoL [Robaxin] 500 mg PO BID PRN 09/10/24 09/10/24 traZODone HCL [Desyrel] 100 mg PO HS PRN 09/10/24 09/10/24 Previous Rx's Medication Instructions Recorded Ketoconazole 2% Shampoo [Nizoral] 1 applic TOPICAL DIRECTED 30 04/05/24 Days #1 ml Pantoprazole [Protonix] 40 mg PO BID 30 Days #30 tab 04/05/24 Aspirin 81 mg PO DAILY 30 Days #30 tab 09/10/24 Atorvastatin [Lipitor] 40 mg PO HS 30 Days #30 tablet 09/10/24 Allergies Allergy/AdvReac Type Severity Reaction Status Date / Time haloperidol [From Haldol] AdvReac Lockjaw Verified 09/10/24 18:54 trazodone AdvReac Dry mouth, Verified 09/10/24 18:54 Nightmares Review of Systems ROS Other: All systems not noted in ROS Statement are negative. <Sabina Langford - Last Filed: 09/10/24 23:08> ROS Other: All systems not noted in ROS Statement are negative. <Sabas Polk - Last Filed: 09/10/24 23:24> ROS Statement: Those systems with pertinent positive or pertinent negative responses have been documented in the HPI. Past Medical History Past Medical History: Asthma, Hyperlipidemia, Thyroid Disorder Additional Past Medical History / Comment(s): scabies, Last Myocardial Infarction Date:: 01/2022 History of Any Multi-Drug Resistant Organisms: MRSA Date of last positivie culture/infection: sputum MDRO Source:: 2021 Past Surgical History: Adenoidectomy, Bariatric Surgery Additional Past Surgical History / Comment(s): L lobectomy, splenectomy Past Anesthesia/Blood Transfusion Reactions: No Reported Reaction Past Psychological History: Bipolar, Depression, Schizophrenia Smoking Status: Current some day smoker Past Alcohol Use History: Daily Past Drug Use History: Cocaine - Past Family History Father Family Medical History: Unable to Obtain Mother Family Medical History: Unable to Obtain <Sabina Langford - Last Filed: 09/10/24 23:08> General Exam Limitations: no limitations General appearance: alert, in no apparent distress Head exam: Present: atraumatic, normocephalic, normal inspection Eye exam: Present: normal appearance, PERRL, EOMI. Absent: scleral icterus, conjunctival injection, periorbital swelling ENT exam: Present: normal exam, mucous membranes moist Neck exam: Present: normal inspection. Absent: tenderness, meningismus, lymphadenopathy Respiratory exam: Present: normal lung sounds bilaterally. Absent: respiratory distress, wheezes, rales, rhonchi, stridor Cardiovascular Exam: Present: regular rate, normal rhythm, normal heart sounds. Absent: systolic murmur, diastolic murmur, rubs, gallop, clicks Neurological exam: Present: alert, altered Psychiatric exam: Present: agitated, anxious, suicidal ideation Skin exam: Present: warm, dry, intact, normal color. Absent: rash <Sabina Langford - Last Filed: 09/10/24 23:08> Course Vital Signs 09/10/24 19:20 Temperature 98.7 F Pulse Rate 75 Respiratory 18 Rate Blood Pressure 135/88 O2 Sat by Pulse 97 Oximetry Medical Decision Making <Sabina Langford - Last Filed: 09/10/24 23:08> <Sabas Pokl - Last Filed: 09/10/24 23:24> - Medical Decision Making Was pt. sent in by a medical professional or institution (, PA, FOOD PRODUCTION MANAGER, urgent care, hospital, or residential...) When possible be specific @ -[No] Did you speak to anyone other than the patient for history (EMS, parent, family, police, friend...)? What history was obtained from this source @ -[No] Did you review nursing and triage notes (agree or disagree)? Why? @ -[I reviewed and agree with nursing and triage notes] Were old charts reviewed (outside hosp., previous admission, EMS record, old EKG, old radiological studies, urgent care reports/EKG's, residential records)? Report findings @ -[No old charts were reviewed] Differential Diagnosis (chest pain, altered mental status, abdominal pain women, abdominal pain men, vaginal bleeding, weakness, fever, dyspnea, syncope, headache, dizziness, GI bleed, back pain, seizure, CVA, palpatations, mental health, musculoskeletal)? @ -Differential Mental Health Depression, anxiety, bipolar, psychosis, schizophrenia, borderline personality, situational depression, adjustment disorder, behavioral disorder, brain tumor, malingering, substance abuse, encephalopathy, medication reaction, dementia, hypothyroidism, degenerative neurologic disorder, lupus.... This is not meant to be all-inclusive list EKG interpreted by me (3pts min.). @ -None X-rays interpreted by me (1pt min.). @ -[None done] CT interpreted by me (1pt min.). @ -[None done] U/S interpreted by me (1pt. min.). @ -[None done] What testing was considered but not performed or refused? (CT, X-rays, U/S, labs)? Why? @ -[None] What meds were considered but not given or refused? Why? @ -[None] Did you discuss the management of the patient with other professionals (professionals i.e. , PA, FOOD PRODUCTION MANAGER, lab, RT, psych nurse, social media manager, church administrator, teacher, chief resource officer, telehealth case manager)? Give summary @ -Management discussed with EPS who recommends admission Was smoking cessation discussed for >3mins.? @ -[No] Was critical care preformed (if so, how long)? @ -[No] Were there social determinants of health that impacted care today? How? ( Homelessness, low income, unemployed, alcoholism, drug addiction, transportation, low edu. Level, literacy, decrease access to med. care, usp, rehab)? @ -[No] Was there de-escalation of care discussed even if they declined (Discuss DNR or withdrawal of care, Hospice)? DNR status @ -[No] What co-morbidities impacted this encounter? (DM, HTN, Smoking, COPD, CAD, Cancer, CVA, ARF, Chemo, Hep., AIDS, mental health diagnosis, sleep apnea, morbid obesity)? @ -[None] Was patient admitted / discharged? Hospital course, mention meds given and route, prescriptions, significant lab abnormalities, going to OR and other pertinent info. @ -Admitted. Patient presented to the emergency department for mental health evaluation. Patient was medically cleared to be evaluated by EPS. The patient was evaluated by EPS and inpatient treatment was recommended. CERT was filled out. Undiagnosed new problem with uncertain prognosis? @ -[No] Drug Therapy requiring intensive monitoring for toxicity (Heparin, Nitro, Insulin, Cardizem)? @ -[No] Were any procedures done? @ -[No] Diagnosis/symptom? @ -Psychosis, suicidal ideation Acute, or Chronic, or Acute on Chronic? @ -Acute Uncomplicated (without systemic symptoms) or Complicated (systemic symptoms)? @ -Complicated Side effects of treatment? @ -[No] Exacerbation, Progression, or Severe Exacerbation? @ -[No] Poses a threat to life or bodily function? How? (Chest pain, USA, CA, pneumonia, PE, COPD, DKA, ARF, appy, cholecystitis, CVA, Diverticulitis, Homicidal, Suicidal, threat to staff... and all critical care pts) @ -Yes suicidal (Sabina Langford) Patient was eval by EPS recommended inpatient admission for acute psychosis. Clinical certification completed. (Sabas Polk) - Lab Data Lab Results 09/10/24 09/10/24 Range/Units 20:10 20:44 Urine Opiates Screen Not Detected (NotDetected) Ur Oxycodone Screen Not Detected (NotDetected) Urine Methadone Screen Not Detected (NotDetected) Ur Barbiturates Screen Not Detected (NotDetected) U Tricyclic Antidepress Not Detected (NotDetected) Ur Phencyclidine Scrn Not Detected (NotDetected) Ur Amphetamines Screen Detected H (NotDetected) U Methamphetamines Scrn Detected H (NotDetected) U Benzodiazepines Scrn Not Detected (NotDetected) Urine Cocaine Screen Detected H (NotDetected) U Marijuana (THC) Screen Detected H (NotDetected) SARS-CoV-2 (PCR) Not Detected (Not Detectd) Disposition Is patient prescribed a controlled substance at d/c from ED?: No <Sabina Langford - Last Filed: 09/10/24 23:08> Is patient prescribed a controlled substance at d/c from ED?: No Time of Disposition: 23:24 <Sabas Polk - Last Filed: 09/10/24 23:24> Clinical Impression: Paranoia, Suicidal ideation Disposition: TRANSFER TO PSYCH HOSP/UNIT Condition: Stable Referrals: None,Stated [Primary Care Provider] - 1-2 days
[2024-09-10 21:09] LABS: Amphetamine Screen,Urine Detected (NotDetected); Barbiturate Screen,Urine Not Detected (NotDetected); Benzodiazepines Screen,Urine Not Detected (NotDetected); Cocaine Screen,Urine Detected (NotDetected); Methadone Screen, Urine Not Detected (NotDetected); Opiate Screen,Urine Not Detected (NotDetected); Oxycodone Screen, Urine Not Detected (NotDetected); Phencyclidine Screen,Urine Not Detected (NotDetected); Tricyclic Antidepressant,Urine Not Detected (NotDetected); Urn Cannabinoid Scrn Detected (NotDetected)
[2024-09-10] MEDS ORDERED: MAG HYDROX/AL HYDROX/SIMETH 355 ML BOTTLE PO PRN (23:38)
[2024-09-10] MEDS ORDERED: MAGNESIUM HYDROXIDE 2,400 MG/30 ML CUP PO PRN (23:38)
[2024-09-10] MEDS ORDERED: OLANZapine 10 MG VIAL IM PRN (23:38)
[2024-09-10] MEDS ORDERED: LACTULOSE 20 GM/30 ML CUP PO PRN (23:42)
[2024-09-10] MEDS ORDERED: ALBUTEROL NEBULIZED 2.5 MG/3 ML INHALATION PRN (23:42)
[2024-09-11] MEDS: NON FORMULARY DRUG (Buprenorphine-Nalox 8-2 Mg Tab 1 EACH Tablet) SUBLINGUAL SCH (05:16)
[2024-09-11] MEDS: ACYCLOVIR 5% TOPICAL SCH (05:16)
[2024-09-11] MEDS: LEVOTHYROXINE 100 MCG TAB PO SCH (05:59)
[2024-09-11 07:06] LABS: Appearance,Urine Clear (Clear); Bilirubin,Urine Negative (Negative); Blood,Urine Negative (Negative); Color,Urine Yellow; Glucose,Urine (UA) Negative (Negative); Ketones,Urine 2+ (Negative); Leukocyte Esterase,Urine Trace (Negative); Mucus,Urine Rare /hpf; Nitrite,Urine Negative (Negative); Protein,Urine Trace (Negative); Specific Gravity,Urine 1.035 (1.001-1.035); Squamous Epithelial Cell,Urine <1 /hpf (0-4); Urobilinogen,Urine <2.0 mg/dL (<2.0); WBC,Urine 15 /hpf (0-5)
[2024-09-11] MEDS: carvediloL 6.25 MG TAB PO SCH (08:14)
[2024-09-11] MEDS: glipiZIDE 5 MG TAB PO SCH (08:14)
[2024-09-11] MEDS: TIOTROPIUM 2.5 MCG INHALER (MHU) INHALATION SCH (08:17)
[2024-09-11] MEDS: ASPIRIN 81 MG PO SCH (08:17)
[2024-09-11] MEDS: FLUoxetine HCL 10 MG CAP PO SCH (08:17)
[2024-09-11] MEDS: MULTIVITAMINS, THERA 1 EACH TAB PO SCH (08:18)
[2024-09-11] MEDS: GABAPENTIN 300 MG CAP PO SCH (08:18)
[2024-09-11] MEDS: NICOTINE 14MG/24HR PATCH TRANSDERM SCH (08:18)
[2024-09-11] MEDS: TAMSULOSIN 0.4 MG CAP.ER.24H PO SCH (08:19)
[2024-09-11] MEDS: PANTOPRAZOLE 40 MG TABLET PO SCH (08:19)
[2024-09-11] MEDS: TRIAMCINOLONE 0.1% CREAM 80 GM TUBE TOPICAL SCH (08:21)
[2024-09-11] MEDS: FORMOTEROL FUMARATE 20 MCG/2 ML NEBU INHALATION SCH (08:24)
[2024-09-11] MEDS: KETOCONAZOLE 2% SHAMPOO 1 APPLIC/ML TOPICAL SCH (08:25)
[2024-09-11] MEDS ORDERED: VITAMIN K2 100 MCG PO SCH (09:00)
[2024-09-11] MEDS ORDERED: NON FORMULARY DRUG (Garlic [Garlic] 1,000 MG Capsule) PO SCH (09:00)
[2024-09-11] MEDS ORDERED: methocarbamoL 500 MG TAB PO PRN (09:00)
[2024-09-11] MEDS ORDERED: BUPRENORPHINE SL SCH (10:30)
[2024-09-11] MEDS ORDERED: NALOXONE SL SCH (10:30)
[2024-09-11] MEDS: BUPRENORPHINE-NALOX 8-2 MG TAB 1 EACH TAB.SUBL SL SCH (10:31)
[2024-09-11] MEDS: hydrOXYzine HCL 25 MG TAB PO PRN (11:51)
[2024-09-11] MEDS: DULoxetine HCL 30 MG CAPSULE.DR PO SCH (13:01)
[2024-09-11] MEDS: ACETAMINOPHEN TAB 325 MG TAB PO PRN (13:39)
[2024-09-11] MEDS: OLANZapine 10 MG TAB PO PRN (13:55)
--- NOTE | 2024-09-11 14:56 | P.HP ---
Psychiatric H&P - . H&P Date: 09/11/24 History & Physical: Allergies Allergy/AdvReac Type Severity Reaction Status Date / Time haloperidol [From Haldol] AdvReac Lockjaw Verified 09/10/24 18:54 trazodone AdvReac Dry mouth, Verified 09/10/24 18:54 Nightmares Vital Signs Temp 97.6 F 09/11/24 08:12 Pulse 69 09/11/24 08:12 Resp 20 09/11/24 08:12 BP 127/80 09/11/24 08:12 Pulse Ox 94 L 09/11/24 08:12 FiO2 Intake & Output 09/10/24 09/11/24 09/11/24 18:59 06:59 18:59 Weight 65.771 kg 76.742 kg Laboratory Last Values Urine Color Yellow 09/10/24 20:44 Urine Appearance Clear (Clear) 09/10/24 20:44 Urine pH 6.0 (5.0-8.0) 09/10/24 20:44 Ur Specific Brothers 1.035 (1.001-1.035) 09/10/24 20:44 Urine Protein Trace (Negative) H 09/10/24 20:44 Urine Glucose (UA) Negative (Negative) 09/10/24 20:44 Urine Ketones 2+ (Negative) H 09/10/24 20:44 Urine Blood Negative (Negative) 09/10/24 20:44 Urine Nitrite Negative (Negative) 09/10/24 20:44 Urine Bilirubin Negative (Negative) 09/10/24 20:44 Urine Urobilinogen <2.0 mg/dL (<2.0) 09/10/24 20:44 Ur Leukocyte Esterase Trace (Negative) H 09/10/24 20:44 Urine WBC 15 /hpf (0-5) H 09/10/24 20:44 Ur Squamous Epith Cells <1 /hpf (0-4) 09/10/24 20:44 Urine Mucus Rare /hpf (None) H 09/10/24 20:44 Urine Opiates Screen Not Detected (NotDetected) 09/10/24 20:44 Ur Oxycodone Screen Not Detected (NotDetected) 09/10/24 20:44 Urine Methadone Screen Not Detected (NotDetected) 09/10/24 20:44 Ur Barbiturates Screen Not Detected (NotDetected) 09/10/24 20:44 U Tricyclic Antidepress Not Detected (NotDetected) 09/10/24 20:44 Ur Phencyclidine Scrn Not Detected (NotDetected) 09/10/24 20:44 Ur Amphetamines Screen Detected (NotDetected) H 09/10/24 20:44 U Methamphetamines Scrn Detected (NotDetected) H 09/10/24 20:44 U Benzodiazepines Scrn Not Detected (NotDetected) 09/10/24 20:44 Urine Cocaine Screen Detected (NotDetected) H 09/10/24 20:44 U Marijuana (THC) Screen Detected (NotDetected) H 09/10/24 20:44 SARS-CoV-2 (PCR) Not Detected (Not Detectd) 09/10/24 20:10 09/11/24 12:36 IDENTIFYING DATA: Patient is a 49-year-old male. Stays with a friend/roommate. Single. Has one child. collects SSD. HPI: Patient presented to the hospital on 04/01. As per EPS note, "Patient presented to ER by EMS on petition related to patient having bizarre behaviors and hallucinations. Patient assessed in ER12 from [id number]. Patient appears to be anxious, pacing in and out of the room, and disoriented. Patient appears to be A+Ox2, responding to internal stimuli, and increased paranoia. Patient appears to be disheveled and unkept and odorous. Patient feels like his neighbors are out to kill him and per petition he stated he wanted to kill himself before his neighbors killed him. Patient appears to be acutely psychotic, responding to internal stimuli, and thought blocking. Patient is difficult to assess at this time due to thought blocking. Patient requires frequent repeating of questions, stares blankly at medical underwriter, and does not answer. Patient verbalizes auditory and visual hallucinations but unable to describe. Patient denies alcohol and substance use to medical underwriter. UDS+Math,amph, cocaine, and THC. Patient states "sometimes" when asked if he was feeling suicidal. Denies current plan. Patient denies homicidal ideations. Patient constantly making delusional statements asking if his neighbors can reach him, and believing that his neighbors are out to get him. Denies follow up with outpatient treatment, and verbalizes sporatic compliance with home medications. " Patient was seen today for psychiatric evaluation. Patient had poor eye contact head is head slouched over wearing hospital gown. Appeared to have disheveled appearance. States that he is upset because "someone hacked my phone" and was referring to them as a "group of people" and states that they are also "stealing my devices and going into my bank account stealing my money". He claims that they also got a hold of his ID card. Claims that this has been COVID causing him an increase in stress and also was fairly focused on his anxiety. He believes that they may want to "human trafficking me". He did endorse some depression however was focused on anxiety and also obtaining Klonopin or Ativan. He appeared to have very poor insight poor judgment. He reports poor sleep, and endorses a good appetite. Patient denies any suicidal or homicidal ideations intent or plan. At this time patient denies any auditory or visual hallucinations. Patient endorses racing thoughts. Patient is currently using methamphetamine, cocaine and also THC. He also uses cigarettes. PAST PSYCHIATRIC HISTORY: Patient states that was last admitted on this unit in March 2024, and most recently hospitalized at [facility] in early August 2024. He was previously on Zyprexa and Prozac. He has been following with a therapist that [facility]. Patient admits to history of suicide attempt in the past, by jumping in front of a [employer] truck. PMH:As per ER note ALLERGIES: as per EMR CHEMICAL DEPENDENCY HISTORY: as per HPI FAMILY PSYCHIATRIC/SUBSTANCE USE HISTORY: mother-paranoia, schizophrenia SOCIAL HISTORY: Patient was born and raised in [facility]. 11th grade education. Living with a friend/roommate, Single, Has one child. Has been to shelter for "I don't know". MENTAL STATUS EXAM: General Appearance: Patient appears to be older than stated age is alert, directable, and attempts to cooperate. Disheveled appearance. Patient appears to have poor hygiene and grooming. Behavior: Patient is seated without any agitated behavior. Hunched over in the chair, poor eye contact, appears to be upset Speech: Patient's speech is [fluent and nonpressured. Poverty of content Mood/Affect: Patient reports their mood is depressed and mainly anxious, affect is congruent and constricted. Suicidality/Homicidality: Patient denies having any homicidal ideation intent or plan. [Denies any suicidal ideations intent or plan] Perceptions: Patient denies any visual hallucinations and endorses auditory hallucinations Though content/process: thought process somewhat paranoid. Bizarre, thinks the that people are out to get him. Memory and concentration: AOX3, grossly intact for the purposes of this session. Cannot spell "WORLD" backwards Judgment and insight: poor STRENGTHS/WEAKNESSES: strength is that patient is [resilient]. Weakness is that patient has poor judgment and is impulsive and has significant history of substance use INTELLECT: [average] IMPRESSIONS: schizoaffective disorder, depressive type Anxiety disorder unspecified Methamphetamine use disorder Cocaine use disorder Cannabis use disorder nicotine dependence PLAN: -Patient is admitted under involuntary status to [facility] for stabilization of psychiatric symptoms and safety. Patient has not signed adult voluntary form and not signed medication consent and is placed in patient's chart. A second clinical certificate was completed by medical underwriter, will be faxed to the courts and will await deferral meeting with tax attorney and hearing date. -Medications : Cymbalta 30 mg daily for mood/anxiety, Invega 3 mg nightly for mood stabilization/psychosis. Plan will be to offer transition to long-acting injection to help ensure compliance -Patient was informed of the risks, benefits and side effects of the medication and did not verbally consented to taking the medications. Patient declined signing the medication consent form. -Internal Medicine consult to perform medical evaluation and physical. -NRT - nicotine patch -SW on board for discharge planning. Encourage patient to participate in groups to work on coping skills. Will await deferral and hearing date. 09/11/24 12:37 09/11/24 14:50
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
[2024-09-11] MEDS: ATORVASTATIN 40 MG TAB PO SCH (21:44)
[2024-09-11] MEDS: SALMETEROL 50 MCG INHALATION SCH (21:44)
[2024-09-11] MEDS: PALIPERIDONE 3 MG TAB.ER.24 PO SCH (21:44)
[2024-09-11] MEDS: IBUPROFEN 600 MG TAB PO PRN (21:46)
[2024-09-12 08:17] LABS: Basophils # (A) 0.05 10*3/uL (0.00-0.10); Basophils % (A) 0.7 %; Eosinophils # (A) 0.58 10*3/uL (0.04-0.35); Eosinophils % (A) 8.6 %; HCT 39.9 % (39.6-50.0); HGB 13.5 g/dL (13.0-17.0); Lymphocytes # (A) 2.63 10*3/uL (0.90-5.00); Lymphocytes % (A) 38.9 %; MCH 30.3 pg (27.0-32.0); MCHC 33.8 g/dL (32.0-37.0); MCV 89.7 fL (80.0-97.0); Mean Platelet Volume 10.1 fL (9.5-12.2); Monocytes # (A) 0.86 10*3/uL (0.20-1.00); Monocytes % (A) 12.7 %; Neutrophils # (A) 2.63 10*3/uL (1.80-7.70); Platelet Count 400 10*3/uL (140-440); RBC 4.45 10*6/uL (4.40-5.60); RDW 13.5 % (11.5-14.5); WBC 6.76 10*3/uL (4.50-10.00)
[2024-09-12 08:29] LABS: ALT 89 U/L (4-49); AST 226 U/L (17-59); African American GFR (CKD) >90 (>60 ml/min/1.73 sqM); Albumin 3.7 g/dL (3.5-5.0); Alkaline Phosphatase 64 U/L (38-126); Anion Gap 6 mmol/L; Bilirubin, Delta 0.3 mg/dL (0.0-0.2); Bilirubin,Unconjugated 0.2 mg/dL (0.0-1.1); Blood Urea Nitrogen 16 mg/dL (9-20); Calcium 9.5 mg/dL (8.4-10.2); Carbon Dioxide 29 mmol/L (22-30); Chloride 103 mmol/L (98-107); Glucose 108 mg/dL (74-99); Non-African American GFR(CKD) >90 (>60 ml/min/1.73 sqM); Potassium 4.6 mmol/L (3.5-5.1); Sodium 138 mmol/L (137-145); Total Bilirubin 0.5 mg/dL (0.2-1.3); Total Protein 6.7 g/dL (6.3-8.2)
--- NOTE | 2024-09-12 12:14 | P.PN ---
Progress Note - Text Progress Note Date: 09/12/24 Interval history: Patient was seen today laying in bed agreeable to speak to commercial underwriter. He appears to have mild improvement in his hygiene and grooming. He was less focused today on his anxiety and also controlled substances. Claims that he slept on and off last night, was requesting to have Ensure added to his meals. Also requested nicotine gum. He is still waiting on the [place] attorney to speak with him asked more questions about the deferral and court date. Continues to have fairly limited i nsight superficial judgment. Agreeable to continuing with medications. Claims that his mood and anxiety are mildly improving since yesterday. He is denying any suicidal or homicidal ideations intent or plan denying any auditory or visual loose nations. He was less focused on his paranoia today and delusions. MENTAL STATUS EXAM: General Appearance: Patient appears to be older than stated age is alert, directable, and attempts to cooperate. less Disheveled appearance. Patient appears to have mildly improved hygiene and grooming. Behavior: Patient is seated without any agitated behavior. poor eye contact, appears to be more cooperative today Speech: Patient's speech is [fluent and nonpressured. Poverty of content Mood/Affect: Patient reports their mood is depressed and mainly anxious, affect is congruent and constricted. Suicidality/Homicidality: Patient denies having any homicidal ideation intent or plan. [Denies any suicidal ideations intent or plan] Perceptions: Patient denies any visual hallucinations and endorses auditory hallucinations Though content/process: thought process somewhat paranoid. Bizarre, thinks the that people are out to get him. Memory and concentration: AOX3, grossly intact for the purposes of this session. Judgment and insight: poor, improving mildly IMPRESSIONS: schizoaffective disorder, depressive type Anxiety disorder unspecified Methamphetamine use disorder Cocaine use disorder Cannabis use disorder nicotine dependence PLAN: -Patient is admitted under involuntary status to MHU for stabilization of psychiatric symptoms and safety. Patient has not signed adult voluntary form and not signed medication consent and is placed in patient's chart. A second clinical certificate was completed by commercial underwriter, will be faxed to the courts and will await deferral meeting with [place] attorney and hearing date. -Medications : increase Cymbalta 60 mg daily for mood/anxiety, Invega 3 mg nightly for mood stabilization/psychosis. Plan will be to offer transition to long-acting injection to help ensure compliance -NRT - nicotine patch + nicorette gum -SW on board for discharge planning. Encourage patient to participate in groups to work on coping skills. Will await deferral and hearing date. he is decling rehab at this time.
[2024-09-12] MEDS: NICOTINE GUM (POLACRILEX) 2 MG GUM BUCCAL PRN (15:26)
[2024-09-12 16:03] LABS: LDL Cholesterol,Calculated 81.1 mg/dL (0.0-131.0); VLDL Calculation 12.02 mg/dL (5.00-40.00)
[2024-09-13] MEDS: DULoxetine HCL 60 MG CAPSULE.DR PO SCH (09:15)
--- NOTE | 2024-09-13 12:32 | P.PN ---
Progress Note - Text Progress Note Date: 09/13/24 Interval history: Patient was seen today wandering the hallways. He appears to have mild improv ement in his hygiene and grooming. He appears to have improvement in his affect as well, improving eye contact. Claims that he just finished speaking with his finance attorney claims that he is okay with the medications and signed the deferral. He states that he is not okay with the long-acting injection and would rather take the pills at this time. Continues to minimize his use of recreational drugs, continues to not want rehab. States that he is eating well on the unit, claims that he had on and off sleep last night states that he still hearing voices was requesting have an increase in his Invega. Continues to have fairly limited insight superficial judgment. Agreeable to continuing with medications. Claims that his mood and anxiety are mildly improving since yesterday. He is denying any suicidal or homicidal ideations intent or plan denying any visual hallucinations . He was less focused on his paranoia today and delusions. MENTAL STATUS EXAM: General Appearance: Patient appears to be stated age is alert, directable, and attempts to cooperate. Patient appears to have mildly improved hygiene and grooming. Behavior: Patient is seated without any agitated behavior. poor eye contact, appears to be more cooperative today Speech: Patient's speech is [fluent and nonpressured. Poverty of content, improving mildly Mood/Affect: Patient reports their mood is depressed and mainly anxious, affect is congruent and constricted. Improving mildly Suicidality/Homicidality: Patient denies having any homicidal ideation intent or plan. Denies any suicidal ideations intent or plan Perceptions: Patient denies any visual hallucinations and endorses auditory hallucinations Though content/process: [place] today. Not endorsing paranoia today. Fairly poor reality testing. Minimizing drug use. Memory and concentration: AOX3, grossly intact for the purposes of this session. Judgment and insight: poor/superficial, improving mildly IMPRESSIONS: schizoaffective disorder, depressive type Anxiety disorder unspecified Methamphetamine use disorder Cocaine use disorder Cannabis use disorder nicotine dependence PLAN: -Patient is admitted under involuntary status to MHU for stabilization of psychiatric symptoms and safety. Patient has not signed adult voluntary form and not signed medication consent and is placed in patient's chart. A second clinical certificate was completed by report writer, will be faxed to the courts and will await deferral meeting with finance attorney and hearing date. -Medications : Cymbalta 60 mg daily for mood/anxiety, increase Invega 6 mg nightly for mood stabilization/psychosis. patient is declining JENNINGS at this time. -NRT - nicotine patch + nicorette gum -SW on board for discharge planning. Encourage patient to participate in groups to work on coping skills. patient signed deferral with finance attorney, agreeing to continued tx and follow up. he is decling rehab at this time.
[2024-09-13] MEDS: PALIPERIDONE 6 MG TAB.ER.24 PO SCH (20:23)
--- NOTE | 2024-09-14 16:01 | P.PN ---
Progress Note - Text Progress Note Date: 09/14/24 Dictation was produced using [employer] dictation software. Please excuse any grammatical, word or spelling errors. Interval history: Patient was seen in his room and was directable and agreeable to speak with the film writer in the office for psychiatric follow-up. The patient states that he is feeling a lot better today, states that "I'm not hearing voices like I was." States that depression is at the moderate side, which he rated at 4/10, which he report that is a big improvement. He states that anxiety is about 5/10. He denied any current SI/HI or self harm. He denied any current AVH. States that it is getting better in term of hearing voices, last times was yesterday, states that it was commanding in nature, telling him to be better off . States that he slept well last night and has been eating well. Feel safe, and is getting along well with everyone, states that he was able to attend groups. He states that he has been compliant with his medication, denied any current side effects, denied any muscle stiffness, rigidity, abnormal movement, or drooling. Psychoeducation was provided into switching to long-acting injectable and patient reported that he will consider that. Education was provided into substance use rehab however patient does not consider that at this time, will continue to encourage patient to attend rehab. MENTAL STATUS EXAM: General Appearance: Patient appears to be stated age is alert, directable, and attempts to cooperate. Patient appears to have mildly improved hygiene and grooming. Behavior: Patient is seated without any agitated behavior. eye contact intermittently avoided, improved mildly, appears to be more cooperative today Speech: Patient's speech is fluent and nonpressured. improving mildly Mood/Affect: Patient reports their mood is depressed and mainly anxious however overall is improving compared to admission, affect is congruent and constricted. Improving mildly Suicidality/Homicidality: Patient denies having any homicidal ideation intent or plan. Denies any suicidal ideations intent or plan Perceptions: Patient denies any visual hallucinations and denied any current auditory hallucinations, reported that the last time he heard voices was yesterday however nothing today so far Though content/process: [place] today. Not endorsing paranoia today. Fairly poor reality testing. Minimizing drug use. Memory and concentration: AOX3, grossly intact for the purposes of this session. Judgment and insight: poor/superficial, improving mildly IMPRESSIONS: schizoaffective disorder, depressive type Anxiety disorder unspecified Methamphetamine use disorder Cocaine use disorder Cannabis use disorder nicotine dependence Assessment/Plan: Continue with current diagnosis. Patient continues to meet criteria for inpatient psychiatric admission for symptom stabilization and safety. Patient will be maintained on current psychotropic medication regimen, which include Cymbalta 60 mg p.o. daily, Invega 6 mg p.o. at bedtime which was increased on Monday, psychoeducation was provided into Invega and the possibility to switch to long-acting injectable prior to discharge, patient agreed with the plan. Patient denied any side effects, denied any muscle stiffness, rigidity, abnormal movement, or drooling, education was provided into substance use rehab however patient does not consider it at this time, will continue to encourage patient to do so. Monitor for medication compliance and for any psychotropic medication side effects. Will continue to monitor ongoing response to treatment. Encouraged participation in milieu.
[2024-09-15] MEDS: ALBUTEROL INHALER 60 PUFF/8 GM INHALER (MHU) INHALATION PRN (08:36)
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
--- NOTE | 2024-09-16 11:04 | P.PN ---
Progress Note - Text Progress Note Date: 09/16/24 Interval history: Patient was seen today wandering the hallways. He appears to have mild improv ement in his hygiene and grooming. Patient claims that he is doing a bit better had a good weekend. Claims that he feels the medications have been helping significantly with the voices claims that they have been calm down. States that his mood and anxiety are also improving. He continues to have fairly superficial insight about his condition and need for treatment. He was agreeable to be put on the long-acting injection of the medications asked several questions about it. He claims that he is able to sleep fairly at nighttime has been only going to some groups. He is denying any suicidal or homicidal ideations intent or plan denying any visual hallucinations and denying any auditory hallucinations. Not endorsing paranoia today. MENTAL STATUS EXAM: General Appearance: Patient appears to be stated age is alert, directable, and attempts to cooperate. Patient appears to have mildly improved hygiene and grooming. Behavior: Patient is seated without any agitated behavior. Improving eye contact, appears to be more cooperative today Speech: Patient's speech is [fluent and nonpressured. , improving mildly Mood/Affect: Patient reports their mood is improving mildly, affect is congruent and constricted. Improving mildly Suicidality/Homicidality: Patient denies having any homicidal ideation intent or plan. Denies any suicidal ideations intent or plan Perceptions: Patient denies any visual hallucinations and denies any auditory hallucinations Though content/process: [place] today. Not endorsing paranoia today. More future oriented today. Memory and concentration: AOX3, grossly intact for the purposes of this session. Judgment and insight: improving mildly IMPRESSIONS: schizoaffective disorder, depressive type Anxiety disorder unspecified Methamphetamine use disorder Cocaine use disorder Cannabis use disorder nicotine dependence PLAN: -Patient is admitted under involuntary status to MHU for stabilization of psychiatric symptoms and safety. Patient has not signed adult voluntary form and not signed medication consent and is placed in patient's chart -Medications : Cymbalta 60 mg daily for mood/anxiety, d/c Invega PO as patient is willing to receive Uzedy 100 mg SQ today to help ensure compliance, next dose will be due qmonthly on 10/14 -NRT - nicotine patch + nicorette gum -SW on board for discharge planning. Encourage patient to participate in groups to work on coping skills. patient signed deferral with soda dialyzer, agreeing to continued tx and follow up. he is decling rehab at this time. likely discharge tomorrow after pt recieved [facility].
[2024-09-16] MEDS: risperiDONE 100 MG/0.28 ML SYR (NO COST) SQ SCH (11:55)
[2024-09-16 21:35] VITALS: RESP 16
[2024-09-17 08:34] VITALS: BP 126/82; PULSE 97; TEMP 98.3
--- NOTE | 2024-09-17 10:02 | P.DS ---
Providers Date of admission: 09/10/24 23:23 Expected date of discharge: 09/17/24 Attending physician: Kenny Monson MD Consults: 09/10/24 23:38 Consult Physician Routine Consulting Provider: Neal Physician Consult Reason/Comments: H & P Do you want consulting provider notified?: Yes, Notify in am Primary care physician: Stated None - Discharge Diagnosis(es) (1) Schizoaffective disorder, depressive type Current Visit: Yes Status: Acute Priority: High (2) Anxiety disorder Current Visit: Yes Status: Acute Priority: Medium (3) Methamphetamine abuse Current Visit: Yes Status: Acute Priority: High (4) Cocaine use disorder Current Visit: Yes Status: Acute Priority: High (5) Cannabis use disorder Current Visit: Yes Status: Acute Priority: Medium (6) Nicotine dependence Current Visit: Yes Status: Acute Priority: Low Hospital Course: Admission HPI: Admission note was completed by proposal lead writer "Patient is a 49-year-old male. Stays with a friend/roommate. Single. Has one child. collects SSD. Patient presented to the hospital on 04/01. As per EPS note, "Patient presented to ER by EMS on petition related to patient having bizarre behaviors and hallucinations. Patient assessed in ER12 from [id number]. Patient appears to be anxious, pacing in and out of the room, and disoriented. Patient appears to be A+Ox2, responding to internal stimuli, and increased paranoia. Patient appears to be disheveled and unkept and odorous. Patient feels like his neighbors are out to kill him and per petition he stated he wanted to kill himself before his neighbors killed him. Patient appears to be acutely psychotic, responding to internal stimuli, and thought blocking. Patient is difficult to assess at this time due to thought blocking. Patient requires frequent repeating of questions, stares blankly at proposal lead writer, and does not answer. Patient verbalizes auditory and visual hallucinations but unable to describe. Patient denies alcohol and substance use to proposal lead writer. UDS+Math,amph, cocaine, and THC. Patient states "sometimes" when asked if he was feeling suicidal. Denies current plan. Patient denies homicidal ideations. Patient constantly making delusional statements asking if his neighbors can reach him, and believing that his neighbors are out to get him. Denies follow up with outpatient treatment, and verbalizes sporatic compliance with home medications. " Patient was seen today for psychiatric evaluation. Patient had poor eye contact head is head slouched over wearing hospital gown. Appeared to have disheveled appearance. States that he is upset because "someone hacked my phone" and was referring to them as a "group of people" and states that they are also "stealing my devices and going into my bank account stealing my money". He claims that they also got a hold of his ID card. Claims that this has been COVID causing him an increase in stress and also was fairly focused on his anxiety. He believes that they may want to "human trafficking me". He did endorse some depression however was focused on anxiety and also obtaining Klonopin or Ativan. He appeared to have very poor insight poor judgment. He reports poor sleep, and endorses a good appetite. Patient denies any suicidal or homicidal ideations intent or plan. At this time patient denies any auditory or visual hallucinations. Patient endorses racing thoughts. Patient is currently using methamphetamine, cocaine and also THC. He also uses cigarettes." Hospital course: Upon admission to the unit patient was admitted involuntarily on a petition and certificate and a second certificate was completed and faxed to the courts. Patient ended up signing a deferral with the attorney general and agreeing to treatment. Patient was initially bizarre, delusional however with time and treatment patient got along well with other patients on the unit and followed unit protocol. Patient was compliant with the medications and denied any side effects throughout hospital course. Patient was started on Cymbalta increased to dose of 60 mg daily for mood/anxiety, Invega p.o. increased to 6 mg daily for psychosis/mood stabilization. Patient was agreeable to be transitioned onto long-acting injection was given Uzedy 100 mg qmonthly, on 09/16 and next dose will be due on 10/14. Patient spoke of his stressors however did not participate much in group/activity therapy and mainly kept to themselves during hospit alization. Patient was also seen by medical team for history and physical exam. Throughout the course of the hospitalization patient gradually improved with regards to mood, anxiety, psychosis, sleep and returned back to their baseline level of functioning. On the day of discharge patient denied any suicidal or homicidal ideations intent or plan denied any auditory or visual hallucinations. Patient endorsed wanting to live for their health and future. The patient denied any access to guns or weapons. Patient denied any paranoia and did not endorse any delusions. Patient does have a significant history of substance abuse and was counseled on abstaining from all substances including alcohol and marijuana. Patient was offered however declined inpatient substance-abuse rehab. Patient elected to do outpatient substance use treatment program through their outpatient provider. Patient was also counseled on the medications and need for regular compliance and was encouraged to follow-up with their outpatient appointment for mental health and also for primary care. Mental status exam: General Appearance: Patient appears to be hunched over, unshaven, stated age is alert, pleasant, and cooperative. Patient is in no acute distress and has improved hygiene and grooming Behavior: Patient is calmly seated without any agitated behavior. Speech: Patient's speech is fluent and nonpressured. Mood/Affect: Patient reports their mood is "better", affect is congruent Suicidality/Homicidality: Patient denies having any suicidal or homicidal ideation intent or plan. Perceptions: Patient denies any auditory or visual hallucinations. Though content/process: There is no evidence of any delusional thought content and thought process is linear and goal-directed. Memory and concentration: AOX3, grossly intact for the purposes of this session. Can spell "WORLD" backwards correctly. Judgment and insight: Chronically poor, however has improved with guarded prognosis Impression: Schizoaffective disorder depressive type Anxiety disorder unspecified Methamphetamine abuse Cocaine use disorder Cannabis use disorder Nicotine dependence Plan: -Continue with discharge today as patient has improved and stabilized psychiatrically and is not currently an imminent threat to themself and/or others. Patient will remain at chronically elevated risk for harm to self and/or others due to their impulsivity and substance abuse. -Continue medications: given Uzedy 100 mg qmonthly, on 09/16 and next dose will be [facility] on 10/[facility]. Cymbalta 60 mg daily for mood/anxiety. -Patient was counseled on the need for medication compliance and appropriate follow-up at mental health and also primary care for medical issues. Patient verbalized understanding and agreed. -Social work to help coordinate patients discharge today. also to ensure safe home environment that guns/weapons are either removed from the home or locked away. Social work also to arrange for patients follow up appointments with [facility] for psychiatric care along with follow up with primary care provider. -Patient counseled on abstaining from recreational drugs and marijuana and alcohol. Was informed/educated on the adverse effects on their physical and mental health. Patient verbally agreed and understood. Patient was offered substance abuse treatment however declined at this time. -Patient was instructed to return to the hospital or seek immediate medical care if their psychiatric or medical symptoms do worsen or reoccur. Allergies Allergy/AdvReac Type Severity Reaction Status Date / Time haloperidol [From Haldol] AdvReac Lockjaw Verified 09/10/24 18:54 trazodone AdvReac Dry mouth, Verified 09/10/24 18:54 Nightmares Laboratory Results WBC 6.76 10*3/uL (4.50-10.00) 09/12/24 07:36 RBC 4.45 10*6/uL (4.40-5.60) 09/12/24 07:36 Hgb 13.5 g/dL (13.0-17.0) 09/12/24 07:36 Hct 39.9 % (39.6-50.0) 09/12/24 07:36 MCV 89.7 fL (80.0-97.0) 09/12/24 07:36 MCH 30.3 pg (27.0-32.0) 09/12/24 07:36 MCHC 33.8 g/dL (32.0-37.0) 09/12/24 07:36 Plt Count 400 10*3/uL (140-440) 09/12/24 07:36 MPV 10.1 fL (9.5-12.2) 09/12/24 07:36 Immature Gran % (Auto) 0.1 % 09/12/24 07:36 Neutrophils % 39.0 % 09/12/24 07:36 Lymphocytes % 38.9 % 09/12/24 07:36 Monocytes % 12.7 % 09/12/24 07:36 Eosinophils % 8.6 % 09/12/24 07:36 Basophils % 0.7 % 09/12/24 07:36 Immature Gran # 0.01 10*3/uL (0.00-0.04) 09/12/24 07:36 Neutrophils # 2.63 10*3/uL (1.80-7.70) 09/12/24 07:36 Lymphocytes # 2.63 10*3/uL (0.90-5.00) 09/12/24 07:36 Monocytes # 0.86 10*3/uL (0.20-1.00) 09/12/24 07:36 Eosinophils # 0.58 10*3/uL (0.04-0.35) H 09/12/24 07:36 Basophils # 0.05 10*3/uL (0.00-0.10) 09/12/24 07:36 Sodium 138 mmol/L (137-145) 09/12/24 07:36 Potassium 4.6 mmol/L (3.5-5.1) 09/12/24 07:36 Chloride 103 mmol/L (98-107) 09/12/24 07:36 Carbon Dioxide 29 mmol/L (22-30) 09/12/24 07:36 Anion Gap 6 mmol/L 09/12/24 07:36 BUN 16 mg/dL (9-20) 09/12/24 07:36 Creatinine 0.73 mg/dL (0.66-1.25) 09/12/24 07:36 Est GFR (CKD-EPI)AfAm >90 (>60 ml/min/1.73 sqM) 09/12/24 07:36 Est GFR (CKD-EPI)NonAf >90 (>60 ml/min/1.73 sqM) 09/12/24 07:36 Glucose 108 mg/dL (74-99) H 09/12/24 07:36 Calcium 9.5 mg/dL (8.4-10.2) 09/12/24 07:36 Total Bilirubin 0.5 mg/dL (0.2-1.3) 09/12/24 07:36 Conjugated Bilirubin 0.0 mg/dL (0.0-0.3) 09/12/24 07:36 Unconjugated Bilirubin 0.2 mg/dL (0.0-1.1) 09/12/24 07:36 Delta Bilirubin 0.3 mg/dL (0.0-0.2) H 09/12/24 07:36 AST 226 U/L (17-59) H 09/12/24 07:36 ALT 89 U/L (4-49) H 09/12/24 07:36 Alkaline Phosphatase 64 U/L (38-126) 09/12/24 07:36 Total Protein 6.7 g/dL (6.3-8.2) 09/12/24 07:36 Albumin 3.7 g/dL (3.5-5.0) 09/12/24 07:36 Triglycerides 60.10 mg/dL (0.00-149.00) 09/12/24 07:36 Cholesterol 155.00 mg/dL (0.00-200.00) 09/12/24 07:36 LDL Cholesterol, Calc 81.1 mg/dL (0.0-131.0) 09/12/24 07:36 VLDL Cholesterol, Calc 12.02 mg/dL (5.00-40.00) 09/12/24 07:36 HDL Cholesterol 61.90 mg/dL (40.00-60.00) H 09/12/24 07:36 Cholesterol/HDL Ratio 2.50 Ratio 09/12/24 07:36 TSH 2.580 mIU/L (0.465-4.680) 09/12/24 07:36 Urine Color Yellow 09/10/24 20:44 Urine Appearance Clear (Clear) 09/10/24 20:44 Urine pH 6.0 (5.0-8.0) 09/10/24 20:44 Ur Specific [place] 1.035 (1.001-1.035) 09/10/24 20:44 Urine Protein Trace (Negative) H 09/10/24 20:44 Urine Glucose (UA) Negative (Negative) 09/10/24 20:44 Urine Ketones 2+ (Negative) H 09/10/24 20:44 Urine Blood Negative (Negative) 09/10/24 20:44 Urine Nitrite Negative (Negative) 09/10/24 20:44 Urine Bilirubin Negative (Negative) 09/10/24 20:44 Urine Urobilinogen <2.0 mg/dL (<2.0) 09/10/24 20:44 Ur Leukocyte Esterase Trace (Negative) H 09/10/24 20:44 Urine WBC 15 /hpf (0-5) H 09/10/24 20:44 Ur Squamous Epith Cells <1 /hpf (0-4) 09/10/24 20:44 Urine Mucus Rare /hpf (None) H 09/10/24 20:44 Urine Opiates Screen Not Detected (NotDetected) 09/10/24 20:44 Ur Oxycodone Screen Not Detected (NotDetected) 09/10/24 20:44 Urine Methadone Screen Not Detected (NotDetected) 09/10/24 20:44 Ur Barbiturates Screen Not Detected (NotDetected) 09/10/24 20:44 U Tricyclic Antidepress Not Detected (NotDetected) 09/10/24 20:44 Ur Phencyclidine Scrn Not Detected (NotDetected) 09/10/24 20:44 Ur Amphetamines Screen Detected (NotDetected) H 09/10/24 20:44 U Methamphetamines Scrn Detected (NotDetected) H 09/10/24 20:44 U Benzodiazepines Scrn Not Detected (NotDetected) 09/10/24 20:44 Urine Cocaine Screen Detected (NotDetected) H 09/10/24 20:44 U Marijuana (THC) Screen Detected (NotDetected) H 09/10/24 20:44 SARS-CoV-2 (PCR) Not Detected (Not Detectd) 09/10/24 20:10 Vital Signs Temp 98.3 F 09/17/24 08:32 Pulse 97 09/17/24 08:32 Resp 16 09/16/24 21:35 BP 126/82 09/17/24 08:32 Pulse Ox 98 09/17/24 08:32 FiO2 Patient Condition at Discharge: Stable Plan - Discharge Summary Discharge Rx Participant: No New Discharge Prescriptions: New hydrOXYzine HCL [Atarax] 25 mg PO DAILY PRN 30 Days #30 tab PRN Reason: Anxiety Nicotine 14Mg/24Hr Patch [Habitrol] 1 patch TRANSDERM DAILY 14 Days #14 patch Ibuprofen [Motrin] 600 mg PO Q6HR PRN tab PRN Reason: Moderate Pain (Scale 4 To 6) Nicotine Gum (Polacrilex) [Nicorette] 2 mg BUCCAL Q4HR PRN pieceofgum PRN Reason: Nicotine Cravings Ketoconazole 2% Shampoo [Nizoral] 1 applic TOPICAL DIRECTED 30 Days #1 ml Tiotropium 2.5 Mcg/Puff [Spiriva Respimat 2.5 Mcg] 2 puff INHALATION RT-DAILY 30 Days #1 each risperiDONE [Uzedy] 100 mg SQ QMONTHLY #1 each DULoxetine HCL [Cymbalta] 60 mg PO DAILY 30 Days #30 cap Continue Tamsulosin [Flomax] 0.8 mg PO DAILY Levothyroxine Sodium [Synthroid] 100 mcg PO DAILY methocarbamoL [Robaxin] 500 mg PO BID PRN PRN Reason: Muscle Spasm Multivitamins, Thera [Multivitamin (formulary)] 1 tab PO DAILY Umeclidinium Brm/Vilanterol Tr [Anoro Ellipta 62.5-25 Mcg INH] 1 puff INHALATION RT-DAILY 30 Days #1 each Aspirin 81 mg PO DAILY 30 Days #30 tab glipiZIDE [Glucotrol] 2.5 mg PO AC-BRKFST 30 Days #30 tab Atorvastatin [Lipitor] 40 mg PO HS 30 Days #30 tablet Pantoprazole [Protonix] 40 mg PO BID 30 Days #60 tab Albuterol Nebulized [Ventolin Nebulized] 2.5 mg INHALATION RT-Q4H PRN PRN Reason: Shortness Of Breath Acyclovir 5% Oint [Zovirax Oint] 1 applic TOPICAL DIRECTED Buprenorphine-Nalox 8-2 mg Tab [Suboxone 8-2 mg Tab] 1 tab SUBLINGUAL Q8H Vitamin K2 [Vitamin K-2] 100 mcg PO DAILY carvediloL [Coreg] 6.25 mg PO BID 30 Days #60 tab Gabapentin 600 mg PO TID 30 Days #90 tab Triamcinolone 0.1% Cream [Kenalog 0.1% Cream] 1 applicatio TOPICAL BID 30 Days #1 each Discontinued Ketoconazole 2% Shampoo [Nizoral] 1 applic TOPICAL DIRECTED 30 Days #1 ml hydrOXYzine HCL [Atarax] 25 mg PO TID PRN PRN Reason: Itching clonazePAM [KlonoPIN] 0.5 mg PO BID Garlic 1,000 mg PO DAILY FLUoxetine HCL [PROzac] 10 mg PO DAILY Lactulose 20 gm PO TID PRN PRN Reason: Constipation traZODone HCL [Desyrel] 100 mg PO HS PRN PRN Reason: sleep Discharge Medication List Tamsulosin [Flomax] 0.8 mg PO DAILY 04/02/22 [History] Levothyroxine Sodium [Synthroid] 100 mcg PO DAILY 10/28/23 [History] Albuterol Nebulized [Ventolin Nebulized] 2.5 mg INHALATION RT-Q4H PRN 02/13/24 [History] Acyclovir 5% Oint [Zovirax Oint] 1 applic TOPICAL DIRECTED 09/10/24 [History] Buprenorphine-Nalox 8-2 mg Tab [Suboxone 8-2 mg Tab] 1 tab SUBLINGUAL Q8H 09/10/24 [History] Multivitamins, Thera [Multivitamin (formulary)] 1 tab PO DAILY 09/10/24 [History] Vitamin K2 [Vitamin K-2] 100 mcg PO DAILY 09/10/24 [History] methocarbamoL [Robaxin] 500 mg PO BID PRN 09/10/24 [History] Aspirin 81 mg PO DAILY 30 Days #30 tab 09/17/24 [Rx] Atorvastatin [Lipitor] 40 mg PO HS 30 Days #30 tablet 09/17/24 [Rx] DULoxetine HCL [Cymbalta] 60 mg PO DAILY 30 Days #30 cap 09/17/24 [Rx] Gabapentin 600 mg PO TID 30 Days #90 tab 09/17/24 [Rx] Ibuprofen [Motrin] 600 mg PO Q6HR PRN tab 09/17/24 [Rx] Ketoconazole 2% Shampoo [Nizoral] 1 applic TOPICAL DIRECTED 30 Days #1 ml 09/17/24 [Rx] Nicotine 14Mg/24Hr Patch [Habitrol] 1 patch TRANSDERM DAILY 14 Days #14 patch 09/17/24 [Rx] Nicotine Gum (Polacrilex) [Nicorette] 2 mg BUCCAL Q4HR PRN pieceofgum 09/17/24 [Rx] Pantoprazole [Protonix] 40 mg PO BID 30 Days #60 tab 09/17/24 [Rx] Tiotropium 2.5 Mcg/Puff [Spiriva Respimat 2.5 Mcg] 2 puff INHALATION RT-DAILY 30 Days #1 each 09/17/24 [Rx] Triamcinolone 0.1% Cream [Kenalog 0.1% Cream] 1 applicatio TOPICAL BID 30 Days #1 each 09/17/24 [Rx] Umeclidinium Brm/Vilanterol Tr [Anoro Ellipta 62.5-25 Mcg INH] 1 puff INHALATION RT-DAILY 30 Days #1 each 09/17/24 [Rx] carvediloL [Coreg] 6.25 mg PO BID 30 Days #60 tab 09/17/24 [Rx] glipiZIDE [Glucotrol] 2.5 mg PO AC-BRKFST 30 Days #30 tab 09/17/24 [Rx] hydrOXYzine HCL [Atarax] 25 mg PO DAILY PRN 30 Days #30 tab 09/17/24 [Rx] risperiDONE [Uzedy] 100 mg SQ QMONTHLY #1 each 09/17/24 [Rx] Follow up Appointment(s)/Referral(s): [facility] [Other] - 1 Week Patient Instructions/Handouts: How to Stop Smoking (DC), Depression (DC) Activity/Diet/Wound Care/Special Instructions: Avoid the use of street drugs and alcohol. Take all medications as prescribed. When you are in need of refills on your medications, please contact your medical provider and/or outpatient psychiatrist/provider to have this done. Please go to your scheduled outpatient appointment for aftercare treatment. If symptoms return or become worse, call the crisis line at and/or go to the nearest emergency room for evaluation. National Suicide Hotline [facility] [facility] confidentiality statement: "The information contained in this communication, including attachments, is confidential, may be privileged, and is intended only for the use of the named recipient(s). Unauthorized use, disclosure, forwarding or copying is strictly prohibited and may be unlawful. If you have received this communication in error, please notify me IMMEDIATELY at the phone number or pager listed above. Discharge Disposition: HOME SELF-CARE
== END 2024-09-17 12:28 | disposition home or self-care (01) | DRG 885 ==
LOC: EC 18:02 → 3MHU 23:23
PROVIDERS: ADMIT Psychiatry & Neurology Psychiatry; ATTEND Psychiatry & Neurology Psychiatry
DX: F25.1 Schizoaffective disorder, depressive type (principal); I27.20 Pulmonary hypertension, unspecified; J44.89 Other specified chronic obstructive pulmonary disease; E11.40 Type 2 diabetes mellitus with diabetic neuropathy, unspecified; F31.9 Bipolar disorder, unspecified; F12.10 Cannabis abuse, uncomplicated; I10 Essential (primary) hypertension; E03.9 Hypothyroidism, unspecified; F10.10 Alcohol abuse, uncomplicated; R45.851 Suicidal ideations; F14.10 Cocaine abuse, uncomplicated; F15.10 Other stimulant abuse, uncomplicated; E78.5 Hyperlipidemia, unspecified; F41.9 Anxiety disorder, unspecified; F17.210 Nicotine dependence, cigarettes, uncomplicated; N40.0 Benign prostatic hyperplasia without lower urinary tract symptoms; I25.2 Old myocardial infarction; Z11.52 Encounter for screening for COVID-19; Z91.51 Personal history of suicidal behavior; Z79.899 Other long term (current) drug therapy; Z79.890 Hormone replacement therapy; Z79.84 Long term (current) use of oral hypoglycemic drugs; Z79.82 Long term (current) use of aspirin; Z55.5 Less than a high school diploma; Z91.148 Patient's other noncompliance with medication regimen for other reason; Z88.8 Allergy status to other drugs, medicaments and biological substances; Z88.5 Allergy status to narcotic agent; Z86.14 Personal history of Methicillin resistant Staphylococcus aureus infection; Z98.84 Bariatric surgery status
CPT/HCPCS: 80053; 80061; 80306; 81001; 82075; 82248; 84443; 85025; 87635; 99285

== ENCOUNTER 2024-12-16 05:54 | Day surgery (SDC) | payer MEDICARE, OTHER ==
[2024-12-11 10:34] VITALS: BMI 27.3
[~2024-12-16 05:54] MED LIST: Pre Op ABX Message 1 EACH MISC MISCELLANE ONE
[2024-12-16] MEDS ORDERED: HYDROmorphone 0.5 MG/0.5 ML SYRINGE IVP PRN (06:08)
[2024-12-16] MEDS: IV FLUID CONTINUATION 1,000 ML IV ONE (06:39)
[2024-12-16 07:04] LABS: Glucose,Whole Blood 86 mg/dL (70-110)
[2024-12-16] MEDS: ONDANSETRON 4 MG/2 ML VIAL IVP ONE (07:18)
[2024-12-16] MEDS: HEPARIN SODIUM,PORCINE 5,000 UNIT/ML 1 ML VIAL SQ PRN (07:18)
[2024-12-16] MEDS: ACETAMINOPHEN TAB 500 MG TAB PO PRN (07:18)
[2024-12-16] MEDS: DEXAMETHASONE SOD PHOSPHATE 4 MG/ML 1 ML VIAL IV ONE (07:18)
[2024-12-16] MEDS: LACTATED RINGERS 1,000 ML IV SCH (07:18)
[2024-12-16] MEDS ORDERED: MIDAZOLAM 2 MG/2 ML VIAL ONE (07:30)
[2024-12-16] MEDS ORDERED: PROPOFOL 10 MG/ML 20 ML VIAL IV ONE (07:30)
[2024-12-16] MEDS ORDERED: fentaNYL (PF) 50 MCG/ML 2 ML AMP ONE (07:30)
[2024-12-16] MEDS ORDERED: LIDOCAINE 1% INJ 10MG/ML (20 ML MDV) ONE (07:30)
[2024-12-16] MEDS ORDERED: KETOROLAC 15 MG/ML 1 ML VIAL ONE (07:30)
--- NOTE | 2024-12-16 07:43 | P.GSHP ---
History of Present Illness H&P Date: 12/16/24 Chief Complaint: Multiple arm lipomas Is a 49-year-old male who has multiple arm lipomas. Patient is lipomas of the right and left arm. The lipomas measure up to 5 cm diameter. Patient presents today for excision. Past Medical History Past Medical History: Asthma, COPD, Diabetes Mellitus, Hyperlipidemia, Hypertension, Myocardial Infarction (HI), Thyroid Disorder Additional Past Medical History / Comment(s): lipomas lory arms,pt states "signs own consents and manages his medications himself", Hx scabies, fell out window that was 4 stories high 2020. Last Myocardial Infarction Date:: unk History of Any Multi-Drug Resistant Organisms: MRSA Date of last positivie culture/infection: sputum MDRO Source:: 2021 Past Surgical History: Adenoidectomy Additional Past Surgical History / Comment(s): L lobectomy, splenectomy Past Anesthesia/Blood Transfusion Reactions: No Reported Reaction Additional Past Anesthesia/Blood Transfusion Reaction / Comment(s): no hx blood transfusion Smoking Status: Current every day smoker, Vaper - Past Family History Father History Unknown: Yes Family Medical History: Unable to Obtain Mother History Unknown: Yes Family Medical History: Diabetes Mellitus Medications and Allergies Home Medications Medication Instructions Recorded Confirmed Type Levothyroxine Sodium [Synthroid] 100 mcg PO QAM 10/28/23 12/16/24 History Albuterol Nebulized [Ventolin 2.5 mg INHALATION RT-Q4H PRN 02/13/24 12/16/24 History Nebulized] Buprenorphine-Nalox 8-2 mg Tab 1 tab SUBLINGUAL Q8H 09/10/24 12/16/24 History [Suboxone 8-2 mg Tab] Multivitamins, Thera [Multivitamin 1 tab PO DAILY 09/10/24 12/11/24 History (formulary)] methocarbamoL [Robaxin] 500 mg PO BID PRN 09/10/24 12/16/24 History Gabapentin 600 mg PO TID 30 Days #90 tab 09/17/24 12/16/24 Rx Ketoconazole 2% Shampoo [Nizoral] 1 applic TOPICAL DIRECTED 30 09/17/24 12/16/24 Rx Days #1 ml Pantoprazole [Protonix] 40 mg PO BID 30 Days #60 tab 09/17/24 12/16/24 Rx carvediloL [Coreg] 6.25 mg PO BID 30 Days #60 tab 09/17/24 12/16/24 Rx glipiZIDE [Glucotrol] 2.5 mg PO AC-BRKFST 30 Days #30 tab 09/17/24 12/16/24 Rx hydrOXYzine HCL [Atarax] 25 mg PO DAILY PRN 30 Days #30 tab 09/17/24 12/16/24 Rx Albuterol Inhaler [Ventolin Hfa 1 - 2 puff INHALATION Q6H PRN 12/11/24 12/16/24 History Inhaler] DULoxetine HCL [Cymbalta] 60 mg PO QAM 12/11/24 12/16/24 History Tamsulosin HCl [Flomax] 0.4 mg PO HS 12/11/24 12/16/24 History Tiotropium 2.5 Mcg/Puff [Spiriva 2 puff INHALATION RT-DAILY PRN 12/11/24 12/16/24 History Respimat 2.5 Mcg] "Monthly Shot @ [facility]" 1 dose IM DIRECTED 12/12/24 12/12/24 History Allergies Allergy/AdvReac Type Severity Reaction Status Date / Time haloperidol [From Haldol] AdvReac Lockjaw Verified 12/11/24 10:11 trazodone AdvReac Dry mouth, Verified 12/11/24 10:11 Nightmares Surgical - Exam Vital Signs Temp Pulse Resp BP Pulse Ox 97.6 F 50 L 16 109/71 96 12/16/24 06:52 12/16/24 06:52 12/16/24 06:52 12/16/24 06:52 12/16/24 06:52 - General well developed, well nourished, no distress - Eyes PERRL - ENT normal pinna - Neck no masses - Respiratory normal expansion - Cardiovascular Rhythm: regular - Abdomen Abdomen: soft, non tender - Integumentary Multiple arm lipomas. There are 4 lipomas on the right arm measuring 3 to 5 cm diameter each. X there is o 2 lipomas on the left arm measuring approximately 5 cm diameter. Assessment and Plan Assessment: Multiple arm lipomas. Will perform excision.
[2024-12-16] MEDS: LIDOCAINE 1%-EPI 1:100,000 20 ML VIAL SQ ONE ×4 (08:01→08:02)
[2024-12-16 08:44] VITALS: TEMP 97
--- NOTE | 2024-12-16 08:45 | P.OP ---
Date of Procedure: 12/16/24 Preoperative Diagnosis: Multiple arm lipomas of right and left arms Postoperative Diagnosis: Same Procedure(s) Performed: Excision of left arm lipomas x 4 Excision of right arm lipomas x 5 Anesthesia: STEPHEN Surgeon: Johnnie Nicole Estimated Blood Loss (ml): 5 Pathology: other (Arm lipomas) Condition: stable Disposition: PACU Description of Procedure: Patient was placed in the upper table in the supine position. He received general anesthesia. His arms were prepped and draped you sterile fashion. Patient multiple arm lipomas on the right and left arms. Each lipoma area was anesthetized 1% local Xylocaine. The skin was incised over each lipoma. Then using blunt sharp/electrocautery the lipoma was dissected free. The skin was closed with 3-0 Monocryl suture. The lipomas were dissected in identical fashion. The lipomas measured as follow: Right 3.3 x 2.6 3.8 x 3.5 7.9 x 6 cm 3.1 x 2.3 1.9 x 1.5 Left 5 x 3.5 4 x 8.4 2.5 x 2 2.5 x 2 Sterile dressing applied. Patient's arms were then wrapped in Jg wrap. Patient was sent to recovery in stable condition.
[2024-12-16 08:49] VITALS: RESP 16
[2024-12-16 09:38] VITALS: BP 137/86; PULSE 45
== END 2024-12-16 09:56 | disposition home or self-care (01) ==
LOC: OR 05:54
PROVIDERS: ATTEND Surgery
DX: D17.21 Benign lipomatous neoplasm of skin and subcutaneous tissue of right arm (principal); D17.22 Benign lipomatous neoplasm of skin and subcutaneous tissue of left arm; J44.9 Chronic obstructive pulmonary disease, unspecified; E78.5 Hyperlipidemia, unspecified; E11.9 Type 2 diabetes mellitus without complications; I10 Essential (primary) hypertension; I25.2 Old myocardial infarction; E07.9 Disorder of thyroid, unspecified; I25.10 Atherosclerotic heart disease of native coronary artery without angina pectoris; K21.9 Gastro-esophageal reflux disease without esophagitis; F20.9 Schizophrenia, unspecified; F32.A Depression, unspecified; F17.290 Nicotine dependence, other tobacco product, uncomplicated; Z79.899 Other long term (current) drug therapy; Z79.84 Long term (current) use of oral hypoglycemic drugs; Z79.890 Hormone replacement therapy; Z88.8 Allergy status to other drugs, medicaments and biological substances; Z98.84 Bariatric surgery status; Z90.89 Acquired absence of other organs
CPT/HCPCS: 88304; 24075 ×3; 24071 ×4; J2250; J1644; J1100; J2405; J2003; J3010; J1885; J2704